=== PATIENT | male | born 1955 | race Caucasian/White ===

== ENCOUNTER → 2020-06-27 06:59 | Outpatient (CLI) | payer OTHER, SELFPAY ==
--- NOTE | 2020-06-27 07:23 | MRI_ITS ---
STUDY: MRI LEFT WRIST WITHOUT CONTRAST REASON FOR EXAM: Male, 64 years old. navicular fx left wrist, contusion, pain s/p fall 9 days ago TECHNIQUE: Standardized fat and water weighted pulse sequences were obtained in all 3 orthogonal planes. COMPARISON: None. FINDINGS: Normal visualized distal radius and ulna. There is a joint effusion of the distal radioulnar articulation with capsular distension. Normal triangular fibrocartilaginous complex (TFCC). Acute nondisplaced fracture through the waist of the scaphoid bone. Normal radiocarpal, intercarpal and midcarpal articulations. Normal pisotriquetral articulation. Normal visualized interosseous scapholunate ligament. Normal visualized dorsal (extrinsic) ligaments. Normal visualized volar (extrinsic) ligaments. Normal extensor tendons. Normal flexor tendons. Normal carpal tunnel with a normal median nerve. There is degenerative arthrosis of the carpometacarpal articulation of the thumb with mild radial subluxation of the first metacarpus. Normal second through fifth carpometacarpal articulations. Normal visualized metacarpal bones. There is no demonstrated soft tissue abnormality. MRI/Upper Ext Joint Only(Routine) IMPRESSION: 1. Acute nondisplaced fracture of the waist of the scaphoid bone. 2. Distal radial ulnar joint effusion but intact TFCC. 3. Moderate first carpometacarpal joint arthrosis. Electronically Signed: Gómez Valente MD at 9:18 EDT Tel , Service support ,
== END ==
PROVIDERS: PCP Family Medicine; Referring Provider Emergency Medicine; Visit Provider Emergency Medicine
DX: S62.022A Displaced fracture of middle third of navicular [scaphoid] bone of left wrist, initial encounter for closed fracture (principal); S62.021A Displaced fracture of middle third of navicular [scaphoid] bone of right wrist, initial encounter for closed fracture; X58.XXXA Exposure to other specified factors, initial encounter; Y93.9 Activity, unspecified; Y92.9 Unspecified place or not applicable; Y99.9 Unspecified external cause status
CPT/HCPCS: 73221

== ENCOUNTER → 2021-06-26 | Outpatient (CLI) | payer MEDICARE, SELFPAY ==
[2021-06-26 13:33] LABS: D-Dimer Quantitative (DVT/PE) 0.65 FEU/ug/m (0.27-0.49)
== END | disposition home or self-care (01) ==
PROVIDERS: PCP Family Medicine; Visit Provider Family Medicine
DX: R06.02 Shortness of breath (principal)
CPT/HCPCS: 85379

== ENCOUNTER 2021-06-27 16:25 | Emergency (ER) | payer MEDICARE, BC, SELFPAY ==
[2021-06-27 16:26] VITALS: BP 145/71; PULSE 48; RESP 18; TEMP 36.9; O2SAT 98; BMI 31.6
[2021-06-27 16:37] VITALS: O2SAT 98
--- NOTE | 2021-06-27 16:38 | EKG12_ITS ---
Test Reason : SOB Blood Pressure : / mmHG Vent. Rate : 087 BPM Atrial Rate : 087 BPM P-R Int : 148 ms QRS Dur : 098 ms QT Int : 430 ms P-R-T Axes : 058 -55 045 degrees QTc Int : 517 ms Sinus rhythm with frequent Premature ventricular complexes in a pattern of bigeminy Left axis deviation Inferior infarct , age undetermined Prolonged QT Abnormal ECG Confirmed by DEBO VARGAS, EBENEZER ([id number]), newspaper managing editor HOA MAN ([id number]) on 06/30/2021 1:37:51 PM Referred By: PL Confirmed By:KASIA EDMONDSON MD
[2021-06-27 17:26] VITALS: BP 122/61; PULSE 84; RESP 17; O2SAT 99
[2021-06-27] MEDS: Ipratropium/Albuterol Sulfate 3 ML AMPUL.NEB INHALATION (17:45)
[2021-06-27 17:46] VITALS: PULSE 88; RESP 17
--- NOTE | 2021-06-27 17:57 | ED.VIS.DYS ---
HPI History of Present Illness Chief Complaint: Shortness of Breath Informant: patient Narrative Narrative: Patient complains that when he falls asleep he instantly wakes up because he stops breathing. He has a sensation in his sternal notch that he is not able to describe. It is not pain or pressure. But it is a sensation is different than normal. He denies being short of breath or coughing when he is awake. He is afraid to go to sleep because he stops breathing. It sounds like he is going to be worked up for sleep apnea. He has seen his private physician over at [facility] locally for this. He states that he just had a CAT scan of his chest with contrast that showed no blood clot. However, there was suspicion of a pneumonia toward the left base. He also evidently had an echocardiogram that is reportedly normal. I am not able to access the results of these tests that were just done within the last 24 hours. He has follow-up with cardiology. He also has follow-up sleep studies. He did just start 2 medicines today. 1 is an antibiotic but he is not sure what the other one is. Going to sleep brings on his symptoms. Nothing specifically makes them go away other than staying awake. [facility] Medical History Diabetes Hypertension Home Medications Budesonide Nasal [Rhinocort Aqua] 2 spray NASAL DAILY #1 bottle 02/15/15 [Rx Last Taken Unknown] Levocetirizine Dihydrochloride [Xyzal] 5 mg PO QHS #20 tablet 02/15/15 [Rx Last Taken Unknown] Ranitidine [Zantac] 150 mg PO DAILY 02/15/15 [History Last Taken Unknown] allopurinol 300 mg PO BIDCM 02/15/15 [History Last Taken Unknown] colchicine 0.6 mg PO X1 02/15/15 [History Last Taken Unknown] indomethacin [Indocin] 02/15/15 [History Last Taken Unknown] meloxicam 15 mg PO DAILY 02/15/15 [History Last Taken Unknown] metformin 500 mg PO DAILY 02/15/15 [History Last Taken Unknown] methylprednisolone 4 mg PO UD #1 box 02/15/15 [Rx Last Taken Unknown] potassium chloride 10 meq PO DAILY 02/15/15 [History Last Taken Unknown] triamterene-hydrochlorothiazid 1 tab PO DAILY 02/15/15 [History Last Taken Unknown] amlodipine 06/27/21 [History Last Taken Unknown] aspirin 81 mg PO DAILY 06/27/21 [History Last Taken Unknown] Allergy/AdvReac Type Severity Reaction Status Date / Time No Known Allergies Allergy Verified 06/27/21 16:28 Social History Smoking Status: Former smoker ROS ROS ED Constitutional Constitutional ED: Denies chills or fever(s) Eyes Eyes: Denies change in vision ENT ENT ED: Reports other Details: Feeling in his sternal notch area that he is not able to define or describe. ; Denies rhinorrhea or sore throat Cardiovascular Cardiovascular: Reports other Details: Despite slightly irregular rhythm on the monitor, he has no palpitations. ; Denies chest pain, palpitations or racing heartbeat Respiratory/Chest Respiratory/Chest: Reports other Details: See HPI ; Denies cough, dyspnea or sputum Gastrointestinal Gastrointestinal: Denies abdominal pain, nausea or vomiting Genitourinary Genitourinary ED: Denies dysuria Musculoskeletal Musculoskeletal: Denies arthralgias, back pain or neck pain Integumentary Denies rash Neurologic Neurologic: Denies headache(s), paresthesias or weakness Psychiatric Psychiatric: Denies depression Hematologic/Lymphatic Hematologic/Lymphatic: Denies easy bleeding or easy bruising Allergic/Immunologic Allergic/Immunologic ED: Denies urticaria EXAM Physical Exam Const Vital Signs: 06/27/21 16:26 06/27/21 16:37 06/27/21 17:26 Temperature 98.4 F Temperature Source Temporal Pulse Rate 48 L 84 Respiratory Rate 18 17 Respiratory Effort Short of Breath Respiratory Pattern Blood Pressure 145/71 H 122/61 H Blood Pressure Mean 95 81 Pulse Ox 98 99 Oxygen Delivery Method Room Air Room Air Room Air 06/27/21 17:46 06/27/21 18:00 06/27/21 19:00 Temperature Temperature Source Pulse Rate 88 79 84 Respiratory Rate 17 15 15 Respiratory Effort Respiratory Pattern Normal Blood Pressure 115/67 131/71 H Blood Pressure Mean 83 91 Pulse Ox 97 97 Oxygen Delivery Method Room Air Room Air Positive well nourished and well developed General Appearance ED: well developed and NAD HEENT atraumatic; Negative for trauma Eyes Negative for EOMs intact bilaterally Neck No no lymphadenopathy and No no JVD Resp normal respiratory effort and clear to auscultation bilaterally Effort and Inspection: Negative for pain with movement Auscultation: Negative for rales, rhonchi, wheezes or diminished lung sounds Cardio regular rate; Negative for regular rhythm GI non-tender Palpation: soft Back/Spine no CVA tenderness and normal to inspection Extremity normal to inspection General Extremety ED: Negative for edema or tenderness General Extremity: Negative for edema Neuro oriented x3 Sensorium / Orientation: alert Psych mental status grossly normal Skin Lesions: no lesions Rashes: no rashes MDM MDM MDM Narrative Medical decision making narrative: Patient was given a DuoNeb. Viewed the chart that I had available. He did have an elevated D-dimer yesterday. I am not able to obtain his CT or cardiac echo. I have looked on our primary system and radiology system. We have made multiple calls to [facility] trying to obtain this information. Each time we call, we get placed into a loop and cannot get to a source that we can get this information. Patient left pending us obtaining this information or doing a repeat evaluation. EKG Initial EKG: Comments: EKG shows us bigeminy. Underlying sinus rhythm. Overall rate is 87. Nonspecific ST and T wave changes. DC interval, QRS duration normal. QTc does appear to be slightly long but this is somewhat altered by his rhythm. Discharge Plan Triage Chief Complaint: Shortness of Breath ED Provider: Mxa Capps Dx/Rx/DC Orders Clinical Impression: Sleep apnea, Dyspnea, Community acquired pneumonia Prescriptions: No Action triamterene-hydrochlorothiazid 1 EACH capsule 1 tab PO DAILY RF: 0 indomethacin [Indocin] 50 MG Supp.Rect RF: 0 meloxicam 15 MG tablet 15 mg PO DAILY RF: 0 allopurinol 300 MG tablet 300 mg PO BIDCM RF: 0 metformin 500 MG tablet 500 mg PO DAILY RF: 0 potassium chloride 10 MEQ tablet 10 meq PO DAILY RF: 0 colchicine 0.6 MG tablet 0.6 mg PO X1 RF: 0 Ranitidine [Zantac] 150 MG tablet 150 mg PO DAILY RF: 0 Levocetirizine Dihydrochloride [Xyzal] 5 MG tablet 5 mg PO QHS Qty: 20 RF: 0 Budesonide Nasal [Rhinocort Aqua] 8.6 GM bottle 2 spray NASAL DAILY Qty: 1 RF: 0 methylprednisolone 4 MG Box 4 mg PO UD Qty: 1 RF: 0 amlodipine 5 mg tablet RF: 0 aspirin 81 mg Capsule 81 mg PO DAILY RF: 0 Primary Care Provider: Oliver Malloy Referrals: Oliver Malloy MD [Primary Care Provider] - Disposition Disposition: Elopement Discharge Date/Time: 06/27/21 19:48
[2021-06-27 18:00] VITALS: BP 115/67; PULSE 79; RESP 15; O2SAT 97
[2021-06-27 19:00] VITALS: BP 131/71; PULSE 84; RESP 15; O2SAT 97
--- NOTE | 2021-06-27 19:46 | ED.RN ---
Pt stating he wanted to leave. MD notified. Pt left before MD went back to reevaluate.
== END 2021-06-27 19:48 | disposition left against medical advice (07) ==
LOC: ED 17:53
PROVIDERS: Emergency Provider Emergency Medicine; PCP Family Medicine
DX: J18.9 Pneumonia, unspecified organism (principal); G47.30 Sleep apnea, unspecified; I10 Essential (primary) hypertension; E11.9 Type 2 diabetes mellitus without complications; Z79.84 Long term (current) use of oral hypoglycemic drugs; Z79.82 Long term (current) use of aspirin; Z79.899 Other long term (current) drug therapy; Z87.891 Personal history of nicotine dependence
CPT/HCPCS: 93005; 94640; 99282

== ENCOUNTER → 2021-07-03 10:11 | Outpatient (CLI) | payer MEDICARE, BC, SELFPAY | PROVIDERS: PCP Family Medicine; Referring Provider Internal Medicine Cardiovascular Disease; Visit Provider Internal Medicine Cardiovascular Disease | DX: I49.49 Other premature depolarization (principal) | CPT/HCPCS: 87426; 93225; 93226; C9803 ==

== ENCOUNTER → 2021-07-08 06:44 | Day surgery (SDC) | payer MEDICARE, BC, SELFPAY ==
[2021-07-07 17:02] VITALS: BMI 30.9
--- NOTE | 2021-07-08 08:56 | CL.D_ITS ---
Patient Name: ROJELIO SURESH Study Date: 07/08/2021 Performing: Saul Bourgeois MD Ht: 70.86 inches 180 cm : 1955 Wt: 222.67 lbs 101 kg Age: 65 Gender: male BSA: 2.2 PROCEDURE(S) PERFORMED IN03-TCH/COR/LV CLINICAL PROFILE AND INDICATIONS Indications: Suspected CAD, Cardiomyopathy Heart Failure: NYHA Class: 2, Newly Diagnosed: Yes, Heart Failure Type: Systolic Stress/Imaging Stress/Image Study Performed: No CAD Presentations: Symptom unlikely to be ischemic. CONCLUSIONS Severe disease noted of the left anterior descending artery and high-grade stenosis noted of a calcif ied left circumflex artery with left ventricular systolic dysfunction. RECOMMENDATIONS Will recommend coronary bypass surgery or high risk PCI DESCRIPTION OF PROCEDURE The patient arrived to the procedure lab. The risks and benefits of the procedure as well as a full d escription of our services here and current unavailability of surgical backup were fully explained to the patient and/or their significant other prior to the catheterization. The Timeout was completed, verifying the correct patient and procedure. The patient's procedural site was prepped and draped in the usual fashion. Local anesthetic was given subcutaneously to right radial region with Lidocaine 2% . Using a modified Seldinger technique, arterial access was obtained via the right radial artery, a 6 Fr sheath was inserted. Left Coronary Artery selective angiography was performed in multiple views u sing a 5 Fr. 4.0 [place] catheter. Right Coronary Artery selective angiography was then performed in mu ltiple views using a 5 Fr. 4.0 [place] catheter. Left Ventriculography was performed in LOZANO projection using a 5 Fr. Pigtail catheter. LV to AO pullback pressures were then recorded.The arterial sheath was pulled and a TR Band was applied for hemostasis CORONARY ANGIOGRAPHY DOMINANCE: Left Dominant LEFT HEART ASSESSMENT Left Ventricular Ejection Fraction: by LV Gram 35 % Anterior Hypokinesis - Moderate Depressed Left Ventricular systolic function LEFT MAIN: Mild calcification, No significant disease noted LEFT ANTERIOR DESCENDING ARTERY: MID LAD: is occluded DISTAL LAD: Distal LAD fills via collaterals from the left circumflex distribution CIRCUMFLEX ARTERY: Large dominant calcifiedVessel with bifurcating 80% stenosis in the midsegment RIGHT CORONARY ARTERY: Mild luminal irregularities less than 30% COMPLICATIONS No Complications PROCEDURE MEDICATIONS Versed 1 mg IV Fentanyl 50 mcg IV Oxygen: 2 L/min via nasal cannula Heparin given IA 07/08/2021 08:07:33 SUMMARY OF HEMODYNAMIC DATA Time AIR REST ECG 07:04:12 AO 111/59 (85) SA 08:10:38 LV 116/9, 25 08:19:15 LV 120/10, 24 08:19:21 LV 114/12, 24 08:20:24 LVp 110/18, 28 08:20:35 AOp 123/68 (91) 08:20:40 RM AIR REST 08:44:25 Signed By Saul Bourgeois MD On 07/08/2021 8:57:15 AM Signed By Saul Bourgeois MD On 07/08/2021 8:55:40 AM Saul Bourgeois MD
== END ==
PROVIDERS: PCP Family Medicine; Referring Provider Internal Medicine Cardiovascular Disease; Visit Provider Internal Medicine Cardiovascular Disease
DX: I25.10 Atherosclerotic heart disease of native coronary artery without angina pectoris (principal); I42.9 Cardiomyopathy, unspecified; I11.0 Hypertensive heart disease with heart failure; I50.9 Heart failure, unspecified; I49.49 Other premature depolarization; M10.9 Gout, unspecified; E11.9 Type 2 diabetes mellitus without complications; M19.90 Unspecified osteoarthritis, unspecified site; Z87.01 Personal history of pneumonia (recurrent); Z79.84 Long term (current) use of oral hypoglycemic drugs; Z79.899 Other long term (current) drug therapy; Z87.891 Personal history of nicotine dependence
CPT/HCPCS: 93458; 99152; 99153; J7040; Q9967; C1769; C1894

== ENCOUNTER 2021-07-09 23:29 | Emergency (ER) | payer MEDICARE, BC, SELFPAY ==
[2021-07-09 23:30] VITALS: BP 112/61; PULSE 82; RESP 16; TEMP 36.6; O2SAT 93; BMI 31.4
--- NOTE | 2021-07-09 23:53 | EKG12_ITS ---
Test Reason : DYSRHYTHMIA Blood Pressure : / mmHG Vent. Rate : 078 BPM Atrial Rate : 078 BPM P-R Int : 166 ms QRS Dur : 104 ms QT Int : 406 ms P-R-T Axes : 043 -58 -06 degrees QTc Int : 462 ms Sinus rhythm with frequent Premature ventricular complexes Left axis deviation Inferior infarct , age undetermined Abnormal ECG Confirmed by DEBO VARGAS, EBENEZER ([id number]), metropolitan editor HOA MAN ([id number]) on 07/10/2021 1:01:54 PM Referred By: JOSAFAT Confirmed By:KASIA EDMONDSON MD
[2021-07-09 23:58] VITALS: O2SAT 98
[2021-07-10 00:01] VITALS: BP 126/61; PULSE 90; RESP 15; O2SAT 97
[2021-07-10 00:05] LABS: Absolute Lymphocyte Count 2.02 X10^3/uL (0.83-4.51); Absolute Neutrophil Count 2.3 X10^3/uL (2.0-7.7); Basophil# 0.04 X10^3/uL; Basophil% 0.8 % (0-1); Eosinophil# 0.17 X10^3/uL; Eosinophils% 3.3 % (0-5); Hematocrit 37.3 % (40-54); Hemoglobin 13.3 g/dL (13.0-16.5); Lymphocyte # 2.02 X10^3/ul (0.83-4.51); Lymphocyte % 39.3 % (19-41); Mean Corp Hgb Conc 35.7 g/dL (32-36); Mean Corpuscular Hgb 33.8 pg (27.0-32.0); Mean Corpuscular Volume 94.7 fL (80-94); Mean Platelet Vol. 10.6 fl (6.2-12.0); Monocyte# 0.59 X10^3/uL; Monocyte% 11.5 % (0-10); NRBC Flagged by Analyzer 0 % (0-5); Neutrophil % 44.7 % (47-70); Platelet Count 135 K/mm3 (150-450); RBC Distribution Width CV 13.2 % (11.6-14.6); RBC Distribution Width SD 46.1 fl (35.1-43.9); Red Blood Count 3.94 M/mm3 (4.6-6.2); White Blood Count 5.1 K/mm3 (4.4-11.0)
[2021-07-10 00:17] LABS: Anion Gap 9 (5-15); BUN 16 mg/dL (7-18); BUN/Creat Ratio 18.3 RATIO (10-20); Calcium,Total 8.6 mg/dL (8.5-10.1); Chloride 100 mmol/L (98-107); Creatinine, Serum 0.88 mg/dL (0.70-1.30); EST Glomerular Filtration Rate 93 mL/min (>60); Est Glom Filt Rate - Afr Amer 112 mL/min (>60); Estimated Creatinine Clearance 89.13 ml/min; Glucose 122 mg/dL (74-106); Potassium 3.3 mmol/L (3.5-5.1); Sodium Level 137 mmol/L (136-145); Troponin-I HS 17 pg/mL (3.0-78.0)
--- NOTE | 2021-07-10 01:24 | EX.ED.DYSGE1 ---
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 Tonight at home he started quivering all over he states. He is unsure if he felt palpitations during this, but states he did not feel lightheaded, near syncopal, or pass out. He has had no recent illness except for dyspnea especially when lying down and sometimes waking up in the middle of the night, which is what led to the heart cath. He had a heart monitor that showed ventricular tachycardia at 1 point, and as result of this and his coronary disease he was told that if he has any abnormal symptoms to go to the ER immediately. He states he is starting to feel little better now, his symptoms started about an hour or 2 prior to arrival. He did have the symptoms when EMS obtained an EKG which did not show V. tach. 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 Community acquired pneumonia (06/27/21) Esophagitis Essential hypertension Gout HFrEF (heart failure with reduced ejection fraction) Ischemic cardiomyopathy Multiple premature ventricular complexes Tobacco abuse Type 2 diabetes mellitus Home Medications allopurinol 300 mg PO BIDCM 02/15/15 [History Last Taken Unknown] meloxicam 15 mg PO DAILY 02/15/15 [History Last Taken Unknown] aspirin 81 mg PO DAILY 06/27/21 [History Last Taken 07/08/21] fluticasone propionate 50 mcg/actuation nasal spray,suspension 1 spray INTRANASAL DAILY g 07/02/21 [History Last Taken Unknown] omeprazole 40 mg capsule,delayed release 40 mg PO DAILY 07/02/21 [History Last Taken Unknown] probenecid 500 mg-colchicine 0.5 mg tablet 1 tab PO DAILY tab 07/02/21 [History Last Taken Unknown] doxycycline monohydrate 100 mg tablet 100 mg PO BID tab 07/03/21 [History Last Taken Unknown] furosemide 40 mg tablet 40 mg PO DAILY #60 tab 07/03/21 [Rx Last Taken Unknown] metformin 500 mg tablet,extended release 24 hr 500 mg PO BID tab 07/03/21 [History Last Taken Unknown] potassium chloride 20 mEq tablet,extended release(part/cryst) 20 meq PO DAILY #60 tab 07/03/21 [Rx Last Taken 07/08/21] amlodipine 5 mg tablet 5 mg PO DAILY tab 07/07/21 [History Last Taken 07/08/21] carvedilol 12.5 mg tablet 12.5 mg PO BID #60 tab 07/07/21 [Rx Last Taken 07/08/21] Allergy/AdvReac Type Severity Reaction Status Date / Time No Known Allergies Allergy Verified 07/09/21 23:35 Surgical History Abnormal findings on esophagogastroduodenoscopy (EGD) (04/2021) History of colonoscopy (04/2021) History of herniorrhaphy History of left heart catheterization (07/08/21) Social History Smoking Status: Former smoker alcohol intake: current Alcohol type: beer ROS ROS ED Constitutional Constitutional ED: Reports as per HPI and malaise; Denies chills or fever(s) Eyes Eyes: Denies change in vision or diplopia ENT ENT ED: Denies rhinorrhea or sore throat Cardiovascular Cardiovascular: Denies chest pain or palpitations Respiratory/Chest Respiratory/Chest: Denies cough or dyspnea Gastrointestinal Gastrointestinal: Denies abdominal pain, diarrhea, nausea or vomiting Genitourinary Genitourinary ED: Denies dysuria or hematuria Musculoskeletal Musculoskeletal: Denies back pain or neck pain Integumentary Denies abscess or rash Neurologic Neurologic: Denies headache(s), paresthesias or weakness Psychiatric Psychiatric: Reports anxiety; Denies suicidal thoughts EXAM Physical Exam Const Vital Signs: 07/09/21 23:30 07/09/21 23:57 07/09/21 23:58 Temperature 97.9 F Temperature Source Oral Pulse Rate 82 Respiratory Rate 16 Blood Pressure 112/61 Blood Pressure Mean 78 Pulse Ox 93 98 Oxygen Delivery Method Room Air Room Air Room Air 07/10/21 00:07/10/21 02:01 Temperature Temperature Source Pulse Rate 90 90 Respiratory Rate 15 15 Blood Pressure 126/61 H 140/65 H Blood Pressure Mean 82 90 Pulse Ox 97 97 Oxygen Delivery Method Room Air Room Air Positive well nourished and well developed General Appearance ED: well developed and NAD HEENT Reports moist mucous membranes normocephalic and atraumatic Eyes PERRL and EOMs intact bilaterally Neck full ROM and supple Resp normal respiratory effort and clear to auscultation bilaterally Cardio regular rate, regular rhythm and no murmurs Rate: Negative for tachycardic GI non-tender and non-distended Auscultation: normoactive bowel sounds Palpation: soft Back/Spine no CVA tenderness General Back: other FROM Extremity normal to inspection General Extremety ED: Negative for edema, pulses abnormal or tenderness General Extremity: Negative for edema or pulses abnormal Neuro oriented x3, CN's II-XII intact bilaterally and no sensory deficits noted Sensorium / Orientation: awake and alert Motor Exam: strength 5/5 throughout Psych thought process normal and cooperative Psych Narrative: Anxious Skin no rashes or lesions noted and no wounds MDM MDM MDM Narrative Medical decision making narrative: Patient was monitored, his symptoms slowly resolved without treatment. His initial troponin is negative at 17, he has frequent ectopy but no dysrhythmias or acute injury pattern or changes from his old EKG. Continue to observe him and did a 2-hour repeat troponin, it is also 17 for a delta of 0. Given this, and the fact that he had no lightheadedness or syncopal episodes at home, I feel more comfortable letting him go home which is what he prefers to do. Welcome to return for any recurrent symptoms. Lab Data Attestation: I reviewed the patient's lab results. Labs: Laboratory Results - last 24 hr 07/09/21 07/09/21 07/10/21 23:35 23:35 01:35 WBC 5.1 RBC 3.94 L Hgb 13.3 Hct 37.3 L MCV 94.7 H MCH 33.8 H MCHC 35.7 RDW Std Deviation 46.1 H RDW Coeff of Mirlande 13.2 Plt Count 135 L MPV 10.6 Immature Gran % (Auto) 0.400 Neut % (Auto) 44.7 L Lymph % (Auto) 39.3 [place] % (Auto) 11.5 H Eos % (Auto) 3.3 Baso % (Auto) 0.8 Absolute Neuts (auto) 2.3 Absolute Lymphs (auto) 2.02 Nucleated RBC % 0 Sodium 137 Potassium 3.3 L Chloride 100 Carbon Dioxide 28.0 Anion Gap 9 BUN 16 Creatinine 0.88 Estim Creat Clear Calc 89.13 Est GFR (MDRD) Af Amer 112 Est GFR (MDRD) Non-Af 93 BUN/Creatinine Ratio 18.3 Glucose 122 H Calcium 8.6 Troponin I High Sens 17 17 EKG Initial EKG: Attestation: I personally reviewed and interpreted this EKG as follows: Interpretation: Sinus Rhythm and No Acute Injury Pattern Comments: Frequent vent ectopy Prior EKG tracings: available for review Prior: Unchanged Discharge Plan Triage Chief Complaint: Anxiety ED Provider: Juanito Clemente Dx/Rx/DC Orders Clinical Impression: Anxiety attack, 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 Instructions: ED Anxiety Reaction Prescriptions: No Action omeprazole 40 mg capsule,delayed release(DR/EC) 40 mg PO DAILY RF: 0 probenecid-colchicine 500-0.5 mg tablet 1 tab PO DAILY RF: 0 fluticasone propionate 50 mcg/actuation spray,suspension 1 spray intranasal DAILY RF: 0 doxycycline monohydrate 100 mg tablet 100 mg PO BID RF: 0 potassium chloride 20 mEq tablet,ER particles/crystals 20 meq PO DAILY Qty: 60 RF: 3 furosemide 40 mg tablet 40 mg PO DAILY Qty: 60 RF: 3 meloxicam 15 MG tablet 15 mg PO DAILY RF: 0 allopurinol 300 MG tablet 300 mg PO BIDCM RF: 0 metformin 500 mg tablet extended release 24 hr 500 mg PO BID RF: 0 aspirin 81 mg Capsule 81 mg PO DAILY RF: 0 carvedilol [Coreg] 12.5 mg tablet 12.5 mg PO BID Qty: 60 RF: 11 amlodipine 5 mg tablet 5 mg PO DAILY RF: 0 Primary Care Provider: Oliver Malloy Referrals: Oliver Malloy MD [Primary Care Provider] - As Needed Disposition Disposition: Home, Self Care
[2021-07-10 02:01] VITALS: BP 140/65; PULSE 90; RESP 15; O2SAT 97
[2021-07-10 02:05] LABS: Troponin-I HS 17 pg/mL (3.0-78.0)
[2021-07-10 02:36] VITALS: BP 127/75; PULSE 90; RESP 15; O2SAT 99
== END 2021-07-10 02:37 | disposition home or self-care (01) ==
PROVIDERS: Emergency Provider Emergency Medicine; PCP Family Medicine
DX: F41.9 Anxiety disorder, unspecified (principal); I25.118 Atherosclerotic heart disease of native coronary artery with other forms of angina pectoris; I11.0 Hypertensive heart disease with heart failure; I50.9 Heart failure, unspecified; E11.9 Type 2 diabetes mellitus without complications; Z95.1 Presence of aortocoronary bypass graft; Z87.891 Personal history of nicotine dependence; Z79.84 Long term (current) use of oral hypoglycemic drugs; Z79.82 Long term (current) use of aspirin; Z79.899 Other long term (current) drug therapy
CPT/HCPCS: 36415; 80048; 84484; 85025; 93005; 99285; A4216

== ENCOUNTER 2021-08-21 20:52 | Emergency (ER) | payer MEDICARE, BC, SELFPAY ==
[2021-08-21 20:53] VITALS: BP 119/88; PULSE 123; RESP 36; TEMP 37.3; O2SAT 96; BMI 34.6
--- NOTE | 2021-08-21 21:17 | EKG12_ITS ---
Test Reason : CP Blood Pressure : / mmHG Vent. Rate : 130 BPM Atrial Rate : 133 BPM P-R Int : 000 ms QRS Dur : 096 ms QT Int : 328 ms P-R-T Axes : 000 -54 -10 degrees QTc Int : 482 ms Atrial fibrillation with premature ventricular or aberrantly conducted complexes Left axis deviation Septal infarct , age undetermined Abnormal ECG Confirmed by ZANE VARGAS, BHARTI ([id number]), social media editor HOA MAN ([id number]) on 08/26/2021 6:53:32 AM Referred By: JUDY Confirmed By:BHARTI DEGROOT MD
[2021-08-21 21:27] LABS: Absolute Lymphocyte Count 1.29 X10^3/uL (0.83-4.51); Absolute Neutrophil Count 5.1 X10^3/uL (2.0-7.7); Basophil# 0.03 X10^3/uL; Basophil% 0.4 % (0-1); Eosinophil# 0.18 X10^3/uL; Eosinophils% 2.5 % (0-5); Hematocrit 27.7 % (40-54); Hemoglobin 9.4 g/dL (13.0-16.5); Lymphocyte # 1.29 X10^3/ul (0.83-4.51); Lymphocyte % 17.8 % (19-41); Mean Corp Hgb Conc 33.9 g/dL (32-36); Mean Corpuscular Hgb 32.4 pg (27.0-32.0); Mean Corpuscular Volume 95.5 fL (80-94); Mean Platelet Vol. 10.4 fl (6.2-12.0); Monocyte# 0.62 X10^3/uL; Monocyte% 8.6 % (0-10); NRBC Flagged by Analyzer 0 % (0-5); Neutrophil # 5.08 X10^3/uL (2.7-7.7); Platelet Count 198 K/mm3 (150-450); RBC Distribution Width CV 14.1 % (11.6-14.6); White Blood Count 7.3 K/mm3 (4.4-11.0)
[2021-08-21 21:28] VITALS: O2SAT 94
--- NOTE | 2021-08-21 21:30 | RAD_ITS ---
STUDY: X-RAY CHEST REASON FOR EXAM: Male, 65 years old. Chest pain. Recent cardiac bypass surgery. Shortness of breath. Consent atrial fibrillation. TECHNIQUE: Single AP portable view of the chest. COMPARISON: None. FINDINGS: The lungs are well expanded. There is bandlike atelectasis in the right lung base small left pleural effusion. Sternal cerclage wires are present from a prior sternotomy. Heart is mildly enlarged. Normal mediastinum and radhika. Normal visualized pulmonary arteries. Normal visualized aortic arch and descending thoracic aorta. The thoracic spine is obscured by the mediastinum. Normal visualized ribs, clavicles, and shoulders. There is no demonstrated abnormality of the visualized soft tissue structures of the upper abdomen. RAD/Chest 1 View (Portable) IMPRESSION: 1. Mild cardiomegaly with evidence of median sternotomy. 2. Small left pleural effusion. 3. Bandlike atelectasis at the right lung base. Electronically Signed: Justin Corcoran DO at 22:17 EDT Tel [phone], Service support ,
[2021-08-21 21:42] LABS: D-Dimer Quantitative (DVT/PE) 2.43 FEU/ug/m (0.27-0.49)
[2021-08-21 21:43] LABS: Anion Gap 7 (5-15); BUN 18 mg/dL (7-18); BUN/Creat Ratio 20.5 RATIO (10-20); Calcium,Total 8.7 mg/dL (8.5-10.1); Chloride 103 mmol/L (98-107); Creatinine, Serum 0.88 mg/dL (0.70-1.30); EST Glomerular Filtration Rate 93 mL/min (>60); Est Glom Filt Rate - Afr Amer 112 mL/min (>60); Estimated Creatinine Clearance 89.13 ml/min; Glucose 148 mg/dL (74-106); Potassium 4.4 mmol/L (3.5-5.1); Sodium Level 135 mmol/L (136-145); Troponin-I HS 42 pg/mL (3.0-78.0)
--- NOTE | 2021-08-21 21:51 | CT_ITS ---
STUDY: CTA CHEST REASON FOR EXAM: Male, 65 years old. dyspnea RADIATION DOSAGE (If Supplied By Facility): CTDIvol = ( 18.58 ) mGy, DLP = ( 551.90 ) mGycm TECHNIQUE: The examination was performed with the intravenous administration of IV 100mL Isovue-370. Post-processing of the angiographic images was performed, with multiplanar reformation and 3D reconstruction. Individualized dose optimization techniques were used for this CT. COMPARISON: None. FINDINGS: Normal enhancement of the main pulmonary artery and right and left pulmonary arteries. Normal enhancement of the bilateral peripheral pulmonary arteries. There is no demonstrated pulmonary embolism. Normal thoracic aorta and visualized great vessels. There is no demonstrated aortic dissection. Moderate cardiomegaly. Mild pericardial effusion Normal mediastinum. Normal hilar regions. Normal visualized trachea and bronchi. The lungs are well expanded. Bibasilar airspace disease with small effusions. Linear atelectasis also noted in the lung bases. Normal pleura. Normal chest wall structures. Normal osseous structures. Normal visualized upper abdomen. CT/CTA Chest W/WO Contrast IMPRESSION: Normal CTA chest examination, without a demonstrated pulmonary embolism or arterial dissection. Moderate cardiomegaly with mild pericardial effusion. Bibasilar airspace disease with small effusions. Additional linear atelectasis in both lung bases. Electronically Signed: Henry Gallagher DO at 22:32 EDT Tel , Service support ,
--- NOTE | 2021-08-21 21:52 | ED.VIS.CHEST ---
HPI History of Present Illness Chief Complaint: Chest Pain Narrative Narrative: 65-year-old male presenting with chest pain and shortness of breath. Patient has a history of CAD, ischemic cardiomyopathy, CHF, hypertension, diabetes. Patient recently had three-vessel CABG 08-13-2021 at [facility]. Patient states that his shortness of breath and chest pain issue has been ongoing for a couple of months. The home health care nurse called them and stated that she had noted that he might be in atrial fibrillation which she has not had before. Apparently a prescription for metoprolol was called in and is taken 2 doses and his heart rate is still about 120. Patient states that he has not had a fever or cough that is new. He denies body aches or chills. He denies loss of taste or smell. He has not had any nausea or vomiting. He is making normal urine and stool. He denies black or bloody stools. [facility] Medical History Arthritis Atherosclerotic heart disease of [place] coronary artery with other forms of angina pectoris Community acquired pneumonia (06/27/21) Esophagitis Essential hypertension Gout HFrEF (heart failure with reduced ejection fraction) Ischemic cardiomyopathy Multiple premature ventricular complexes Thrombocytopenia Tobacco abuse Type 2 diabetes mellitus Home Medications allopurinol 300 mg PO BIDCM 02/15/15 [History Last Taken Unknown] meloxicam 15 mg PO DAILY 02/15/15 [History Last Taken Unknown] aspirin 81 mg PO DAILY 06/27/21 [History Last Taken 07/08/21] fluticasone propionate 50 mcg/actuation nasal spray,suspension 1 spray INTRANASAL DAILY g 07/02/21 [History Last Taken Unknown] omeprazole 40 mg capsule,delayed release 40 mg PO DAILY 07/02/21 [History Last Taken Unknown] probenecid 500 mg-colchicine 0.5 mg tablet 1 tab PO DAILY tab 07/02/21 [History Last Taken Unknown] doxycycline monohydrate 100 mg tablet 100 mg PO BID tab 07/03/21 [History Last Taken Unknown] furosemide 40 mg tablet 40 mg PO DAILY #60 tab 07/03/21 [Rx Last Taken Unknown] metformin 500 mg tablet,extended release 24 hr 500 mg PO BID tab 07/03/21 [History Last Taken Unknown] potassium chloride 20 mEq tablet,extended release(part/cryst) 20 meq PO DAILY #60 tab 07/03/21 [Rx Last Taken 07/08/21] amlodipine 5 mg tablet 5 mg PO DAILY tab 07/07/21 [History Last Taken 07/08/21] carvedilol 12.5 mg tablet 12.5 mg PO BID #60 tab 07/28/21 [Rx Last Taken Unknown] metoprolol tartrate 50 mg PO/SL BID 08/21/21 [History Last Taken Unknown] Allergy/AdvReac Type Severity Reaction Status Date / Time No Known Allergies Allergy Verified 08/21/21 21:05 Surgical History Abnormal findings on esophagogastroduodenoscopy (EGD) (04/2021) H/O coronary artery bypass surgery (08/13/21) History of colonoscopy (04/2021) History of herniorrhaphy History of left heart catheterization (07/08/21) Social History Smoking Status: Former smoker alcohol intake: current Alcohol type: beer ROS ROS ED Constitutional Constitutional ED: Denies chills or fever(s) Eyes Eyes: Denies blurry vision or change in vision ENT ENT ED: Denies rhinorrhea or sore throat Cardiovascular Cardiovascular: Reports chest pain and palpitations Respiratory/Chest Respiratory/Chest: Reports dyspnea Gastrointestinal Gastrointestinal: Denies abdominal pain, nausea or vomiting Genitourinary Genitourinary ED: Denies dysuria or hematuria Musculoskeletal Musculoskeletal: Denies arthralgias, myalgias or neck pain Integumentary Reports other Details: Surgical scars status post CABG ; Denies rash Neurologic Neurologic: Denies headache(s) or paresthesias EXAM Physical Exam Const Vital Signs: 08/21/21 20:53 08/21/21 21:06 08/21/21 21:28 Temperature 99.1 F Temperature Source Oral Pulse Rate 123 H Respiratory Rate 36 H Respiratory Effort Short of Breath Labored Blood Pressure 119/88 H Blood Pressure Mean 98 Pulse Ox 96 94 Oxygen Delivery Method Room Air Room Air 08/21/21 22:21 08/21/21 23:00 Temperature 99.1 F Temperature Source Axillary Pulse Rate 109 H 105 H Respiratory Rate 30 H 25 H Respiratory Effort Blood Pressure 119/86 H 122/76 H Blood Pressure Mean 97 91 Pulse Ox 93 93 Oxygen Delivery Method Room Air Room Air Positive well developed General Appearance ED: well developed and NAD HEENT Reports moist mucous membranes normocephalic and atraumatic Eyes PERRL and EOMs intact bilaterally Cardio Rate: tachycardic Rhythm: abnormal rhythm irregularly irregular Neuro oriented x3 and CN's II-XII intact bilaterally Sensorium / Orientation: awake and alert Psych mental status grossly normal Skin Skin Narrative: Surgical scar status post CABG on the chest appear to be well-healing. No induration or erythema.. No dehiscence. There is an abdominal surgical scar which is slightly dehisced without drainage, induration or erythema. Heart Score History: Slightly/Non-Suspicious ECG: Normal Age: >/= 65 years Risk Factors: >/= 3 Risk Factors or History of CAD Score: 4 MDM MDM MDM Narrative Medical decision making narrative: Patient presenting with chest pain and shortness of breath. He is found to be in atrial fibrillation at 130 bpm and reports this is new onset for him. Patient is not anticoagulated. Patient had a recent three-vessel bypass at [facility] on the sixth of this month. He states that he is near his baseline with shortness of breath and chest pain, but he expresses that he cannot take a deep breath as well as he could that he is not sure if this is because of the surgery order something new. It was reported to him that he was in A. fib at home by his health care nurse. Apparently he was called on metoprolol 50 mg p.o. twice daily. His reports that he had a event in the hospital but cannot describe what this is. She believes it is because of his rapid heart rate. He cannot recall the event. Patient's blood work shows that his white blood count is 7.3 and his hemoglobin is 9.4 which in our system appears to be low however when looking at [facility]'s most recent blood work prior to his discharge his hemoglobin is 8.6 at this is actually more elevated his renal function is normal. Troponin initially was 42 his second troponin is 40. Chest x-ray on my interpretation shows cardiomegaly with a small left pleural effusion and the radiologist agree. Due to patient's elevated D-dimer at 2.43 CTA was performed which shows small bilateral effusions and cardiomegaly with a small pericardial effusion however there is no dissection or PE that is noted. Patient is given carvedilol and his heart rate is down to 105. His respiratory rate has improved to 25. To the best of my ability this appears to be near his baseline. His oxygen is wavered to be 93 and 96% on room air. Given that he has new onset A. fib and new small pericardial effusion I did try to touch base with his change control specialist Dr. Wall to determine the best course of action for his care. All results were discussed with the patient. Discussed the case with Dr. Castle who is a cardiothoracic surgeon at [facility]. We discussed this at length. He felt the patient would best be served by keeping him on his beta-otilia and having him call the office in the morning. He felt he could get him into the office to determine whether he needs to be anticoagulated and get his heart rate under control. Patient is amenable to this plan. He is discharged in stable condition. He is given return precautions. Impression: 1. Bilateral pleural effusions 2. History of three-vessel CABG 3. Chest pain 5. New onset A. fib Lab Data Attestation: I reviewed the patient's lab results. Labs: Laboratory Results - last 24 hr 08/21/21 08/21/21 08/21/21 20:55 20:55 20:55 WBC 7.3 RBC 2.90 L Hgb 9.4 L Hct 27.7 L MCV 95.5 H MCH 32.4 H MCHC 33.9 RDW Std Deviation 49.0 H RDW Coeff of [place] 14.1 Plt Count 198 MPV 10.4 Immature Gran % (Auto) 0.700 Neut % (Auto) 70.0 Lymph % (Auto) 17.8 L [place] % (Auto) 8.6 Eos % (Auto) 2.5 Baso % (Auto) 0.4 Absolute Neuts (auto) 5.1 Absolute Lymphs (auto) 1.29 Nucleated RBC % 0 D-Dimer Quant (PE/DVT) 2.43 H* Sodium 135 L Potassium 4.4 Chloride 103 Carbon Dioxide 25.0 Anion Gap 7 BUN 18 Creatinine 0.88 Estim Creat Clear Calc 89.13 Est GFR (MDRD) Af Amer 112 Est GFR (MDRD) Non-Af 93 BUN/Creatinine Ratio 20.5 H Glucose 148 H Calcium 8.7 Troponin I High Sens 42 08/21/21 22:53 WBC RBC Hgb Hct MCV MCH MCHC RDW Std Deviation RDW Coeff of [place] Plt Count MPV Immature Gran % (Auto) Neut % (Auto) Lymph % (Auto) [place] % (Auto) Eos % (Auto) Baso % (Auto) Absolute Neuts (auto) Absolute Lymphs (auto) Nucleated RBC % D-Dimer Quant (PE/DVT) Sodium Potassium Chloride Carbon Dioxide Anion Gap BUN Creatinine Estim Creat Clear Calc Est GFR (MDRD) Af Amer Est GFR (MDRD) Non-Af BUN/Creatinine Ratio Glucose Calcium Troponin I High Sens 40 Radiography Diagnostic Testing: Clinical Impression(s) from Imaging Studies Chest X-Ray 08/21/21 21:30 IMPRESSION: 1. Mild cardiomegaly with evidence of median sternotomy. 2. Small left pleural effusion. 3. Bandlike atelectasis at the right lung base. Electronically Signed: Justin MainesburgDO at 22:17 EDT Tel [phone], Service support , Chest CTA 08/21/21 21:51 IMPRESSION: Normal CTA chest examination, without a demonstrated pulmonary embolism or arterial dissection. Moderate cardiomegaly with mild pericardial effusion. Bibasilar airspace disease with small effusions. Additional linear atelectasis in both lung bases. Electronically Signed: Henry Gallagher DO at 22:32 EDT Tel , Service support , Discharge Plan Triage Chief Complaint: Chest Pain ED Provider: Frederick Brown Dx/Rx/DC Orders Instructions: Understanding Pericardial Effusion, ED AFIB, ED Chest Pain, Uncertain Cause Prescriptions: No Action omeprazole 40 mg capsule,delayed release(DR/EC) 40 mg PO DAILY RF: 0 probenecid-colchicine 500-0.5 mg tablet 1 tab PO DAILY RF: 0 fluticasone propionate 50 mcg/actuation spray,suspension 1 spray intranasal DAILY RF: 0 doxycycline monohydrate 100 mg tablet 100 mg PO BID RF: 0 potassium chloride 20 mEq tablet,ER particles/crystals 20 meq PO DAILY Qty: 60 RF: 3 furosemide 40 mg tablet 40 mg PO DAILY Qty: 60 RF: 3 meloxicam 15 MG tablet 15 mg PO DAILY RF: 0 allopurinol 300 MG tablet 300 mg PO BIDCM RF: 0 metformin 500 mg tablet extended release 24 hr 500 mg PO BID RF: 0 aspirin 81 mg Capsule 81 mg PO DAILY RF: 0 metoprolol tartrate 50 mg PO/SL BID RF: 0 amlodipine 5 mg tablet 5 mg PO DAILY RF: 0 carvedilol [Coreg] 12.5 mg tablet 12.5 mg PO BID Qty: 60 RF: 11 Primary Care Provider: Oliver Malloy Referrals: Oliver Malloy MD [Primary Care Provider] - Disposition Disposition: Home, Self Care
[2021-08-21] MEDS: dilTIAZem 25 MG/5 ML Vial 10 MG IV BOLUS (22:14)
[2021-08-21 22:21] VITALS: BP 119/86; PULSE 109; PULSE 120; RESP 28; RESP 30; TEMP 37.3; O2SAT 92; O2SAT 93
[2021-08-21 23:00] VITALS: BP 122/76; PULSE 105; RESP 25; O2SAT 93
[2021-08-21 23:26] LABS: Troponin-I HS 40 pg/mL (3.0-78.0)
[2021-08-22] MEDS: dilTIAZem 25 MG/5 ML Vial 10 MG IV BOLUS (00:33)
[2021-08-22 00:35] VITALS: BP 125/93; PULSE 103; RESP 16; O2SAT 97
== END 2021-08-22 00:45 | disposition home or self-care (01) ==
PROVIDERS: Emergency Provider Student in an Organized Health Care Education/Training Program; PCP Family Medicine
DX: J90 Pleural effusion, not elsewhere classified (principal); I48.91 Unspecified atrial fibrillation; I25.5 Ischemic cardiomyopathy; I25.118 Atherosclerotic heart disease of native coronary artery with other forms of angina pectoris; I11.0 Hypertensive heart disease with heart failure; I50.20 Unspecified systolic (congestive) heart failure; E11.9 Type 2 diabetes mellitus without complications; M19.90 Unspecified osteoarthritis, unspecified site; M10.9 Gout, unspecified; Z95.1 Presence of aortocoronary bypass graft; Z79.84 Long term (current) use of oral hypoglycemic drugs; Z79.82 Long term (current) use of aspirin; Z79.02 Long term (current) use of antithrombotics/antiplatelets; Z79.899 Other long term (current) drug therapy; Z87.01 Personal history of pneumonia (recurrent); Z87.891 Personal history of nicotine dependence
CPT/HCPCS: 71045; 71275; 80048; 84484; 85025; 85379; 87426; 93005; 96374; 96376; 99284; Q9967; A4216

== ENCOUNTER 2021-08-23 09:23 | Emergency (ER) | payer MEDICARE, BC, SELFPAY ==
[2021-08-23 09:23] VITALS: BP 120/72; PULSE 103; RESP 18; TEMP 36.2; O2SAT 98; BMI 31.1
[2021-08-23 09:32] VITALS: BP 111/81; PULSE 119; RESP 20; O2SAT 98
--- NOTE | 2021-08-23 09:51 | RAD_ITS ---
STUDY: X-RAY CHEST REASON FOR EXAM: Male, 65 years old. Shortness of Breath -- shortness of breath TECHNIQUE: Single view of the chest was obtained COMPARISON: 08/21/2021. FINDINGS: Cardiac size appears enlarged. Small bilateral pleural effusions. Platelike atelectasis in the right midlung zone not seen. Subtle reticulonodular infiltrates and/or atelectasis in the left lower lobe retrocardiac region. Platelike atelectasis and/or scarring in the left upper lobe. IMPRESSION: No significant interval improvement in lung findings since previous exam. Electronically Signed: Blaze Hinson MD at 12:13 EDT Tel , Service support , RAD/Chest 1 View (Portable)
--- NOTE | 2021-08-23 09:51 | EKG12_ITS ---
Test Reason : PALPS Blood Pressure : / mmHG Vent. Rate : 100 BPM Atrial Rate : 110 BPM P-R Int : 000 ms QRS Dur : 098 ms QT Int : 316 ms P-R-T Axes : 000 -39 018 degrees QTc Int : 407 ms Atrial fibrillation with premature ventricular or aberrantly conducted complexes Left axis deviation Septal infarct , age undetermined Abnormal ECG Confirmed by ZANE VARGAS, BHARTI ([id number]), offline editor HOA MAN ([id number]) on 08/26/2021 8:51:04 AM Referred By: MARCK Confirmed By:BHARTI DEGOROT MD
--- NOTE | 2021-08-23 09:53 | EDS_ITS ---
HPI History of Present Illness Chief Complaint: Palpitations Narrative Narrative: Patient presents with his because of heart palpitations and problems with atrial fibrillation. He states that he had triple bypass surgery at [facility] [place] on August 13, approximately 10 days ago. He had postoperative atrial fibrillation. He has tried multiple medications. He states that he was here in the emergency department a few days ago and was given Cardizem which did not relieve his symptoms. He followed up with the nurse practitioner at [facility] [place] who upped his metoprolol dosing to 75 mg orally which she took this morning at 7 AM, and while he has been taking Plavix, they added Eliquis yesterday. He states that he feels heart palpitations, and mild shortness of breath but denies any chest pain. No nausea or vomiting. No diaphoresis. He has had chronic leg swelling and is wearing compression stockings. He presents because his home health care nurse came this morning and his heart rate was in the 120s. He and his state that they were told to come to the emergency department because of the high heart rate. [facility] Medical History Alcohol abuse Arthritis Atherosclerotic heart disease of [place] coronary artery with other forms of angina pectoris [place] esophagus Bilateral pleural effusion (08/21/21) Community acquired pneumonia (06/27/21) Esophagitis Essential hypertension Gout HFrEF (heart failure with reduced ejection fraction) Hypothyroidism Ischemic cardiomyopathy Multiple premature ventricular complexes Pericardial effusion (08/21/21) Postoperative atrial fibrillation (08/21/21) Thrombocytopenia Tobacco abuse Type 2 diabetes mellitus Home Medications allopurinol 300 mg PO BIDCM 02/15/15 [History Last Taken Unknown] meloxicam 15 mg PO DAILY 02/15/15 [History Last Taken Unknown] aspirin 81 mg PO DAILY 06/27/21 [History Last Taken 07/08/21] fluticasone propionate 50 mcg/actuation nasal spray,suspension 1 spray INTRANASAL DAILY g 07/02/21 [History Last Taken Unknown] omeprazole 40 mg capsule,delayed release 40 mg PO DAILY 07/02/21 [History Last Taken Unknown] metformin 500 mg tablet,extended release 24 hr 500 mg PO BID tab 07/03/21 [History Last Taken Unknown] potassium chloride 20 mEq tablet,extended release(part/cryst) 20 meq PO DAILY #60 tab 07/03/21 [Rx Last Taken 07/08/21] amlodipine 5 mg tablet 5 mg PO DAILY tab 07/07/21 [History Last Taken 07/08/21] atorvastatin 40 mg tablet 40 mg PO QHS 08/22/21 [History Last Taken Unknown] clopidogrel 75 mg tablet 75 mg PO DAILY 08/22/21 [History Last Taken Unknown] furosemide 40 mg tablet 40 mg PO DAILY 08/22/21 [History Last Taken Unknown] gabapentin 100 mg capsule 200 mg PO BID cap 08/22/21 [History Last Taken Unknown] levothyroxine 25 mcg capsule 25 mcg PO DAILY 08/22/21 [History Last Taken Unknown] magnesium oxide 400 mg PO DAILY 08/22/21 [History Last Taken Unknown] melatonin 3 mg capsule 3 mg PO HS PRN 08/22/21 [History Last Taken Unknown] metoprolol tartrate 50 mg tablet 75 mg PO TID 08/22/21 [History Last Taken Unknown] prenat.vits,shari,rlb-nlii-ntmag 1 tab PO DAILY 08/22/21 [History Last Taken Unknown] tamsulosin 0.4 mg capsule 0.4 mg PO QHS 08/22/21 [History Last Taken Unknown] thiamine HCl (vitamin B1) 100 mg tablet 100 mg PO DAILY 08/22/21 [History Last Taken Unknown] apixaban 5 mg PO/SL BID 08/23/21 [History Last Taken Unknown] Allergy/AdvReac Type Severity Reaction Status Date / Time No Known Allergies Allergy Verified 08/23/21 09:32 Surgical History Abnormal findings on esophagogastroduodenoscopy (EGD) (04/2021) H/O coronary artery bypass surgery (08/13/21) History of colonoscopy (04/2021) History of herniorrhaphy History of left heart catheterization (07/08/21) Social History (Updated 08/22/21 @ 07:33 by Urvashi Garsia) Smoking Status: Former smoker alcohol intake: current alcohol intake frequency: 3 or more drinks per day Alcohol type: beer ROS ROS ED ROS Narrative Constitutional: No fever, no chills. HEENT: No sore throat. No neck pain. No loss of vision. No rhinorrhea. Cardiovascular: No chest pain. Positive palpitations. No pedal edema. Respiratory: No cough, mild shortness of breath. Abdominal: No abdominal pain. No nausea. No vomiting. Genitourinary: No dysuria. No hematuria. Musculoskeletal: No myalgias. No arthralgias. Neurologic: No headaches. No dizziness. No lightheadedness. Skin: No rash. No change in color. Psychiatric: No depression. No anxiety. EXAM Physical Exam Narrative Exam Narrative: Afebrile. Vital signs noted. HEENT: Normocephalic. Atraumatic. PERRL, EOMI. Neck soft and supple. No point tenderness or step off. Cardiovascular: Irregularly irregular tachycardia ranging from 10 4-1 20, no murmurs, rubs, or gallops appreciated. Respiratory: No tachypnea. Bibasilar rales left greater than right. Gastrointestinal: Abdomen soft, nontender, with normoactive bowel sounds. No rebound or guarding. Neurological: Awake. Alert. Nonfocal, nonlateralizing. Skin: No rash. Normal color. No pallor. Musculoskeletal: Bilateral pedal edema, wearing compression stockings. Full range of motion extremities. Const Vital Signs: 08/23/21 09:23 08/23/21 09:32 08/23/21 11:32 Temperature 97.1 F L Temperature Source Temporal Pulse Rate 103 H 119 H 93 Respiratory Rate 18 20 H 18 Blood Pressure 120/72 111/81 H 107/73 Blood Pressure Mean 88 91 84 Pulse Ox 98 98 94 Oxygen Delivery Method Room Air Room Air Room Air 08/23/21 13:11 Temperature Temperature Source Pulse Rate 105 H Respiratory Rate 18 Blood Pressure 108/92 H Blood Pressure Mean 97 Pulse Ox 94 Oxygen Delivery Method Room Air MDM MDM MDM Narrative Medical decision making narrative: Comprehensive work-up was pursued. His EKG demonstrates atrial fibrillation at 100 bpm, but ranges as high as 120 on the monitor. I will obtain basic laboratory work and a chest x-ray. This will include BNP and 1 high-sensitivity troponin to begin with. He has a normal white count of 7.2, hemoglobin stable at 9.9. High-sensitivity troponin negative at 29. His BNP is elevated above the thousand. His chest x-ray shows no significant interval change from previous, and perhaps mild interstitial edema. I had ordered Lopressor 5 mg intravenously, but his blood pressure is tenuous. It dipped below 100 systolic in the high 90s. Additionally it was resting at 108. His atrial fibrillation is reading on the monitor at variable rates. It had been consistently 108 for a short time, but as it reads, appears more tachycardic briefly. I discussed patient with Dr. Hurley. As the patient's metoprolol has recently been increased to 75 mg 3 times a day, I do feel that it needs time for it to take effect. I feel he be discharged safely home with follow-up. Patient and his are agreeable to discharge. They will continue the recent medication changes and follow-up with her nurse practitioner on Wednesday, 2 days from now. Return instructions to the emergency department were reviewed. Disposition is discharged home in stable condition. Lab Data Attestation: I reviewed the patient's lab results. Labs: Laboratory Results - last 24 hr 08/23/21 08/23/21 08/23/21 09:35 09:35 09:35 WBC 7.2 RBC 3.08 L Hgb 9.9 L Hct 29.7 L MCV 96.4 H MCH 32.1 H MCHC 33.3 RDW Std Deviation 48.8 H RDW Coeff of [place] 14.0 Plt Count 258 MPV 10.1 Immature Gran % (Auto) 0.700 Neut % (Auto) 65.0 Lymph % (Auto) 20.6 [place] % (Auto) 9.5 Eos % (Auto) 3.8 Baso % (Auto) 0.4 Absolute Neuts (auto) 4.7 Absolute Lymphs (auto) 1.48 Nucleated RBC % 0 Sodium Potassium Chloride Carbon Dioxide Anion Gap BUN Creatinine Estim Creat Clear Calc Est GFR (MDRD) Af Amer Est GFR (MDRD) Non-Af BUN/Creatinine Ratio Glucose Calcium Total Bilirubin AST ALT Alkaline Phosphatase Troponin I High Sens 29 B-Natriuretic Peptide 1062.8 H Total Protein Albumin Globulin Albumin/Globulin Ratio 08/23/21 09:35 WBC RBC Hgb Hct MCV MCH MCHC RDW Std Deviation RDW Coeff of [place] Plt Count MPV Immature Gran % (Auto) Neut % (Auto) Lymph % (Auto) [place] % (Auto) Eos % (Auto) Baso % (Auto) Absolute Neuts (auto) Absolute Lymphs (auto) Nucleated RBC % Sodium 137 Potassium 4.1 Chloride 102 Carbon Dioxide 26.0 Anion Gap 9 BUN 16 Creatinine 0.88 Estim Creat Clear Calc 89.13 Est GFR (MDRD) Af Amer 111 Est GFR (MDRD) Non-Af 92 BUN/Creatinine Ratio 18.2 Glucose 150 H Calcium 8.5 Total Bilirubin 0.90 AST 37 ALT 42 Alkaline Phosphatase 76 Troponin I High Sens B-Natriuretic Peptide Total Protein 7.5 Albumin 3.1 L Globulin 4.4 H Albumin/Globulin Ratio 0.7 L Radiography Diagnostic Testing: Clinical Impression(s) from Imaging Studies Chest X-Ray 08/23/21 09:51 Discharge Plan Triage Chief Complaint: Palpitations ED Provider: Holger Wright Dx/Rx/DC Orders Prescriptions: No Action omeprazole 40 mg capsule,delayed release(DR/EC) 40 mg PO DAILY RF: 0 fluticasone propionate 50 mcg/actuation spray,suspension 1 spray intranasal DAILY RF: 0 potassium chloride 20 mEq tablet,ER particles/crystals 20 meq PO DAILY Qty: 60 RF: 3 meloxicam 15 MG tablet 15 mg PO DAILY RF: 0 allopurinol 300 MG tablet 300 mg PO BIDCM RF: 0 metformin 500 mg tablet extended release 24 hr 500 mg PO BID RF: 0 aspirin 81 mg Capsule 81 mg PO DAILY RF: 0 apixaban 5 mg PO/SL BID RF: 0 amlodipine 5 mg tablet 5 mg PO DAILY RF: 0 atorvastatin 40 mg tablet 40 mg PO QHS RF: 0 clopidogrel [Plavix] 75 mg tablet 75 mg PO DAILY RF: 0 metoprolol tartrate 50 mg tablet 75 mg PO TID RF: 0 tamsulosin 0.4 mg capsule 0.4 mg PO QHS RF: 0 thiamine HCl (vitamin B1) 100 mg tablet 100 mg PO DAILY RF: 0 magnesium oxide 400 mg magnesium tablet 400 mg PO DAILY RF: 0 melatonin 3 mg capsule 3 mg PO HS PRN (Reason: Sedation) RF: 0 prenat.vits,shari,quh-qcac-tnght Tablet 1 tab PO DAILY RF: 0 levothyroxine 25 mcg capsule 25 mcg PO DAILY RF: 0 gabapentin 100 mg capsule 200 mg PO BID RF: 0 furosemide 40 mg tablet 40 mg PO DAILY RF: 0 Primary Care Provider: Oliver Malloy
[2021-08-23 09:59] LABS: Absolute Lymphocyte Count 1.48 X10^3/uL (0.83-4.51); Absolute Neutrophil Count 4.7 X10^3/uL (2.0-7.7); Basophil# 0.03 X10^3/uL; Basophil% 0.4 % (0-1); Eosinophil# 0.27 X10^3/uL; Eosinophils% 3.8 % (0-5); Hematocrit 29.7 % (40-54); Hemoglobin 9.9 g/dL (13.0-16.5); Lymphocyte # 1.48 X10^3/ul (0.83-4.51); Lymphocyte % 20.6 % (19-41); Mean Corp Hgb Conc 33.3 g/dL (32-36); Mean Corpuscular Hgb 32.1 pg (27.0-32.0); Mean Corpuscular Volume 96.4 fL (80-94); Mean Platelet Vol. 10.1 fl (6.2-12.0); Monocyte# 0.68 X10^3/uL; Monocyte% 9.5 % (0-10); NRBC Flagged by Analyzer 0 % (0-5); Neutrophil # 4.66 X10^3/uL (2.7-7.7); Platelet Count 258 K/mm3 (150-450); RBC Distribution Width SD 48.8 fl (35.1-43.9); Red Blood Count 3.08 M/mm3 (4.6-6.2); White Blood Count 7.2 K/mm3 (4.4-11.0)
[2021-08-23 10:16] LABS: Troponin-I HS 29 pg/mL (3.0-78.0)
[2021-08-23 10:48] LABS: BNP,B-Type NATRIURETIC PEPTIDE 1062.8 pg/mL (0-100)
[2021-08-23 11:32] VITALS: BP 107/73; PULSE 93; RESP 18; O2SAT 94
--- NOTE | 2021-08-23 11:33 | ED.RN ---
made aware of pt. bp and heart rate. states to hold for now
[2021-08-23 12:19] LABS: ALB/GLOB Ratio 0.7 RATIO (0.9-2.4); AST(SGOT) 37 U/L (15-37); Alanine Aminotransfer ALT/SGPT 42 U/L (16-61); Albumin, Serum 3.1 g/dL (3.2-5.0); Alkaline Phosphatase 76 U/L (45-117); Anion Gap 9 (5-15); BUN 16 mg/dL (7-18); BUN/Creat Ratio 18.2 RATIO (10-20); Calcium,Total 8.5 mg/dL (8.5-10.1); Chloride 102 mmol/L (98-107); Creatinine, Serum 0.88 mg/dL (0.70-1.30); EST Glomerular Filtration Rate 92 mL/min (>60); Est Glom Filt Rate - Afr Amer 111 mL/min (>60); Estimated Creatinine Clearance 89.13 ml/min; Globulin 4.4 g/dL (2.2-4.2); Glucose 150 mg/dL (74-106); Potassium 4.1 mmol/L (3.5-5.1); Protein, Total 7.5 g/dL (6.4-8.2); Sodium Level 137 mmol/L (136-145)
[2021-08-23 13:11] VITALS: BP 108/92; PULSE 105; RESP 18; O2SAT 94
[2021-08-23 14:08] VITALS: BP 106/62; PULSE 100; RESP 16; O2SAT 98
== END 2021-08-23 14:09 | disposition home or self-care (01) ==
PROVIDERS: Emergency Provider Emergency Medicine; PCP Family Medicine
DX: R00.2 Palpitations (principal); I97.190 Other postprocedural cardiac functional disturbances following cardiac surgery; I48.91 Unspecified atrial fibrillation; I25.118 Atherosclerotic heart disease of native coronary artery with other forms of angina pectoris; I11.0 Hypertensive heart disease with heart failure; I50.20 Unspecified systolic (congestive) heart failure; I25.5 Ischemic cardiomyopathy; E03.9 Hypothyroidism, unspecified; E11.9 Type 2 diabetes mellitus without complications; M19.90 Unspecified osteoarthritis, unspecified site; Z95.1 Presence of aortocoronary bypass graft; Z79.02 Long term (current) use of antithrombotics/antiplatelets; Z79.01 Long term (current) use of anticoagulants; Z79.82 Long term (current) use of aspirin; Z79.84 Long term (current) use of oral hypoglycemic drugs; Z79.899 Other long term (current) drug therapy; Z87.01 Personal history of pneumonia (recurrent); Z87.891 Personal history of nicotine dependence
CPT/HCPCS: 71045; 80053; 83880; 84484; 85025; 93005; 99284; A4216

== ENCOUNTER 2021-09-18 07:34 | Outpatient (RCR) | payer MEDICARE, BC, SELFPAY ==
--- NOTE | 2021-09-18 07:42 | CR.ITP_ITS ---
Diagnosis - General Information Admitting Diagnosis: S/p CABG Secondary Diagnosis: DM Type II, HLD, HTN, Ischemic Cardiomyopathy, unspecified heart failure Personal Learning Style:: Audio/Visual, Written Barriers to Learning: Vision Impairment Stage of change r/t lifestyle modifications:: Action Gave educational material for:: Treating Heart Disease, Emotions & Heart Disease, Stress Management & Relaxation, Sleep Disorders & Heart Disease, How The Heart Works, What it means to have Heart Disease, How Coronary Artery Disease is Diagnosed, Heart Procedures, What Heart Medications Do, Risk Factors & Modifications, Living an Active Life, Nutrition - Education/Goals Individual Counseling: Initial Assessment: Nicotine/Smoking, Abnormal Cholesterol Levels, High Blood Pressure, Diabetes Cardiac Rehabilitation Goals: 1. Maintain the individual as the primary focus of care. 2. To improve the patient's quality of life. 3. Identification of cardiac risk factors and provide cardiac risk factor management. 4. Enhance the psychosocial status of the patient. 5. Reconditioning enough to allow the patient to resume customary activities. 6. Control symptoms of cardiac disease Personal Goals: Initial Assessment: Improve energy level, Improve muscle strength and endurance, Control risk factors (learn risk factor modification) Scale for measuring improvement of personal goals: Enter appropriate number in Comments. 2 = Unchanged. 3 = Slightly Better. 4 = Moderate Improvement. 5 = Met my Goal - Diagnosis & Disease Process Outcomes/Goals: Pt IDs own risk factors & lifestyle modifications by Session 10, Verbalizes symptoms of angina & response by session 3., Pt independently manages Plan/Interventions: Assist Pt to ID & engage in lifestyle modification to reduce CVD risk, Instruct on individual risk factors, Review symptoms of angina & emergency actions, Review secondary diagnosis & identify educational needs. - Safety Referral to Physical Therapy: No Referral to [facility] Case Management: No Fall Risk Assessed:: Yes Assistive Devices:: None Exercise - Initial Assessment - Visit Date of Eval: 09/18/21 Session #:: 0 - pre-cardiac rehab evaluation Mets: Pre-: >7 METS for 30 minutes by discharge - Physician Prescribed Exercise Modalities: Treadmill, Rower - 8-9 weeks post operative CABG, Airdyne, NuStep Frequency: 3x/week for 12 weeks [36 sessions] Intensity: 60-80% of age predicted maximum heart rate reserve - Outcomes & Goals Goals:: Verbalizes understanding of THR, RPE & goal METS by session 6, Documents in home exercise log/reports 30 min aerobic 5 day/wk by DC, Demonstrates accurate pulse taking by DC - Intervention & Plan Exercise Program Goals: Instruct on personal THR & RPE, Instruct on MET level & personal MET goal, Show patient to take own pulse /validate performance until accurate, Instruct on home exercise - Physical Activity Home Exercise Physical Activity - Home Exercise: Safe Exercise, Warm-up, Self-monitoring, Cool-Down, Home Exercise > 30 min Daily, Sitting Time <3 hours/daily - Outcomes & Goals Outcomes/Goals: Demonstrates correct Warm-up/exercise Cool-Down (S3) if = 2.5 METs, Verbalizes symptoms of exercise intolerance by Session 3 (S3), Demonstrate safe equipment use (S3) & follows exercise prescrition (6) - Intervention & Plan Plan/Intervention: Instruct warm-up & cool-down if exercising at > 2 METs, Instruct on symptoms of exercise intolerance & actions to take, Instruct & monitor on saf, Assess intial functional capacity & safety risk Nutrition - Initial Assessment - Program Goals Nutrition Program Goals: LDL <100 optimal. 100 - 129 Near optimal. 130 - 159 Borderline High. 160 - 189 High. Total Cholesterol <200 desirable. 200 - 239 Borderline High. >/= 240 High. HDL < 40 Low >/=60 High. Triglycerides <150 desirable. <199 optimal. VlDL 5 - 40. HgbA1C <7%. BMI <25 Patient has diagnosis of Hyperlipidemia (ICD E78)?: Yes - Visit Date of Assessment:: 09/18/21 Session #:: 0 - Pre-cardiac rehab evaluation - Cholesterol/Lipids Triglycerides (mg/dL): 0 - Labs not available Determine presence & major risk factors that modify LDL goal: Cigarette smoking, Hypertension or hypertensive medication, Age men > 45 years; women >/= 55 years Outcomes/Goals: Pt IDs own risk factors & lifestyle modifications by Session 10, Verbalizes symptoms of angina & response by session 3., Pt independently manages Intervention/Plan: Instruct on personal lipid levels & lipid goals/NCEP guidelines, Instruct on cholesterol Referral to dietitian:: Yes - Medical Nutrition Therapy - Diabetes (Other Core Measures) Diabetes Type: Diagnosis Type II ICD-10 E11 Fasting blood glucose:: 0 - lab not available Hgb A1C (4.2 - 6.3): 0 Insulin dependent injection/pump?: Yes Non-Insulin Dependent?: Yes Do you monitor your blood sugar at home?: Yes Outcomes/Goals:: Able to state symptoms of, Able to state, Able to state Intervention/Plan:: Instruct on, Refer to, Instruct on - Weight Mgt (Other Care) Not Applicable: Yes Height: 5 ft 11 in Weight:: 222 lb - overweight; w/Type II DM patient could benefit from strauctured weight loss program. BMI: 30.9 Diagnosis Overweight/Obesity BMI> 30% ICD-10 E66: Yes Diagnosis High BMI/Morbid Obesity BMI> 35% ICD-10 Z68: No Outcomes/Goals: Pt sets, maintains & shows weight loss goal & trend during rehab Intervention/Plan: Instruct on ideal BMI & set weight loss goal w/patient, Assist pt to ID & incorporate diet changes for weight loss by S9, Refer to Structured Weight Loss program as appropriate, Encourage goal of using 250- 300dcal per session for weight loss - Healthy Eating Habits Will attend diet classes:: Yes Outcomes/Goals:: Consume diet rich in vegs,fruits,whole grain/high fiber,fish,lean meat, Limit sat/trans fats,cholesterol & added salts & sugars Intervention/Plan:: Assess current eating habits - Education Gave educational materials for:: Signs & symptoms of hypoglycemia, Signs & symptoms of hyperglycemia, Relate diabetes to coronary artery disease, Healthy eating Nutrition - 30-Day Assessment Nutrition - 60-Day Assessment Nutrition - 90-Day Assessment Nutrition - Final Assessment Medical - Initial Assessment - Visit Date of Eval: 09/18/21 Session #:: 0 - pre-cardiac rehab evaluation - Medication Compliance Preventative Medication(s):: Aspirin, Statin/lipid, Beta otilia H/O mental health issues: depression, anxiety, or addiction?: No Doesn?t believe in the benefits of treatment?: No Believes medications are unnecessary or harmful?: No Has a concern about medication side effects?: No Expresses concern over the cost of medications?: No Outcomes/Goals: Verbalizes medications,desired effect & common side effects @ DC, Pt self-reports following medication regimen, Keeps card in wallet w/medications listed by DC Interventions/plans: Instruct on medication effects & side effects, Review medication list w/patient every two weeks, Instruct importance of taking meds as ordered & assist problem solving - Tobacco Use Tobacco Use: Non-smoker - previous/former smoker - Hypertension Resting Blood Pressure:: 152/77 [place] [employer] Hypertension Guidelines: [place] [employer] Hypertension Guidelines. Normal BP Less than 120/80. Elevated BP 120/80. Hypertension Stage 1: BP 130-139/80-89. Hypertesnion Stage 2: BP 140 or higher/90 or higher. Hypertension Crisis: BP higher than 180/120 Outcomes/Goals: Able to verbalize/achieve optimal blood pressure <130/80, Incorporates diet changes & exercise for blood pressure control by DC Interventions/plan: Instruct on optimal blood pressure, hypertension & medications, Instruct on effects of sodium, alcohol, stress, exercise &hypertension - Tobacco Cessation Referral Smoking Cessation Referral:: No Individual Education/Counseling:: No Education Schedule Given:: Yes - Online resources explained and printed Education book given to patient. Medical- 30-Day Assessment Medical- 60-Day Assessment Medical- 90-Day Assessment Medical - Final Assessment Psychosocial - Initial Assess - VIsit Date of Eval: 09/18/21 Session #:: 0 - pre-cardiac rehab evaluation Not Applicable: Yes History of previous Mental disease:: No History of Emotional Disorders: Depression Self-reported stressors: Recent Illness - Psychosocial Test Tool Used:: TVDeck QOL Cardiac, PHQ-9 Questionnaire phq-9 Severity: Severity. 1-4 Minimal Depression. 5-9 Mild Depression. 10-14 Moderate Depression. 15-19 Moderately Sever Depression. 20-27 Severe Depression. Rule: See PHQ-9 Score: 10 Total Score:: 10 - Referral to Behavioral Health PS - Interventions: Yes Attend Stress Management Classes, No Referral to Behavioral Health if PHQ-9 score >9:, No Referral to [facility], No Referral to Physician if PHQ-9 if score is 5-9: - Outcomes/Goals: See list Psychosocial Outcomes/Goals:: ID's personal stressors & 2 strategies to manage stress by discharge - Intervention/Plan: See List Interventions/Plan:: Assess stressors,coping strategies & signs of derpression on admission, Instruct/assist pt to develop coping & personal stress Mgt strategies, Instruct patient to recognize signs & symptoms of depression, Instruct patient to recog Psychosocial - 30-Day Assess Psychosocial - 60-Day Assess Psychosocial - 90-Day Assess Psychosocial - Final Assessmen Patient Health Questionnaire Initial Assessment 1. Little interest or pleasure in doing things: More than half the days 2. Feeling down, depressed, or hopeless: Several days 3. Trouble falling or staying asleep, or sleeping too much: More than half the days 4. Feeling tired or having little energy: More than half the days 5. Poor appetite or overeating: Several days 6. Feeling bad about yourself -- or that you are a failure or have let yourself or your family down: Not at all 7. Trouble concentrating on things, such as reading the newspaper or watching television: Several days 8. Moving or speaking so slowly that other people could have noticed. Or the opposite - being so fidgety or restless that you have been moving around a lot more than usual: Several days 9. Thoughts that you would be better off , or of hurting yourself in some way: Not at all How difficult have these problems made it for you to do your work, take care of things at home, or get along with other people?: Not difficult at all Total Score: 10 JANIS-Q SV Test - Statements CAD is a disease of the arteries in the heart: False Examples of risk factors for heart disease: True Angina is chest pain or discomfort: I Don't Know The benefits of resistance training include: True Eating more meat and dairy products: False Anti-platelet medications such as aspirin are important: I Don't Know The only effective way to manage stress: False An exercise warm-up slowly increases heart rate: I Don't Know Prepared, processed foods usually have high sodium: True Depression is common after a heart attack: True The statin medications lower cholesterol: True To control blood pressure, lower the amount of sodium: True If someone gets chest discomfort during walking: False Transfats are partially hydrogenated vegetable oils: True Sleep apnea that is not treated increases the risk: False To control cholesterol, one should become a vegetarian: False Someone knows if he/she is exercising at the right level: I Don't Know Diabetes cannot be prevented with exercise & health eating: False Stress is a large risk for heart attack: True A diet that can help lower blood pressure is rich in: True - Total Score Total Correct Responses: 16 Self-Efficacy Initial Assessment We would like to know how confident you are in doing certain activities. Please select your confidence level for:: Select your confidence level for the following using the scale 1-10 where 1 is not at all confident and 10 is totally confident. Your score is the average of all 6 responses. Fatigue: How confident are you that you can keep the fatigue caused by your disease from interfering with the things you want to do? Select Number: 5 Physical Discomfort or Pain: How confident are you that you can keep the physical discomfort or pain of your disease from interfering with the things you want to do? Select Number: 5 Emotional Distress: How confident are you that you can keep the emotional distress caused by your disease from interfering with the things you want to do? Select Number: 6 Other Symptoms or Health Problems: How confident are you that you can keep other symptoms or health problems from interfering with the things you want to do? Select Number: 5 Different Tasks and Activities: How confident are you that you can do the different tasks and activities needed to manage your health condition so as to reduce your need to see a doctor? Select Number: 6 Medication: How confident are you that you can do things other than just taking medication to reduce how much your illness affects your everyday life? Select Number: 6 Total Score:: 5 Nutrition Survey - Nutrition Survey Initial Have you lost >10 lbs over the past 2 months without trying?: No Are you following a special diet at home for diabetes, low fat, or low salt?: Yes Are you interested in meeting with a dietitian for help understanding your diet?: No Do you eat less than 3 meals a day?: No Do you eat fatty meats ([place], sausage, ribs, etc), fried foods, desserts, large amounts of salad dressings, margarine, butter, or cheese most days?: No Do you have food allergies? [Enter types in comment field]: No Do you eat in restaurants more than 3 times a week?: No Do you season food with salt, seasoning salt, or garlic salt?: Yes Do you used canned, boxed, frozen meals, or soups, seasoning packets?: Yes Total Score:: 3
--- NOTE | 2021-09-18 07:42 | CR.HP_ITS ---
CR - History & Physical - General Arrival date:: 09/18/21 Arrival time:: 07:43 Date of Referral:: 09/09/21 Date of CR Evaluation:: 09/18/21 Referring Physician: Dr. 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 Type of Symptoms:: No previous history of CAD began experienceing shortness of breath and noticed his heaert rate was irregluar. Interventions with present event:: Scheduled for echocardiogram as part of his work up and heart cath. Were there any complications?: Medications have been changed by surgeon. Seeing [facility] next week. - Sleep Disorder Evaluation Hx of Sleep Apnea: No Do you snore loudly (louder than talking or can be heard through closed doors)?: No Do you often feel tired/ fatigued/ sleepy during daytime?: Yes - before any of this came up frequently felt tiredness and fatigue Has anyone observed you stop breathing during sleep?: No History of Hypertension (for STOP score): Yes - Patient concerned he may have some type of sleep disorder. Has broughtit up to his PCP but he feels it has been brushed aside due to his age. He is not staisfied with this answer or reaction. STOP Results: Positive - Medications Home Medications: Ambulatory Orders Medication Instructions Recorded allopurinol 300 mg PO BIDCM 02/15/15 meloxicam 15 mg PO DAILY 02/15/15 aspirin 81 mg PO DAILY 06/27/21 fluticasone propionate 50 1 spray INTRANASAL DAILY g 07/02/21 mcg/actuation nasal spray,suspension omeprazole 40 mg capsule,delayed 40 mg PO DAILY 07/02/21 release metformin 500 mg tablet,extended 500 mg PO BID tab 07/03/21 release 24 hr atorvastatin 40 mg tablet 40 mg PO QHS 08/22/21 clopidogrel 75 mg tablet 75 mg PO DAILY 08/22/21 gabapentin 100 mg capsule 200 mg PO BID cap 08/22/21 levothyroxine 25 mcg capsule 25 mcg PO DAILY 08/22/21 magnesium oxide 400 mg PO DAILY 08/22/21 melatonin 3 mg capsule 3 mg PO HS PRN 08/22/21 prenat.vits,shari,iav-ygej-geito 1 tab PO DAILY 08/22/21 tamsulosin 0.4 mg capsule 0.4 mg PO QHS 08/22/21 thiamine HCl (vitamin B1) 100 mg 100 mg PO DAILY 08/22/21 tablet furosemide 40 mg tablet 40 mg PO DAILY #90 tab 08/25/21 potassium chloride 20 mEq 20 meq PO DAILY #90 tab 08/25/21 tablet,extended release(part/cryst) amiodarone 400 mg tablet 400 mg PO BID 08/27/21 apixaban 5 mg tablet 5 mg PO BID 08/27/21 losartan 25 mg tablet 25 mg PO DAILY 08/27/21 metoprolol tartrate 50 mg tablet 50 mg PO BID tab 08/27/21 - Allergies Allergies/Adverse Reactions: Allergies No Known Allergies Allergy (Verified 08/23/21 09:32) Advanced Directives - Advanced Directives Power of Hospital Security Officer: No Living Will: No Advance Directives Information Provided: Yes Advance Directives on File: No DNR Order?:: No - MOLST See MOLST form: No Past Medical History - Covid-19 Screening Fever: No Unexplained muscle aches: No Current respiratory symptoms: No Upper respiratory infections symptoms: No Gastro-intestinal symptoms: Yes - Esophagitis Has tested positive for COVID-19 in last 30 days: No Date of testin01/21/21 - Trying to get the Booster, Moderna vaccine in and is eligible for the booster. Had contact w/person w/symptoms or Covid-19 (+) last 14 days: No Has High Risk Exposures ID'd by Health dept/Inf Control team: No 65 years or older:: Yes Lives in Assisted Living facility:: No Has a chronic lung disease or moderate to severe asthma:: No Has a serious heart condition:: Yes Immunocompromised:: No Severely obese (Body Mass Index of 40 or higher):: No Diabetic:: Yes Has chronic kidney disease undergoing dialysis:: No Has liver disease:: No - Past Medical Illness Medical History: Past Medical History (Last Updated 08/27/21 @ 07:35 by Urvashi Garsia) Alcohol abuse F10.10 Arthritis M19.90 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 Atrial fibrillation with rapid ventricular response Onset Date: 08/26/21 I48.91 Worsening HFREF EF 25% per LEXI was 35 % intra-op, Patient was DCCV 08/26/21 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 Thrombocytopenia D69.6 Tobacco abuse Z72.0 Type 2 diabetes mellitus E11.9 - Past Surgical History Surgical History: Past Surgical History (Last Updated 08/27/21 @ 07:32 by Urvashi Garsia) Abnormal findings on esophagogastroduodenoscopy (EGD) Onset Date: 04/2021 R19.8 H/O coronary artery bypass surgery Onset Date: 08/13/21 Z95.1 CABG x 3: [facility], Sequential SVG-Om1 and OM2 08/13/21 History of cardioversion Onset Date: 08/26/21 Z98.890 History of colonoscopy Onset Date: 04/2021 Z98.890 History of herniorrhaphy Z98.890, Z87.19 History of left heart catheterization Onset Date: 07/08/21 Z98.890 Social History - Smoking History Smoking Status: Former smoker Years Smokin - off and on smoker. Would quit for a while and then restart. 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 Left click = Reports ([place]) Review of Present Symptoms: Reports: Wound Healing, Fatigue, Heart Arrhythmia/Irregularities - Atrial fibrillation with Rapid Ventricular Response with premature ventricular contractions, left axis deviation., Appetite - Normal - really loss appetite after surgery but has gotten better and eating better., Appetite - Special Diet, Sleep - Normal. Denies: Shortness of Breath at Rest, Shortness of Breath with Exertion, Angina - never has been an issue., Dizziness/Lightheadedness, Sexual Changes - Pain Is Patient Pain Free?: Yes Pain Location: none Pain Level: 0/10 Risk Factor Assessment - Chief Complaint Chief Complaint: Patient das a 65 yr old male patient of Chrisetlle Miller who presentst o cardiac rehab follwoing recent CABG at [facility]. - Vital Signs Temperature: 97.6 F Respiratory Rate: 16 Pulse Ox: 97 - Blood Pressure: 152/77 - Pulse Pulse Rate: 70 Pulse Rhythm: Regular - Hypertension How long have you been treated?: back to 1995 On medication(s)?: Yes Blood Pressure Sitting - Left Arm: 152/77 - Diabetes Diabetic History: Type II, Medication Dependent - Metformin - Obesity Height: 5 ft 11 in Weight:: 222 lb Weight in Pounds: 222.0 lbs Weight Source: Standing Scale Body Mass Index (BMI): 30.9 Nutritional Referral for Obesity: Yes - Refer to [facility] weight loss program. - Physical Inactivity Physical Inactivity: None - Risk Stratification Risk Guidelines: Lowest Risk: Risk Factor for Smoking, Risk Factor for Sedentary Lifestyle, Moderate Risk: Risk Factor for Dyslipidemia, Risk Factor for Diabetes, Risk Factor for Hypertension - 152/77, Risk Factor for Depression - 10 on the PHQ-9 survery, Highest Risk: Risk Factor for Obesity Motivation - Motivation to Participate On a scale of 1 to 10, how prepared are you to commit to attending program?: 8 What do you see as barriers to successfully being able to complete the program?: none What do you see as the benefits of succesfully completing the program? In other words, what do you hope to get out of participating in the program?: increase energy, increase strength Are there issues you are dealing with that will interfere with completing the program?: none Do you have a spouse or signficant other, family or friends who will help support you to complete the program?: yes
[2021-09-18 08:00] VITALS: BP 152/77; BMI 30.9
[2021-09-18 08:21] VITALS: BP 152/77; PULSE 70; RESP 16; TEMP 36.4; O2SAT 97; BMI 30.9
== END 2021-10-07 23:59 ==
LOC: CR 07:34
PROVIDERS: PCP Family Medicine; Referring Provider Internal Medicine Cardiovascular Disease; Visit Provider Internal Medicine Cardiovascular Disease
DX: I25.118 Atherosclerotic heart disease of native coronary artery with other forms of angina pectoris (principal); Z95.1 Presence of aortocoronary bypass graft; I25.5 Ischemic cardiomyopathy; I11.0 Hypertensive heart disease with heart failure; I50.20 Unspecified systolic (congestive) heart failure; I49.49 Other premature depolarization; E11.9 Type 2 diabetes mellitus without complications; I48.91 Unspecified atrial fibrillation; E03.9 Hypothyroidism, unspecified; M10.9 Gout, unspecified; M19.90 Unspecified osteoarthritis, unspecified site; Z86.2 Personal history of diseases of the blood and blood-forming organs and certain disorders involving the immune mechanism; Z87.01 Personal history of pneumonia (recurrent); Z87.19 Personal history of other diseases of the digestive system; Z79.84 Long term (current) use of oral hypoglycemic drugs; Z79.82 Long term (current) use of aspirin; Z79.01 Long term (current) use of anticoagulants; Z79.899 Other long term (current) drug therapy; Z87.891 Personal history of nicotine dependence
CPT/HCPCS: 93798

== ENCOUNTER 2021-10-06 10:30 | Outpatient (RCR) | payer MEDICARE, BC, SELFPAY | END 2021-10-07 23:59 | LOC: CR 10:30 | PROVIDERS: PCP Family Medicine; Referring Provider Internal Medicine Cardiovascular Disease; Visit Provider Internal Medicine Cardiovascular Disease | DX: I25.118 Atherosclerotic heart disease of native coronary artery with other forms of angina pectoris (principal); Z95.1 Presence of aortocoronary bypass graft; I25.5 Ischemic cardiomyopathy; I11.0 Hypertensive heart disease with heart failure; I50.20 Unspecified systolic (congestive) heart failure; I49.49 Other premature depolarization; E11.9 Type 2 diabetes mellitus without complications; I48.91 Unspecified atrial fibrillation | CPT/HCPCS: 93798 ==

== ENCOUNTER → 2021-10-09 09:22 | Outpatient (CLI) | payer MEDICARE, BC, SELFPAY ==
[2021-09-18 08:00] VITALS: BMI 30.9
[2021-10-09 11:03] LABS: Anion Gap 5 (5-15); BUN 12 mg/dL (7-18); BUN/Creat Ratio 14.8 RATIO (10-20); Calcium,Total 9.1 mg/dL (8.5-10.1); Chloride 99 mmol/L (98-107); Creatinine, Serum 0.81 mg/dL (0.70-1.30); EST Glomerular Filtration Rate 101 mL/min (>60); Est Glom Filt Rate - Afr Amer 122 mL/min (>60); Glucose 123 mg/dL (74-106); Potassium 3.8 mmol/L (3.5-5.1); Sodium Level 134 mmol/L (136-145)
== END ==
PROVIDERS: PCP Family Medicine; Referring Provider Internal Medicine Cardiovascular Disease; Visit Provider Internal Medicine Cardiovascular Disease
DX: I11.0 Hypertensive heart disease with heart failure (principal); I50.9 Heart failure, unspecified; E11.9 Type 2 diabetes mellitus without complications; I97.89 Other postprocedural complications and disorders of the circulatory system, not elsewhere classified; I48.91 Unspecified atrial fibrillation
CPT/HCPCS: 36415; 80048

== ENCOUNTER 2021-11-05 10:30 | Outpatient (RCR) | payer MEDICARE, BC, SELFPAY ==
--- NOTE | 2021-10-15 08:03 | PCM.CR.ITP ---
Diagnosis Exercise - 30-day Assessment - Visit Date of Eval: 10/15/21 Session #:: 9 - Physician Prescribed Exercise Modalities: Treadmill, Airdyne, NuStep Frequency: 3x/week for 12 weeks [36 sessions] Intensity: 60-80% of age predicted maximum heart rate reserve Current METSs:: 3.7 Target Heart Rate:: 117-131 Current RPE:: 12-13 Maximum Excercise HR:: 85 Resting Blood Pressure: 118/72 Maximum Exercise Blood Pressure: 136/72 EKG Type: SB to NSR w/frequent pac's, rare pvc. T wave inversion. - Outcomes & Goals Goals:: Verbalizes understanding of THR, RPE & goal METS by session 6, Documents in home exercise log/reports 30 min aerobic 5 day/wk by DC, Demonstrates accurate pulse taking by DC, Other additional outcome/goals: see below - Intervention & Plan Exercise Program Goals: Instruct on personal THR & RPE, Instruct on MET level & personal MET goal, Show patient to take own pulse /validate performance until accurate, Instruct on home exercise, Other additional plan/int - 30-day Reassessments 30 day Reassessments:: Progressing - Physical Activity Home Exercise Physical Activity - Home Exercise: Safe Exercise, Warm-up, Self-monitoring, Cool-Down, Home Exercise > 30 min Daily, Sitting Time <3 hours/daily - Outcomes & Goals Outcomes/Goals: Demonstrates correct Warm-up/exercise Cool-Down (S3) if = 2.5 METs, Verbalizes symptoms of exercise intolerance by Session 3 (S3), Demonstrate safe equipment use (S3) & follows exercise prescrition (6), Other: See below - Intervention & Plan Plan/Intervention: Instruct warm-up & cool-down if exercising at > 2 METs, Instruct on symptoms of exercise intolerance & actions to take, Instruct & monitor on saf, Assess intial functional capacity & safety risk, Other See below - 30-day Reassessments 30 day Reassessments:: Progressing Nutrition - Initial Assessment Nutrition - 30-Day Assessment - Program Goals Nutrition Program Goals: LDL <100 optimal. 100 - 129 Near optimal. 130 - 159 Borderline High. 160 - 189 High. Total Cholesterol <200 desirable. 200 - 239 Borderline High. >/= 240 High. HDL < 40 Low >/=60 High. Triglycerides <150 desirable. <199 optimal. VlDL 5 - 40. HgbA1C <7%. BMI <25 Patient has diagnosis of Hyperlipidemia (ICD E78)?: Yes - Visit Date of Assessment:: 10/15/21 Session #:: 9 - Cholesterol/Lipids Determine presence & major risk factors that modify LDL goal: Cigarette smoking, Hypertension or hypertensive medication, Low HDL cholesterol <40 mg/dL*, Family history of premature CHD in Male < 55 years: female <65 yearsFa, Age men > 45 years; women >/= 55 years Outcomes/Goals: Pt IDs own risk factors & lifestyle modifications by Session 10, Verbalizes symptoms of angina & response by session 3., Pt independently manages, Other Additional Outcomes/Goals: Intervention/Plan: Advocate for lipid panel cholesterol medication if applicable, Instruct on personal lipid levels & lipid goals/NCEP guidelines, Instruct on cholesterol, Other additional plan/int Referral to dietitian:: Yes - medical nutrition therapy 30-day Reassessments:: Progressing - Diabetes (Other Core Measures) Diabetes Type: Diagnosis Type II ICD-10 E11 Insulin dependent injection/pump?: Yes Non-Insulin Dependent?: Yes Do you monitor your blood sugar at home?: Yes Referral to Diabetic Clinic:: No Outcomes/Goals:: Able to state symptoms of, Able to state, Able to state, Other additional Intervention/Plan:: Instruct on, Refer to, Instruct on, Other 30-day Reassessments:: Progressing - Weight Mgt (Other Care) Height: 5 ft 11 in Weight:: 100.244 kg BMI: 30.8 Diagnosis Overweight/Obesity BMI> 30% ICD-10 E66: Yes Outcomes/Goals: Pt sets, maintains & shows weight loss goal & trend during rehab, Other additional outcomes/goals Intervention/Plan: Instruct on ideal BMI & set weight loss goal w/patient, Assist pt to ID & incorporate diet changes for weight loss by S9, Refer to Structured Weight Loss program as appropriate, Encourage goal of using 250-300dcal per session for weight loss, Other additional plan/interventions 30 day Reassessments:: Progressing - Healthy Eating Habits Will attend diet classes:: Yes Outcomes/Goals:: Consume diet rich in vegs,fruits,whole grain/high fiber,fish,lean meat, Limit sat/trans fats,cholesterol & added salts & sugars, Other additional outcome/goals: Intervention/Plan:: Assess current eating habits, Other Additional plan/interventions 30-day Reassessments:: Progressing - Education Gave educational materials for:: Signs & symptoms of hypoglycemia, Signs & symptoms of hyperglycemia, Relate diabetes to coronary artery disease, Healthy eating Nutrition - 60-Day Assessment Nutrition - 90-Day Assessment Nutrition - Final Assessment Medical - Initial Assessment Medical- 30-Day Assessment - Visit Date of Eval: 10/15/21 Session #:: 9 - Medication Compliance Preventative Medication(s):: Aspirin, Statin/lipid, Beta otilia H/O mental health issues: depression, anxiety, or addiction?: No Doesn?t believe in the benefits of treatment?: No Believes medications are unnecessary or harmful?: No Has a concern about medication side effects?: No Expresses concern over the cost of medications?: No Outcomes/Goals: Verbalizes medications,desired effect & common side effects @ DC, Pt self-reports following medication regimen, Keeps card in wallet w/medications listed by DC, Other additional outcome/goals: Interventions/plans: Instruct on medication effects & side effects, Review medication list w/patient every two weeks, Instruct importance of taking meds as ordered & assist problem solving, Other additional 30-day Reassessments:: Progressing - Tobacco Use Tobacco Use: Non-smoker 30-day Reassessments:: Progressing - Hypertension Resting Blood Pressure:: 118/72 [place] [employer] Hypertension Guidelines: [place] [employer] Hypertension Guidelines. Normal BP Less than 120/80. Elevated BP 120/80. Hypertension Stage 1: BP 130-139/80-89. Hypertesnion Stage 2: BP 140 or higher/90 or higher. Hypertension Crisis: BP higher than 180/120 Peak Exercise Blood Pressure:: 132/76 Outcomes/Goals: Able to verbalize/achieve optimal blood pressure <130/80, Incorporates diet changes & exercise for blood pressure control by DC, Other additional outcomes/goals Interventions/plan: Instruct on optimal blood pressure, hypertension & medications, Instruct on effects of sodium, alcohol, stress, exercise &hypertension, Other additional plan/interventions 30 day Reassessments:: Progressing - Tobacco Cessation Referral Smoking Cessation Referral:: No Individual Education/Counseling:: No Education Schedule Given:: Yes Medical- 60-Day Assessment Medical- 90-Day Assessment Medical - Final Assessment Psychosocial - Initial Assess Psychosocial - 30-Day Assess - VIsit Date of Eval: 10/15/21 Session #:: 9 History of previous Mental disease:: No - Outcomes/Goals: See list Psychosocial Outcomes/Goals:: ID's personal stressors & 2 strategies to manage stress by discharge, Other Additional outcome/goals: - Intervention/Plan: See List Interventions/Plan:: Assess stressors,coping strategies & signs of derpression on admission, Instruct/assist pt to develop coping & personal stress Mgt strategies, Refer to Behavioral Health if appropriate, Refer to Physician if appropriate, Instruct patient to recognize signs & symptoms of depression, Instruct patient to recog, Other additional plan/intervention - 30-day Reassessments: 30 day Reassessments:: Progressing Psychosocial - 60-Day Assess Psychosocial - 90-Day Assess Psychosocial - Final Assessmen Patient Health Questionnaire 30-Day Re-eval Assessment 1. Little interest or pleasure in doing things: More than half the days 2. Feeling down, depressed, or hopeless: Several days 3. Trouble falling or staying asleep, or sleeping too much: More than half the days 4. Feeling tired or having little energy: More than half the days 5. Poor appetite or overeating: Several days 6. Feeling bad about yourself -- or that you are a failure or have let yourself or your family down: Not at all 7. Trouble concentrating on things, such as reading the newspaper or watching television: Several days 8. Moving or speaking so slowly that other people could have noticed. Or the opposite - being so fidgety or restless that you have been moving around a lot more than usual: Several days 9. Thoughts that you would be better off , or of hurting yourself in some way: Not at all How difficult have these problems made it for you to do your work, take care of things at home, or get along with other people?: Not difficult at all Total Score: 10 Self-Efficacy 30-Day Re-eval Assessment We would like to know how confident you are in doing certain activities. Please select your confidence level for:: Select your confidence level for the following using the scale 1-10 where 1 is not at all confident and 10 is totally confident. Your score is the average of all 6 responses. Fatigue: How confident are you that you can keep the fatigue caused by your disease from interfering with the things you want to do? Select Number: 5 Physical Discomfort or Pain: How confident are you that you can keep the physical discomfort or pain of your disease from interfering with the things you want to do? Select Number: 5 Emotional Distress: How confident are you that you can keep the emotional distress caused by your disease from interfering with the things you want to do? Select Number: 6 Other Symptoms or Health Problems: How confident are you that you can keep other symptoms or health problems from interfering with the things you want to do? Select Number: 5 Different Tasks and Activities: How confident are you that you can do the different tasks and activities needed to manage your health condition so as to reduce your need to see a doctor? Select Number: 6 Medication: How confident are you that you can do things other than just taking medication to reduce how much your illness affects your everyday life? Select Number: 6 Total Score:: 5 Nutrition Survey
[2021-10-15 08:15] VITALS: BP 118/72; BP 132/76; BMI 30.8
== END 2021-11-07 23:59 ==
LOC: CR 10:30
PROVIDERS: PCP Family Medicine; Referring Provider Internal Medicine Cardiovascular Disease; Visit Provider Internal Medicine Cardiovascular Disease
DX: I25.118 Atherosclerotic heart disease of native coronary artery with other forms of angina pectoris (principal); I25.5 Ischemic cardiomyopathy; I50.20 Unspecified systolic (congestive) heart failure; I50.9 Heart failure, unspecified; I49.49 Other premature depolarization; I10 Essential (primary) hypertension; E11.9 Type 2 diabetes mellitus without complications; I48.91 Unspecified atrial fibrillation; Z95.1 Presence of aortocoronary bypass graft
CPT/HCPCS: 93798

== ENCOUNTER 2021-12-08 10:30 | Outpatient (RCR) | payer MEDICARE, BC, SELFPAY ==
[2021-10-15 08:15] VITALS: BMI 30.8
[2021-11-08 00:35] VITALS: BP 118/72; BP 132/76
--- NOTE | 2021-11-14 07:28 | CR.ITP_ITS ---
Diagnosis Exercise - 60-day Assessment - Visit Date of Eval: 11/14/21 Session #:: 19 Comments:: Sabrina has only missed one scheduled session due to an appointment conflict. - Physician Prescribed Exercise Modalities: Treadmill, Airdyne, NuStep Frequency: 3x/week for 12 weeks [36 sessions] Intensity: 60-80% of age predicted maximum heart rate reserve Target Heart Rate:: 17-131 Current RPE:: 13-14 Maximum Exercise Blood Pressure: 122/70 EKG Type: NSR to sinus tach with rare PACs Current Physical Activity or Exercising minutes: 40:36 - Outcomes & Goals Goals:: Verbalizes understanding of THR, RPE & goal METS by session 6, Documents in home exercise log/reports 30 min aerobic 5 day/wk by DC, Demonstrates accurate pulse taking by DC - Intervention & Plan Exercise Program Goals: Instruct on personal THR & RPE, Instruct on MET level & personal MET goal, Show patient to take own pulse /validate performance until accurate, Instruct on home exercise - 30-day Reassessments 30 day Reassessments:: Met - Physical Activity Home Exercise Physical Activity - Home Exercise: Safe Exercise, Warm-up, Self-monitoring, Cool-Down, Home Exercise > 30 min Daily, Sitting Time <3 hours/daily - Outcomes & Goals Outcomes/Goals: Demonstrates correct Warm-up/exercise Cool-Down (S3) if = 2.5 METs, Verbalizes symptoms of exercise intolerance by Session 3 (S3), Demonstrate safe equipment use (S3) & follows exercise prescrition (6) - Intervention & Plan Plan/Intervention: Instruct warm-up & cool-down if exercising at > 2 METs, Instruct on symptoms of exercise intolerance & actions to take, Instruct & mo nitor on saf, Assess intial functional capacity & safety risk - 30-day Reassessments 30 day Reassessments:: Met Nutrition - Initial Assessment Nutrition - 30-Day Assessment Nutrition - 60-Day Assessment - Program Goals Nutrition Program Goals: LDL <100 optimal. 100 - 129 Near optimal. 130 - 159 Borderline High. 160 - 189 High. Total Cholesterol <200 desirable. 200 - 239 Borderline High. >/= 240 High. HDL < 40 Low >/=60 High. Triglycerides <150 desirable. <199 optimal. VlDL 5 - 40. HgbA1C <7%. BMI <25 Patient has diagnosis of Hyperlipidemia (ICD E78)?: Yes - Visit Date of Assessment:: 11/14/21 Session #:: 19 - Cholesterol/Lipids Determine presence & major risk factors that modify LDL goal: Hypertension or hypertensive medication, Family history of premature CHD in Male < 55 years: female <65 yearsFa, Age men > 45 years; women >/= 55 years Outcomes/Goals: Pt IDs own risk factors & lifestyle modifications by Session 10, Verbalizes symptoms of angina & response by session 3., Pt independently manages Intervention/Plan: Instruct on personal lipid levels & lipid goals/NCEP guidelines, Instruct on cholesterol Referral to dietitian:: Yes 30-day Reassessments:: Met - Diabetes (Other Core Measures) Diabetes Type: Diagnosis Type II ICD-10 E11 Insulin dependent injection/pump?: Yes Non-Insulin Dependent?: Yes Do you monitor your blood sugar at home?: Yes Referral to Diabetic Clinic:: Yes Outcomes/Goals:: Able to state symptoms of, Able to state, Able to state Intervention/Plan:: Instruct on, Refer to, Instruct on 30-day Reassessments:: Progressing - Weight Mgt (Other Care) Not Applicable: Yes Height: 5 ft 11 in Weight:: 219 lb BMI: 30.5 Diagnosis Overweight/Obesity BMI> 30% ICD-10 E66: Yes Diagnosis High BMI/Morbid Obesity BMI> 35% ICD-10 Z68: No Outcomes/Goals: Pt sets, maintains & shows weight loss goal & trend during rehab Intervention/Plan: Instruct on ideal BMI & set weight loss goal w/patient, Assist pt to ID & incorporate diet changes for weight loss by S9, Refer to Structured Weight Loss program as appropriate, Encourage goal of using 250- 300dcal per session for weight loss 30 day Reassessments:: Progressing - Healthy Eating Habits Will attend diet classes:: Yes Outcomes/Goals:: Consume diet rich in vegs,fruits,whole grain/high fiber,fish,lean meat, Limit sat/trans fats,cholesterol & added salts & sugars Intervention/Plan:: Assess current eating habits 30-day Reassessments:: Met - Education Gave educational materials for:: Signs & symptoms of hypoglycemia, Signs & symptoms of hyperglycemia, Relate diabetes to coronary artery disease, Healthy eating Nutrition - 90-Day Assessment Nutrition - Final Assessment Medical - Initial Assessment Medical- 30-Day Assessment Medical- 60-Day Assessment - Visit Date of Eval: 11/14/21 Session #:: 19 - Medication Compliance Preventative Medication(s):: Aspirin, Statin/lipid, Beta otilia H/O mental health issues: depression, anxiety, or addiction?: No Doesn?t believe in the benefits of treatment?: No Believes medications are unnecessary or harmful?: No Has a concern about medication side effects?: No Expresses concern over the cost of medications?: No Outcomes/Goals: Verbalizes medications,desired effect & common side effects @ DC, Pt self-reports following medication regimen, Keeps card in wallet w/medications listed by DC Interventions/plans: Instruct on medication effects & side effects, Review medication list w/patient every two weeks, Instruct importance of taking meds as ordered & assist problem solving - Tobacco Use Tobacco Use: Non-smoker Do you use smokeless tobacco?: No - Hypertension Resting Blood Pressure:: 122/70 [place] [employer] Hypertension Guidelines: [place] [employer] Hypertension Guidelines. Normal BP Less than 120/80. Elevated BP 120/80. Hypertension Stage 1: BP 130-139/80-89. Hypertesnion Stage 2: BP 140 or hig her/90 or higher. Hypertension Crisis: BP higher than 180/120 Peak Exercise Blood Pressure:: 132/74 Outcomes/Goals: Able to verbalize/achieve optimal blood pressure <130/80, Incorporates diet changes & exercise for blood pressure control by DC Interventions/plan: Instruct on optimal blood pressure, hypertension & medicatio ns, Instruct on effects of sodium, alcohol, stress, exercise &hypertension 30 day Reassessments:: Progressing - Tobacco Cessation Referral Smoking Cessation Referral:: No Individual Education/Counseling:: No Education Schedule Given:: No Medical- 90-Day Assessment Medical - Final Assessment Psychosocial - Initial Assess Psychosocial - 30-Day Assess Psychosocial - 60-Day Assess - VIsit Date of Eval: 11/14/21 Session #:: 19 Not Applicable: Yes History of previous Mental disease:: No - Psychosocial Test Tool Used:: PHQ-9 Questionnaire phq-9 Severity: Severity. 1-4 Minimal Depression. 5-9 Mild Depression. 10-14 Moderate Depression. 15-19 Moderately Sever Depression. 20-27 Severe Depression. Rule: - Referral to Behavioral Health PS - Interventions: No Referral to Behavioral Health if PHQ-9 score >9:, No Referral to [facility], No Referral to Physician if PHQ-9 if score is 5-9: - Outcomes/Goals: See list Psychosocial Outcomes/Goals:: ID's personal stressors & 2 strategies to manage stress by discharge - Intervention/Plan: See List Interventions/Plan:: Assess stressors,coping strategies & signs of derpression on admission, Instruct/assist pt to develop coping & personal stress Mgt strategies, Instruct patient to recognize signs & symptoms of depression, Instruct patient to recog - 30-day Reassessments: 30 day Reassessments:: Progressing Psychosocial - 90-Day Assess Psychosocial - Final Assessmen Patient Health Questionnaire 60-Day Re-eval Assessment 1. Little interest or pleasure in doing things: More than half the days 2. Feeling down, depressed, or hopeless: Several days 3. Trouble falling or staying asleep, or sleeping too much: More than half the days 4. Feeling tired or having little energy: More than half the days 5. Poor appetite or overeating: Several days 6. Feeling bad about yourself -- or that you are a failure or have let yourself or your family down: Not at all 7. Trouble concentrating on things, such as reading the newspaper or watching television: Several days 8. Moving or speaking so slowly that other people could have noticed. Or the opposite - being so fidgety or restless that you have been moving around a lot more than usual: Not at all Total Score: 9 Self-Efficacy 60-Day Re-eval Assessment We would like to know how confident you are in doing certain activities. Please select your confidence level for:: Select your confidence level for the following using the scale 1-10 where 1 is not at all confident and 10 is totally confident. Your score is the average of all 6 responses. Fatigue: How confident are you that you can keep the fatigue caused by your disease from interfering with the things you want to do? Select Number: 6 Physical Discomfort or Pain: How confident are you that you can keep the physical discomfort or pain of your disease from interfering with the things you want to do? Select Number: 6 Emotional Distress: How confident are you that you can keep the emotional distress caused by your disease from interfering with the things you want to do? Select Number: 7 Other Symptoms or Health Problems: How confident are you that you can keep other symptoms or health problems from interfering with the things you want to do? Select Number: 8 Different Tasks and Activities: How confident are you that you can do the different tasks and activities needed to manage your health condition so as to reduce your need to see a doctor? Select Number: 7 Medication: How confident are you that you can do things other than just taking medication to reduce how much your illness affects your everyday life? Select Number: 8 Total Score:: 7 Nutrition Survey
[2021-11-14 09:08] VITALS: BP 122/70; BP 132/74; BMI 30.5
== END 2021-12-08 23:59 ==
LOC: CR 10:30
PROVIDERS: PCP Family Medicine; Referring Provider Internal Medicine Cardiovascular Disease; Visit Provider Internal Medicine Cardiovascular Disease
DX: I25.118 Atherosclerotic heart disease of native coronary artery with other forms of angina pectoris (principal); I50.20 Unspecified systolic (congestive) heart failure; I11.0 Hypertensive heart disease with heart failure; I48.91 Unspecified atrial fibrillation; E11.9 Type 2 diabetes mellitus without complications; I25.5 Ischemic cardiomyopathy; I49.49 Other premature depolarization; Z95.1 Presence of aortocoronary bypass graft
CPT/HCPCS: 93798

== ENCOUNTER 2021-12-26 10:30 | Outpatient (RCR) | payer MEDICARE, BC, SELFPAY ==
[2021-11-14 09:08] VITALS: BMI 30.5
[2021-12-09 00:41] VITALS: BP 118/72; BP 122/70; BP 132/74
--- NOTE | 2021-12-15 07:20 | PCM.CR.ITP ---
Diagnosis Exercise - 90-day Assessment - Visit Date of Eval: 12/15/21 Session #:: 30 Comments:: Patient has only missed two scheduled sessions - Physician Prescribed Exercise Modalities: Treadmill, Airdyne, NuStep Frequency: 3x/week for 12 weeks [36 sessions] Intensity: 60-80% of age predicted maximum heart rate reserve Current METSs:: 6.0 increase from 5.0 Target Heart Rate:: 117-131 Current RPE:: 13 Maximum Excercise HR:: 88 (beta-otilia) Resting Blood Pressure: 110/70 Maximum Exercise Blood Pressure: 132/70 EKG Type: NSR to sinus tach, rare PVCs PACs quad-geminy T wave inversion Current Physical Activity or Exercising minutes: 44:12 - Outcomes & Goals Goals:: Verbalizes understanding of THR, RPE & goal METS by session 6, Documents in home exercise log/reports 30 min aerobic 5 day/wk by DC, Demonstrates accurate pulse taking by DC - Intervention & Plan Exercise Program Goals: Instruct on personal THR & RPE, Instruct on MET level & personal MET goal, Show patient to take own pulse /validate performance until accurate, Instruct on home exercise - 30-day Reassessments 30 day Reassessments:: Met - Physical Activity Home Exercise Physical Activity - Home Exercise: Safe Exercise, Warm-up, Self-monitoring, Cool-Down, Home Exercise > 30 min Daily, Sitting Time <3 hours/daily - Outcomes & Goals Outcomes/Goals: Demonstrates correct Warm-up/exercise Cool-Down (S3) if = 2.5 METs, Verbalizes symptoms of exercise intolerance by Session 3 (S3), Demonstrate safe equipment use (S3) & follows exercise prescrition (6) - Intervention & Plan Plan/Intervention: Instruct warm-up & cool-down if exercising at > 2 METs, Instruct on symptoms of exercise intolerance & actions to take, Instruct & monitor on saf, Assess intial functional capacity & safety risk - 30-day Reassessments 30 day Reassessments:: Met Nutrition - Initial Assessment Nutrition - 30-Day Assessment Nutrition - 60-Day Assessment Nutrition - 90-Day Assessment - Program Goals Nutrition Program Goals: LDL <100 optimal. 100 - 129 Near optimal. 130 - 159 Borderline High. 160 - 189 High. Total Cholesterol <200 desirable. 200 - 239 Borderline High. >/= 240 High. HDL < 40 Low >/=60 High. Triglycerides <150 desirable. <199 optimal. VlDL 5 - 40. HgbA1C <7%. BMI <25 Patient has diagnosis of Hyperlipidemia (ICD E78)?: Yes - Visit Date of Assessment:: 12/15/21 Session #:: 30 - Cholesterol/Lipids Determine presence & major risk factors that modify LDL goal: Hypertension or hypertensive medication, Family history of premature CHD in Male < 55 years: female <65 yearsFa, Age men > 45 years; women >/= 55 years Outcomes/Goals: Pt IDs own risk factors & lifestyle modifications by Session 10, Verbalizes symptoms of angina & response by session 3., Pt independently manages Intervention/Plan: Instruct on personal lipid levels & lipid goals/NCEP guidelines, Instruct on cholesterol Referral to dietitian:: No - Patient had declined participation in Nutritional Services 30-day Reassessments:: Progressing - Diabetes (Other Core Measures) Diabetes Type: Diagnosis Type II ICD-10 E11 Insulin dependent injection/pump?: No Non-Insulin Dependent?: Yes - Glucaphage 500mg BID - Weight Mgt (Other Care) Not Applicable: No Height: 5 ft 11 in Weight:: 216 lb 8 oz - Patient has lost 3 pounds this 30-days BMI: 30.2 Diagnosis Overweight/Obesity BMI> 30% ICD-10 E66: Yes Diagnosis High BMI/Morbid Obesity BMI> 35% ICD-10 Z68: No Outcomes/Goals: Pt sets, maintains & shows weight loss goal & trend during rehab Intervention/Plan: Instruct on ideal BMI & set weight loss goal w/patient, Assist pt to ID & incorporate diet changes for weight loss by S9, Encourage goal of using 250-300dcal per session for weight loss 30 day Reassessments:: Progressing - Healthy Eating Habits Will attend diet classes:: Yes Outcomes/Goals:: Consume diet rich in vegs,fruits,whole grain/high fiber,fish,lean meat, Limit sat/trans fats,cholesterol & added salts & sugars Intervention/Plan:: Assess current eating habits 30-day Reassessments:: Progressing - Education Gave educational materials for:: Healthy eating Nutrition - Final Assessment Medical - Initial Assessment Medical- 30-Day Assessment Medical- 60-Day Assessment Medical- 90-Day Assessment - Visit Date of Eval: 12/15/21 Session #:: 30 - Medication Compliance Preventative Medication(s):: Aspirin, Statin/lipid, Beta otilia H/O mental health issues: depression, anxiety, or addiction?: No Doesn?t believe in the benefits of treatment?: No Believes medications are unnecessary or harmful?: No Has a concern about medication side effects?: No Expresses concern over the cost of medications?: No Outcomes/Goals: Verbalizes medications,desired effect & common side effects @ DC, Pt self-reports following medication regimen, Keeps card in wallet w/medications listed by DC Interventions/plans: Instruct on medication effects & side effects, Review medication list w/patient every two weeks, Instruct importance of taking meds as ordered & assist problem solving 30-day Reassessments:: Met - Tobacco Use Tobacco Use: Non-smoker - Hypertension Hypertension Diagnosis:: Hypertension ICD-10 I10 Resting Blood Pressure:: 110/70 [employer] Hypertension Guidelines: [employer] Hypertension Guidelines. Normal BP Less than 120/80. Elevated BP 120/80. Hypertension Stage 1: BP 130-139/80-89. Hypertesnion Stage 2: BP 140 or higher/90 or higher. Hypertension Crisis: BP higher than 180/120 Peak Exercise Blood Pressure:: 132/70 - BP well controlled Outcomes/Goals: Able to verbalize/achieve optimal blood pressure <130/80, Incorporates diet changes & exercise for blood pressure control by DC Interventions/plan: Instruct on optimal blood pressure, hypertension & medications, Instruct on effects of sodium, alcohol, stress, exercise &hypertension 30 day Reassessments:: Met - Tobacco Cessation Referral Smoking Cessation Referral:: No Individual Education/Counseling:: No Education Schedule Given:: Yes - Use of Online education Medical - Final Assessment Psychosocial - Initial Assess Psychosocial - 30-Day Assess Psychosocial - 60-Day Assess Psychosocial - 90-Day Assess - VIsit Date of Eval: 12/15/21 Session #:: 30 Not Applicable: Yes History of previous Mental disease:: No - Psychosocial Test Tool Used:: PHQ-9 Questionnaire phq-9 Severity: Severity. 1-4 Minimal Depression. 5-9 Mild Depression. 10-14 Moderate Depression. 15-19 Moderately Sever Depression. 20-27 Severe Depression. Rule: - Referral to Behavioral Health PS - Interventions: Yes Attend Stress Management Classes, No Referral to Behavioral Health if PHQ-9 score >9:, No Referral to [facility], No Referral to Physician if PHQ-9 if score is 5-9: - Outcomes/Goals: See list Psychosocial Outcomes/Goals:: ID's personal stressors & 2 strategies to manage stress by discharge - Intervention/Plan: See List Interventions/Plan:: Assess stressors,coping strategies & signs of derpression on admission, Instruct/assist pt to develop coping & personal stress Mgt strategies, Instruct patient to recognize signs & symptoms of depression, Instruct patient to recog - 30-day Reassessments: 30 day Reassessments:: Met Psychosocial - Final Assessmen Patient Health Questionnaire 90-Day Re-eval Assessment 1. Little interest or pleasure in doing things: Not at all 2. Feeling down, depressed, or hopeless: Not at all 3. Trouble falling or staying asleep, or sleeping too much: Several days 4. Feeling tired or having little energy: Not at all 5. Poor appetite or overeating: Not at all 6. Feeling bad about yourself -- or that you are a failure or have let yourself or your family down: Not at all 7. Trouble concentrating on things, such as reading the newspaper or watching television: Not at all 8. Moving or speaking so slowly that other people could have noticed. Or the opposite - being so fidgety or restless that you have been moving around a lot more than usual: Not at all 9. Thoughts that you would be better off , or of hurting yourself in some way: Not at all How difficult have these problems made it for you to do your work, take care of things at home, or get along with other people?: Not difficult at all Total Score: 1 Self-Efficacy 90-Day Re-eval Assessment We would like to know how confident you are in doing certain activities. Please select your confidence level for:: Select your confidence level for the following using the scale 1-10 where 1 is not at all confident and 10 is totally confident. Your score is the average of all 6 responses. Fatigue: How confident are you that you can keep the fatigue caused by your disease from interfering with the things you want to do? Select Number: 9 Physical Discomfort or Pain: How confident are you that you can keep the physical discomfort or pain of your disease from interfering with the things you want to do? Select Number: 9 Emotional Distress: How confident are you that you can keep the emotional distress caused by your disease from interfering with the things you want to do? Select Number: 10 Other Symptoms or Health Problems: How confident are you that you can keep other symptoms or health problems from interfering with the things you want to do? Select Number: 10 Different Tasks and Activities: How confident are you that you can do the different tasks and activities needed to manage your health condition so as to reduce your need to see a doctor? Select Number: 10 Medication: How confident are you that you can do things other than just taking medication to reduce how much your illness affects your everyday life? Select Number: 10 Total Score:: 9 Nutrition Survey
[2021-12-15 07:30] VITALS: BP 110/70; BP 132/70; BMI 30.2
== END 2022-01-05 23:59 ==
LOC: CR 10:30
PROVIDERS: PCP Family Medicine; Referring Provider Internal Medicine Cardiovascular Disease; Visit Provider Internal Medicine Cardiovascular Disease
DX: I25.118 Atherosclerotic heart disease of native coronary artery with other forms of angina pectoris (principal); I50.20 Unspecified systolic (congestive) heart failure; I11.0 Hypertensive heart disease with heart failure; I48.91 Unspecified atrial fibrillation; E11.9 Type 2 diabetes mellitus without complications; Z95.1 Presence of aortocoronary bypass graft; I25.5 Ischemic cardiomyopathy; I49.49 Other premature depolarization
CPT/HCPCS: 93798

== ENCOUNTER 2022-04-27 08:28 | Emergency (ER) | payer MEDICARE, BC, SELFPAY ==
[2021-12-15 07:30] VITALS: BMI 30.2
[2022-04-27 08:29] VITALS: BP 145/66; PULSE 56; RESP 14; TEMP 36.8; O2SAT 96; BMI 32.3
--- NOTE | 2022-04-27 09:15 | EDS_ITS ---
HPI History of Present Illness Chief Complaint: Head Injury Informant: patient and spouse/S.O. Narrative Narrative: 66-year-old male on Eliquis and Plavix states that yesterday he fell in the garage striking his head on the garage door. No loss of consciousness. He states that yesterday he felt very off balance. He states he kept running into things and was not sure why. That is better today but still present. He states that since 4 weeks he has been having discomfort in his thighs and his hamstrings. His daughter wonders if it could be his statin. He has plans to speak to PCP soon. [facility] Medical History Acute blood loss anemia Alcohol abuse Arthritis Atherosclerotic heart disease of [place] coronary artery with other forms of angina pectoris Atrial fibrillation with rapid ventricular response (08/26/21) [place] esophagus Bilateral pleural effusion (08/21/21) Community acquired pneumonia (06/27/21) Esophagitis Essential hypertension Gout HFrEF (heart failure with reduced ejection fraction) Hypothyroidism Ischemic cardiomyopathy Multiple premature ventricular complexes Pericardial effusion (08/21/21) Postoperative atrial fibrillation (08/21/21) Thrombocytopenia Tobacco abuse Type 2 diabetes mellitus Home Medications allopurinol 300 mg tablet 300 mg PO BIDCM 02/15/15 [History Last Taken Unknown] fluticasone propionate 50 mcg/actuation nasal spray,suspension 1 spray intranasal DAILY 07/02/21 [History Last Taken Unknown] omeprazole 40 mg capsule,delayed release 40 mg PO DAILY 07/02/21 [History Last Taken Unknown] atorvastatin 40 mg tablet 40 mg PO QHS 08/22/21 [History Last Taken Unknown] clopidogrel 75 mg tablet (Plavix) 75 mg PO DAILY 08/22/21 [History Last Taken Unknown] levothyroxine 25 mcg capsule 25 mcg PO DAILY 08/22/21 [History Last Taken Unknown] prenat.vits,shari,dak-aktx-zgkzt 1 tab PO DAILY 08/22/21 [History Last Taken Unknown] tamsulosin 0.4 mg capsule 0.4 mg PO QHS 08/22/21 [History Last Taken Unknown] thiamine HCl (vitamin B1) 100 mg tablet 100 mg PO DAILY 08/22/21 [History Last Taken Unknown] apixaban 5 mg tablet (Eliquis) 5 mg PO BID 08/27/21 [History Last Taken Unknown] metoprolol tartrate 50 mg tablet 50 mg PO BID 08/27/21 [History Last Taken Unknown] furosemide 20 mg tablet 20 mg PO DAILY 09/18/21 [History Last Taken Unknown] sertraline 50 mg tablet 50 mg PO DAILY 09/26/21 [History Last Taken Unknown] amiodarone 200 mg tablet 100 mg PO DAILY Reduced by Dr. Schwab, [facility] EP doctor 10/01/21 [History Last Taken Unknown] lisinopril 10 mg tablet 10 mg PO DAILY #30 tabs 01/23/22 [Rx Last Taken Unknown] Allergy/AdvReac Type Severity Reaction Status Date / Time No Known Allergies Allergy Verified 04/27/22 08:29 Surgical History Abnormal findings on esophagogastroduodenoscopy (EGD) (04/2021) H/O coronary artery bypass surgery (08/13/21) History of cardioversion (08/26/21) History of colonoscopy (04/2021) History of herniorrhaphy History of left heart catheterization (07/08/21) Social History Smoking Status: Former smoker alcohol intake: current alcohol intake frequency: 3 or more drinks per day Alcohol type: beer substance use type: does not use caffeine: Yes Type: coffee ROS ROS ED Constitutional Constitutional ED: Denies chills or weight loss Eyes Eyes: Denies change in vision or diplopia ENT ENT ED: Denies ear pain, rhinorrhea or sore throat Cardiovascular Cardiovascular: Denies chest pain, orthopnea, palpitations or racing heartbeat Respiratory/Chest Respiratory/Chest: Denies cough, dyspnea or orthopnea Gastrointestinal Gastrointestinal: Denies abdominal pain, diarrhea, nausea or vomiting Genitourinary Genitourinary ED: Denies dysuria, hematuria or urinary frequency Musculoskeletal Musculoskeletal: Reports other Details: Bilateral thigh and hamstring discomfort ; Denies arthralgias or myalgias Integumentary Denies abscess or rash Neurologic Neurologic: Reports other Details: Off balance ; Denies headache(s) or weakness Psychiatric Psychiatric: Denies anxiety, depression, suicidal ideation or suicidal thoughts Endocrine Endocrinology: Denies polydipsia, polyphagia or polyuria Allergic/Immunologic Allergic/Immunologic ED: Denies mouth swelling, tongue swelling or urticaria EXAM Physical Exam Const Vital Signs: 04/27/22 08:29 04/27/22 09:31 04/27/22 09:35 Temperature 98.2 F Temperature Source Temporal Pulse Rate 56 L 46 L Respiratory Rate 14 15 Respiratory Effort Normal Non-Labored Respiratory Pattern Normal Blood Pressure 145/66 H 143/83 H Blood Pressure Mean 92 103 Pulse Ox 96 95 Oxygen Delivery Method Room Air Room Air Positive well nourished and well developed General Appearance ED: well developed HEENT Reports normocephalic, head/scalp atraumatic and moist mucous membranes Eyes PERRL and EOMs intact bilaterally Neck no lymphadenopathy, supple and no JVD Resp normal respiratory effort and clear to auscultation bilaterally Cardio regular rate, regular rhythm and no murmurs GI normal to inspection, nondistended, normoactive bowel sounds and non-tender Palpation: soft Back/Spine no CVA tenderness and normal ROM Extremity normal to inspection General Extremety ED: Negative for edema General Extremity: Negative for edema Neuro oriented x3 and CN's II-XII intact bilaterally Sensorium / Orientation: alert Motor Exam: strength 5/5 throughout Psych mental status grossly normal Mood & Affect: Negative for depressed or tearful Skin no rashes or lesions noted and no wounds MDM MDM MDM Narrative Medical decision making narrative: Basic blood work showed a hemoglobin 12.7. CMP showed bilirubin 1.3. Glucose 126. Total CK is 60. CT of the brain is negative. At this point patient be discharged home. Instructions to follow-up with his doctor. He plans on having discussion with his PCP about his statin therapy and his continued thigh pain. Lab Data Attestation: I reviewed the patient's lab results. Labs: Laboratory Results - last 24 hr 04/27/22 04/27/22 09:35 09:35 WBC 4.5 RBC 3.99 L Hgb 12.7 L Hct 36.8 L MCV 92.2 MCH 31.8 MCHC 34.5 RDW Std Deviation 46.5 H RDW Coeff of Mirlande 13.7 Plt Count 106 L MPV 10.3 Immature Gran % (Auto) 0.400 Neut % (Auto) 69.1 Lymph % (Auto) 15.6 L Meigs % (Auto) 11.2 H Eos % (Auto) 3.3 Baso % (Auto) 0.4 Absolute Neuts (auto) 3.1 Absolute Lymphs (auto) 0.71 L Nucleated RBC % 0 Sodium 137 Potassium 3.9 Chloride 104 Carbon Dioxide 28.0 Anion Gap 5 BUN 8 Creatinine 0.81 Estim Creat Clear Calc 95.55 Est GFR (MDRD) Af Amer 122 Est GFR (MDRD) Non-Af 101 BUN/Creatinine Ratio 9.9 L Glucose 126 H Calcium 8.7 Total Bilirubin 1.30 H AST 24 ALT 35 Alkaline Phosphatase 85 Total Creatine Kinase 60 Total Protein 7.2 Albumin 3.6 Globulin 3.6 Albumin/Globulin Ratio 1.0 Radiography Diagnostic Testing: Clinical Impression(s) from Imaging Studies Brain CT 04/27/22 09:47 IMPRESSION: 1. No acute intracranial abnormality. 2. Chronic microvascular changes. Electronically Signed: Guy Moore MD at 10:17 EDT Reading Location ID and State: [facility] [place] / [place] Tel , Service support , Discharge Plan Triage Chief Complaint: Head Injury ED Provider: Edgar Ferreira Dx/Rx/DC Orders Clinical Impression: Head injury, Chronic anticoagulation, Myalgia Instructions: ED Head Injury (Adult) Prescriptions: No Action omeprazole 40 mg capsule,delayed release(DR/EC) 40 mg PO DAILY fluticasone propionate 50 mcg/actuation spray,suspension 1 spray intranasal DAILY furosemide 20 mg tablet 20 mg PO DAILY sertraline 50 mg tablet 50 mg PO DAILY lisinopril 10 mg tablet 10 mg PO DAILY Qty: 30 11RF allopurinol 300 MG tablet 300 mg PO BIDCM atorvastatin 40 mg tablet 40 mg PO QHS clopidogrel [Plavix] 75 mg tablet 75 mg PO DAILY tamsulosin 0.4 mg capsule 0.4 mg PO QHS thiamine HCl (vitamin B1) 100 mg tablet 100 mg PO DAILY prenat.vits,shari,lil-jmys-dmaoc Tablet 1 tab PO DAILY levothyroxine 25 mcg capsule 25 mcg PO DAILY metoprolol tartrate 50 mg tablet 50 mg PO BID Eliquis 5 mg tablet 5 mg PO BID amiodarone 200 mg tablet 100 mg PO DAILY Primary Care Provider: Oliver Malloy Referrals: Oliver Malloy MD [Primary Care Provider] - As soon as possible Disposition Disposition: Home, Self Care
[2022-04-27 09:35] VITALS: BP 143/83; PULSE 46; RESP 15; O2SAT 95
[2022-04-27 09:46] LABS: Absolute Lymphocyte Count 0.71 X10^3/uL (0.83-4.51); Absolute Neutrophil Count 3.1 X10^3/uL (2.0-7.7); Basophil# 0.02 X10^3/uL; Basophil% 0.4 % (0-1); Eosinophil# 0.15 X10^3/uL; Eosinophils% 3.3 % (0-5); Hematocrit 36.8 % (40-54); Hemoglobin 12.7 g/dL (13.0-16.5); Lymphocyte # 0.71 X10^3/ul (0.83-4.51); Lymphocyte % 15.6 % (19-41); Mean Corp Hgb Conc 34.5 g/dL (32-36); Mean Corpuscular Hgb 31.8 pg (27.0-32.0); Mean Corpuscular Volume 92.2 fL (80-94); Mean Platelet Vol. 10.3 fl (6.2-12.0); Monocyte# 0.51 X10^3/uL; Monocyte% 11.2 % (0-10); NRBC Flagged by Analyzer 0 % (0-5); Neutrophil # 3.13 X10^3/uL (2.7-7.7); Neutrophil % 69.1 % (47-70); Platelet Count 106 K/mm3 (150-450); RBC Distribution Width CV 13.7 % (11.6-14.6); RBC Distribution Width SD 46.5 fl (35.1-43.9); Red Blood Count 3.99 M/mm3 (4.6-6.2); White Blood Count 4.5 K/mm3 (4.4-11.0)
--- NOTE | 2022-04-27 09:47 | CT_ITS ---
EXAM: CT HEAD WITHOUT INTRAVENOUS CONTRAST CLINICAL INDICATION: injury TECHNIQUE: Multiple axial images were obtained of the head without intravenous contrast. This CT exam was performed using one or more of the following dose reduction techniques: automated exposure control, adjustment of the mA and/or kV according to patient size, and/or use of iterative reconstruction technique. This report was created using [employer] report generation technology. COMPARISON: None. FINDINGS: BRAIN AND EXTRA-AXIAL SPACES: Small old lacunar infarct within the right basal ganglion. Areas of diminished white matter density noted within both cerebral hemispheres suggestive of chronic microvascular change. No intra- or extra-axial hemorrhage. No intracranial mass or mass effect. Posterior fossa structures are unremarkable. Ventricles are appropriate for age. No hydrocephalus. Basal cisterns are patent. BONES/JOINTS: Unremarkable. No discrete lytic or blastic abnormalities. SINUSES: Unremarkable as visualized. Clear. MASTOID AIR CELLS: Unremarkable. Clear. ORBITS: Visualized globes, extraocular muscles, optic nerves and retrobulbar fat appear unremarkable. CT/Brain/Head without Contrast IMPRESSION: 1. No acute intracranial abnormality. 2. Chronic microvascular changes. Electronically Signed: Guy Moore MD at 10:17 EDT ,
[2022-04-27 10:04] LABS: AST(SGOT) 24 U/L (15-37); Alanine Aminotransfer ALT/SGPT 35 U/L (16-61); Albumin, Serum 3.6 g/dL (3.2-5.0); Alkaline Phosphatase 85 U/L (45-117); Anion Gap 5 (5-15); BUN 8 mg/dL (7-18); BUN/Creat Ratio 9.9 RATIO (10-20); CPK Total, Creatine Kinase 60 U/L (39-308); Calcium,Total 8.7 mg/dL (8.5-10.1); Chloride 104 mmol/L (98-107); Creatinine, Serum 0.81 mg/dL (0.70-1.30); EST Glomerular Filtration Rate 101 mL/min (>60); Est Glom Filt Rate - Afr Amer 122 mL/min (>60); Estimated Creatinine Clearance 95.55 ml/min; Globulin 3.6 g/dL (2.2-4.2); Glucose 126 mg/dL (74-106); Potassium 3.9 mmol/L (3.5-5.1); Protein, Total 7.2 g/dL (6.4-8.2); Sodium Level 137 mmol/L (136-145)
[2022-04-27 10:35] VITALS: BP 127/72; PULSE 57; RESP 16; O2SAT 98
== END 2022-04-27 10:39 | disposition home or self-care (01) ==
PROVIDERS: Emergency Provider Emergency Medicine; PCP Family Medicine; Visit Provider Emergency Medicine
DX: S09.90XA Unspecified injury of head, initial encounter (principal); I11.0 Hypertensive heart disease with heart failure; I50.22 Chronic systolic (congestive) heart failure; I48.91 Unspecified atrial fibrillation; E11.9 Type 2 diabetes mellitus without complications; W19.XXXA Unspecified fall, initial encounter; Y92.59 Other trade areas as the place of occurrence of the external cause; M79.10 Myalgia, unspecified site; I25.10 Atherosclerotic heart disease of native coronary artery without angina pectoris; I25.5 Ischemic cardiomyopathy; E03.9 Hypothyroidism, unspecified; M19.90 Unspecified osteoarthritis, unspecified site; Z95.1 Presence of aortocoronary bypass graft; Z79.01 Long term (current) use of anticoagulants; Z79.02 Long term (current) use of antithrombotics/antiplatelets; Z79.899 Other long term (current) drug therapy; Z87.891 Personal history of nicotine dependence
CPT/HCPCS: 70450; 80053; 82550; 85025; 99282; A4216

== ENCOUNTER → 2022-06-03 | Outpatient (CLI) | payer MEDICARE, BC, SELFPAY ==
[2021-12-15 07:30] VITALS: BMI 30.2
--- NOTE | 2022-06-03 07:49 | ECHOCS_ITS ---
Reason For Study: CMP Procedure This was a 2D Doppler, Color Flow transthoracic echocardiogram. The study was technically difficult. Contrast injection was performed. Exam performed in department. Left Ventricle Normal LV size. Moderate concentric left ventricular hypertrophy. Left ventricular systolic function is lower limits of normal. The estimated ejection fraction is 50 %. Stage 1 diastolic dysfunction. No regional wall motion abnormalities noted. Right Ventricle Normal RV size. Normal systolic function. Atria The left atrium is mildly enlarged. The right atrium is moderately enlarged. Tricuspid Valve Normal tricuspid valve. Mild tricuspid valve insufficiency. Great Vessels Normal aortic root. The pulmonary artery is normal size. Normal inferior vena cava. Pericardium/Pleural No pericardial effusion. Medication 22 gauge I.V. with prn adaptor inserted into right arm. Diluted definity 4ml given slow IV push to enhance endocardial definition. MMode/2D Measurements & Calculations LVIDd: 5.8 cm IVSd: 1.4 cm Ao root diam: 4.1 cm LVIDs: 4.3 cm LVPWd: 1.5 cm RVDd: 3.5 cm FS: 25.4 % LAV(MOD-bp): 84.9 ml SV(MOD-sp4): 67.5 ml LVAd ap4: 42.4 cm2 LAV(MOD-bp) Indexed: 37.9 ml/m2 LVLd ap4: 8.6 cm LAV(MOD-sp2): 99.8 ml EDV(MOD-sp4): 172.3 ml LAV(MOD-sp4): 75.8 ml EDV(sp4-el): 176.6 ml LVAs ap4: 31.4 cm2 LVLs ap4: 7.6 cm ESV(MOD-sp4): 104.7 ml ESV(sp4-el): 110.6 ml EF(MOD-sp4): 39.2 % EF(sp4-el): 37.3 % SV(sp4-el): 65.9 ml LA dimension(2D): 4.8 cm LA A4 area: 24.3 cm2 RA A4 area: 28.1 cm2 Time Measurements MV dec time: 0.36 sec Doppler Measurements & Calculations MV E max malvin: 46.7 cm/sec Lat Peak E' Malvin: 7.0 cm/sec Med Peak E' Malvin: 6.7 cm/sec MV A max malvin: 60.4 cm/sec E/E' lat: 6.7 E/E' med: 7.0 MV E/A: 0.77 Ao V2 max: 146.6 cm/sec LV V1 max: 77.4 cm/sec MV dec slope: 130.1 cm/sec2 Ao max P.6 mmHg LV V1 max P.4 mmHg Ao V2 mean: 98.8 cm/sec LV V1 mean P.2 mmHg Ao mean P.5 mmHg LV V1 mean: 50.6 cm/sec Ao V2 VTI: 39.3 cm LV V1 VTI: 19.4 cm PA V2 max: 82.1 cm/sec TR max malvin: 214.6 cm/sec PA V2 mean: 56.9 cm/sec TR max P.4 mmHg ECHO/Echo Complete W/ Contrast Interpretation Summary Normal LV size. Left ventricular systolic function is lower limits of normal. The estimated ejection fraction is 50 %. Moderate concentric left ventricular hypertrophy. The right atrium is moderately enlarged. Stage 1 diastolic dysfunction. Contrast injection was performed. Ordering Physician: Saul Bourgeois Referring Physician: Saul Bourgeois Performed By: Korin Carbajal RCS
== END | disposition home or self-care (01) ==
LOC: CVS 07:48
PROVIDERS: PCP Family Medicine; Referring Provider Internal Medicine Cardiovascular Disease; Visit Provider Internal Medicine Cardiovascular Disease
DX: I25.118 Atherosclerotic heart disease of native coronary artery with other forms of angina pectoris (principal); I42.9 Cardiomyopathy, unspecified
CPT/HCPCS: 93306; Q9957; A4216; C8929

== ENCOUNTER → 2022-08-05 | Outpatient (CLI) | payer MEDICARE, BC, SELFPAY ==
[2021-12-15 07:30] VITALS: BMI 30.2
--- NOTE | 2022-08-05 10:00 | RAD_ITS ---
STUDY: X-RAY CHEST REASON FOR EXAM: Male, 66 years old. Amiodarone TECHNIQUE: XR Chest 2 Views COMPARISON: 08.23.21 FINDINGS: There is atherosclerotic calcification of the aortic arch with tortuosity. There are diffuse degenerative changes of the visualized thoracic spine. There is degenerative osteoarthritis of the bilateral shoulders. There are multiple median sternotomy wires. Normal size heart. Normal mediastinum and radhika. Normal visualized pulmonary arteries. There is no demonstrated abnormality of the visualized soft tissue structures of the upper abdomen. RAD/Chest PA and Lateral IMPRESSION: There are no acute findings. Electronically Signed: Deep Kemp MD at 16:54 EDT ,
[2022-08-05 10:20] LABS: Absolute Lymphocyte Count 1.08 X10^3/uL (0.83-4.51); Absolute Neutrophil Count 3.4 X10^3/uL (2.0-7.7); Basophil# 0.04 X10^3/uL; Basophil% 0.8 % (0-1); Eosinophil# 0.12 X10^3/uL; Eosinophils% 2.3 % (0-5); Hemoglobin 13.5 g/dL (13.0-16.5); Lymphocyte # 1.08 X10^3/ul (0.83-4.51); Lymphocyte % 20.8 % (19-41); Mean Corp Hgb Conc 35.5 g/dL (32-36); Mean Corpuscular Hgb 32.8 pg (27.0-32.0); Mean Corpuscular Volume 92.2 fL (80-94); Mean Platelet Vol. 10.1 fl (6.2-12.0); Monocyte# 0.52 X10^3/uL; NRBC Flagged by Analyzer 0 % (0-5); Neutrophil # 3.38 X10^3/uL (2.7-7.7); Neutrophil % 65.3 % (47-70); Platelet Count 133 K/mm3 (150-450); RBC Distribution Width CV 13.7 % (11.6-14.6); Red Blood Count 4.12 M/mm3 (4.6-6.2); White Blood Count 5.2 K/mm3 (4.4-11.0)
[2022-08-05 11:01] LABS: AST(SGOT) 18 U/L (15-37); Alanine Aminotransfer ALT/SGPT 27 U/L (16-61); Albumin, Serum 3.8 g/dL (3.2-5.0); Alkaline Phosphatase 75 U/L (45-117); Anion Gap 6 (5-15); BUN 12 mg/dL (7-18); BUN/Creat Ratio 12.4 RATIO (10-20); Chloride 101 mmol/L (98-107); Creatinine, Serum 0.97 mg/dL (0.70-1.30); EST Glomerular Filtration Rate 82 mL/min (>60); Est Glom Filt Rate - Afr Amer 99 mL/min (>60); Globulin 3.9 g/dL (2.2-4.2); Glucose 127 mg/dL (74-106); Potassium 4.1 mmol/L (3.5-5.1); Protein, Total 7.7 g/dL (6.4-8.2); Sodium Level 138 mmol/L (136-145); Thyroid Stim Hormone (TSH) 2.25 uIU/mL (0.358-3.74)
== END | disposition home or self-care (01) ==
LOC: RAD 09:55
PROVIDERS: PCP Family Medicine; Referring Provider Nurse Practitioner Gerontology; Visit Provider Nurse Practitioner Gerontology
DX: I70.0 Atherosclerosis of aorta (principal); I48.91 Unspecified atrial fibrillation; M51.34 Other intervertebral disc degeneration, thoracic region; M19.011 Primary osteoarthritis, right shoulder; M19.012 Primary osteoarthritis, left shoulder; R53.83 Other fatigue
CPT/HCPCS: 36415; 71046; 80053; 84443; 85025

== ENCOUNTER → 2023-03-01 | Outpatient (CLI) | payer MEDICARE, BC, SELFPAY ==
[2021-12-15 07:30] VITALS: BMI 30.2
[2023-03-01 11:39] LABS: BNP,B-Type NATRIURETIC PEPTIDE 169.9 pg/mL (0-100)
[2023-03-01 11:42] LABS: Anion Gap 6 (5-15); BUN 7 mg/dL (7-18); BUN/Creat Ratio 8.2 RATIO (10-20); Chloride 102 mmol/L (98-107); Creatinine, Serum 0.86 mg/dL (0.70-1.30); EST Glomerular Filtration Rate 95 mL/min (>60); Est Glom Filt Rate - Afr Amer 114 mL/min (>60); Glucose 155 mg/dL (74-106); Potassium 3.8 mmol/L (3.5-5.1); Sodium Level 134 mmol/L (136-145)
== END | disposition home or self-care (01) ==
LOC: LAB 10:32
PROVIDERS: PCP Family Medicine; Referring Provider Nurse Practitioner Family; Visit Provider Nurse Practitioner Family
DX: I50.9 Heart failure, unspecified (principal); I25.5 Ischemic cardiomyopathy; R06.00 Dyspnea, unspecified
CPT/HCPCS: 36415; 80048; 83880

== ENCOUNTER → 2023-03-08 | Outpatient (CLI) | payer MEDICARE, BC, SELFPAY ==
[2021-12-15 07:30] VITALS: BMI 30.2
--- NOTE | 2023-03-08 08:28 | CT_ITS ---
PROCEDURE: CT RIGHT KNEE WITHOUT CONTRAST REASON FOR EXAM: Male, 67 years old. Preoperative planning for the [employer] knee surgery. Knee pain. TECHNIQUE: Transaxial CT of the hip, knee and ankle were obtained. Coronal and sagittal reconstruction images of the knee were provided. Individualized dose optimization techniques were used for this CT. COMPARISON: None. FINDINGS: Standard protocol for the preoperative planning for the [employer] robotic knee surgery was performed. Osteopenia. Mild arthrosis of the right hip. Moderate tricompartmental arthrosis of the knee. Mild arthrosis of the tibiotalar and subtalar joints. CT/Extremity Lower without Contra IMPRESSION: Preoperative [employer] knee surgical CT evaluation with findings as described above. Electronically Signed: Yunior Noonan, at 9:46 EDT ,
== END | disposition home or self-care (01) ==
LOC: CT 08:13
PROVIDERS: PCP Family Medicine; Visit Provider Student in an Organized Health Care Education/Training Program
DX: M17.11 Unilateral primary osteoarthritis, right knee (principal); M25.561 Pain in right knee
CPT/HCPCS: 73700

== ENCOUNTER 2023-03-25 14:08 | Observation (INO) | payer MEDICARE, BC, SELFPAY ==
[2021-12-15 07:30] VITALS: BMI 30.2
[2023-03-16 10:31] LABS: Absolute Lymphocyte Count 1.02 X10^3/uL (0.83-4.51); Absolute Neutrophil Count 2.9 X10^3/uL (2.0-7.7); Basophil# 0.03 X10^3/uL; Basophil% 0.7 % (0-1); Eosinophil# 0.13 X10^3/uL; Eosinophils% 2.9 % (0-5); Hematocrit 37.4 % (40-54); Hemoglobin 13.6 g/dL (13.0-16.5); Lymphocyte # 1.02 X10^3/ul (0.83-4.51); Lymphocyte % 22.5 % (19-41); Mean Corp Hgb Conc 36.4 g/dL (32-36); Mean Corpuscular Volume 90.8 fL (80-94); Mean Platelet Vol. 10.4 fl (6.2-12.0); Monocyte# 0.44 X10^3/uL; Monocyte% 9.7 % (0-10); NRBC Flagged by Analyzer 0 % (0-5); Neutrophil % 63.8 % (47-70); Platelet Count 137 K/mm3 (150-450); RBC Distribution Width CV 13.5 % (11.6-14.6); RBC Distribution Width SD 44.9 fl (35.1-43.9); Red Blood Count 4.12 M/mm3 (4.6-6.2); White Blood Count 4.5 K/mm3 (4.4-11.0)
[2023-03-16 10:47] LABS: Hemoglobin A1c 5.8 % (3.8-5.6)
[2023-03-16 11:02] LABS: Magnesium 1.7 mg/dL (1.6-2.6); Thyroid Stim Hormone (TSH) 3.82 uIU/mL (0.358-3.74)
[2023-03-25] VITALS (13 sets, daily range): BP systolic 121–153; BP diastolic 59–88; PULSE 55–69; RESP 16–18; TEMP 36.2–37.2; O2SAT 95–99; BMI 34.2
--- NOTE | 2023-03-25 | KNEE_PTH ---
PATIENT: ROJELIO SURESH LOC: 3 U#:[id number] AGE/SX: 67/M ROOM: [facility] [place] RE03/25/[address]: Dr. Henry Hopper DO : 1955 BED: 1 DIS: 03/26/2023 SPEC #: [id number] RECD: 03/25/23 13:48 STATUS: KAYLA KANG #: [id number] LILY: 03/25/23 00:[address]: Henry Hopper DEPT: SURGICAL PATHOLOGY RECD BY: Derrick Hernandes ENTERED: 03/25/23 13:48 SP TYPE: TOTAL KNEE OTHR DR: Dr. Oliver Malloy MD Tissues: Knee, NOS Procedures: Decalcification bone/plaque Surgery Specimen Level IV HEADER OPERATION: ERAS, total knee replacement robotic arm assist PRE-OP DIAGNOSIS: Grade IV osteoarthritis of right knee, gout, right knee pain TISSUE SUBMITTED: Right knee bone and tissue MICROSCOPIC DIAGNOSIS Bone and tissue, right knee, total knee replacement/resection: Pieces of bone with degenerative osteoarthritic changes. Fibroadipose tissue, fibroconnective tissue and reactive synovial tissue. HUBER:brooke 03/29/2023 MICROSCOPIC DESCRIPTION Slides are reviewed. GROSS DESCRIPTION Received is one container designated bone and soft tissue right knee. The specimen consists of multiple fragments of ndiaye-yellow bone measuring in aggregate 9.0 x 9.0 x 3.0 cm. Also in the specimen container are two pieces of indurated tissue measuring in aggregate 6.0 x 2.5 x 1.0 cm. A number of bony fragments contain articular surfaces consistent with tibial plateau and femoral condyle and displaying prominent osteophyte formation, eburnation and bone erosion. Heavy Coil Winder sections are submitted in two cassettes as follows: 1 - soft tissue, 2 - bone after decalcification. / HUBER:brooke 03/25/2023 TC:5 CPT: 05325, 61947
[2023-03-25] MEDS: Gabapentin 600 MG Tablet PO (08:22)
[2023-03-25] MEDS: Celecoxib 200 MG Capsule 400 MG PO (08:22)
[2023-03-25] MEDS: Acetaminophen 500 MG Tablet 1000 MG PO ×3 (08:22→22:38)
[2023-03-25] MEDS: Lactated Ringers 1,000 ML 999 ML IV ×2 (08:23→13:20)
[2023-03-25] MEDS: Magnesium 2 GM for ERAS IV (08:23)
[2023-03-25 08:51] LABS: Bedside Glucose 216 mg/dL (74-106)
[2023-03-25] MEDS: Cefazolin 2 GM in 0.9% Normal Saline 100 ML IV (10:59)
[2023-03-25] MEDS: dexAMETHasone 10 MG/ML Vial IV (11:10)
[2023-03-25] MEDS: TXA 1000mg in NS100 100ml (IVPB at Incision) 660 MG IV (11:10)
[2023-03-25] MEDS: JPS (Morphine 10mg/ml) OPERA.SITE (12:21)
[2023-03-25] MEDS: TXA 1000mg in NS100 100ml (IVPB at Closure) 660 MG IV (12:37)
[2023-03-25] MEDS: Lactated Ringers 1,000 ML 125 ML IV (14:01)
--- NOTE | 2023-03-25 14:45 | PCM.OPRPT ---
Report of Operation Date of Procedure: 03/25/23 Description of Surgical Findings:: Preoperative diagnosis: Right knee primary osteoarthritis Postoperative diagnosis: Right knee primary osteoarthritis Procedure: Cemented right total knee arthroplasty Surgeon: Henry Hopper DO Builder'S Labourer: Neeta Weiss PA-C Anesthesia: Spinal with sedation, adductor canal block Anesthesiologist: Dr. Norris Complications: None apparent Drains: None Estimated blood loss: 50 cc Urinary output: None recorded IV fluids: 600 cc crystalloid Specimens: Total knee resections Surgical implants: Jesenia triathlon X3 asymmetric patella size a35 10 mm thickness, triathlon cruciate retaining femoral #5, primary tibial baseplate #6, triathlon X3 tibial bearing insert CS 9 mm Indications: This is a 67-year-old male seen in the outpatient setting diagnosed with right knee osteoarthritis with significant varus deformity.? He failed nonoperative management with intra-articular corticosteroid injections, activity modification, bracing, [id number] analgesics.? X-rays revealed grade 4 medial compartment changes.? He also had significant patellofemoral arthritis.? I recommended a right total knee arthroplasty.? The risk, benefits, alternatives to procedure reviewed with patient at length and she agreed to proceed.? Risks included but were not limited to bleeding, infection, loss of life or limb, need for additional surgery, persistent pain, intraoperative or postoperative fracture, instability, loosening of components, wound complications, stiffness, neurovascular injury, DVT or PE.? Patient expressed understanding these risks and wished to proceed with surgery.? Informed consent was obtained in the outpatient setting. Description of procedure: Patient was identified in the preoperative holding area by name, medical record number, and date of .? Informed consent was confirmed with the patient.? The operative knee was marked with a surgical marker.? At time of his procedure, patient brought to the operative suite and positioned supine a standard operating table.? Anesthesia then administered a spinal anesthetic.? He was then repositioned in the supine position with all bony prominences well-padded.? We then placed a well-padded pneumatic tourniquet on the right upper thigh.? The right upper extremity was brought across patient's chest throughout the procedure.? We then prepped and draped the right lower extremity in a normal, sterile orthopedic fashion.? We performed a timeout with all parties in attendance in agreement with the side, site, operation be performed.? No concerns were voiced and would like to proceed with surgery.? 2 g Ancef was administered prior to the incision by anesthesia staff as well as 1 g IV TXA. First I exsanguinated the right lower extremity with a Esmarch bandage.? Tourniquet was inflated to 280 mmHg remained up for approximately 70 minutes.? Esmarch was removed.? I planned a standard midline approach to the right knee approximately 15 cm in length.? Skin was sharply incised with a 10 blade scalpel developing full-thickness layers down to the retinaculum.? Layers were developed identifying the VMO.? I then planned a standard medial parapatellar arthrotomy performed in flexion.? The anterior horn of the medial meniscus was released.? Hoffa's fat pad was then released.? I then everted the patella in extension and brought the knee into 90 degrees of flexion.? The anterior horn of the lateral meniscus was then released.? The ACL was split in its mid substance with a 10 blade.? We then brought the knee back into extension.? I measured the outer diameter of the patella to be approximately 46 mm, a patellar reamer was then selected.? I measured the thickness of the patella to be 26 mm.? I then reamed the patella to a depth of approximately 16 mm.? A protective baseplate was then placed on the patella. I then placed pins in the metaphyseal distal femur medial to lateral for the Chandra arrays.? In similar fashion, I made a 2 cm incision approximately a handsbreadth distal to the tibial tubercle along the medial aspect of the tibia, drilling 2 bicortical pins for the tibial array.? The knee was brought into flexion.? The patella was subluxed laterally but not everted.? Medial lateral retractors were placed.? We then utilized the [email or web address] software to confirm our planned surgical procedure and oriented with the patient's osseous anatomy.? All checks with the [email or web address] system were confirmed. Patient had a significant fixed varus deformity after performing stress examination utilizing the [email or web address] software.? We elected to place the tibial baseplate in approximately 3 degrees of varus to allow for appropriate balancing.? Sawblade was then brought in.? I first started with the tibial cut, ensuring protection of the MCL and patellar tendon.? A tibial wafer was then excised.? I then proceeded to make the posterior femoral, anterior, anterior chamfer cuts with the same blade.? Ligaments were protected with Intermedics retractors.? Sawblade was then exchanged to perform the distal femoral and posterior chamfer cuts.? The robot was then removed from the surgical field.? Remaining loose bone and meniscus was excised carefully.? Posterior osteophytes were removed from the distal femur with a curved osteotome and rongeur. Trial components were then placed.? Balance was excellent in both extension and 90 degrees flexion.? No mid flexion instability was apparent.? I then drilled for a size 35 patella.? Patella was trialed.? Tracking was excellent. We then marked for tibial baseplate.? Distal femoral pegs were drilled.? Tibial keel was punched.? Trials were removed.? Periarticular block was administered.? The wound was copiously irrigated with normal saline solution.? Simplex cement was then mixed on the back table.? Components were then cemented in place with excess cement being removed.? Cement was allowed to cure with the components in full extension utilizing a 9 mm trial polyethylene component.? While the cement was curing, Betadine solution was irrigated into the wound and the wound edges.? After cement had cured fully, trial polyethylene was removed.? Tourniquet was deflated.? Hemostasis was excellent.? An additional 1 g TXA was administered IV.? I selected a size 9 mm polyethylene which was placed and impacted per wire spinner recommendations.? Final components appeared very well balanced with excellent range of motion.? There is no significant remaining flexion contracture. The wound was copiously irrigated with normal saline solution.? Capsule was closed watertight with #1 strata fix barbed suture.? Deeper bursal layer was reapproximated with 0 Vicryl suture.? Dermis was reapproximated buried interrupted 2-0 Vicryl suture.? Skin was finally reapproximated elva. Patient tolerated the procedure well without apparent complication.? She was safely awakened in the operative suite, transferred to his hospital bed and subsequently to PACU in stable condition. Need for skilled assistant community manager: Neeta Weiss PA-C was critical to the outcome of the case.? During the course of the procedure the physician assistant community manager played a vital role.? Her intimate knowledge of my steps in the procedure aided in safe and expedient completion of the procedure.? The LISANDRO played a vital role in positioning particularly in obtaining the appropriate positioning. The PA was also vital in the retraction of soft tissues during the exposure and projecting vital structures.? The PA was also vital and protecting soft tissues during times of bony cuts.? She also played a vital role in closure with my direct supervision.? The PA was also important during reduction and dislocation of the joint and trials intraoperatively. Post Operative Plan: Patient be placed in observation overnight for medical monitoring and early convalescence. Plan to restart home Eliquis and Plavix postoperative day #1. Antibiotics: Ancef 2 g g at time of incision, 1 g Ancef every 8 x24 hours DVT Prophylaxis: Eliquis, Plavix, SCDs, MARKY hose, early mobilization Verde: None Dressing: Maintain silver dressing x5 days X-Rays:? 2-week x-rays in the office. Follow-up: 2 weeks in my office for staple removal
[2023-03-25] MEDS: Allopurinol 300 MG Tablet PO (16:54)
[2023-03-25] MEDS: Sertraline 50 MG Tablet PO (16:54)
[2023-03-25] MEDS: Cefazolin 1 GM/50 ML BAG IV (18:24)
[2023-03-25] MEDS: Tamsulosin HCl 0.4 MG Capsule PO (22:38)
[2023-03-25] MEDS: Atorvastatin Calcium 40 MG Tablet PO (22:38)
[2023-03-25] MEDS: Metoprolol Tartrate 50 MG Tablet PO (22:38)
[2023-03-26 02:30] VITALS: BP 127/69; PULSE 65; RESP 16; TEMP 36.4; O2SAT 96
[2023-03-26] MEDS: Cefazolin 1 GM/50 ML BAG IV (02:31)
[2023-03-26] MEDS: Acetaminophen 500 MG Tablet 1000 MG PO (05:36)
[2023-03-26 05:38] VITALS: BP 133/77; PULSE 61; RESP 16; TEMP 37.1; O2SAT 97
--- NOTE | 2023-03-26 05:57 | NURSING ---
MELODY Wrap removed from left knee per order
[2023-03-26 06:19] LABS: Hematocrit 31.6 % (40-54); Hemoglobin 11.1 g/dL (13.0-16.5); Mean Corp Hgb Conc 35.1 g/dL (32-36); Mean Corpuscular Hgb 32.5 pg (27.0-32.0); Mean Corpuscular Volume 92.4 fL (80-94); Mean Platelet Vol. 10.5 fl (6.2-12.0); Platelet Count 119 K/mm3 (150-450); RBC Distribution Width CV 13.3 % (11.6-14.6); RBC Distribution Width SD 44.1 fl (35.1-43.9); Red Blood Count 3.42 M/mm3 (4.6-6.2); White Blood Count 9.3 K/mm3 (4.4-11.0)
[2023-03-26 06:42] LABS: Anion Gap 7 (5-15); BUN 16 mg/dL (7-18); BUN/Creat Ratio 16.3 RATIO (10-20); Calcium,Total 8.5 mg/dL (8.5-10.1); Chloride 102 mmol/L (98-107); Creatinine, Serum 0.98 mg/dL (0.70-1.30); EST Glomerular Filtration Rate 81 mL/min (>60); Est Glom Filt Rate - Afr Amer 98 mL/min (>60); Glucose 210 mg/dL (74-106); Potassium 3.5 mmol/L (3.5-5.1); Sodium Level 137 mmol/L (136-145)
--- NOTE | 2023-03-26 07:19 | DCINST_ITS ---
Discharge Instructions Follow Up Care Test Results: Test results from this visit will be discussed in further detail at your follow- up appointment, if applicable. Discharge Plan Admission Admit Date/Time: 03/25/23 14:08 Primary Reason for Your Visit: Right total knee replacement Attending Provider: Henry Hopper Primary Care Provider: Oliver Malloy Consulting Providers: Henry Fung Instructions Additional Instructions / Restrictions: Follow preprinted instructions from your surgeons office Discharge Orders/Prescriptions Prescriptions: New sennosides-docusate sodium [Stool Softener-Stimulant Laxat] 8.6-50 mg Tablet 2 tab PO BID 7 Days Qty: 28 0RF acetaminophen 500 mg Tablet 1,000 mg PO Q8 7 Days Qty: 42 0RF oxycodone 5 mg Tablet 5 - 10 mg PO Q4H PRN PRN (Reason: Pain Score 4-10) 7 Days Qty: 56 0RF Continued omeprazole 40 mg capsule,delayed release(DR/EC) 40 mg PO DAILY sertraline 50 mg tablet 50 mg PO DAILY levothyroxine 50 mcg tablet 50 mcg PO DAILY Label Comments: take 1 tablet by mouth once daily ON AN EMPTY STOMACH FOR THYROID Vitamin Plus Low Iron 27 mg iron- 1 mg tablet 1 tab PO DAILY Label Comments: take 1 tablet by mouth once daily alfuzosin 10 mg tablet extended release 24 hr 10 mg PO QHS Label Comments: take 1 tablet by mouth at bedtime sildenafil 100 mg tablet 100 mg PO DAILY PRN (Reason: Pain) Label Comments: take 1 tablet by mouth 30 MINUTES prior to intercourse take TAKE ... (REFER TO PRESCRIPTION NOTES). Rx Instructions: DO NOT TAKE 48 HRS BEFORE SURGERY losartan 25 mg tablet 25 mg PO DAILY allopurinol 300 MG tablet 300 mg PO BIDCM diphenhydramine HCl [Benadryl Allergy] 25 mg Tablet 25 mg PO QHS atorvastatin 40 mg tablet 40 mg PO QHS clopidogrel [Plavix] 75 mg tablet 75 mg PO DAILY tamsulosin 0.4 mg capsule 0.4 mg PO QHS thiamine HCl (vitamin B1) 100 mg tablet 100 mg PO DAILY metoprolol tartrate 50 mg tablet 50 mg PO BID Eliquis 5 mg tablet 5 mg PO BID Rx Instructions: WHILE STOP BEFORE SURGERY furosemide 40 mg tablet 40 mg PO DAILY Qty: 90 3RF Held tramadol 50 mg tablet 50 mg PO Q6H PRN (Reason: pain) Hold Instructions: Resume on 04/02/23. Ok to use in place of oxycodone if oxycodone is too strong Label Comments: take 1 tablet by mouth every 6 hours if needed for pain Referrals / Follow Up: Henry Hopper DO [Med Staff - Active Staff] - Within 2 Weeks Oliver Malloy MD [Primary Care Provider] - Disposition Disposition (needs filled in before D/C Order can be placed): Home, Self Care
--- NOTE | 2023-03-26 07:19 | PCM.PN.ORT ---
Subjective Subjective Patient seen and examined. He denies significant pain. Denies fevers, chills, nausea vomiting, chest pain or shortness of breath. Patient has been up at bedside with nursing staff. Objective Data Objective Data Vital Signs: Vital Signs Temp Pulse Resp BP Pulse Ox O2 Del Method O2 Flow Rate 98.7 F 61 16 133/77 H 97 Room Air 4 03/26/23 05:38 03/26/23 05:38 03/26/23 05:38 03/26/23 05:38 03/26/23 05:38 03/26/23 05:38 03/25/23 15:07 Oxygen Flow Rate (L/min) 4 Oxygen Delivery Method Room Air Weight: 244 lb 15.995 oz Body Mass Index (BMI) 34.2 Intake & Output: Intake and Output for Last 24 Hours 03/24/23 03/25/23 03/26/23 23:59 23:59 23:59 Intake Total 4154.92 / 4154.92 319.25 / 319.25 Output Total 1025 / 1025 200 / 200 Balance 3129.92 / 3129.92 119.25 / 119.25 Lab / Micro Data Result Diagrams: 03/26/23 05:15 03/26/23 05:15 Labs: Laboratory Results - last 24 hr 03/25/23 08:26: POC Glucose 216 H 03/26/23 05:15: WBC 9.3, RBC 3.42 L, Hgb 11.1 L, Hct 31.6 L, MCV 92.4, MCH 32.5 H, MCHC 35.1, RDW Std Deviation 44.1 H, RDW Coeff of Mirlande 13.3, Plt Count 119 L, MPV 10.5 03/26/23 05:15: Sodium 137, Potassium 3.5, Chloride 102, Carbon Dioxide 28.0, Anion Gap 7, BUN 16, Creatinine 0.98, Estim Creat Clear Calc 77.90, Est GFR (MDRD) Af Amer 98, Est GFR (MDRD) Non-Af 81, BUN/Creatinine Ratio 16.3, Glucose 210 H, Calcium 8.5 Micro: Microbiology 03/16/23 09:38 Nasal Secretion Nasal Screen MRSA/MSSA - Final Physical Exam Narrative General - A&Ox3, NAD. VSS/AF Right lower extremity -incisional dressing shows scant sanguinous spotting otherwise C/D/I. SILT Sural, Saphenous, SPN, DPN, Tibial N. distributions. DP, PT 2+. BCR. DF, PF, EHL 03/12. No calf TTP. Assessment & Plan Assessment/Plan (1) Post-op pain: PLAN: POD#1 s/p right robotic assisted total knee arthroplasty - Pain control - Medicine following for medical management - PT/OT -weightbearing as tolerated, range of motion as tolerated - DVT PPX -Eliquis, Plavix, SCDs, MARKY hose, early mobilization - Case management - D/C planning Anticipate discharge home today if okay with medicine and physical therapy. Patient has outpatient physical therapy scheduled on Wednesday. Patient states his son who is a GUEST RELATIONS REPRESENTATIVE will be staying with him over the weekend and he feels safe to go home.
--- NOTE | 2023-03-26 07:22 | DS.PCM_ITS ---
Providers Date of Admission: 03/25/23 Primary Care Physician: Dr. Oliver Malloy MD Consultations 03/25/23 13:06 Consult: Hospitalist Routine Consulting Provider: Peewee Anthony Reason for Consult: Post op total knee medical management EMERGENT Consult: No MD Notified: Yes Date Notified: 03/25/23 Time Notified: 13:06 Method of Notification: Text Reason For Visit: RT TOTAL KNEE W INDU Diagnosis Discharge Diagnosis (1) Post-op pain: Status: Acute Code(s): G89.18 - Other acute postprocedural pain Plan: POD#1 s/p right robotic assisted total knee arthroplasty - Pain control - Medicine following for medical management - PT/OT -weightbearing as tolerated, range of motion as tolerated - DVT PPX -Eliquis, Plavix, SCDs, MARKY hose, early mobilization - Case management - D/C planning Anticipate discharge home today if okay with medicine and physical therapy. Makayla conn has outpatient physical therapy scheduled on Wednesday. Patient states his son who is a FINANCIAL SERVICES TECHNICIAN will be staying with him over the weekend and he feels safe to go home. Medications at Discharge Home Medications allopurinol 300 mg tablet 300 mg PO BIDCM 02/15/15 omeprazole 40 mg capsule,delayed release 40 mg PO DAILY 07/02/21 atorvastatin 40 mg tablet 40 mg PO QHS 08/22/21 clopidogrel 75 mg tablet (Plavix) 75 mg PO DAILY 08/22/21 tamsulosin 0.4 mg capsule 0.4 mg PO QHS 08/22/21 thiamine HCl (vitamin B1) 100 mg tablet 100 mg PO DAILY 08/22/21 apixaban 5 mg tablet (Eliquis) 5 mg PO BID 08/27/21 metoprolol tartrate 50 mg tablet 50 mg PO BID 08/27/21 sertraline 50 mg tablet 50 mg PO DAILY 09/26/21 alfuzosin 10 mg tablet,extended release 24 hr 10 mg PO QHS 08/05/22 levothyroxine 50 mcg tablet 50 mcg PO DAILY 08/05/22 vitamin with calcium no.72-iron 27 mg-folic acid 1 mg tablet ( Vitamins Plus Low Iron) 1 tab PO DAILY 08/05/22 sildenafil 100 mg tablet 100 mg PO DAILY PRN Pain 08/05/22 losartan 25 mg tablet 25 mg PO DAILY 04/24/23 tramadol 50 mg tablet 50 mg PO Q6H PRN pain 03/01/23 furosemide 40 mg tablet 40 mg PO DAILY #90 tabs 03/02/23 diphenhydramine HCl 25 mg tablet (Benadryl Allergy) 25 mg PO QHS 03/11/23 acetaminophen 500 mg tablet 1,000 mg PO Q8 7 days #42 tabs 03/26/23 oxycodone 5 mg tablet 5 - 10 mg PO Q4H PRN PRN Pain Score 4-10 7 days #56 tabs 03/26/23 sennosides 8.6 mg-docusate sodium 50 mg tablet (Stool Softener-Stimulant Laxative) 2 tab PO BID 7 days #28 tabs 03/26/23 Hospital Course Summary of Care Provided Minutes Spent on Discharge: 15 Hospital Course: Patient underwent uncomplicated right total knee arthroplasty with robotic assistance on 03/25/2023. He was placed in observation overnight for medical monitoring and early convalescence. An internal medicine consult was placed for management of his multiple comorbidities. Patient worked well with physical and occupational therapies. He was able to be safely discharged to home on postoperative day #1. No medical or surgical complications were encountered throughout his stay. Physical Exam Narrative General - A&Ox3, NAD. VSS/AF Right lower extremity -incisional dressing shows scant sanguinous spotting otherwise C/D/I. SILT Sural, Saphenous, SPN, DPN, Tibial N. distributions. DP, PT 2+. BCR. DF, PF, EHL 5/5. No calf TTP. Weight / BMI Weight Weight: 244 lb 15.995 oz Body Mass Index (BMI) 34.2 ABG / Lab / Microbiology Data Result Diagrams: 03/26/23 05:15 03/26/23 05:15 Laboratory: Laboratory Results - last 24 hr 03/25/23 08:26: POC Glucose 216 H 03/26/23 05:15: WBC 9.3, RBC 3.42 L, Hgb 11.1 L, Hct 31.6 L, MCV 92.4, MCH 32.5 H, MCHC 35.1, RDW Std Deviation 44.1 H, RDW Coeff of Mirlande 13.3, Plt Count 119 L, MPV 10.5 03/26/23 05:15: Sodium 137, Potassium 3.5, Chloride 102, Carbon Dioxide 28.0, Anion Gap 7, BUN 16, Creatinine 0.98, Estim Creat Clear Calc 77.90, Est GFR (MDRD) Af Amer 98, Est GFR (MDRD) Non-Af 81, BUN/Creatinine Ratio 16.3, Glucose 210 H, Calcium 8.5 Microbiology: Microbiology 03/16/23 09:38 Nasal Secretion Nasal Screen MRSA/MSSA - Final Meaningful Use Info Meaningful Use Diagnoses (Choose all that apply): None applicable Discharge Plan Admission Admit Date/Time: 03/25/23 14:08 Primary Reason for Your Visit: Right total knee replacement Attending Provider: Henry Hopper Primary Care Provider: Oliver Malloy Consulting Providers: Henry Fung Instructions Additional Instructions / Restrictions: Follow preprinted instructions from your surgeons office Discharge Orders/Prescriptions Prescriptions: New sennosides-docusate sodium [Stool Softener-Stimulant Laxat] 8.6-50 mg Tablet 2 tab PO BID 7 Days Qty: 28 0RF acetaminophen 500 mg Tablet 1,000 mg PO Q8 7 Days Qty: 42 0RF oxycodone 5 mg Tablet 5 - 10 mg PO Q4H PRN PRN (Reason: Pain Score 4-10) 7 Days Qty: 56 0RF Continued omeprazole 40 mg capsule,delayed release(DR/EC) 40 mg PO DAILY sertraline 50 mg tablet 50 mg PO DAILY levothyroxine 50 mcg tablet 50 mcg PO DAILY Label Comments: take 1 tablet by mouth once daily ON AN EMPTY STOMACH FOR THYROID Vitamin Plus Low Iron 27 mg iron- 1 mg tablet 1 tab PO DAILY Label Comments: take 1 tablet by mouth once daily alfuzosin 10 mg tablet extended release 24 hr 10 mg PO QHS Label Comments: take 1 tablet by mouth at bedtime sildenafil 100 mg tablet 100 mg PO DAILY PRN (Reason: Pain) Label Comments: take 1 tablet by mouth 30 MINUTES prior to intercourse take TAKE ... (REFER TO PRESCRIPTION NOTES). Rx Instructions: DO NOT TAKE 48 HRS BEFORE SURGERY losartan 25 mg tablet 25 mg PO DAILY allopurinol 300 MG tablet 300 mg PO BIDCM diphenhydramine HCl [Benadryl Allergy] 25 mg Tablet 25 mg PO QHS atorvastatin 40 mg tablet 40 mg PO QHS clopidogrel [Plavix] 75 mg tablet 75 mg PO DAILY tamsulosin 0.4 mg capsule 0.4 mg PO QHS thiamine HCl (vitamin B1) 100 mg tablet 100 mg PO DAILY metoprolol tartrate 50 mg tablet 50 mg PO BID Eliquis 5 mg tablet 5 mg PO BID Rx Instructions: WHILE STOP BEFORE SURGERY furosemide 40 mg tablet 40 mg PO DAILY Qty: 90 3RF Held tramadol 50 mg tablet 50 mg PO Q6H PRN (Reason: pain) Hold Instructions: Resume on 04/02/23. Ok to use in place of oxycodone if oxycodone is too strong Label Comments: take 1 tablet by mouth every 6 hours if needed for pain Referrals / Follow Up: Henry Hopper DO [Med Staff - Active Staff] - Within 2 Weeks Oliver Malloy MD [Primary Care Provider] - Disposition Disposition (needs filled in before D/C Order can be placed): Home, Self Care
[2023-03-26 08:02] VITALS: BP 136/71; PULSE 56; RESP 18; TEMP 36.4; O2SAT 98
[2023-03-26 08:05] VITALS: PULSE 56
[2023-03-26] MEDS: Losartan Potassium 25 MG Tablet PO (08:06)
[2023-03-26] MEDS: Allopurinol 300 MG Tablet PO (08:06)
[2023-03-26] MEDS: Senna/Docusate Sodium 1 Tablet 2 TABLET PO (08:06)
[2023-03-26] MEDS: Furosemide 40 MG Tablet PO (08:06)
[2023-03-26] MEDS: APIXABAN 5 MG TABLET PO (08:06)
[2023-03-26] MEDS: Thiamine Hydrochloride 100 MG Tablet PO (08:06)
[2023-03-26] MEDS: Pantoprazole Sodium 40 MG Tablet PO (08:07)
[2023-03-26] MEDS: Clopidogrel Bisulfate 75 MG Tablet PO (08:07)
--- NOTE | 2023-03-26 08:22 | PCM.PN.HOSP ---
Subjective Subjective Doing well, no issues overnight. Pain is controlled Objective Data Objective Data Vital Signs: Vital Signs Temp Pulse Resp BP Pulse Ox O2 Del Method O2 Flow Rate 97.5 F L 56 L 18 136/71 H 98 Room Air 4 03/26/23 08:02 03/26/23 08:05 03/26/23 08:02 03/26/23 08:02 03/26/23 08:02 03/26/23 08:02 03/25/23 15:07 Oxygen Flow Rate (L/min) 4 Oxygen Delivery Method Room Air Weight: 244 lb 15.995 oz Body Mass Index (BMI) 34.2 Intake & Output: Intake and Output for Last 24 Hours 03/25/23 03/26/23 03/27/23 03:59 03:59 03:59 Intake Total 4204.92 / 4204.92 269.25 / 269.25 Output Total 1025 / 1025 200 / 200 Balance 3179.92 / 3179.92 69.25 / 69.25 Lab / Micro Data Result Diagrams: 03/26/23 05:15 03/26/23 05:15 Labs: Laboratory Results - last 24 hr 03/25/23 08:26: POC Glucose 216 H 03/26/23 05:15: WBC 9.3, RBC 3.42 L, Hgb 11.1 L, Hct 31.6 L, MCV 92.4, MCH 32.5 H, MCHC 35.1, RDW Std Deviation 44.1 H, RDW Coeff of Mirlande 13.3, Plt Count 119 L, MPV 10.5 03/26/23 05:15: Sodium 137, Potassium 3.5, Chloride 102, Carbon Dioxide 28.0, Anion Gap 7, BUN 16, Creatinine 0.98, Estim Creat Clear Calc 77.90, Est GFR (MDRD) Af Amer 98, Est GFR (MDRD) Non-Af 81, BUN/Creatinine Ratio 16.3, Glucose 210 H, Calcium 8.5 Micro: Microbiology 03/16/23 09:38 Nasal Secretion Nasal Screen MRSA/MSSA - Final Physical Exam Narrative General: Alert, Oriented x3, Cooperative, No apparent distress HEENT: Atraumatic, PERRLA, EOMI, Normocephalic Oral: Moist Mucosa Neck: Supple, No JVD Lungs: Diminished, Normal air movement, No rhonchi, No wheeze, No rales Cardiovascular: Regular rate, Regular Rhythm, Normal S1, Normal S2, No murmurs Abdomen: Soft, Non Tender, Non-Distended, No Hepato-splenomegaly Extremities: No edema, Capillary Refill Less than 3 Seconds Skin: Surgical dressing intact Musculoskeletal: No Tenderness to Palpation of Joints or Extremities Neurological: Motor Exam 5/5 strength throughout, Sensory exam intact to light touch and pain Psych/Mental Status: Normal Affect, Appropriate Assessment & Plan Assessment/Plan (1) Status post total right knee replacement: PLAN: Plan 1. Status post right total knee arthroplasty for osteoarthritis on 03/25/2023 ? Doing well, pain management per primary ? PT/OT ? Medically cleared for discharge ? DVT prophylaxis per primary 2. Diastolic CHF, CAD status post CABG, hypertension, hyperlipidemia, A-fib, hypothyroidism, GERD, anxiety, depression are all chronic medical conditions these were evaluated and his medications were continued where appropriate. He can resume all of his home medications on discharge DVT: Eliquis Charges/Coding Visit Charges Office Visits / Consults: [id number] OV L3 New
[2023-03-26] MEDS: Levothyroxine 50 MCG Tablet PO (09:10)
[2023-03-26] MEDS: oxyCODONE 5 MG Tablet PO ×2 (09:10→11:43)
--- NOTE | 2023-03-26 09:38 | CASEMGMT ---
MAX ROTHMAN Assessment: Face to Face with pt for initial transition planning/care coordination assessment. MAX ROTHMAN introduced self and role at [facility], pt voices understanding and consents to assessment. Pt is A/O x4 and answers all questions appropriately at this time. Pt sitting up in chair in no distress with at bedside. Care providers, pharmacy, and demographics verified/updated. Admitting Dx: R total knee with brigido PCP:[facility] Specialists:dakotah Hopper; Danilo, derm; Christelle cardio Preferred Pharmacy: [facility] [place] Insurance: [employer] Prescription Benefit: yes LNOK: Nora Alcazar, ; Greta Marta, dtr Living Arrangements: Pt lives with in a single story home with 3 steps to enter with a grab bar. Pt reports he was I in ADL's prior to surgery. pt son is staying with him for a few days, he is a [employer]. Pt denies concerns at home. Transportation: Pt drives self and denies concerns with transportation. Pt will transport pt post surgery until he is medically cleared to drive again. DME/HHC/SNF: Pt has grab bars in the bathroom, shower chair, FWW and standard walker. Pt has had HHC from [facility] in the past and denies SNF stays. Pt states no concerns with going home at time of dc. Pt is on eliquis at home normally. Pt has outpt therapy set up for Wednesday at [facility]. Pt states no further concerns/needs. CM to follow. Advised pt to ask CM if any further question/concerns/needs arise, voices understanding. Pt Goal: Home with outpt therapy set up and son/ assistance Plan: Home with outpt therapy set up and son/ assistance
--- NOTE | 2023-03-26 11:05 | PHA.DC.MC ---
Pharmacy Service has performed discharge medication reconciliation and counseling for this patient. 1. ACETAMINOPHEN 1000MG PO TID X 7 DAYS 2. OXYCODONE 5-10MG PO Q4H PRN PAIN 3. SENNA/DOCUSATE 2T PO BID X 7 DAYS The patient's discharge medication list was reviewed for discrepancies and discrepancies were resolved. Home Medications allopurinol 300 mg tablet 300 mg PO BIDCM 02/15/15 omeprazole 40 mg capsule,delayed release 40 mg PO DAILY 07/02/21 atorvastatin 40 mg tablet 40 mg PO QHS 08/22/21 clopidogrel 75 mg tablet (Plavix) 75 mg PO DAILY 08/22/21 tamsulosin 0.4 mg capsule 0.4 mg PO QHS 08/22/21 thiamine HCl (vitamin B1) 100 mg tablet 100 mg PO DAILY 08/22/21 apixaban 5 mg tablet (Eliquis) 5 mg PO BID 08/27/21 metoprolol tartrate 50 mg tablet 50 mg PO BID 08/27/21 sertraline 50 mg tablet 50 mg PO DAILY 09/26/21 alfuzosin 10 mg tablet,extended release 24 hr 10 mg PO QHS 08/05/22 levothyroxine 50 mcg tablet 50 mcg PO DAILY 08/05/22 vitamin with calcium no.72-iron 27 mg-folic acid 1 mg tablet ( Vitamins Plus Low Iron) 1 tab PO DAILY 08/05/22 sildenafil 100 mg tablet 100 mg PO DAILY PRN Pain 08/05/22 losartan 25 mg tablet 25 mg PO DAILY 03/01/23 tramadol 50 mg tablet 50 mg PO Q6H PRN pain 03/01/23 furosemide 40 mg tablet 40 mg PO DAILY #90 tabs 03/02/23 diphenhydramine HCl 25 mg tablet (Benadryl Allergy) 25 mg PO QHS 03/11/23 acetaminophen 500 mg tablet 1,000 mg PO Q8 7 days #42 tabs 03/26/23 oxycodone 5 mg tablet 5 - 10 mg PO Q4H PRN PRN Pain Score 4-10 7 days #56 tabs 03/26/23 sennosides 8.6 mg-docusate sodium 50 mg tablet (Stool Softener-Stimulant Laxative) 2 tab PO BID 7 days #28 tabs 03/26/23 The patient was counseled on the following discharge medications and changes in medications for homegoing were reviewed. The Reason for Use, instructions for use, and potential side effects were reviewed for all new medications. The patient's questions regarding all of their medications were answered. The patient was able to verbally demonstrate an understanding of their discharge medications.
[2023-03-26 11:44] VITALS: BP 130/78; PULSE 71; RESP 18; TEMP 36.5; O2SAT 98
[2023-03-26 11:45] VITALS: PULSE 71
[2023-03-26] MEDS: Metoprolol Tartrate 50 MG Tablet PO (11:45)
== END 2023-03-26 12:23 | disposition home or self-care (01) ==
LOC: SDC 14:14 → MS3 14:14
PROVIDERS: Anesthesiology; Admitting Provider Student in an Organized Health Care Education/Training Program; PCP Family Medicine; Referring Provider Student in an Organized Health Care Education/Training Program; Visit Provider Student in an Organized Health Care Education/Training Program
PROC: 0SRC0JZ Replacement of Right Knee Joint with Synthetic Substitute, Open Approach (ICD-10-PCS; CPT 27447; principal; 2023-03-25 10:00)
DX: M17.11 Unilateral primary osteoarthritis, right knee (principal); I11.0 Hypertensive heart disease with heart failure; I50.22 Chronic systolic (congestive) heart failure; R73.03 Prediabetes; M21.161 Varus deformity, not elsewhere classified, right knee; E78.00 Pure hypercholesterolemia, unspecified; Z87.891 Personal history of nicotine dependence; M10.9 Gout, unspecified; Z79.899 Other long term (current) drug therapy; Z79.02 Long term (current) use of antithrombotics/antiplatelets; Z79.01 Long term (current) use of anticoagulants; E03.9 Hypothyroidism, unspecified; Z79.890 Hormone replacement therapy; I25.10 Atherosclerotic heart disease of native coronary artery without angina pectoris; Z95.1 Presence of aortocoronary bypass graft; F32.A Depression, unspecified; F41.9 Anxiety disorder, unspecified
CPT/HCPCS: 27447; 01402; S2900; 64447; 36415; 80048; 82962; 83036; 83735; 84443; 85025; 85027; 87077; 87081; 88305; 88311; 94668; 96365; 96366; 97162; 97166; 99221; 99252; C1713; C1776; J7120; G0378; G0463; J2405

== ENCOUNTER → 2023-12-03 | Outpatient (CLI) | payer MEDICARE, BC, SELFPAY ==
[2021-12-15 07:30] VITALS: BMI 30.2
--- NOTE | 2023-12-03 09:44 | ART_ITS ---
Reason For Study: PVD Procedure A bilateral lower extremity continuous wave Doppler with analog waveform analysis,segmental pressures,and ankle brachial indexes with exercise. Left Segmental Pressures Left brachial= 142mmHg. Left posterior tibial artery = 229mmHg. Left dorsalis pedis artery = 156mmHg. Left digit = 142 mmHg. The left dorsalis pedis waveforms are triphasic. The left posterior tibial artery waveforms are triphasic. Right Segmental Pressures Right brachial= 140mmHg. Right posterior tibial artery = 183mmHg. Right dorsalis pedis artery = 178mmHg. Right digit = 149 mmHg. The right dorsalis pedis waveforms are triphasic. The right posterior tibial artery waveforms are triphasic. Indices The right ankle brachial index by the dorsalis pedis is 1.25. The right ankle brachial index by the posterior tibial artery is 1.29. The right digital-brachial index is 1.05. The right post exercise ankle brachial index is 1.49. The left ankle brachial index by the dorsalis pedis is 1.10. The left ankle brachial index by the posterior tibial artery is 1.61. The left digital-brachial index is 1.00. The left post exercise ankle brachial index is NC. VL/Lower Ext Art Exam w/ Exercise Interpretation Summary Triphasic Doppler waveforms are noted at ankle level bilaterally. Pulse-volume recordings appear satisfactory at all levels bilaterally. The resting right ankle-brachial index is normal. The resting left ankle-brachial index is supra-normal. Digital-brachial indices are normal bilaterally. The patient was ambulated on a treadmill for 5 minutes at 1.8 MPH and a 5% grad e, following which ankle pressures augmented bilaterally, a normal physiological response. There is no evidence of significant arterial occlusive disease in the lower ext remities bilaterally. Ordering Physician: Edgar Espinoza Referring Physician: Oliver Malloy Performed By: FAYE GROSSMAN RVT
--- OUTSIDE RECORDS SUMMARY | 2023-12-03 10:14 | XMS RPT_ITS | CCD ---
Author Name Unknown Address [id number] [place] [address] Organization [facility] Care Team Providers Care Store Standards Associate Name Role Phone Oliver Regalado MD Primary Care Provider Christelle, Saul S Unavailable Fredy Wall MD Unavailable Sujata SUPERINTENDENT MARINE.FOLLOW UP SPECIALISTChrissya Unavailable Hung SANTANA, Murray Unavailable Oliver Regalado MD Primary Care Provider Christelle, [place] S Unavailable Fredy Wall MD Unavailable Sujata SUPERINTENDENT MARINE.FOLLOW UP SPECIALIST, Weina Unavailable Oliver Regalado MD Primary Care Provider Christelle, Saul S Unavailable Fredy Wall MD Unavailable Oliver Regalado MD Primary Care Provider Christelle, [place] S Unavailable Fredy Wall MD Unavailable Sujata SUPERINTENDENT MARINE.DIANNE Weina Unavailable Christelle, Saul S Unavailable Shelia Orr PA-C Primary Care Provider Christelle VARGAS [place] S Unavailable Shelai ORR Referring Unavailable Shelia ORR Primary Care Unavailable LIONEL BURGOS Attending Unavailable Shelia ORR Referring Unavailable OLIVER REGALADO Primary Care Unavailable Shelia ORR Attending Unavailable Shelia ORR Primary Care Unavailable Shelia ORR Referring Unavailable Shelia ORR Primary Care Unavailable Shelia ORR Referring Unavailable FABRICIOOLIVER Primary Care Unavailable Shelia ORR Referring Unavailable FABRICIOOLIVER Primary Care Unavailable Shelia ORR Attending Unavailable FABRICIOOLIVER Primary Care Unavailable Shelia ORR Referring Unavailable FABRICIO, OLIVER Marin Primary Care Unavailable Shelia ORR Referring Unavailable FABRICIOOLIVER Tania Primary Care Unavailable Shelia ORR Referring Unavailable FABRICIO, OLIVER Marin Primary Care Unavailable Shelia ORR Attending Unavailable FABRICIOOLIVER Primary Care Unavailable Shelia ORR Referring Unavailable FABRICIO, OLIVER Marin Primary Care Unavailable Shelia ORR Attending Unavailable Shelia ORR Primary Care Unavailable Allergies Allergy Classification Reported Allergen(s) Allergy Type Date of Onset Reaction(s) Facility (20 sources) Seasonal allergy; Translations: [SEASONAL ALLERGIES] Propensity to adverse reactions 6 Other: See Comments [facility] (16 sources) Lisinopril; Translations: [LISINOPRIL] Drug Allergy 3 Cough [facility] Work Phone: Medications Current Medications Medication Drug Class(es) Dates Sig (Normalized) Sig (Original) furosemide 20 mg oral tablet (20 sources) Loop Diuretic Start: 07-26-2023 End: 09-06-2024 take 1 tablet by mouth once daily furosemide (LASIX) 20 mg tablet Take 1 tablet by mouth once daily. 90 tablet 3 09/07/2023 09/06/2024 Active Completed/Discontinued Medications Medication Drug Class(es) Dates Sig (Normalized) Sig (Original) acetaminophen 500 mg oral tablet (1 source) Start: 08-19-2021 End: 09-16-2021 acetaminophen (TYLENOL) 500 mg tablet [The details of the medication are not available because there are pending changes by a home health clinician.] 0 08/19/2021 09/16/2021 Discontinued (Course of therapy completed) Problems Active Problems Problem Classification Problem Date Documented Da te Episodic/Chronic Adjustment disorders (6 sources) Brief depressive adjustment reaction; Translations: [Adjustment disorder with depressed mood] Onset: 3 Chronic Anxiety disorders (3 sources) Anxiety; Translations: [Anxiety disorder, unspecified] Onset: 3 Chronic Cardiac dysrhythmias (20 sources) Atrial fibrillation; Translations: [Unspecified atrial fibrillation] Onset: 1 08-27-2021 Chronic Coagulation and hemorrhagic disorders (20 sources) Platelet count below reference range; Translations: [Thrombocytopenia, unspecified] Onset: 2 Chronic Congestive heart failure; nonhypertensive (11 sources) 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; Translations: [Unspecified systolic (congestive) heart failure] Onset: 3 05-27-2023 Chronic Coronary atherosclerosis and other heart disease (20 sources) Coronary arteriosclerosis; Translations: [Atherosclerotic heart disease of [place] coronary artery with unspecified angina pectoris] Onset: 1 09-26-2021 Chronic Deficiency and other anemia (1 source) Macrocytic anemia; Translations: [Nutritional anemia, unspecified] 05-20-2023 Episodic Diabetes mellitus without complication (20 sources) Type 2 diabetes mellitus without complication; Translations: [Type 2 diabetes mellitus without complications] Onset: 5 01-31-2019 Chronic Diabetes mellitus without complication (20 sources) Hyperglycemia; Translations: [Hyperglycemia, unspecified] Onset: 2 04-02-2022 Episodic Disorders of lipid metabolism (2 sources) Mixed hyperlipidemia; Translations: [Mixed hyperlipidemia] Onset: 4 05-27-2023 Chronic Esophageal disorders (20 sources) Gastroesophageal reflux disease; Translations: [Gastro-esophageal reflux disease without esophagitis] Onset: 6 03-10-2016 Chronic Essential hypertension (20 sources) Essential hypertension; Translations: [Essential (primary) hypertension] Onset: 6 10-14-2015 Chronic Gout and other crystal arthropathies (20 sources) Gout; Translations: [Gout, unspecified] Onset: 0 04-18-2010 Chronic Headache; including migraine (20 sources) Migraine; Translations: [Other forms of migraine] 04-18-2010 Chronic Hyperplasia of prostate (20 sources) Benign prostatic hypertrophy with outflow obstruction; Translations: [Benign prostatic hyperplasia with lower urinary tract symptoms] Onset: 2 Chronic Hypertension with complications and secondary hypertension (20 sources) Hypertensive heart disease; Translations: [Hypertensive heart disease without heart failure] Onset: 6 03-11-2017 Chronic Osteoarthritis (20 sources) Arthritis of knee; Translations: [Unilateral primary osteoarthritis, unspecified knee] 11-03-2021 Chronic Other aftercare (1 source) Long-term current use of drug therapy; Translations: [Other supervisor intermediates (current) drug therapy] Episodic Other aftercare (1 source) Long-term current use of anticoagulant; Translations: [long-term (current) use of anticoagulants] Episodic Other and ill-defined heart disease (20 sources) Left ventricular systolic dysfunction; Translations: [Heart disease, unspecified] Onset: 2 Chronic Other and ill-defined heart disease (1 source) Heart disease, unspecified; Translations: [Systolic dysfunction, left ventricle] Onset: 2 Chronic Other connective tissue disease (1 source) Pain in bilateral legs; Translations: [Pain in right leg] Episodic Other gastrointestinal disorders (4 sources) Diarrhea; Translations: [Diarrhea, unspecified] Episodic Other inflammatory condition of skin (20 sources) Rosacea; Translations: [Rosacea, unspecified] Onset: 2 01-06-2012 Chronic Other liver diseases (1 source) Elevated liver enzymes level; Translations: [Abnormal levels of other serum enzymes] Episodic Other lower respiratory disease (3 sources) Chronic cough; Translations: [Chronic cough] Episodic Other male genital disorders (2 sources) Secondary erectile dysfunction; Translations: [Male erectile dysfunction, unspecified] Chronic Other male genital disorders (1 source) Male erectile dysfunction, unspecified; Translations: [ED (erectile dysfunction) of organic origin] Onset: 4 Chronic Other male genital disorders (2 sources) Retrograde ejaculation; Translations: [Retrograde ejaculation] Episodic Other non-traumatic joint disorders (1 source) Pain in right knee; Translations: [Pain in joint, lower leg] Episodic Other non-traumatic joint disorders (1 source) Effusion of right knee joint; Translations: [Effusion, right knee] Episodic Other non-traumatic joint disorders (4 sources) Shoulder pain; Translations: [Pain in right shoulder] Onset: 3 Episodic Other nutritional; endocrine; and metabolic disorders (20 sources) Obese class I; Translations: [Obesity, unspecified] Onset: 1 08-19-2021 Chronic Other nutritional; endocrine; and metabolic disorders (1 source) Body mass index 30+ - obesity; Translations: [Body mass index (BMI) 32.0-32.9, adult] Chronic Other nutritional; endocrine; and metabolic disorders (1 source) Obesity, unspecified; Translations: [Obesity, Class I, BMI 30-34.9] Onset: 1 Chronic Other nutritional; endocrine; and metabolic disorders (1 source) Food and drink intake - finding; Translations: [Other symptoms and signs concerning food and fluid intake] Episodic Other upper respiratory disease (1 source) Seasonal allergic rhinitis; Translations: [Other seasonal allergic rhinitis] Chronic Residual codes; unclassified (2 sources) Obstructive sleep apnea syndrome; Translations: [Obstructive sleep apnea (adult) (pediatric)] Chronic Residual codes; unclassified (1 source) Other specified personal risk factors, not elsewhere classified; Translations: [Other specified personal history presenting hazards to health] Episodic Residual codes; unclassified (2 sources) Tobacco use and exposure - finding; Translations: [Tobacco use] Episodic Thyroid disorders (20 sources) Acquired hypothyroidism; Translations: [Hypothyroidism, unspecified] Onset: 1 Chronic Past or Other Problems Problem Classification Problem Date Documented Da te Episodic/Chronic Coronary atherosclerosis and other heart disease (1 source) Presence of aortocoronary bypass graft; Translations: [S/P CABG x 3] Onset: 08-19-2021 Episodic Deficiency and other anemia (1 source) Nutritional anemia, unspecified; Translations: [Macrocytic anemia] Onset: 05-21-2023 Episodic Other diseases of kidney and ureters (1 source) Other obstructive and reflux uropathy; Translations: [BPH with obstruction/lower urinary tract symptoms] Onset: 07-14-2022 Episodic Other non-epithelial cancer of skin (20 sources) Squamous cell carcinoma in situ of skin; Translations: [Carcinoma in situ of skin, unspecified] Onset: 08-26-2017 12-23-2017 Episodic Other non-traumatic joint disorders (12 sources) Pain in right shoulder; Translations: [Pain in joint, shoulder region] Onset: 03-09-2023 03-09-2023 Episodic Other non-traumatic joint disorders (1 source) Pain in left shoulder; Translations: [Bilateral shoulder pain, unspecified chronicity] Onset: 03-09-2023 Episodic Other screening for suspected conditions (not mental disorders or infectious disease) (2 sources) Raised TSH level; Translations: [Other specified abnormal findings of blood chemistry] Onset: 05-21-2023 05-20-2023 Episodic Other skin disorders (20 sources) Dry skin dermatitis; Translations: [Xerosis cutis] Onset: 09-25-2021 09-25-2021 Episodic Results Test Name Value Interpretation Reference Range Facil ity Vital Signs Date Time Vital Sign Value Performing Clinician Nikki lity 05-27-2023 09:01-0400 Body weight 111.13 kg NA Orr PA-C Work Phone: [facility] 05-27-2023 09:01-0400 Diastolic blood pressure 68 mm[Hg] NA Orr PA-C Work Phone: [facility] 05-27-2023 09:01-0400 Heart rate 67 /min NA Orr PA-C Work Phone: [facility] 05-27-2023 09:01-0400 Respiratory rate 16 /min NA Orr PA-C Work Phone: [facility] 05-27-2023 09:01-0400 SaO2% (BldA) [Mass fraction] 97 % NA Orr PA-C Work Phone: [facility] 05-27-2023 09:01-0400 Systolic blood pressure 126 mm[Hg] NA Orr PA-C Work Phone: [facility] 02-25-2023 08:04-0400 Body weight 110.22 kg NA Orr PA-C Work Phone: [facility] 02-25-2023 08:04-0400 Diastolic blood pressure 62 mm[Hg] NA Orr PA-C Work Phone: [facility] 02-25-2023 08:04-0400 Heart rate 67 /min NA Orr PA-C Work Phone: [facility] 02-25-2023 08:04-0400 Respiratory rate 16 /min NA Orr PA-C Work Phone: [facility] 02-25-2023 08:04-0400 SaO2% (BldA) [Mass fraction] 97 % NA Orr PA-C Work Phone: [facility] 02-25-2023 08:04-0400 Systolic blood pressure 128 mm[Hg] NA Orr PA-C Work Phone: [facility] 01-22-2023 08:10-0400 Body weight 111.58 kg NA Orr PA-C Work Phone: [facility] 01-22-2023 08:10-0400 Diastolic blood pressure 68 mm[Hg] NA Orr PA-C Work Phone: [facility] 01-22-2023 08:10-0400 Heart rate 64 /min NA Orr PA-C Work Phone: [facility] 01-22-2023 08:10-0400 Respiratory rate 14 /min NA Orr PA-C Work Phone: [facility] 01-22-2023 08:10-0400 SaO2% (BldA) [Mass fraction] 95 % NA Orr PA-C Work Phone: [facility] 01-22-2023 08:10-0400 Systolic blood pressure 116 mm[Hg] NA Orr PA-C Work Phone: [facility] 08-27-2022 08:06-0400 Body weight 108.86 kg NA Orr PA-C Work Phone: [facility] 08-27-2022 08:06-0400 Diastolic blood pressure 66 mm[Hg] NA Orr PA-C Work Phone: [facility] 08-27-2022 08:06-0400 Heart rate 64 /min NA Orr PA-C Work Phone: [facility] 08-27-2022 08:06-0400 Respiratory rate 16 /min NA Orr PA-C Work Phone: [facility] 08-27-2022 08:06-0400 SaO2% (BldA) [Mass fraction] 97 % NA Orr PA-C Work Phone: [facility] 08-27-2022 08:06-0400 Systolic blood pressure 118 mm[Hg] NA Orr PA-C Work Phone: [facility] 07-14-2022 08:24-0400 Body height 182.9 cm Sanjiv Morgan PA-C Work Phone: [facility] 07-14-2022 08:24-0400 Body temperature 97.81 [degF] Sanjiv Morgan PA-C Work Phone: [facility] 07-14-2022 08:24-0400 Body weight 107.05 kg Sanjiv Morgan PA-C Work Phone: [facility] 07-14-2022 08:24-0400 Diastolic blood pressure 60 mm[Hg] Sanjiv Morgan PA-C Work Phone: [facility] 07-14-2022 08:24-0400 Heart rate 74 /min Sanjiv Morgan PA-C Work Phone: [facility] 07-14-2022 08:24-0400 Respiratory rate 14 /min Sanjiv Morgan PA-C Work Phone: [facility] 07-14-2022 08:24-0400 SaO2% (BldA) [Mass fraction] 98 % Sanjiv Morgan PA-C Work Phone: [facility] 07-14-2022 08:24-0400 Systolic blood pressure 104 mm[Hg] Sanjiv Morgan PA-C Work Phone: [facility] 05-14-2022 08:04-0400 Body weight 104.33 kg NA Orr PA-C Work Phone: [facility] 05-14-2022 08:04-0400 Diastolic blood pressure 72 mm[Hg] NA Orr PA-C Work Phone: [facility] 05-14-2022 08:04-0400 Heart rate 61 /min NA Orr PA-C Work Phone: [facility] 05-14-2022 08:04-0400 Respiratory rate 16 /min NA Orr PA-C Work Phone: [facility] 05-14-2022 08:04-0400 SaO2% (BldA) [Mass fraction] 97 % NA Orr PA-C Work Phone: [facility] 05-14-2022 08:04-0400 Systolic blood pressure 114 mm[Hg] NA Orr PA-C Work Phone: [facility] 05-12-2022 09:33-0400 Body height 180.3 cm Anastasiya Schwab MD Work Phone: [facility] 05-12-2022 09:33-0400 Body weight 103.42 kg Anastasiya Schwab MD Work Phone: [facility] 05-12-2022 09:33-0400 Diastolic blood pressure 81 mm[Hg] Anastasiya Schwab MD Work Phone: [facility] 05-12-2022 09:33-0400 Heart rate 57 /min Anastasiya Schwab MD Work Phone: [facility] 05-12-2022 09:33-0400 Respiratory rate 18 /min Anastasiya Schwab MD Work Phone: [facility] 05-12-2022 09:33-0400 SaO2% (BldA) [Mass fraction] 96 % Anastasiya Schwab MD Work Phone: [facility] 05-12-2022 09:33-0400 Systolic blood pressure 125 mm[Hg] Anastasiya Schwab MD Work Phone: [facility] 04-28-2022 08:30-0400 Body weight 104.24 kg Candie Hwang SUPERINTENDENT MARINE.FOLLOW UP SPECIALIST Work Phone: [facility] 04-28-2022 08:30-0400 Diastolic blood pressure 76 mm[Hg] Candie Hwang SUPERINTENDENT MARINE.FOLLOW UP SPECIALIST Work Phone: [facility] 04-28-2022 08:30-0400 Heart rate 64 /min Candie Hwang SUPERINTENDENT MARINE.FOLLOW UP SPECIALIST Work Phone: [facility] 04-28-2022 08:30-0400 Respiratory rate 18 /min Candie Hajocelyn SUPERINTENDENT MARINE.FOLLOW UP SPECIALIST Work Phone: [facility] 04-28-2022 08:30-0400 SaO2% (BldA) [Mass fraction] 96 % Candie Hajocelyn SUPERINTENDENT MARINE.FOLLOW UP SPECIALIST Work Phone: [facility] 04-28-2022 08:30-0400 Systolic blood pressure 122 mm[Hg] Candie Jaiden SUPERINTENDENT MARINE.FOLLOW UP SPECIALIST Work Phone: [facility] 04-10-2022 09:17-0400 Body height 180.3 cm Sanjiv Morgan PA-C Work Phone: [facility] 04-10-2022 09:17-0400 Body temperature 97 [degF] Sanjiv Morgan PA-C Work Phone: [facility] 04-10-2022 09:17-0400 Body weight 103.42 kg Sanjiv Morgan PA-C Work Phone: [facility] 04-10-2022 09:17-0400 Diastolic blood pressure 70 mm[Hg] Sanjiv Morgan PA-C Work Phone: [facility] 04-10-2022 09:17-0400 Heart rate 68 /min Sanjiv Morgan PA-C Work Phone: [facility] 04-10-2022 09:17-0400 Respiratory rate 14 /min Sanjiv Morgan PA-C Work Phone: [facility] 04-10-2022 09:17-0400 SaO2% (BldA) [Mass fraction] 97 % Sanjiv Morgan PA-C Work Phone: [facility] 04-10-2022 09:17-0400 Systolic blood pressure 132 mm[Hg] Sanjiv Morgan PA-C Work Phone: [facility] 03-26-2022 09:08-0400 Body weight 103.42 kg NA Orr PA-C Work Phone: [facility] 03-26-2022 09:08-0400 Diastolic blood pressure 66 mm[Hg] NA Orr PA-C Work Phone: [facility] 03-26-2022 09:08-0400 Heart rate 52 /min NA Orr PA-C Work Phone: [facility] 03-26-2022 09:08-0400 Respiratory rate 18 /min NA Orr PA-C Work Phone: [facility] 03-26-2022 09:08-0400 SaO2% (BldA) [Mass fraction] 97 % NA Orr PA-C Work Phone: [facility] 03-26-2022 09:08-0400 Systolic blood pressure 142 mm[Hg] NA Orr PA-C Work Phone: [facility] 02-02-2022 07:50-0400 Body height 180.3 cm Kaylan Leigh SUPERINTENDENT MARINE.FOLLOW UP SPECIALIST Work Phone: [facility] 02-02-2022 07:50-0400 Body weight 100.25 kg Kaylan Leigh SUPERINTENDENT MARINE.FOLLOW UP SPECIALIST Work Phone: [facility] 02-02-2022 07:50-0400 Diastolic blood pressure 82 mm[Hg] Kaylan Leigh SUPERINTENDENT MARINE.FOLLOW UP SPECIALIST Work Phone: [facility] 02-02-2022 07:50-0400 Heart rate 57 /min Kaylan Leigh SUPERINTENDENT MARINE.FOLLOW UP SPECIALIST Work Phone: [facility] 02-02-2022 07:50-0400 Respiratory rate 18 /min Kaylan Leigh SUPERINTENDENT MARINE.FOLLOW UP SPECIALIST Work Phone: [facility] 02-02-2022 07:50-0400 SaO2% (BldA) [Mass fraction] 95 % Kaylan Leigh SUPERINTENDENT MARINE.FOLLOW UP SPECIALIST Work Phone: [facility] 02-02-2022 07:50-0400 Systolic blood pressure 124 mm[Hg] Kaylan Leigh SUPERINTENDENT MARINE.FOLLOW UP SPECIALIST Work Phone: [facility] Encounters Encounter Date Encounter Type Care Provider Facility Start: 11-26-2023 End: 11-26-2023 ambulatory Shelia ORR Facility:[facility] Start: 11-23-2023 End: 11-24-2023 ambulatory Shelia ORR Facility:[facility] Start: 09-07-2023 Refill Shelia Carter marva PA-C Work Phone: [facility] Procedures Date Procedure Procedure Detail Performing Clinician Start: 07-14-2022 Urnls dip stick/tabl et rgnt auto w/o microscopy Sanjiv Morgan PA-C Work Phone: Start: 05-12-2022 Ecg routine ecg w/le ast 12 lds w/i&r Anastasiya Schwab MD Work Phone: Start: 04-28-2022 Urnls dip stick/tabl et rgnt auto w/o microscopy Candie Hwang SUPERINTENDENT MARINE.FOLLOW UP SPECIALIST Work Phone: Start: 04-10-2022 Urnls dip stick/tabl et rgnt auto w/o microscopy Sanjiv Morgan PA-C Work Phone: Start: 02-02-2022 Ecg routine ecg w/le ast 12 lds w/i&r Kaylan Leigh SUPERINTENDENT MARINE.FOLLOW UP SPECIALIST Work Phone: Start: 09-19-2021 Adult depression screening assessment Oliver Regalado MD Work Phone: Start: 08-17-2021 History of coronary artery bypass grafting S/P CABG x 3 Oliver Regalado MD Work Phone: Start: 07-29-2021 Antibody screen Plan of Treatment Date Care Activity Detail Author Start: 09-07-2032 Urine microalbumin profile [facility] Start: 04-09-2031 Colonoscopy COLONOSCOPY [facility] Start: 04-09-2031 COLORECTAL CANCER SCREENING COLORECTAL CANCER SCREENING [facility] Start: 03-30-2027 PROSTATE CANCER SCRE ENING DISCUSSION PROSTATE CANCER SCREENING DISCUSSION [facility] Start: 07-25-2024 PROSTATE CANCER SCRE ENING DISCUSSION PROSTATE CANCER SCREENING DISCUSSION [facility] Start: 05-27-2024 ANNUAL PCP TEAM EFFICIENCY EXPERT JAMIE DISEASE VISIT ANNUAL PCP TEAM CHRONIC DISEASE VISIT [facility] Start: 05-27-2024 BP CONTROLLED (<130/80) BP CONTROLLE D (<130/80) [facility] Start: 05-27-2024 COVID-19 VACCINE (5 - Moderna series) COVID-19 VACCINE (5 - Moderna series) [facility] Immunizations Immunization Date Immunization Notes Care Provider Evaristo layne 07-19-2023 influenza, injectabl e, quadrivalent, contains preservative NA Orr PA-C Work Phone: [facility] 12-29-2022 zoster vaccine recombinant NA Orr PA-C Work Phone: [facility] 09-07-2022 tetanus toxoid, redu deisy diphtheria toxoid, and acellular pertussis vaccine, adsorbed Oliver Regalado MD Work Phone: [facility] 09-07-2022 zoster vaccine recombinant Oliver Regalado MD Work Phone: [facility] 07-09-2022 influenza (aIIV4) vaccine, age 65+ yr, quadrivalent, PF (FLUAD QUADRIVALENT) Oliver Regalado MD Work Phone: [facility] 07-09-2022 influenza, high dose seasonal, preservative-free Sanjiv Morgan PA-C Work Phone: [facility] 02-24-2022 pneumococcal (PCV20) vaccine, 20 valent (PREVNAR 20) NA Orr PA-C Work Phone: [facility] 09-18-2021 COVID-19 vaccine, fu ll dose (MODERNA) Oliver Regalado MD Work Phone: [facility] 07-28-2021 influenza, high dose seasonal, preservative-free Oliver Regalado MD Work Phone: [facility] 02-26-2021 pneumococcal conjuga te vaccine, 13 valent Oliver Regalado MD Work Phone: [facility] 01-27-2021 COVID-19 vaccine, fu ll dose (MODERNA) Oliver Regalado MD Work Phone: [facility] 12-30-2020 COVID-19 vaccine, fu ll dose (MODERNA) Oliver Regalado MD Work Phone: [facility] 07-26-2020 influenza, injectabl e, quadrivalent, preservative free Oliver Regalado MD Work Phone: [facility] Work Phone: 07-03-2019 influenza, injectabl e, quadrivalent, preservative free Oliver Regalado MD Work Phone: [facility] Work Phone: 07-19-2018 influenza, injectabl e, quadrivalent, preservative free Oliver Regalado MD Work Phone: [facility] Work Phone: 07-19-2018 influenza, seasonal, injectable, preservative free Oliver Regalado MD Work Phone: [facility] 07-08-2017 influenza, seasonal, injectable Oliver Regalado MD Work Phone: [facility] Work Phone: 07-07-2017 influenza, injectabl e, quadrivalent, preservative free Oliver Regalado MD Work Phone: [facility] Work Phone: 09-06-2016 influenza, injectabl e, quadrivalent, preservative free Oliver Regalado MD Work Phone: [facility] Work Phone: 07-22-2015 influenza, injectabl e, quadrivalent, preservative free Oliver Regalado MD Work Phone: [facility] Work Phone: 08-19-2014 influenza, seasonal, injectable, preservative free Oliver Regalado MD Work Phone: [facility] Work Phone: 10-12-2013 influenza virus vacc ine, unspecified formulation Oliver Regalado MD Work Phone: [facility] Work Phone: 09-01-2011 influenza virus vacc ine, unspecified formulation Oliver Regalado MD Work Phone: [facility] Work Phone: 04-18-2010 pneumococcal polysaccharide vaccine, 23 valent Oliver Regalado MD Work Phone: [facility] Work Phone: 04-18-2010 tetanus toxoid, redu deisy diphtheria toxoid, and acellular pertussis vaccine, adsorbed Oliver Regalado MD Work Phone: [facility] Work Phone: 09-01-2006 influenza virus vacc ine, unspecified formulation Oliver Regalado MD Work Phone: [facility] Work Phone: Payers Date Payer Category Payer Medicare MEDICARE MEDICAR E A AND B [id number] 2020-Present [phone] [address] [place] [id number] Medicare [id number] 2020 Medicare MEDICARE MEDICAR E A AND B [id number] 2020-Present [phone] [place] [address] Medicare [id number] 2020 Medicare [id number] 2020 Medicare [id number] 2020 Unknown JOHN LOPEZ ME DICARE SUPPLEMENT [id number] 2020-Present [phone] [id number] Indemnity [id number] 2020 Unknown JOHN LOPEZ ME DICARE SUPPLEMENT [id number] 2020-Present [phone] [id number] [place] [address] Indemnity [id number] Social History Date Type Detail Facility Start: 10-07-2011 End: 07-14-2022 Tobacco smoking status NHIS Ex-smoker [facility] Work Phone: End: 05-08-2011 History of tobacco use Current smoker [facility] Work Phone: End: 05-08-2011 History of tobacco use Cigarette Smoker [facility] Work Phone: Start: 10-07-2011 End: 05-27-2023 Cigarettes smoked current (pack per day) - Reported 0.5 [facility] Start: 10-07-2011 End: 07-14-2022 Tobacco use and exposure Smokeless tobacco non-user [facility] Work Phone: Start: 10-01-2021 End: 05-27-2023 Alcohol intake Current drinker of alcohol (finding) [facility] Start: 04-09-2021 History SDOH Alcohol Comment daily [facility] Start: 08-12-2021 End: 07-14-2022 Tobacco Comment had quit in 2010- relapsed and now quit again [facility] Start: 1955 Sex Assigned At Not on file C [facility] Start: 01-23-2022 End: 08-27-2022 Exposure to SARS-CoV-2 (event) Not sure [facility] Start: 04-28-2022 History SDOH Alcohol Frequency 98 [facility] Start: 04-28-2022 End: 02-22-2023 History SDOH Social Connections Phone 5 [facility] Start: 04-28-2022 End: 02-22-2023 History SDOH Social Connections Get Together 3 [facility] Start: 04-28-2022 End: 02-22-2023 History SDOH Social Connections Membership 2 [facility] Start: 04-28-2022 End: 02-22-2023 History SDOH Social Connections Meetings 1 [facility] Start: 04-19-2022 End: 04-29-2022 Exposure to SARS-CoV-2 (event) Unable to assess [facility] Work Phone: Start: 02-22-2023 History SDOH Social Connections Phone 4 [facility] Start: 02-22-2023 History SDOH Physica l Activity DPW 0 [facility] Start: 02-22-2023 End: 05-27-2023 Social connection and isolation panel [facility] Do you belong to any clubs or organizations such as mosque groups, unions, fraternal or athletic groups, or school groups? No [facility] Are you now , , , , never or living with a partner? [facility] How often to you hav e a drink containing alcohol? Patient refused [facility] Do you feel stress - tense, restless, nervous, or anxious, or unable to sleep at night because your mind is troubled all the time - these days [OSQ] Not at all [facility] (I/We) worried wheth er (my/our) food would run out before (I/we) got money to buy more. Never true [facility] Medical Equipment Procedure Code Equipment Code Equipment Origin al Text Equipment Identifier Dates Sensor Cdi Hepar in Shunt 1.2ml System 500 Sterile Disposable - [id number] Start: 08-13-2021 Start: 01-07-2015 End: 09-07-2023 Clinical Notes 09-01-2011 to 11-26-2023 Telephone Encounter - Sheila Campo - 09/07/2023 10:21 AM EDTTelephone Encounter - Vicenta Sommers LPN - 08/30/2023 12:50 PM EDTTelephone Encounter - Umair Le LPN - 07/26/2023 7:09 PM EDT Note Date & Type Note Facility 11-26-2023 Note HNO ID: [id number] Author: Shelia ORR PA-C Service: ? Author Type: Physician Contact Center Agent Type: Progress Notes Filed: 11/26/2023 11:08 Note Text: 67 year old male with c/o here for follow up Current concerns: Weight issues: insurance wouldn't cover ozempic. Very disappointment. Asking if there is another way to get covered Right knee is doing okay now, did have pain for almost a year. No longer doing gym. Notes left ankle hurts since knee surgery. Coronary artery disease involving [place] heart with angina pectoris, unspecified vessel or lesion type (hcc) (primary encounter diagnosis) S/p cabg x 3 Atrial fibrillation status post cardioversion ([facility]) Systolic dysfunction, left ventricle Essential hypertension Hypertensive heart disease without heart failure Cardiovascular interval hx: Supervisor Slitting And Shipping: Dr. Olivarez [place] Cardiology Dr. Gabriel Schwab [facility] Cardiovascular interval hx: Cardiology last visit 11/03/2023 Attila Dempsey OPTOMETRIC TECHNOLOGIST-C: Identifies stable from cardiac standpoint, encouraging LDL goal of 70. Identified leg pain which was referred here. 03/01/2023 05/12/2022 Dr. Schwab recommended f/u with cardiology 01/23/2022 last cardiology visit Attila Collazo, FOLLOW UP SPECIALIST: conditions stable, consider ICD due to low EF 06/03/2022 echo [facility]: LV size and LV SF WNL, EF 50%, moderate concentric LVH. RA moderately enlarged. Stage I diastolic dysfunction. No valvular heart disease. Normal great vessels. 10/01/2021 Cardiac rehab, tolerated 40 minutes rehab, amiodorone reduced to 200mg 08/26/[address] Helms cardioversion 200 J synchronized biphasic external shock with conversion. 08/26/2021 transesophageal echo: LV mildly dilated, LV SF severely decreased, EF 25%. RV mildly dilated, RV SF moderately decreased. LA moderately dilated, left atrial appendage is not multilobed, no left atrial appendage thrombus. Aorta size WNL 3.7 cm ascending Pulmonary veins size WNL, blunted systolic flow. RA: Moderately severely dilated. Superior vena cava WNL. Small pericardial effusion. Main pulmonary artery mildly dilated. 08/25/2021 post-op day 8 developed asymptomatic AFib RVR 120-140s 08/18/2021 [facility] admit: CABG: BEAVERS to LAD, SVG to obtuse marginal branch 1 and 2 07/08/2021 heart cath, Dr. Bourgeois: Severe disease noted LAD with high-grade stenosis of the calcified left circumflex with left ventricular systolic dysfunction. LVEF 35% Anterior hypokinesis moderate LM: Mild calcification no disease. LAD mid occluded, distal LAD collateral circulation, L CX large dominant vessel, bifurcating with 80% stenosis mid segment, RCA mild luminal irregularities less than 30% 05/2021 [facility] admit NSTEMI 01/30/17 echocardiogram [facility]: EF 55% mildly abnormal LV relaxation, mild dilatation RV, left and right atria. Otherwise WNL. Current meds: Metoprolol tartrate 50 mg every 12 hours Furosemide 20 mg daily Apixaban 5 mg twice daily Clopidogrel 75 mg daily Pravastatin 10 mg daily Losartan 25mg daily Use of NTG: No Chest pain, arm, jaw pain, neck, or upper back pain suggestive of angina: denies, no longer having sharp pain in left upper chest. Reaffirms if reaches down to tie shoes or clip toenails feels SOB and rapid heart for a few minutes or less. Shoulders hurts from arthritis. SOB: No Dyspnea with exertion: No orthopnea: No Cough: none racing or irregular heartbeats: No palpitations: No syncopal sx: No, except as above with nail clipping Headache: No Unexplainable fatigue No Leg swelling: No Nausea: No diaphoresis: No Heartburn: No Claudication: not really active, pain in anterior and posterior thighs, with standing persistent. With walking gets sciatica in posterior right leg from buttock. Occurs very often. Smoking: No Following Low cholesterol, high fiber diet? Room for improvement If on statin: muscle aches? Thighs ache with activity If on statin: GI sx or diarrhea? From last time: A little intermittent diarrhea- states has gotten better. Additional history none. Lab review: Component Latest Ref Rng AND Units 01/22/2023 02/22/2023 05/21/2023 11/23/2023 WBC 3.70 - 11.00 k/uL 4.59 4.70 RBC 4.20 - 6.00 m/uL 4.29 4.21 Hemoglobin 13.0 - 17.0 g/dL 13.8 13.5 Hematocrit 39.0 - 51.0 % 39.0 38.2 (L) MCV 80.0 - 100.0 fL 90.9 90.7 MCH 26.0 - 34.0 pg 32.2 32.1 MCHC 30.5 - 36.0 g/dL 35.4 35.3 RDW-CV 11.5 - 15.0 % 13.3 13.2 Platelet Count 150 - 400 k/uL 133 (L) 134 (L) MPV 9.0 - 12.7 fL 10.3 10.7 Neut% % 62.0 57.1 Abs Neut (ANC) 1.45 - 7.50 k/uL 2.85 2.68 Lymph% % 23.1 29.1 Abs Lymph 1.00 - 4.00 k/uL 1.06 1.37 Prentiss% % 9.8 9.1 Abs Prentiss <0.87 k/uL 0.45 0.43 Eosin% % 3.1 3.2 Abs Eosin <0.46 k/uL 0.14 0.15 Baso% % 1.1 0.9 Abs Baso <0.11 k/uL 0.05 0.04 Immature Gran % % 0.9 0.6 IMMATURE GRANS (ABS) <0.10 k/uL 0.04 0.03 NRBC /100 WBC 0.0 0.0 Absolute nRBC <0.01 k/uL <0.01 <0.01 DTYPE Auto Auto Protein, Total 6.3 - 8.0 g/dL (more content not included)... [facility] 09-07-2023 Miscellaneous Notes Patient is transferring all his medications to [facility] he tried to get [facility] to do the transfer but they refused. Patient has been identified by name and date of : Yes Requested Prescriptions Pending Prescriptions Disp Refills alfuzosin SR (UROXATRAL) 10 mg 24 hr tablet 90 tablet 3 Sig: Take 1 tablet by mouth daily at bedtime. allopurinol (ZYLOPRIM) 300 mg tablet 180 tablet 3 Sig: TAKE 1 TABLET BY MOUTH TWICE DAILY. FOR GOUT. apixaban (ELIQUIS) 5 mg tab(s) 180 tablet 3 Sig: Take 1 tablet by mouth two times a day. blood sugar diagnostic (FREESTYLE LITE STRIPS) test strip 50 Strip 6 Sig: Test blood sugar(s) once times daily. Dx: 250.00. Insulin: No clopidogrel (PLAVIX) 75 mg tablet 90 tablet 3 Sig: Take 1 tablet by mouth once daily. furosemide (LASIX) 20 mg tablet 90 tablet 3 Sig: Take 1 tablet by mouth once daily. Lancets lancets 1 Each 11 Sig: Test blood sugar(s) one times daily. Dx: 250.00. Insulin: No Uses as needed levothyroxine (SYNTHROID) 50 mcg tablet 90 tablet 3 Sig: Take 1 tablet by mouth once daily. Take on empty stomach. For thyroid. losartan (COZAAR) 25 mg tablet 30 tablet 5 Sig: Take 1 tablet by mouth once daily. metoprolol tartrate, short acting, (LOPRESSOR) 50 mg tablet 180 tablet 1 Sig: Take 1 tablet by mouth every 12 hours. omeprazole (PRILOSEC) 40 mg capsule 90 capsule 3 Sig: Take 1 capsule by mouth once daily. pravastatin (PRAVACHOL) 10 mg tablet 90 tablet 3 Sig: Take 1 tablet by mouth once daily. vitamin with folic acid 1 mg 60 mg iron-1 mg tab 90 tablet 3 Sig: Take 1 tablet by mouth once daily. semaglutide (OZEMPIC) 0.25 mg or 0.5 mg (2 mg/3 mL) pen 4 Each 2 Sig: Inject 0.25 mg subcutaneously one time a week. sertraline (ZOLOFT) 50 mg tablet 90 tablet 1 Sig: Take 1 tablet by mouth once daily. sildenafil (VIAGRA) 100 mg tablet 30 tablet 3 Si tablet 30 min prior to intercourse, on empty stomach and with sexual stimulation immediately following. thiamine (VITAMIN B1) 100 mg tablet 90 tablet 3 Sig: Take 1 tablet by mouth once daily. RX INSTRUCTIONS: Patient aware RX will be sent to pharmacy. No need to notify patient. Sheila Puga documented in this encounter [facility] 08-30-2023 Miscellaneous Notes Patient has been identified by name and date of : Yes Requested Prescriptions Pending Prescriptions Disp Refills levothyroxine (SYNTHROID) 50 mcg tablet 90 tablet 3 Sig: Take 1 tablet by mouth once daily. Take on empty stomach. For thyroid. RX INSTRUCTIONS: Patient aware RX will be sent to pharmacy. No need to notify patient. TSH 3.580 05/21/23 MARC 05/27/23 Vicenta Sommers LPN documented in this encounter [facility] 08-17-2023 Note HNO ID: [id number] Author: Lionel Burgos PT Service: ? Author Type: Physical Therapist Type: Progress Notes Filed: 08/17/2023 11:00 AM Note Text: 08/17/[address] [facility] PHYSICAL THERAPY DISCONTINUANCE OF CARE Plan of Care Period: Start of Care Date: 03/09/23 Last Visit Date: 03/09/2023 Therapy Program: Patient did not return for follow up care as planned. Please refer to last visit note for interventions provided for this episode of care. Assessment: Unable to formally assess goal achievement. Reason for Discontinuation of Care: Patient has not returned to therapy or scheduled additional follow-up appointments. Lionel Burgos PT [facility] 07-26-2023 Miscellaneous Notes Patient phones requesting refills as follows: Requested Prescriptions Pending Prescriptions Disp Refills clopidogrel (PLAVIX) 75 mg tablet 90 tablet 3 Sig: Take 1 tablet by mouth once daily. MARC 05/27/23 NOV 11/26/23 Please review and advise. Umair Le LPN documented in this encounter [facility] 07-26-2023 Miscellaneous Notes He was switched from atorvastatin 40mg r/t side effects 05/17/2022 to pravastatin 10mg daily. Thanks, Rudy Orr PA-C documented in this encounter [facility] 07-26-2023 Miscellaneous Notes Patient has been identified by name and date of : Yes Requested Prescriptions Pending Prescriptions Disp Refills sertraline (ZOLOFT) 50 mg tablet 90 tablet 1 Sig: Take 1 tablet by mouth once daily. MARC: 05/27/23 NOV: 11/26/23 RX INSTRUCTIONS: Patient aware RX will be sent to pharmacy. No need to notify patient. Svetlana Villavicencio Ma documented in this encounter [facility] 06-19-2023 Miscellaneous Notes Last Office Visit: 05/27/2023 Future Office Visit: 11/26/2023 Requested Prescriptions Pending Prescriptions Disp Refills alfuzosin SR (UROXATRAL) 10 mg 24 hr tablet 90 tablet 3 Sig: Take 1 tablet by mouth daily at bedtime. Date of Last Labs: 05/21/2023 documented in this encounter [facility] 06-17-2023 Miscellaneous Notes Patient has been identified by name and date of : Yes Patient phones for refill(s): Requested Prescriptions Pending Prescriptions Disp Refills losartan (COZAAR) 25 mg tablet 30 tablet 5 Sig: Take 1 tablet by mouth once daily. Date of last office visit in primary care: 05/27/2023 Next appointment scheduled 11/26/2023 Please advise. Thank you. Katerina Jenkins LPN documented in this encounter [facility] 06-11-2023 Miscellaneous Notes Patient has been identified by name and date of : Yes Requested Prescriptions Pending Prescriptions Disp Refills omeprazole (PRILOSEC) 40 mg capsule 90 capsule 3 Sig: Take 1 capsule by mouth once daily. MARC:05-27-23 NOV:11-26-23 RX INSTRUCTIONS: Patient aware RX will be sent to pharmacy. No need to notify patient. Abi Serna documented in this encounter [facility] 05-27-2023 Note HNO ID: [id number] Author: Shelia Orr PA-C Service: ? Author Type: Physician Contact Center Agent Type: Progress Notes Filed: 05/27/2023 10:07 AM Note Text: 67 year old male with c/o Current concerns: Weight issues Week 9 from knee surgery, Dr. Hopper In PT, compliant Has been xrayed twice and told it looks okay Started at gym [facility] Notes left ankle hurts since knee surgery. Coronary artery disease involving [place] heart with angina pectoris, unspecified vessel or lesion type (hcc) (primary encounter diagnosis) S/p cabg x 3 Atrial fibrillation status post cardioversion ([facility]) Systolic dysfunction, left ventricle Essential hypertension Hypertensive heart disease without heart failure Cardiovascular interval hx: Supervisor Slitting And Shipping: Dr. Olivarez [place] Cardiology Dr. Gabriel Schwab [facility] Cardiovascular interval hx: 03/01/2023 05/12/2022 Dr. Schwab recommended f/u with cardiology 01/23/2022 last cardiology visit Attila Collazo CNP: conditions stable, consider ICD due to low EF 06/03/2022 echo [facility]: LV size and LV SF WNL, EF 50%, moderate concentric LVH. RA moderately enlarged. Stage I diastolic dysfunction. No valvular heart disease. Normal great vessels. 10/01/2021 Cardiac rehab, tolerated 40 minutes rehab, amiodorone reduced to 200mg 08/26/[address] Helms cardioversion 200 J synchronized biphasic external shock with conversion. 08/26/2021 transesophageal echo: LV mildly dilated, LV SF severely decreased, EF 25%. RV mildly dilated, RV SF moderately decreased. LA moderately dilated, left atrial appendage is not multilobed, no left atrial appendage thrombus. Aorta size WNL 3.7 cm ascending Pulmonary veins size WNL, blunted systolic flow. RA: Moderately severely dilated. Superior vena cava WNL. Small pericardial effusion. Main pulmonary artery mildly dilated. 08/25/2021 post-op day 8 developed asymptomatic AFib RVR 120-140s 08/18/2021 [facility] admit: CABG: BEAVERS to LAD, SVG to obtuse marginal branch 1 and 2 07/08/2021 heart cath, Dr. Bourgeois: Severe disease noted LAD with high-grade stenosis of the calcified left circumflex with left ventricular systolic dysfunction. LVEF 35% Anterior hypokinesis moderate LM: Mild calcification no disease. LAD mid occluded, distal LAD collateral circulation, L CX large dominant vessel, bifurcating with 80% stenosis mid segment, RCA mild luminal irregularities less than 30% 05/2021 [facility] admit NSTEMI 01/30/17 echocardiogram [facility]: EF 55% mildly abnormal LV relaxation, mild dilatation RV, left and right atria. Otherwise WNL. Current meds: Metoprolol tartrate 50 mg every 12 hours Furosemide 20 mg daily Apixaban 5 mg twice daily Clopidogrel 75 mg daily Pravastatin 10 mg daily Losartan 25mg daily Use of NTG: No Chest pain, arm, jaw pain, neck, or upper back pain suggestive of angina: notes every once in awhile has sharp pain in left upper chest for a couple seconds and gone. Reaffirms if reaches down to tie shoes or clip toenails feels SOB and rapid heart for a few minutes or less. Shoulders hurts from arthritis. SOB: No Dyspnea with exertion: No orthopnea: No Cough: resolved with change form lisinopril racing or irregular heartbeats: No palpitations: No syncopal sx: No, except as above with nail clipping Headache: No Unexplainable fatigue No Leg swelling: No Nausea: No diaphoresis: No Heartburn: No Claudication: not really active, pain in anterior and posterior thighs, with standing persistent. Smoking: No Following Low cholesterol, high fiber diet? Room for improvement If on statin: muscle aches? Thighs ache with activity If on statin: GI sx or diarrhea? From last time: A little intermittent diarrhea- states has gotten better Additional history none. Lab review: Component Latest Ref Rng AND Units 01/20/2023 01/22/2023 02/22/2023 05/21/2023 WBC 3.70 - 11.00 k/uL 4.95 4.59 4.98 RBC 4.20 - 6.00 m/uL 4.16 (L) 4.29 4.04 (L) Hemoglobin 13.0 - 17.0 g/dL 13.4 13.8 12.7 (L) Hematocrit 39.0 - 51.0 % 37.9 (L) 39.0 36.7 (L) MCV 80.0 - 100.0 fL 91.1 90.9 90.8 MCH 26.0 - 34.0 pg 32.2 32.2 31.4 MCHC 30.5 - 36.0 g/dL 35.4 35.4 34.6 RDW-CV 11.5 - 15.0 % 13.4 13.3 13.8 Platelet Count 150 - 400 k/uL 139 (L) 133 (L) 149 (L) MPV 9.0 - 12.7 fL 10.6 10.3 10.5 Neut% % 60.7 62.0 Abs Neut (ANC) 1.45 - 7.50 k/uL 3.00 2.85 Lymph% % 23.2 23.1 Abs Lymph 1.00 - 4.00 k/uL 1.15 1.06 Prentiss% % 10.9 9.8 Abs Prentiss <0.87 k/uL 0.54 0.45 Eosin% % 3.6 3.1 Abs Eosin <0.46 k/uL 0.18 0.14 Baso% % 1.0 1.1 Abs Baso <0.11 k/uL 0.05 0.05 Immature Gran % % 0.6 0.9 IMMATURE GRANS (ABS) <0.10 k/uL 0.03 0.04 NRBC /100 WBC 0.0 0.0 Absolute nRBC <0.01 k/uL <0.01 <0.01 <0.01 DTYPE Auto Auto Protein, Total 6.3 - 8.0 g/dL 7.5 7.6 7.2 Albumin 3.9 - 4.9 g/dL 4.6 4.6 4.4 Calcium 8.5 - 10.2 mg/dL 9.6 9.5 9.3 Bilirubin, Total 0.2 - 1.3 mg/dL 0.9 1.1 0.8 Alkaline Phosphatase 38 - 113 U/ (more content not included)... [facility] 05-27-2023 History of Present illness Narrative 67 year old male with c/o Current concerns: Weight issues Week 9 from knee surgery, Dr. Hopper In PT, compliant Has been xrayed twice and told it looks okay Started at gym [employer] Notes left ankle hurts since knee surgery. Coronary artery disease involving [place] heart with angina pectoris, unspecified vessel or lesion type (hcc) (primary encounter diagnosis) S/p cabg x 3 Atrial fibrillation status post cardioversion ([facility]) Systolic dysfunction, left ventricle Essential hypertension Hypertensive heart disease without heart failure Cardiovascular interval hx: Supervisor Slitting And Shipping: Dr. Olivarez [place] Cardiology Dr. Gabriel Schwab [facility] Cardiovascular interval hx: 03/01/2023 05/12/2022 Dr. Schwab recommended f/u with cardiology 01/23/2022 last cardiology visit Attila Collazo CNP: conditions stable, consider ICD due to low EF 06/03/2022 echo [facility]: LV size and LV SF WNL, EF 50%, moderate concentric LVH. RA moderately enlarged. Stage I diastolic dysfunction. No valvular heart disease. Normal great vessels. 10/01/2021 Cardiac rehab, tolerated 40 minutes rehab, amiodorone reduced to 200mg 08/26/[address] Helms cardioversion 200 J synchronized biphasic external shock with conversion. 08/26/2021 transesophageal echo: LV mildly dilated, LV SF severely decreased, EF 25%. RV mildly dilated, RV SF moderately decreased. LA moderately dilated, left atrial appendage is not multilobed, no left atrial appendage thrombus. Aorta size WNL 3.7 cm ascending Pulmonary veins size WNL, blunted systolic flow. RA: Moderately severely dilated. Superior vena cava WNL. Small pericardial effusion. Main pulmonary artery mildly dilated. 08/25/2021 post-op day 8 developed asymptomatic AFib RVR 120-140s 08/18/2021 [facility] admit: CABG: BEAVERS to LAD, SVG to obtuse marginal branch 1 and 2 07/08/2021 heart cath, Dr. Bourgeois: Severe disease noted LAD with high-grade stenosis of the calcified left circumflex with left ventricular systolic dysfunction. LVEF 35% Anterior hypokinesis moderate LM: Mild calcification no disease. LAD mid occluded, distal LAD collateral circulation, L CX large dominant vessel, bifurcating with 80% stenosis mid segment, RCA mild luminal irregularities less than 30% 05/2021 [facility] admit NSTEMI 01/30/17 echocardiogram [facility]: EF 55% mildly abnormal LV relaxation, mild dilatation RV, left and right atria. Otherwise WNL. Current meds: Metoprolol tartrate 50 mg every 12 hours Furosemide 20 mg daily Apixaban 5 mg twice daily Clopidogrel 75 mg daily Pravastatin 10 mg daily Losartan 25mg daily Use of NTG: No Chest pain, arm, jaw pain, neck, or upper back pain suggestive of angina: notes every once in awhile has sharp pain in left upper chest for a couple seconds and gone. Reaffirms if reaches down to tie shoes or clip toenails feels SOB and rapid heart for a few minutes or less. Shoulders hurts from arthritis. SOB: No Dyspnea with exertion: No orthopnea: No Cough: resolved with change form lisinopril racing or irregular heartbeats: No palpitations: No syncopal sx: No, except as above with nail clipping Headache: No Unexplainable fatigue No Leg swelling: No Nausea: No diaphoresis: No Heartburn: No Claudication: not really active, pain in anterior and posterior thighs, with standing persistent. Smoking: No Following Low cholesterol, high fiber diet? Room for improvement If on statin: muscle aches? Thighs ache with activity If on statin: GI sx or diarrhea? From last time: A little intermittent diarrhea- states has gotten better Additional history none. Lab review: Component Latest Ref Rng & Units 01/20/2023 01/22/2023 02/22/2023 05/21/2023 WBC 3.70 - 11.00 k/uL 4.95 4.59 4.98 RBC 4.20 - 6.00 m/uL 4.16 (L) 4.29 4.04 (L) Hemoglobin 13.0 - 17.0 g/dL 13.4 13.8 12.7 (L) Hematocrit 39.0 - 51.0 % 37.9 (L) 39.0 36.7 (L) MCV 80.0 - 100.0 fL 91.1 90.9 90.8 MCH 26.0 - 34.0 pg 32.2 32.2 31.4 MCHC 30.5 - 36.0 g/dL 35.4 35.4 34.6 RDW-CV 11.5 - 15.0 % 13.4 13.3 13.8 Platelet Count 150 - 400 k/uL 139 (L) 133 (L) 149 (L) MPV 9.0 - 12.7 fL 10.6 10.3 10.5 Neut% % 60.7 62.0 Abs Neut (ANC) 1.45 - 7.50 k/uL 3.00 2.85 Lymph% % 23.2 23.1 Abs Lymph 1.00 - 4.00 k/uL 1.15 1.06 Prentiss% % 10.9 9.8 Abs Prentiss <0.87 k/uL 0.54 0.45 Eosin% % 3.6 3.1 Abs Eosin <0.46 k/uL 0.18 0.14 Baso% % 1.0 1.1 Abs Baso <0.11 k/uL 0.05 0.05 Immature Gran % % 0.6 0.9 IMMATURE GRANS (ABS) <0.10 k/uL 0.03 0.04 NRBC /100 WBC 0.0 0.0 Absolute nRBC <0.01 k/uL <0.01 <0.01 <0.01 DTYPE Auto Auto Protein, Total 6.3 - 8.0 g/dL 7.5 7.6 7.2 Albumin 3.9 - 4.9 g/dL 4.6 4.6 4.4 Calcium 8.5 - 10.2 mg/dL 9.6 9.5 9.3 Bilirubin, Total 0.2 - 1.3 mg/dL 0.9 1.1 0.8 Alkaline Phosphatase 38 - 113 U/L 64 69 78 AST 14 - 40 U/L 26 30 34 29 ALT 10 - 54 U/L 30 30 22 Glucose 74 - 99 mg/dL 146 (H) 172 (H) 163 (H) BUN 9 - 24 mg/dL 8 (L) 10 10 Creatinine 0.73 - 1.22 mg/dL 0.84 0.82 0.74 Sodium 136 - 144 mmol/L 135 (L) 135 (L) 135 (L) Potassium 3.7 - 5.1 mmol/L 4.3 3.9 3.9 Chloride 97 - 105 mmol/L 97 98 97 CO2 22 - 30 mmol/L 25 24 27 Anion Gap 9 - 18 mmol/L 13 13 11 eGFR >=60 mL/min/1.73m 96 96 99 Cholesterol, Total <200 mg/dL 143 135 Triglyceride <150 mg/dL 86 65 HDL Cholesterol >39 mg/dL 56 61 Non HDL Cholesterol <130 mg/dL 87 74 Fasting Time hrs 13 12 VLDL Cholesterol <30 mg/dL 17 13 TC:HDL Ratio <5.10 2.55 2.21 LDL Cholesterol <100 mg/dL 70 61 LDL:HDL Ratio <2.54 1.25 1.00 CK 51 - 298 U/L 52 Type 2 diabetes mellitus without complication, without long-term current use of insulin (hcc) Current medications: none Taking medication as directed consistently? N/A Medication side effects: Medical Issues / Complications: hypertension, hyperlipidemia, and cardiovascular disease Checking blood sugars at home? No. Watching diet? No Physical Activity: Sedentary Hypoglycemic spells? No Any visual disturbance? No Chest pain? No New numbness, tingling or loss of sensation? No Any recent foot problems, sores or rashes? No Any recent or sudden weight loss? No Change in urination? No. If yes: Any recent illness? No Last eye exam: cataracts removed, [facility] in last 6 months. Last foot exam: due: 05/17/2023 HBA1C: Hemoglobin A1C (%) Date Value 02/25/2023 5.7 08/25/2022 5.5 07/04/2021 5.3 02/21/2021 5.2 ) CMP: Glucose 163 05/21/2023 BUN 10 05/21/2023 Creatinine 0.74 05/21/2023 Sodium 135 05/21/2023 Potassium 3.9 05/21/2023 Chloride 97 05/21/2023 CO2 27 05/21/2023 Protein, Total 7.2 05/21/2023 Albumin 4.4 05/21/2023 Calcium 9.3 05/21/2023 Alkaline Phosphatase 78 05/21/2023 Bilirubin, Total 0.8 05/21/2023 AST 29 05/21/2023 ALT 22 05/21/2023 Component Latest Ref Rng & Units 07/04/2021 01/22/2023 Creatinine, Ur Random (UCRR) 20.0 - 300.0 mg/dL 69.4 21.6 Albumin, Urine Random mg/L <12.0 <12.0 Albumin/Creat Ratio Not calculated Hypothyroidism, acquired Current medication: Levothyroxine 50 mcg daily AC 1 hour Taking as directed on an empty stomach? Yes. Thyroid pain: No. Mass effect: No. Change in energy level/ fatigue? No. Sleep disturbance ? takes benadryl. Temperature Intolerance: cold No, hot No. Change in bowel habits? No. If yes: Weight changes?Yes. gaining Memory issues: No. Diaphoresis: No. Numbness, tingling none Radiological imaging with contrast dyes within the last 3 months? No. History of radiation exposure to head or neck area? No. Change in hair or skin? No. If yes: Other symptoms: Last 2 Encounter Wt Readings: Date: Wt: 05/27/2023 111.1 kg (245 lb) 02/25/2023 110.2 kg (243 lb) TSH Date Value 05/21/2023 3.580 mIU/L 04/28/2022 2.590 mIU/L 08/07/2021 5.270 uU/mL 06/26/2021 4.080 uU/mL ) Thrombocytopenia (hcc) Started Allopurinol 01/06/2013 which is possible cause as platelets have persisted with downward trend since Hasn't had gout episode since staring medication, always has been in left ankle Chronic GERD Current medication: Omeprazole 40mg daily AC. Current symptoms: none. Last Mg level if on PPI chronically: none recent 12/31/2021 1.8 . Heartburn is controlled: Yes. Dysphagia: No. Bloody or black stools: No. Bowel changes: No. Last EGD and/or colonoscopy: 04/09/2021 EGD duodenum WNL, antrum erythematous mucosa, LA Grade A reflux Bph with obstruction/lower urinary tract symptoms Alfuzosin SR 10mg daily Force of Stream: mild reduction- unchanged Hesitancy: Rare Intermittency: No Dribbling: No Daytime Frequency: three hours Night time frequency: 1-2 times per night Urgency: Mild Incontinence: None Erectile dysfunction Current medications: Sildenafil 100 mg 1 tablet 30 minutes prior to intercourse Does well with medication though no opportunity, kind of non-existent Idiopathic gout, unspecified chronicity, unspecified site Current medications: Zyloprim 300 mg twice a day Obesity, class i, bmi 30-34.9 Can't exercise much r/t hip Tries to limit diet. Asking for help. HISTORIES FAMILY HISTORY Problem Relation Age of Onset Cancer Mother neck Alcohol/Drug Mother Cancer Father 47yo PAST MEDICAL HISTORY Diagnosis Date Arthritis Arthritis of knee bilateral CAD (coronary artery disease) Diabetes mellitus, type 2 (HCC) 2014 Diverticulosis of colon (without mention of hemorrhage) Gout, unspecified History of basal cell cancer ORTIZ, Dr. Rushing History of tobacco use HYPERTENSION NOS Mitral valve prolapse Other forms of migraine Rosacea PAST SURGICAL HISTORY Procedure Laterality Date ANESTH OPEN/SURG ARTHRS TOTAL KNEE ARTHROPLASTY Right 03/25/2023 Dr. Henry Hopper; [facility] CABG (3) VEIN GRAFTS & ARTERIAL GRAFT(S) 08/13/2021 (BEAVERS to LAD, SVG sequential to OM1 & OM2) COLONOSCOPY FLX DX W/COLLJ SPEC WHEN PFRMD 06/18/2010 repeat due 2020 HERNIA REPAIR HX RPR 1ST INGUN HRNA AGE 5 YRS/> REDUCIBLE 1984, 1955 left and right SKIN BIOPSY HX Social History Tobacco Use Smoking status: Former Packs/day: 0.50 Years: 37.00 Total pack years: 18.50 Types: Cigarettes Quit date: 05/08/2011 Years since quittin.0 Smokeless tobacco: Never Tobacco comments: had quit in 2011- relapsed and now quit again Vaping Use Vaping Use: Never used Substance Use Topics Alcohol use: Yes Alcohol/week: 2.0 - 3.0 standard drinks of alcohol Types: 2 - 3 Cans of Beer (12oz) per week Comment: daily Drug use: No ACTIVE PROBLEM LIST Other Forms of Migraine Gout, Unspecified Essential Hypertension Rosacea Arthritis of Knee Type 2 Diabetes Mellitus Without Complication, Without Long-Term Current Use of Insulin (Formerly [facility]) Hypertensive Heart Disease Without Heart Failure Chronic Gerd Squamous Cell Carcinoma in Situ of Skin Obesity, Class I, Bmi 30-34.9 Coronary Artery Disease Involving [place] [facility] With Angina Pectoris (Formerly [facility]) S/P Cabg X 3 Atrial Fibrillation Status Post Cardioversion (Formerly [facility]) Dry Skin Dermatitis Hypothyroidism, Acquired Hyperglycemia Systolic Dysfunction, 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 180 tablet 1 apixaban (ELIQUIS) 5 mg tab(s) Take 1 tablet by mouth twice daily. 180 tablet 3 traMADol (ULTRAM) 50 mg tablet Take 1 tablet by mouth every 6 hours as needed for pain. 28 tablet 0 losartan (COZAAR) 25 mg tablet Take 1 tablet by mouth once daily. 30 tablet 5 sertraline (ZOLOFT) 50 mg tablet Take 1 tablet by mouth once daily. 90 tablet 1 vitamin with folic acid 1 mg 60 mg iron-1 mg tab Take 1 tablet by mouth once daily. 90 tablet 1 furosemide (LASIX) 20 mg tablet Take 1 tablet by mouth once daily. 90 tablet 3 thiamine (VITAMIN B1) 100 mg tablet Take 1 tablet by mouth once daily. 90 tablet 3 pravastatin (PRAVACHOL) 10 mg tablet Take 1 tablet by mouth once daily. 90 tablet 3 alfuzosin SR (UROXATRAL) 10 mg 24 hr tablet Take 1 tablet by mouth daily at bedtime. 90 tablet 3 clopidogrel (PLAVIX) 75 mg tablet Take 1 tablet by mouth once daily. 90 tablet 3 omeprazole (PRILOSEC) 40 mg capsule Take 1 capsule by mouth once daily. 90 capsule 3 levothyroxine (SYNTHROID) 50 mcg tablet Take 1 tablet by mouth once daily. Take on empty stomach. For thyroid. 90 tablet 3 allopurinol (ZYLOPRIM) 300 mg tablet TAKE 1 TABLET BY MOUTH TWICE DAILY. FOR GOUT. 180 tablet 3 sildenafil (VIAGRA) 100 mg tablet 1 tablet 30 min prior to intercourse, on empty stomach and with sexual stimulation immediately following. 30 tablet 3 blood sugar diagnostic (FREESTYLE LITE STRIPS) test strip Test blood sugar(s) once times daily. Dx: 250.00. Insulin: No 50 Strip 6 Lancets (FREESTYLE LANCETS) lancets Test blood sugar(s) one times daily. Dx: 250.00. Insulin: No (Patient taking differently: Test blood sugar(s) one times daily. Dx: 250.00. Insulin: No Uses as needed) 1 Each 11 Current Facility-Administered Medications Medication Dose Route Frequency Provider Last Rate Last Admin perflutren lipid microspheres 1.3 mL in NaCl (PF) 0.9% 10 mL injection (DEFINITY) INTRAVENOUS DIRECTED PRN Anastasiya Schwab MD sodium chloride 0.9 % (flush) 10 mL (BD POSIFLUSH) 10 mL INTRAVENOUS DIRECTED PRN Anastasiya Schwab MD COVID-19 VACCINE(5 - Moderna series) due on 02/25/2023 EXAM: BP 126/68 Pulse 67 Resp 16 Wt 111.1 kg (245 lb) SpO2 97% BMI 33.23 kg/m Pleasant obese adult man in no acute distress. Alert and oriented all spheres. Normal affect and cognition. Speech normal. No deficits to learning or comprehension. Skin warm, dry, pink to lips and nailbeds. Normal turgor. Actinic damage, SKs on face, alexis , forearms. Respirations regular and unlabored. HEENT: NCAT. No scleral icterus or conjunctival injection. TM's clear. Nose and oropharynx free from injection or lesion. Oral membranes moist and pink. No cervical lymph nodes. Thyroid non-tender, no masses, or enlargement. Carotids pulses 2+/4+ without bruits. No JVD with HOB at 30 degrees. Chest is normal shape. Lungs are clear to all sorto with good air exchange through out. HRRR without murmur or gallop. No lifts, heaves, or rubs. Extrem: no clubbing or cyanosis. Edema: right knee moderate swelling without drift. Flexion to 85-990 with pain. . Extremities are warm and pink with prompt capillary refill. ASSESSMENT/PLAN: 1. Coronary artery disease involving [place] heart with angina pectoris, unspecified vessel or lesion type (HCC) - ICD9: 414.01, 413.9, ICD10: I25.119 (primary diagnosis) 2. S/P CABG x 3 - ICD9: V45.81, ICD10: Z95.1 3. Hypertensive heart disease without heart failure - ICD9: 402.90, ICD10: I11.9 - Controlled - Recommend home blood pressure monitoring, to bring results to next visit - Encouraged sodium restriction, DASH or Mediterranean diet - Recommend regular aerobic exercise - follows with cardiology 4. Atrial fibrillation status post cardioversion (HCC) - ICD9: 427.31, ICD10: I48.91 Stable rhythm, asymptomatic 5. Systolic dysfunction, left ventricle - ICD9: 429.9, ICD10: I51.9 Follows with cardiology 6. Essential hypertension - ICD9: 401.9, ICD10: I10 - Controlled - Continue current medications - Recommend home blood pressure monitoring, to bring results to next visit - Encouraged sodium restriction, DASH or Mediterranean diet - Recommend regular aerobic exercise - Discussed need for and benefit of weight loss. BMI 33.23 kg/(m^2) 7. Hyperglycemia - ICD9: 790.29, ICD10: R73.9 8. Prediabetes - ICD9: 790.29, ICD10: R73.03 Discussed diet modification Trial semaglutide for blood sugar, cardiovascular risk reduction, and weight - SEMAGLUTIDE 0.25 MG OR 0.5 MG (2 MG/3 ML) SUBCUTANEOUS PEN INJECTOR 9. Obesity, Class I, BMI 30-34.9 - ICD9: 278.00, ICD10: E66.9 Weight decreasing - Behavioral intervention and - Pharmacological intervention Shelia Orr PA-C Some of this note may have been copied and pasted for the purpose of history context and comparison. documented in this encounter [facility] 05-24-2023 Miscellaneous Notes Patient has been identified by name and date of : Yes Requested Prescriptions Pending Prescriptions Disp Refills metoprolol tartrate, short acting, (LOPRESSOR) 50 mg tablet 180 tablet 1 Sig: Take 1 tablet by mouth every 12 hours. RX INSTRUCTIONS: Patient aware RX will be sent to pharmacy. No need to notify patient. Patient last office visit: 02/25/23 Patient next office visit: 05/27/23 Sheila Dodd MA documented in this encounter [facility] 05-20-2023 Miscellaneous Notes Get Medical Advice on 05/20/23 CBC COMP METABOLIC PANEL TSH BLD I am rechecking abnormal labs from 03/30 done at hospital. Rudy Pisano PA-C Please review pt's recent labs and advise if needing repeat labs. Angie Slaughter Ma documented in this encounter [facility] 03-16-2023 Miscellaneous Notes The following approved medication requests have been transmitted electronically. Requested Prescriptions Signed Prescriptions Disp Refills apixaban (ELIQUIS) 5 mg tab(s) 180 tablet 3 Sig: Take 1 tablet by mouth twice daily. Authorizing Provider: Shelia ORR PA-C Patient requesting a call when medication sent to pharmacy. He will need this by tomorrow. Please advise. Patient has been identified by name and date of : Yes Requested Prescriptions Pending Prescriptions Disp Refills apixaban (ELIQUIS) 5 mg tab(s) 180 tablet 1 Sig: Take 1 tablet by mouth twice daily. RX INSTRUCTIONS: Patient aware RX will be sent to pharmacy. No need to notify patient. Patient last office visit: 02/25/23 Patient next office visit: 05/27/23 Sheila Dodd MA documented in this encounter [facility] 03-09-2023 Note HNO ID: [id number] Author: Lionel Burgos PT Service: ? Author Type: Physical Therapist Type: Progress Notes Filed: 03/09/2023 11:15 AM Note Text: Episode Visit Count: Visit count could not be calculated. Make sure you are using a visit which is associated with an episode. Therapist That Will Accept/Oversee The Plan Of Care: Lionel Burgos Start of Care Date: 03/09/23 Onset Date: 03/09/21 Plan of Care Certification Date: 03/09/23 Next Certification Due Date: 05/04/23 Patient Identified by Name and Date of : Yes REHABILITATION AND SPORTS THERAPY PHYSICAL THERAPY EVALUATION PLAN OF CARE: Assessment: Devin Suresh presents with chief complaint of R and L shoulder pain that interferes with driving . He presents with impairments in ADL's, independence in exercise, range of motion, strength, and tissue tenderness. PROMIS? (Patient-Reported Outcomes Measurement Information System) scores were reviewed and all domains identified as a rehabilitation concern. Prognosis for therapy is Good due to: current objective clinical presentation, good overall health status . Pt demonstrates negative drop arm test bilat. Positive empty can test RUE and pain with MMT of supraspinatus bilat. He will benefit from skilled therapy services to meet the goals established for this plan of care as noted below. Goals for Episode of Care: created on 03/09/23 through 08/09/23 Pt will demo RTC strength of 5/5 without pain in 5 months of less for bilat shoulders [place] in home exercise program. Perform taking off a jacket/shirt without pain. Increase ROM of Bilat shoulders to 160 degrees or greater for eash of reaching overhead into cabinets in 5 months or less Patient Goals: Decrease pain in the shoulders Planned Interventions, Frequency, and Duration: Current Frequency: 1x/week Duration: 4 weeks Total Number of Visits Planned: 4 Planned Treatment Interventions: Therapeutic exercise (53558), Neuromuscular re-education (02443), Manual therapy (06609), Therapeutic activities (39518), Gait Training (46104), Patient/Family/Caregiver Education PLAN FOR NEXT VISIT: Assess loading program progression Patient demonstrates good understanding of plan of care and treatment. The above goals and plan of care were discussed and agreed upon by patient/family. SUBJECTIVE: Devin Suresh is a 67 year old male seen today for The shoulder on both sides hurt. The pain has become enough of a problem to seek help. Had X-rays and shows calcium deposits. Had a triple bipass recently and had calcium depositis blocking arteries around the heart. Taking off a jacket is painful. Having a TKR soon and will not be able to return to this PT for 2 months. Patient Goals: Decrease pain in the shoulders Functional Limitations: driving Prior Level of Function: Independent without limitations Intake Information: Prescription present Previous Treatment: None Pain: Pain Pain Level: 6 Pain Location: Shoulder - Left Description: Sharp Frequency: Continuous Additional Pain Information : Location 2 Pain Level 2: 6 Pain Location 2: Shoulder - Right Description 2: Sharp Frequency 2: Continuous PROMIS Scales Higher is Better 03/08/2023 Phys Func - Score 33 (moderate dysfunction) Phys Func - Percentile 4 % Self-Eff Symptom - Score 38 (Low) Self-Eff Symptom - Percentile 12 % T-scores: mean of general population = 50. 5 points is clinically meaningfully difference Percentiles provide an indication of how the patient's score ranks in relation to the general population. Higher percentile rankings indicate better function/quality of life. 50th percentile is the average of the general population and indicates half of respondents had a worse score. OBJECTIVE MEASURES WITH LEVEL OF FUNCTION: UE AROM R Shoulder Flex: 140 Degrees R Shoulder ABduction: 140 Degrees L Shoulder Flex: 133 Degrees L Shoulder ABduction: 145 Degrees UE PROM R Shoulder Flex: 170 Degrees (No pain or grinding) R Shoulder Internal Rotation: 80 Degrees R Shoulder External Rotation: 90 Degrees L Shoulder Flex: 170 Degrees (No pain or grinding) L Shoulder Internal Rotation: 90 Degrees L Shoulder External Rotation: 90 Degrees UE and Cervical Strength Strength Tested: Shoulder All R Shoulder Flexion: 3+/5 R Shoulder Internal Rotation: 5/5 R Shoulder External Rotation: 5/5 L Shoulder Flexion: 4/5 L Shoulder Internal Rotation: 5/5 L Shoulder External Rotation: 5/5 Education: Education Learning Preferences: Demonstration, Explanation, Performance, Printed Materials Barriers: None Learning/educational needs: Home exercise program, Plan of Care Education Provided: Yes, see treatment interventions for education provided Education Provided To: Patient Education Mode/Type: Demonstration, Explanation/Discussion, Literature/Printed Materials, Performance Response to Education/Teach Back: States/Identifies (more content not included)... [facility] 03-09-2023 History of Present illness Narrative Episode Visit Count: Visit count could not be calculated. Make sure you are using a visit which is associated with an episode. Therapist That Will Accept/Oversee The Plan Of Care: Lionel Burgos Start of Care Date: 03/09/23 Onset Date: 03/09/21 Plan of Care Certification Date: 03/09/23 Next Certification Due Date: 05/04/23 Patient Identified by Name and Date of : Yes REHABILITATION AND SPORTS THERAPY PHYSICAL THERAPY EVALUATION PLAN OF CARE: Assessment: Devin Suresh presents with chief complaint of R and L shoulder pain that interferes with driving . He presents with impairments in ADL's, independence in exercise, range of motion, strength, and tissue tenderness. PROMIS (Patient-Reported Outcomes Measurement Information System) scores were reviewed and all domains identified as a rehabilitation concern. Prognosis for therapy is Good due to: current objective clinical presentation, good overall health status . Pt demonstrates negative drop arm test bilat. Positive empty can test RUE and pain with MMT of supraspinatus bilat. He will benefit from skilled therapy services to meet the goals established for this plan of care as noted below. Goals for Episode of Care: created on 03/09/23 through 08/09/23 Pt will demo RTC strength of 5/5 without pain in 5 months of less for bilat shoulders [place] in home exercise program. Perform taking off a jacket/shirt without pain. Increase ROM of Bilat shoulders to 160 degrees or greater for eash of reaching overhead into cabinets in 5 months or less Patient Goals: Decrease pain in the shoulders Planned Interventions, Frequency, and Duration: Current Frequency: 1x/week Duration: 4 weeks Total Number of Visits Planned: 4 Planned Treatment Interventions: Therapeutic exercise (50252), Neuromuscular re-education (42950), Manual therapy (17302), Therapeutic activities (56291), Gait Training (96118), Patient/Family/Caregiver Education PLAN FOR NEXT VISIT: Assess loading program progression Patient demonstrates good understanding of plan of care and treatment. The above goals and plan of care were discussed and agreed upon by patient/family. SUBJECTIVE: Devin Suresh is a 67 year old male seen today for The shoulder on both sides hurt. The pain has become enough of a problem to seek help. Had X-rays and shows calcium deposits. Had a triple bipass recently and had calcium depositis blocking arteries around the heart. Taking off a jacket is painful. Having a TKR soon and will not be able to return to this PT for 2 months. Patient Goals: Decrease pain in the shoulders Functional Limitations: driving Prior Level of Function: Independent without limitations Intake Information: Prescription present Previous Treatment: None Pain: Pain Pain Level: 6 Pain Location: Shoulder - Left Description: Sharp Frequency: Continuous Additional Pain Information : Location 2 Pain Level 2: 6 Pain Location 2: Shoulder - Right Description 2: Sharp Frequency 2: Continuous PROMIS Scales Higher is Better 03/08/2023 Phys Func - Score 33 (moderate dysfunction) Phys Func - Percentile 4 % Self-Eff Symptom - Score 38 (Low) Self-Eff Symptom - Percentile 12 % T-scores: mean of general population = 50. 5 points is clinically meaningfully difference Percentiles provide an indication of how the patient's score ranks in relation to the general population. Higher percentile rankings indicate better function/quality of life. 50th percentile is the average of the general population and indicates half of respondents had a worse score. OBJECTIVE MEASURES WITH LEVEL OF FUNCTION: UE AROM R Shoulder Flex: 140 Degrees R Shoulder ABduction: 140 Degrees L Shoulder Flex: 133 Degrees L Shoulder ABduction: 145 Degrees UE PROM R Shoulder Flex: 170 Degrees (No pain or grinding) R Shoulder Internal Rotation: 80 Degrees R Shoulder External Rotation: 90 Degrees L Shoulder Flex: 170 Degrees (No pain or grinding) L Shoulder Internal Rotation: 90 Degrees L Shoulder External Rotation: 90 Degrees UE and Cervical Strength Strength Tested: Shoulder All R Shoulder Flexion: 3+/5 R Shoulder Internal Rotation: 5/5 R Shoulder External Rotation: 5/5 L Shoulder Flexion: 4/5 L Shoulder Internal Rotation: 5/5 L Shoulder External Rotation: 5/5 Education: Education Learning Preferences: Demonstration, Explanation, Performance, Printed Materials Barriers: None Learning/educational needs: Home exercise program, Plan of Care Education Provided: Yes, see treatment interventions for education provided Education Provided To: Patient Education Mode/Type: Demonstration, Explanation/Discussion, Literature/Printed Materials, Performance Response to Education/Teach Back: States/Identifies, Return Demonstration TREATMENT: PT Treatment Interventions: Therapeutic Exercise Evaluation Therapeutic Exercise: 1: Discussed therapy goals, exam findings, purpose of the HEP and handout was provided. Discussed anatomy of the shoulder and the RTC's as they pertain to the HEP. Discussed loading progression of the RTC's. 2: Standing scaption 1# 2 x 10 RUE 3: Standing scaption 2# x 10 reps LUE Skilled Intervention: Patient was educated in proper exercise technique and purpose for exercises. Skilled judgment was provided in selection of appropriate interventions. Provided written instruction for home exercise program to facilitate proper performance and compliance. Correct performance of therapeutic exercises was facilitated with verbal and visual cuing. Billing * Evaluation Low Complexity: 1 Unit Therapeutic Exercise Treatment Minutes: 24 Total Treatment Time Minutes (timed/untimed): 46 Lionel Burgos PT documented in this encounter [facility] 02-25-2023 Note HNO ID: [id number] Author: RT Regina(R) Service: Nuclear Medicine Author Type: Technologist Type: Progress Notes Filed: 02/25/2023 8:50 AM Note Text: Radiology Service Progress Note PATIENT NAME: Devin Suresh DATE OF SERVICE: February 25, 2023 TIME: 8:35 AM PATIENT IDENTITY VERIFICATION COMPLETED USING TWO (2) IDENTIFIERS: Name and Date of confirmed by patient verbally. FALL SCREENING: Has the patient had 2 falls in the last year or 1 fall with injury or currently using an Ambulatory Assistive Device (Walker, Cane, Wheelchair, Crutches, etc.)? No PATIENT GENDER DATA: Male PATIENT RELEVANT IMPLANT DATA REVIEWED: Not Applicable RADIOLOGY DEPARTMENT: General X-ray: Exam(s) Completed: Upper Extremity X-Ray(s): Shoulder, AP / TRUE AP / AXILLARY bilateral PERIPHERAL IV DATA: Not applicable SIGNED BY: RT Regina(R) February 25, 2023 8:35 AM [facility] 02-25-2023 Note HNO ID: [id number] Author: Shelia Orr PA-C Service: ? Author Type: Physician Contact Center Agent Type: Progress Notes Filed: 02/25/2023 9:31 AM Note Text: 67 year old male with c/o was seen less than a month ago for surgical clearance, here for previously scheduled 6 month followup- called in to check and was told by nurse to come in. Bp at home has been elevated: 131/71- 160/79 No chest pain, SOB, dyspnea, orthopnea, racing or irregular heartbeats, palpitations, syncopal sx, leg swelling, nausea, diaphoresis or heartburn. Only thing on his mind is shoulder pain. States pain is all day every day. Can't take NSAIDS. Hasn't used Tylenol. Has used topicals with little relief. HISTORIES FAMILY HISTORY Problem Relation Age of Onset Cancer Mother neck Alcohol/Drug Mother Cancer Father 47yo PAST MEDICAL HISTORY Diagnosis Date Arthritis Arthritis of knee bilateral CAD (coronary artery disease) Diabetes mellitus, type 2 (HCC) 2014 Diverticulosis of colon (without mention of hemorrhage) Gout, unspecified History of basal cell cancer Dr. Сергей ALCANTAR History of tobacco use HYPERTENSION NOS Mitral valve prolapse Other forms of migraine Rosacea PAST SURGICAL HISTORY Procedure Laterality Date CABG (3) VEIN GRAFTS AND ARTERIAL GRAFT(S) 08/13/2021 (BEAVERS to LAD, SVG sequential to OM1 AND OM2) COLONOSCOPY FLX DX W/COLLJ SPEC WHEN PFRMD 06/18/2010 repeat due 2020 HERNIA REPAIR HX RPR 1ST INGUN HRNA AGE 5 YRS/> REDUCIBLE 1955 left and right SKIN BIOPSY HX Social History Tobacco Use Smoking status: Former Packs/day: 0.50 Years: 37.00 Pack years: 18.50 Types: Cigarettes Quit date: 05/08/2011 Years since quittin.8 Smokeless tobacco: Never Tobacco comments: had quit in 2010- relapsed and now quit again Vaping Use Vaping Use: Never used Substance Use Topics Alcohol use: Yes Alcohol/week: 2.0 - 3.0 standard drinks Types: 2 - 3 Cans of Beer (12oz) per week Comment: daily Drug use: No ACTIVE PROBLEM LIST Other Forms of Migraine Gout, Unspecified Essential Hypertension Rosacea Arthritis of Knee Type 2 Diabetes Mellitus Without Complication, Without Long-Term Current Use of Insulin (Hcc) Hypertensive Heart Disease Without Heart Failure Chronic Gerd Squamous Cell Carcinoma in Situ of Skin Obesity, Class I, Bmi 30-34.9 Coronary Artery Disease Involving [place] Heart With Angina Pectoris (Hcc) S/P Cabg X 3 Atrial Fibrillation Status Post Cardioversion ([facility]) Dry Skin Dermatitis Hypothyroidism, Acquired Hyperglycemia Systolic Dysfunction, 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 30 tablet 5 sertraline (ZOLOFT) 50 mg tablet Take 1 tablet by mouth once daily. 90 tablet 1 vitamin with folic acid 1 mg 60 mg iron-1 mg tab Take 1 tablet by mouth once daily. 90 tablet 1 metoprolol tartrate, short acting, (LOPRESSOR) 50 mg tablet Take 1 tablet by mouth every 12 hours. 180 tablet 1 furosemide (LASIX) 20 mg tablet Take 1 tablet by mouth once daily. 90 tablet 3 thiamine (VITAMIN B1) 100 mg tablet Take 1 tablet by mouth once daily. 90 tablet 3 apixaban (ELIQUIS) 5 mg tab(s) Take 1 tablet by mouth twice daily. 180 tablet 1 pravastatin (PRAVACHOL) 10 mg tablet Take 1 tablet by mouth once daily. 90 tablet 3 alfuzosin SR (UROXATRAL) 10 mg 24 hr tablet Take 1 tablet by mouth daily at bedtime. 90 tablet 3 clopidogrel (PLAVIX) 75 mg tablet Take 1 tablet by mouth once daily. 90 tablet 3 omeprazole (PRILOSEC) 40 mg capsule Take 1 capsule by mouth once daily. 90 capsule 3 levothyroxine (SYNTHROID) 50 mcg tablet Take 1 tablet by mouth once daily. Take on empty stomach. For thyroid. 90 tablet 3 allopurinol (ZYLOPRIM) 300 mg tablet TAKE 1 TABLET BY MOUTH TWICE DAILY. FOR GOUT. 180 tablet 3 sildenafil (VIAGRA) 100 mg tablet 1 tablet 30 min prior to intercourse, on empty stomach and with sexual stimulation immediately following. 30 tablet 3 blood sugar diagnostic (FREESTYLE LITE STRIPS) test strip Test blood sugar(s) once times daily. Dx: 250.00. Insulin: No 50 Strip 6 Lancets (FREESTYLE LANCETS) lancets Test blood sugar(s) one times daily. Dx: 250.00. Insulin: No (Patient taking differently: Test blood sugar(s) one times daily. Dx: 250.00. Insulin: No Uses as needed) 1 Each 11 Current Facility-Administered Medications Medication Dose Route Frequency Provider Last Rate Last Admin perflutren lipid microspheres 1.3 mL in NaCl (PF) 0.9% 10 mL injection (DEFINITY) INTRAVENOUS DIRECTED PRN Anastasiya Schwab MD sodium chloride 0.9 % (flush) 10 mL (BD POSIFLUSH) 10 mL INTRAVENOUS DIRECTED PRN Anastasiya Schwab MD SHINGRIX VACCINE(2 of 2) due on 11/02/2022 HBA1C due on 02/23/2023 EXAM: BP 128/62 Pulse 67 (more content not included)... [facility] 02-25-2023 Instructions M Misha Orr PA-C - 02/25/2023 8:24 AM EDT Start with Tylenol Arthritis 2 tabs every 8h. If this is not effective use tramadol sparingly. Tramadol is an opiate. Please take as directed per prescription for pain being careful to limit use to only as needed for more severe pain. Do not drive or operate dangerous machinery while on this medication. It may cause drowsiness or impair judgment and cause increased risk for falls. This medication may be habit forming if used regularly, and may cause drowsiness, so use caution. This medication may cause constipation so increase fiber and exercise if possible. Stimulant laxatives such as pericolace or Sennekot OTC may help if needed but should not be used over long periods. Bring your home cuff next time you come in to verify accuracy with BP check. THE DASH DIFFERENCE High blood pressure affects 50 million Americans and is one of the leading causes or heart diseased and stroke. The eating plan shown below, from the Dietary Approaches to Stop Hypertension (DASH) study, is good news for those affected by or at risk for high blood pressure. As reported in the [place] Journal of Medicine, the DASH diet, which is low in fat and rich in low-fat milk, cheese and yogurt, fruits and vegetables, lowered blood pressure in individuals with both normal and elevated blood pressure. The use of foods lower in sodium made a slight improvement in blood pressure beyond what occurred with the low-fat dairy products, fruits and vegetables. The study was based on a 2000 calorie diet and contained the number of servings from each of the food groups shown in the chart below. For many people following the DASH eating plan can be an important and easy step in preventing or managing high blood pressure. The DASH Eating Style FOOD GROUP DAILY SERVINGS 1 SERVING EQUALS Milk and Dairy 2-3 8 oz low-fat milk 1 cup low-fat 1 oz low-fat cheese Fruits 4-5 1 medium fruit cup dried fruit cup frozen or canned fruit 6 oz fruit juice Vegetables 4-5 1 cup raw leafy vegetables cup cooked vegetables 6 oz vegetable juice Grain 7-8 1 slice bread cup dry or hot cereal cup cooked rice or pasta Meat, fish, Poultry 2 or less 3 oz cooked meat, poultry, or fish Nuts, Seeds, Dried Beans 4-5 per week 1/3 cup nuts 2 tbsp seeds cup cooked dried beans Sample DASH Menu Breakfast 1 cup corn flakes (with 1 tsp sugar) 8 oz low-fat milk 1 banana 1 slice whole wheat toast 1 tbsp jelly grapefruit Lunch 2 oz sliced turkey 1 kevyn bread 1 tbsp low-fat mayonnaise cup fruit cocktail in light syrup Raw vegetable medley with: 3-4 sticks of each carrot and celery 2 radishes 2 loose leaf lettuce leaves Snack cup dried apricots cup mini pretzels 1/3 cup mixed nuts 1 cup flavored low-fat yogurt Dinner 3 oz grilled lean beef 1 cup scallion rice 1 cup steamed broccoli 8 oz low-fat chocolate milk Spinach salad with cup raw spinach 2 pruitt tomatoes 2 cucumber slices 10 Ways to DASH Up Your Dining 1.) Re-think your drink! Make low-fat milk your beverage of choice: order it when dining out. 2.) Pizza, Pizza, Pizza! Combine a pre-made pizza crust with pizza sauce, shredded low-fat mozzarella and lots of vegetable toppings - fresh tomatoes, zucchini, spinach, carrot curls, cauliflower, broccoli and artichoke hearts - for a totally awesome creation. 3.) Start Your Day with whole grain cereal and low-fat milk. 4.) Make it with Milk! Use low-fat milk in place of water when cooking, especially with oatmeal, boxed rice and pasta dishes 5.) For That Snack Attack: Serve cereal with low-fat milk and fresh fruit. For a tangy twist, layer flavored low-fat yogurt with cereal to create yogurt sundaes. 6.) Make Super Soup! Prepare soup with low-fat milk instead of water. Add fresh, canned or frozen vegetables to prepared soups. 7.) Shake em Up! Create labor expediter drinks. Start with a cup of low-fat milk, add frozen fruit chunks and flavoring to make your own smoothie drink. 8.) Creat a Baked Potato Bar! Serve baked potatoes with a variety of toppings like low-fat cheese, chili, refried beans, salsa or broccoli. Add them up - one meal could contain three or four vegetable servings! 9.) Encourage Big Dippers! Make a fruit dip by sprinkling cinnamon into vanilla low-fat yogurt. For a quick vegetable dip, add ranch seasoning or chopped chives to plain low-fat yogurt. 10.) Say Cheese! Top Steamed vegetables with shredded low-fat cheese. documented in this encounter [facility] 02-25-2023 History of Present illness Narrative 67 year old male with c/o was seen less than a month ago for surgical clearance, here for previously scheduled 6 month followup- called in to check and was told by nurse to come in. Bp at home has been elevated: 131/71- 160/79 No chest pain, SOB, dyspnea, orthopnea, racing or irregular heartbeats, palpitations, syncopal sx, leg swelling, nausea, diaphoresis or heartburn. Only thing on his mind is shoulder pain. States pain is all day every day. Can't take NSAIDS. Hasn't used Tylenol. Has used topicals with little relief. HISTORIES FAMILY HISTORY Problem Relation Age of Onset Cancer Mother neck Alcohol/Drug Mother Cancer Father 47yo PAST MEDICAL HISTORY Diagnosis Date Arthritis Arthritis of knee bilateral CAD (coronary artery disease) Diabetes mellitus, type 2 (HCC) 2014 Diverticulosis of colon (without mention of hemorrhage) Gout, unspecified History of basal cell cancer [facility]AD[facility]. Rushing History of tobacco use HYPERTENSION NOS Mitral valve prolapse Other forms of migraine Rosacea PAST SURGICAL HISTORY Procedure Laterality Date CABG (3) VEIN GRAFTS & ARTERIAL GRAFT(S) 08/13/2021 (BEAVERS to LAD, SVG sequential to OM1 & OM2) COLONOSCOPY FLX DX W/COLLJ SPEC WHEN PFRMD 06/18/2010 repeat due 2020 HERNIA REPAIR HX RPR 1ST INGUN HRNA AGE 5 YRS/> REDUCIBLE 1984, 195 left and right SKIN BIOPSY HX Social History Tobacco Use Smoking status: Former Packs/day: 0.50 Years: 37.00 Pack years: 18.50 Types: Cigarettes Quit date: 05/08/2011 Years since quittin.8 Smokeless tobacco: Never Tobacco comments: had quit in 2011- relapsed and now quit again Vaping Use Vaping Use: Never used Substance Use Topics Alcohol use: Yes Alcohol/week: 2.0 - 3.0 standard drinks Types: 2 - 3 Cans of Beer (12oz) per week Comment: daily Drug use: No ACTIVE PROBLEM LIST Other Forms of Migraine Gout, Unspecified Essential Hypertension Rosacea Arthritis of Knee Type 2 Diabetes Mellitus Without Complication, Without Long-Term Current Use of Insulin (Hcc) Hypertensive Heart Disease Without Heart Failure Chronic Gerd Squamous Cell Carcinoma in Situ of Skin Obesity, Class I, Bmi 30-34.9 Coronary Artery Disease Involving [place] Heart With Angina Pectoris (Hcc) S/P Cabg X 3 Atrial Fibrillation Status Post Cardioversion ([facility]) Dry Skin Dermatitis Hypothyroidism, Acquired Hyperglycemia Systolic Dysfunction, 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 30 tablet 5 sertraline (ZOLOFT) 50 mg tablet Take 1 tablet by mouth once daily. 90 tablet 1 vitamin with folic acid 1 mg 60 mg iron-1 mg tab Take 1 tablet by mouth once daily. 90 tablet 1 metoprolol tartrate, short acting, (LOPRESSOR) 50 mg tablet Take 1 tablet by mouth every 12 hours. 180 tablet 1 furosemide (LASIX) 20 mg tablet Take 1 tablet by mouth once daily. 90 tablet 3 thiamine (VITAMIN B1) 100 mg tablet Take 1 tablet by mouth once daily. 90 tablet 3 apixaban (ELIQUIS) 5 mg tab(s) Take 1 tablet by mouth twice daily. 180 tablet 1 pravastatin (PRAVACHOL) 10 mg tablet Take 1 tablet by mouth once daily. 90 tablet 3 alfuzosin SR (UROXATRAL) 10 mg 24 hr tablet Take 1 tablet by mouth daily at bedtime. 90 tablet 3 clopidogrel (PLAVIX) 75 mg tablet Take 1 tablet by mouth once daily. 90 tablet 3 omeprazole (PRILOSEC) 40 mg capsule Take 1 capsule by mouth once daily. 90 capsule 3 levothyroxine (SYNTHROID) 50 mcg tablet Take 1 tablet by mouth once daily. Take on empty stomach. For thyroid. 90 tablet 3 allopurinol (ZYLOPRIM) 300 mg tablet TAKE 1 TABLET BY MOUTH TWICE DAILY. FOR GOUT. 180 tablet 3 sildenafil (VIAGRA) 100 mg tablet 1 tablet 30 min prior to intercourse, on empty stomach and with sexual stimulation immediately following. 30 tablet 3 blood sugar diagnostic (FREESTYLE LITE STRIPS) test strip Test blood sugar(s) once times daily. Dx: 250.00. Insulin: No 50 Strip 6 Lancets (FREESTYLE LANCETS) lancets Test blood sugar(s) one times daily. Dx: 250.00. Insulin: No (Patient taking differently: Test blood sugar(s) one times daily. Dx: 250.00. Insulin: No Uses as needed) 1 Each 11 Current Facility-Administered Medications Medication Dose Route Frequency Provider Last Rate Last Admin perflutren lipid microspheres 1.3 mL in NaCl (PF) 0.9% 10 mL injection (DEFINITY) INTRAVENOUS DIRECTED PRN Anastasiya Schwab MD sodium chloride 0.9 % (flush) 10 mL (BD POSIFLUSH) 10 mL INTRAVENOUS DIRECTED PRN Anastasiya Schwab MD SHINGRIX VACCINE(2 of 2) due on 11/02/2022 HBA1C due on 02/23/2023 EXAM: BP 128/62 Pulse 67 Resp 16 Wt 110.2 kg (243 lb) SpO2 97% BMI 32.96 kg/m Pleasant man in no acute distress. Alert and oriented all spheres. Normal affect and cognition. Speech normal. No deficits to learning or comprehension. Skin warm, dry, pink to lips and nailbeds. Normal turgor. Respirations regular and unlabored. Chest is normal shape. Lungs are clear to all sorto with good air exchange through out. HRRR without murmur or gallop. No lifts, heaves, or rubs. Extrem: no clubbing or cyanosis. Edema: none. Extremities are warm and pink with prompt capillary refill. Bilateral shoulder pain above 80-90 degrees flexion/ abduction. O'Briens negative, lift off painful but has strength, belly press negative. Can obtain FROM but painful primarily in ACJ and bilateral shoulder but much worse in right. XR: right shoulder moderate to severe severe degenerative changes, bone on bone appearance, large spurring ACJ and medial humeral Left Shoulder mild degenerative change, spurring ACJ ASSESSMENT/PLAN: 1. Bilateral shoulder pain, unspecified chronicity - ICD9: 719.41, ICD10: M25.511, M25.512 (primary diagnosis) Recommend PT for shoulder stability exercises and training, modalities. Recommend review right shoulder with ortho Trial tylenol arthritis max dosing per bottle. If not effective, limited use tramadol use to severe pain only. - XR SHOULDER GENERAL 3V OR MORE AP/TRUE AP/OTHER LEFT - XR SHOULDER GENERAL 3V OR MORE AP/TRUE AP/OTHER RIGHT - TRAMADOL 50 MG TABLET - CONSULT TO PHYSICAL THERAPY 2. Hyperglycemia - ICD9: 790.29, ICD10: R73.9 Need to recheck- had glass of mild prior to lab draw. - HGB A1C Shelia Orr PA-C Some of this note may have been copied and pasted for the purpose of history context and comparison. documented in this encounter [facility] 01-22-2023 Note HNO ID: [id number] Author: Annika Pollack RT(R) Service: Radiology Author Type: Technologist Type: Progress Notes Filed: 01/22/2023 9:50 AM Note Text: Radiology Service Progress Note PATIENT NAME: Devin Suresh DATE OF SERVICE: January 22, 2023 TIME: 9:42 AM PATIENT IDENTITY VERIFICATION COMPLETED USING TWO (2) IDENTIFIERS: Name and Date of confirmed by patient verbally. FALL SCREENING: Has the patient had 2 falls in the last year or 1 fall with injury or currently using an Ambulatory Assistive Device (Walker, Cane, Wheelchair, Crutches, etc.)? No PATIENT GENDER DATA: Male PATIENT RELEVANT IMPLANT DATA REVIEWED: Yes RADIOLOGY DEPARTMENT: General X-ray: Exam(s) Completed: Chest X-Ray PERIPHERAL IV DATA: Not applicable SIGNED BY: Annika Pollack, RT(R) January 22, 2023 9:42 AM [facility] 01-22-2023 Note HNO ID: [id number] Author: Shelia Orr PA-C Service: ? Author Type: Physician Contact Center Agent Type: Progress Notes Filed: 01/22/2023 12:53 PM Note Text: HISTORY AND PHYSICAL EXAMINATION SERVICE DATE: 01/22/2023 SERVICE TIME: 2:12 AM PRIMARY CARE PHYSICIAN: Oliver Regalado MD Patient presents for consultation from Dr. Hopper for medical preop clearance. My findings and recommendations will be communicated through this medical record. Upcoming surgery for: left TKR . HPI: Current concerns: weight gain, can't exercise due to knee pain. Pertinent history and review: Current signs of infection: No. Chest pain: No. Cardiac history or testing: Yes Shortness of breath: Y. Pulmonary testing to date: none Known sleep apnea: No. Hx of clotting issues: on anticoagulants. Current bleeding or bruising: No. Additional history of potential concern: see below. 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 Olivarez [place] [facility] Dr. Gabriel Schwab [facility] Cardiovascular interval hx: 06/08/2022 Dr. Schwab recommended f/u with cardiology 01/23/2022 last cardiology visit Attila Collazo CNP: conditions stable, consider ICD due to low EF 06/03/2022 echo [facility]: LV size and LV SF WNL, EF 50%, moderate concentric LVH. RA moderately enlarged. Stage I diastolic dysfunction. No valvular heart disease. Normal great vessels. 08/26/[address] Helms cardioversion 200 J synchronized biphasic external shock with conversion. 08/26/2021 transesophageal echo: LV mildly dilated, LV SF severely decreased, EF 25%. RV mildly dilated, RV SF moderately decreased. LA moderately dilated, left atrial appendage is not multilobed, no left atrial appendage thrombus. Aorta size WNL 3.7 cm ascending Pulmonary veins size WNL, blunted systolic flow. RA: Moderately severely dilated. Superior vena cava WNL. Small pericardial effusion. Main pulmonary artery mildly dilated. 07/08/2021 heart cath, Dr. Bourgeois: Severe disease noted LAD with high-grade stenosis of the calcified left circumflex with left ventricular systolic dysfunction. LVEF 35% Anterior hypokinesis moderate LM: Mild calcification no disease. LAD mid occluded, distal LAD collateral circulation, L CX large dominant vessel, bifurcating with 80% stenosis mid segment, RCA mild luminal irregularities less than 30% 01/30/17 echocardiogram [facility]: EF 55% mildly abnormal LV relaxation, mild dilatation RV, left and right atria. Otherwise WNL. Current meds: Metoprolol tartrate 50 mg every 12 hours Furosemide 20 mg daily Apixaban 5 mg twice daily Clopidogrel 75 mg daily Pravastatin 10 mg daily Lisinopril 10 mg daily Use of NTG: No Chest pain, arm, jaw pain, neck, or upper back pain suggestive of angina: notes if reaches down to tie shoes or clip toenails feels SOB and rapid heart for a few minutes or less. Shoulders hurts from arthritis. SOB: No Dyspnea with exertion: No orthopnea: No Cough: every now and then like three times a day with a dry itchy cough. racing or irregular heartbeats: No palpitations: No syncopal sx: No, except as above with nail clipping Headache: No Unexplainable fatigue No Leg swelling: No Nausea: No diaphoresis: No Heartburn: No Claudication: not really active, pain in anterior and posterior thighs, with standing. Smoking: No Following Low cholesterol, high fiber diet? Room for improvement If on statin: muscle aches? Thighs ache with activity If on statin: GI sx or diarrhea? A little intermittent diarrhea. Additional history none. Lab review: Component Latest Ref Rng AND Units 01/26/2022 03/30/2022 04/28/2022 01/20/2023 WBC 3.70 - 11.00 k/uL 4.84 RBC 4.20 - 6.00 m/uL 4.26 Hemoglobin 13.0 - 17.0 g/dL 13.4 Hematocrit 39.0 - 51.0 % 40.2 MCV 80.0 - 100.0 fL 94.4 MCH 26.0 - 34.0 pg 31.5 MCHC 30.5 - 36.0 g/dL 33.3 RDW-CV 11.5 - 15.0 % 14.0 Platelet Count 150 - 400 k/uL 124 (L) MPV 9.0 - 12.7 fL 11.0 Neut% % 67.4 Abs Neut (ANC) 1.45 - 7.50 k/uL 3.26 Lymph% % 17.6 Abs Lymph 1.00 - 4.00 k/uL 0.85 (L) Prentiss% % 10.5 Abs Prentiss <0.87 k/uL 0.51 Eosin% % 3.3 Abs Eosin <0.46 k/uL 0.16 Baso% % 0.8 Abs Baso <0.11 k/uL 0.04 Immature Gran % % 0.4 IMMATURE GRANS (ABS) <0.10 k/uL <0.03 NRBC /100 WBC 0.0 Absolute nRBC <0.01 k/uL <0.01 DTYPE Auto Protein, Total 6.3 - 8.0 g/dL 7.3 6.9 7.1 Albumin 3.9 - 4.9 g/dL 4.5 4.2 4.5 Calcium 8.5 - 10.2 mg/dL 9.3 9.0 9.0 Bilirubin, Total 0.2 - 1.3 mg/dL 1.0 0.9 1.1 Alkaline Phosphatase 38 - 113 U/L 79 72 93 AST 14 - 40 U/L 41 (H) 39 32 26 ALT 10 - 54 U/L 42 39 28 Glucose 74 - 99 mg/dL 112 (H) (more content not included)... [facility] 01-22-2023 Instructions Shelia Orr PA-C - 01/22/2023 9:01 AM EDT Follow cardiology recommendations for apixaban and clopidogrel. Other medication may be taken with a sip of water. Please hold any OTC medications or supplements for 1 week prior. If you need something for pain, you may use Tylenol as directed sparingly. documented in this encounter [facility] 01-22-2023 History of Present illness Narrative HISTORY AND PHYSICAL EXAMINATION SERVICE DATE: 01/22/2023 SERVICE TIME: 2:12 AM PRIMARY CARE PHYSICIAN: Oliver Regalado MD Patient presents for consultation from Dr. Hopper for medical preop clearance. My findings and recommendations will be communicated through this medical record. Upcoming surgery for: left TKR . HPI: Current concerns: weight gain, can't exercise due to knee pain. Pertinent history and review: Current signs of infection: No. Chest pain: No. Cardiac history or testing: Yes Shortness of breath: Y. Pulmonary testing to date: none Known sleep apnea: No. Hx of clotting issues: on anticoagulants. Current bleeding or bruising: No. Additional history of potential concern: see below. 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 Olivarez [place] [facility] Dr. Gabriel Schwab [facility] Cardiovascular interval hx: 06/08/2022 Dr. Schwab recommended f/u with cardiology 01/23/2022 last cardiology visit Attila Collazo CNP: conditions stable, consider ICD due to low EF 06/03/2022 echo [facility]: LV size and LV SF WNL, EF 50%, moderate concentric LVH. RA moderately enlarged. Stage I diastolic dysfunction. No valvular heart disease. Normal great vessels. 08/26/[address] Helms cardioversion 200 J synchronized biphasic external shock with conversion. 08/26/2021 transesophageal echo: LV mildly dilated, LV SF severely decreased, EF 25%. RV mildly dilated, RV SF moderately decreased. LA moderately dilated, left atrial appendage is not multilobed, no left atrial appendage thrombus. Aorta size WNL 3.7 cm ascending Pulmonary veins size WNL, blunted systolic flow. RA: Moderately severely dilated. Superior vena cava WNL. Small pericardial effusion. Main pulmonary artery mildly dilated. 07/08/2021 heart cath, Dr. Bourgeois: Severe disease noted LAD with high-grade stenosis of the calcified left circumflex with left ventricular systolic dysfunction. LVEF 35% Anterior hypokinesis moderate LM: Mild calcification no disease. LAD mid occluded, distal LAD collateral circulation, L CX large dominant vessel, bifurcating with 80% stenosis mid segment, RCA mild luminal irregularities less than 30% 01/30/17 echocardiogram [facility]: EF 55% mildly abnormal LV relaxation, mild dilatation RV, left and right atria. Otherwise WNL. Current meds: Metoprolol tartrate 50 mg every 12 hours Furosemide 20 mg daily Apixaban 5 mg twice daily Clopidogrel 75 mg daily Pravastatin 10 mg daily Lisinopril 10 mg daily Use of NTG: No Chest pain, arm, jaw pain, neck, or upper back pain suggestive of angina: notes if reaches down to tie shoes or clip toenails feels SOB and rapid heart for a few minutes or less. Shoulders hurts from arthritis. SOB: No Dyspnea with exertion: No orthopnea: No Cough: every now and then like three times a day with a dry itchy cough. racing or irregular heartbeats: No palpitations: No syncopal sx: No, except as above with nail clipping Headache: No Unexplainable fatigue No Leg swelling: No Nausea: No diaphoresis: No Heartburn: No Claudication: not really active, pain in anterior and posterior thighs, with standing. Smoking: No Following Low cholesterol, high fiber diet? Room for improvement If on statin: muscle aches? Thighs ache with activity If on statin: GI sx or diarrhea? A little intermittent diarrhea. Additional history none. Lab review: Component Latest Ref Rng & Units 01/26/2022 03/30/2022 04/28/2022 01/20/2023 WBC 3.70 - 11.00 k/uL 4.84 RBC 4.20 - 6.00 m/uL 4.26 Hemoglobin 13.0 - 17.0 g/dL 13.4 Hematocrit 39.0 - 51.0 % 40.2 MCV 80.0 - 100.0 fL 94.4 MCH 26.0 - 34.0 pg 31.5 MCHC 30.5 - 36.0 g/dL 33.3 RDW-CV 11.5 - 15.0 % 14.0 Platelet Count 150 - 400 k/uL 124 (L) MPV 9.0 - 12.7 fL 11.0 Neut% % 67.4 Abs Neut (ANC) 1.45 - 7.50 k/uL 3.26 Lymph% % 17.6 Abs Lymph 1.00 - 4.00 k/uL 0.85 (L) Prentiss% % 10.5 Abs Prentiss <0.87 k/uL 0.51 Eosin% % 3.3 Abs Eosin <0.46 k/uL 0.16 Baso% % 0.8 Abs Baso <0.11 k/uL 0.04 Immature Gran % % 0.4 IMMATURE GRANS (ABS) <0.10 k/uL <0.03 NRBC /100 WBC 0.0 Absolute nRBC <0.01 k/uL <0.01 DTYPE Auto Protein, Total 6.3 - 8.0 g/dL 7.3 6.9 7.1 Albumin 3.9 - 4.9 g/dL 4.5 4.2 4.5 Calcium 8.5 - 10.2 mg/dL 9.3 9.0 9.0 Bilirubin, Total 0.2 - 1.3 mg/dL 1.0 0.9 1.1 Alkaline Phosphatase 38 - 113 U/L 79 72 93 AST 14 - 40 U/L 41 (H) 39 32 26 ALT 10 - 54 U/L 42 39 28 Glucose 74 - 99 mg/dL 112 (H) 141 (H) 125 (H) BUN 9 - 24 mg/dL 13 10 10 Creatinine 0.73 - 1.22 mg/dL 0.89 0.80 0.80 Sodium 136 - 144 mmol/L 140 137 140 Potassium 3.7 - 5.1 mmol/L 3.9 4.0 3.9 Chloride 97 - 105 mmol/L 102 102 101 CO2 22 - 30 mmol/L 26 25 22 Anion Gap 9 - 18 mmol/L 12 10 17 eGFR >=60 mL/min/1.73m 95 98 98 Cholesterol, Total <200 mg/dL 107 143 Triglyceride <150 mg/dL 64 86 HDL Cholesterol >39 mg/dL 63 56 Non HDL Cholesterol <130 mg/dL 44 87 Fasting Time hrs 12 13 VLDL Cholesterol <30 mg/dL 13 17 TC:HDL Ratio <5.10 1.70 2.55 LDL Cholesterol <100 mg/dL 31 70 LDL:HDL Ratio <2.54 0.49 1.25 CK 51 - 298 U/L 59 52 Type 2 diabetes mellitus without complication, without long-term current use of insulin (hcc) Current medications: none Taking medication as directed consistently? N/A Medication side effects: Medical Issues / Complications: hypertension, hyperlipidemia, and cardiovascular disease Checking blood sugars at home? No. Watching diet? No Physical Activity: Sedentary Hypoglycemic spells? No Any visual disturbance? No Chest pain? No New numbness, tingling or loss of sensation? No Any recent foot problems, sores or rashes? No Any recent or sudden weight loss? No Change in urination? No. If yes: Any recent illness? No Last eye exam: cataracts removed, [facility] in last 6 months. Last foot exam: due. HBA1C: Hemoglobin A1C (%) Date Value 08/25/2022 5.5 03/30/2022 5.7 07/04/2021 5.3 02/21/2021 5.2 ) CMP: Glucose 125 04/28/2022 BUN 10 04/28/2022 Creatinine 0.80 04/28/2022 Sodium 140 04/28/2022 Potassium 3.9 04/28/2022 Chloride 101 04/28/2022 CO2 22 04/28/2022 Protein, Total 7.1 04/28/2022 Albumin 4.5 04/28/2022 Calcium 9.0 04/28/2022 Alkaline Phosphatase 93 04/28/2022 Bilirubin, Total 1.1 04/28/2022 AST 26 01/20/2023 ALT 28 04/28/2022 Last 2 Encounter Wt Readings: Date: Wt: 08/27/2022 108.9 kg (240 lb) 07/14/2022 107 kg (236 lb) Hypothyroidism, acquired Hypothyroidism Current medication: Levothyroxine 50 mcg daily AC 1 hour Taking as directed on an empty stomach? Yes. Thyroid pain: No. Mass effect: No. Change in energy level/ fatigue? No. Sleep disturbance ? takes benadryl. Temperature Intolerance: cold No, hot No. Change in bowel habits? No. If yes: Weight changes?Yes. gaining Memory issues: No. Diaphoresis: No. Numbness, tingling none Radiological imaging with contrast dyes within the last 3 months? No. History of radiation exposure to head or neck area? No. Change in hair or skin? No. If yes: Other symptoms: Last 2 Encounter Wt Readings: Date: Wt: 08/27/2022 108.9 kg (240 lb) 07/14/2022 107 kg (236 lb) Last thyroid labs: TSH Date Value 04/28/2022 2.590 mIU/L 03/30/2022 2.740 mIU/L 08/07/2021 5.270 uU/mL 06/26/2021 4.080 uU/mL ) Thrombocytopenia (hcc) Started Allopurinol 01/06/2013 which is likely cause Component Latest Ref Rng & Units 08/31/2012 01/07/2013 07/08/2013 04/12/2014 06/14/2014 03/18/2015 05/08/2017 12/14/2017 07/25/2019 02/21/2021 06/26/2021 07/29/2021 08/13/2021 08/14/2021 08/15/2021 08/16/2021 08/17/2021 08/19/2021 08/23/2021 08/26/2021 01/26/2022 04/28/2022 Platelet Count 150 - 400 k/uL 164 164 142 (L) 143 (L) 138 (L) 134 (L) 140 (L) 153 145 (L) 143 (L) 141 (L) 145 (L) 112 (L) 110 (L) 91 (L) 91 (L) 106 (L) 130 (L) 231 279 120 (L) 124 (L) Chronic GERD Current medication: Omeprazole 40mg daily AC. Current symptoms: none. Last Mg level if on PPI chronically: none recent 12/31/2021 1.8 . Heartburn is controlled: Yes. Dysphagia: No. Bloody or black stools: No. Bowel changes: No. Last EGD and/or colonoscopy: 04/09/2021 EGD duodenum WNL, antrum erythematous mucosa, LA Grade A reflux Bph with obstruction/lower urinary tract symptoms Alfuzosin SR 10mg daily Force of Stream: mild reduction . Hesitancy: Rare Intermittency: No Dribbling: No Daytime Frequency: three hours Night time frequency: 1-2 times per night Urgency: Mild Incontinence: None Erectile dysfunction Current medications: Sildenafil 100 mg 1 tablet 30 minutes prior to intercourse Does well with medication though not active of late Idiopathic gout, unspecified chronicity, unspecified site Current medications: Zyloprim 300 mg twice a day Obesity, class i, bmi 30-34.9 Vitals 05/12/2022 05/12/2022 05/14/2022 07/14/2022 07/14/2022 08/27/2022 01/22/2023 WEIGHT in POUNDS 228 lb 230 lb 236 lb 240 lb 246 lb WEIGHT in KILOGRAMS 103.42 kg 104.327 kg 107.049 kg 108.863 kg 111.585 kg . REVIEW OF SYSTEMS: PAIN ASSESSMENT: Is the patient having any pain? Right knee 5/10 at rest, 7-8/10 with walking General: Weight gain slowly Neuro: No Hx of stroke or seizures Respiratory: recurrent dry cough, likely r/t lisinopril Cardiovascular: Positive for: see hpi GI: + GERD controlled on prilosec. No other issues., : No history of UTI in past 6 weeks. No history of renal failure. Not currently on or requiring dialysis. No history of symptoms or problems. Endocrine: Diabetes Mellitus with diet control, Hypothyroidism Hematology: Chronic anti-coagulation / platelet meds (Plavix, apixaban) Oncology: No history of CA metastasis, chemo within 30 days, or radiotherapy within 90 days. Has not lost 10% of body wt in 6 months. No history of oncological symptoms or problems. Psych: No history of psychiatric symptoms or problems., lately feeling down r/t to activity restrictions, weight gain, pain Musculoskeletal: other than right knee, bilatral shoulder stiffness and pain Skin: + skin cancer BCC. Rosecea under control with treatment. HISTORIES FAMILY HISTORY Problem Relation Age of Onset Cancer Mother neck Alcohol/Drug Mother Cancer Father 47yo PAST MEDICAL HISTORY Diagnosis Date Arthritis Arthritis of knee bilateral CAD (coronary artery disease) Diabetes mellitus, type 2 (HCC) 2014 Diverticulosis of colon (without mention of hemorrhage) Gout, unspecified History of basal cell cancer Dr. Сергей ALCANTAR History of tobacco use HYPERTENSION NOS Mitral valve prolapse Other forms of migraine Rosacea PAST SURGICAL HISTORY Procedure Laterality Date CABG (3) VEIN GRAFTS & ARTERIAL GRAFT(S) 08/13/2021 (BEAVERS to LAD, SVG sequential to OM1 & OM2) COLONOSCOPY FLX DX W/COLLJ SPEC WHEN PFRMD 06/18/2010 repeat due 2020 HERNIA REPAIR HX RPR 1ST INGUN HRNA AGE 5 YRS/> REDUCIBLE 1984, 1955 left and right SKIN BIOPSY HX Social History Tobacco Use Smoking status: Former Packs/day: 0.50 Years: 37.00 Pack years: 18.50 Types: Cigarettes Quit date: 05/08/2011 Years since quittin.7 Smokeless tobacco: Never Tobacco comments: had quit in 2011- relapsed and now quit again Vaping Use Vaping Use: Never used Substance Use Topics Alcohol use: Yes Alcohol/week: 2.0 - 3.0 standard drinks Types: 2 - 3 Cans of Beer (12oz) per week Comment: daily Drug use: No PHYSICAL EXAM: VITALS: BP 110/62 Pulse 103 Wt 195 lb (88.5kg) SpO2 95% LMP 04/08/2010 General: Alert and oriented Skin: Normal color, no rash, no lesions., multiple areas of actinic damage HEENT: EOM, pupils equal, round and reactive. Cardiovascular: Normal S1 & S2, no rubs, murmurs or gallops. No JVD. Pulse regular. Lungs: Normal breath sounds, no wheezes or crackles. Abdomen: Soft, non-tender, no rigidity. Extremities: No deformity, no edema or tenderness, no joint swelling or clubbing. Neurological: Normal cognition and motor skills. Pulses: Carotid and radial pulses normal +2. DP pulses 2/4+. Smooth nails, normal hair distribution on extremities. Feet:Shoes and socks removed, Are you having foot pain no, No deformities, ulcers, calluses, normal distal pulses, and sensitive to 10 gm monofilament Diagnostic tests reviewed for today's visit: Most recent labs Most recent imaging Most recent EKG: sinus bradycardia at 58 beats per minute, normal axis, left axis deviation, normal intervals, age indeterminate inferior infarct (known), reviewed by myself. No significant change from 05/12/2022 pending physician practice market manager formal read. Most recent Echo Most recent stress test ASSESSMENT Thank you Dr. Hopper for you kind consult for surgical clearance on this very pleasant gentleman Mr. Devin Suresh. Given his 2 year history of cardiovascular interventions, atrial fibrillation risk, and anticoagulation status, I have placed consult for cardiac clearance with [facility]. Otherwise, I feel he is optimized for surgery. EKG, CXR, lab reports will follow. Best regards, Shelia Orr PA-C Patient has the following medical conditions, see below. ASSESSMENT/PLAN: 1. Coronary artery disease involving [place] heart with angina pectoris, unspecified vessel or lesion type (HCC) - ICD9: 414.01, 413.9, ICD10: I25.119 (primary diagnosis) Marked improvement in EF to 50% - COMP METABOLIC PANEL - CONSULT TO CARDIOLOGY 2. S/P CABG x 3 - ICD9: V45.81, ICD10: Z95.1 No ischemic equivalents. - CONSULT TO CARDIOLOGY 3. Atrial fibrillation status post cardioversion (HCC) - ICD9: 427.31, ICD10: I48.91 Recommend cardiology clearance due to history and CHADS2-VASc score 4 Lisinopril stopped due to dry cough persistent Start losartan, f/u 4 weeks for BP recheck - LOSARTAN 25 MG TABLET - COMP METABOLIC PANEL - CONSULT TO CARDIOLOGY 4. Systolic dysfunction, left ventricle - ICD9: 429.9, ICD10: I51.9 As above - CONSULT TO CARDIOLOGY 5. Essential hypertension - ICD9: 401.9, ICD10: I10 - good control - Continue current medication(s) - Recommended regular aerobic exercise. - Recommend home blood pressure monitoring, to bring results in on next visit - Goal of BP <130/80 - COMP METABOLIC PANEL - CONSULT TO CARDIOLOGY 6. Hypertensive heart disease without heart failure - ICD9: 402.90, ICD10: I11.9 - good control - Continue current medication(s) - Recommended regular aerobic exercise. - Recommend home blood pressure monitoring, to bring results in on next visit - Goal of BP <130/80 - LOSARTAN 25 MG TABLET - CONSULT TO CARDIOLOGY 7. Type 2 diabetes mellitus without complication, without long-term current use of insulin (HCC) - ICD9: 250.00, ICD10: E11.9 - Controlled - monitor hga1c [id number] - ALBUMIN/CREAT RATIO RND UR - COMP METABOLIC PANEL 8. Hypothyroidism, acquired - ICD9: 244.9, ICD10: E03.9 controlled Continue current dosing abd follow lab annually - COMP METABOLIC PANEL 9. Thrombocytopenia (HCC) - ICD9: 287.5, ICD10: D69.6 Suspect r/t allopurinol effect, mild and not concerning - COMP METABOLIC PANEL 10. Chronic GERD - ICD9: 530.81, ICD10: K21.9 - Discussed lifestyle modifications including losing weight, limiting caffeine, no meals three hours before sleep, and head of bed elevation - controlled on current dose with omeprazole 40mg daily: continue 11. BPH with obstruction/lower urinary tract symptoms - ICD9: 600.01, 599.69, ICD10: N40.1, N13.8 Stable, not bothersome on current medication, continue 12. Obesity, Class I, BMI 30-34.9 - ICD9: 278.00, ICD10: E66.9 Weight increasing Discussed options with GLP1, SGLT2 products. Will review after surgery. May ot cover as is not on medicaiton and in non-diabetic range with hgab1c 13. Idiopathic gout, unspecified chronicity, unspecified site - ICD9: 274.9, ICD10: M10.00 No recurrences in last few years - COMP METABOLIC PANEL 14. Adjustment reaction with brief depressive reaction - ICD9: 309.0, ICD10: F43.21 Fighting wth depression and low mood reactive to physical impairment - SERTRALINE 50 MG TABLET 15. Preoperative clearance - ICD9: V72.84, ICD10: Z01.818 Recommend cardiac clearance and management anticoagulation as above - CBC + DIFF - ECG COMPLETE - XR CHEST 2V FRONTAL/LAT - COMP METABOLIC PANEL - CONSULT TO CARDIOLOGY Shelia Orr PA-C Clinical Risk Factors for Possible Cardiac Complications: History of ischemic heart disease Patient is scheduled for a intermediate-risk procedure. FUNCTIONAL STATUS: Do yardwork, such as raking leaves, weeding,or pushing a power mower (4.50 METs) Functional Class (NYHA): III ANESTHESIA FINDINGS: Intubation History: No history of difficult intubation Significant Anesthesia Considerations: None Airway Exam: General: Normal appearance Mallampati Score is CLASS II ULBT: Class I - Lower incisors can bite the upper lip above the sandie line Neck: Normal appearance and function, Distance from hyoid to mentum during neck extension is at least 3 finger breaths Mouth: Normal tongue size Dentition: Caps/crowns Airway History: No abnormal airway history [employer]: Not obtained PLAN CONSULTS: Cardiology Consult for cardiac clearance for afib, s/p CABG. The Following Tests/Procedures Have Been Initiated: EKG, Chest X-Ray, CBC, CMP, HGBA1c Instructions Given to Patient: Patient given verbal and written preop instructions and voices comprehension and compliance. SIGNATURE: Shelia Orr PA-C PATIENT NAME: Devin Suresh DATE: 01/22/2023 TIME: 2:12 AM PAGER/CONTACT #: [phone] documented in this encounter [facility] 01-19-2023 Miscellaneous Notes Type of form: Request for Surgery Clearance Form received via fax from [employer] When form is completed, Fax form to [employer] Form has been forwarded to Appointment File Folder(upcoming appt 01/22/23) Svetlana Villavicencio Ma documented in this encounter [facility] 12-28-2022 Miscellaneous Notes Patient phones requesting refills as follows: Requested Prescriptions Pending Prescriptions Disp Refills vitamin with folic acid 1 mg 60 mg iron-1 mg tab 90 tablet 1 Sig: Take 1 tablet by mouth once daily. MARC 08/27/22 NOV 02/25/23 Please review and advise. Umair Le LPN documented in this encounter [facility] 12-24-2022 Miscellaneous Notes Telephone on 05/14/22 LIPID PANEL BASIC AST/SGOT BLD CK CREATINE KINASE Rudy Pisano PA-C Patient notified and verbalized understanding Orders are still pending please sign Diandra Cheek Cma Start pravastatin 10mg daily. Recheck lab in 2-3 months. If complications with pain: notify. No orders found for this visit on 05/14/22. The following approved medication requests have been transmitted electronically. Signed Prescriptions Disp Refills pravastatin (PRAVACHOL) 10 mg tablet 90 tablet 1 Sig: Take 1 tablet by mouth once daily. Authorizing Provider: Shelia ORR PA-C Patient calls to report that at appointment today he forgot to ask about medication for cholesterol. Patient asking if he should try something else since he isn't taking the Lipitor d/t thigh pain. Patient has been off of medication for 2 weeks and reports pain is greatly improved. Patient asking if prescription is ordered to please send to [facility]. Ro Castaneda RN documented in this encounter [facility] 12-08-2022 Miscellaneous Notes Pt called and is notified of providers message. Pt voices understanding. Maryann Dent RN Looks like it was taken off his chart when he saw a different provider. I cannot see any reason for that. If he is still taking it and cardiology has not stopped it either, continue it. Rx sent in. Patient reports [facility]irt Ayala tells him to call pcp about his refills on metoprolol 50 mg every 12 hours. Appears on chart it was discontinued on 08-27-22. Patient does not recall anyone telling him to stop taking it, and has been taking it. Has a couple pills left. Please advise patient, and if you want him to keep taking it, will need new Rx sent to [facility]. Please let patient know. documented in this encounter [facility] 08-27-2022 History of Present illness Narrative 66 year old male with c/o 3 month follow up In the interim has had bilateral cataract extractions with lens implants Saw Dr. Danilo WILDER on right hand; scheduled for Moh's. Coronary artery disease involving [place] heart with angina pectoris, unspecified vessel or lesion type ([facility]) (primary encounter diagnosis) S/p cabg x 3 Essential hypertension Supervisor Slitting And Shipping: Dr. Gabriel Schwab Atrial fibrillation status post cardioversion ([facility]) Hypertensive heart disease without heart failure Cardiovascular interval hx: 06/03/2022 echo [facility]: LV size and LV SF WNL, EF 50%, moderate concentric LVH. RA moderately enlarged. Stage I diastolic dysfunction. No valvular heart disease. Normal great vessels. 08/26/[address] Helms cardioversion 200 J synchronized biphasic external shock with conversion. 08/26/2021 transesophageal echo: LV mildly dilated, LV SF severely decreased, EF 25%. RV mildly dilated, RV SF moderately decreased. LA moderately dilated, left atrial appendage is not multilobed, no left atrial appendage thrombus. Aorta size WNL 3.7 cm ascending Pulmonary veins size WNL, blunted systolic flow. RA: Moderately severely dilated. Superior vena cava WNL. Small pericardial effusion. Main pulmonary artery mildly dilated. 07/08/2021 heart cath, Dr. Bourgeois: Severe disease noted LAD with high-grade stenosis of the calcified left circumflex with left ventricular systolic dysfunction. LVEF 35% Anterior hypokinesis moderate LM: Mild calcification no disease. LAD mid occluded, distal LAD collateral circulation, L CX large dominant vessel, bifurcating with 80% stenosis mid segment, RCA mild luminal irregularities less than 30% 01/30/17 echocardiogram [facility]: EF 55% mildly abnormal LV relaxation, mild dilatation RV, left and right atria. Otherwise WNL. Current meds: Lisinopril 10 mg daily Eliquis 5 mg twice a day Pravachol 10 mg daily HF Use of NTG: no rx Chest pain, arm, jaw pain, neck, or upper back pain suggestive of angina: No. SOB: No Dyspnea with exertion: No, doesn't really exert due to bone on bone arthritis in right knee. orthopnea: No Cough : No racing or irregular heartbeats: No palpitations: No syncopal sx: No Headache: No Unexplainable fatigue No Leg swelling: No, a little swelling left ankle post vein harvest Nausea: No diaphoresis: No Heartburn: No Claudication: No Smoking: No Following Low cholesterol, high fiber diet? Could be better . Not a lot of red meat. If on statin: muscle aches? No If on statin: GI sx or diarrhea? No Additional history none. Lab review: Component Latest Ref Rng & Units 01/26/2022 03/30/2022 04/28/2022 WBC 3.70 - 11.00 k/uL 5.22 4.84 RBC 4.20 - 6.00 m/uL 4.35 4.26 Hemoglobin 13.0 - 17.0 g/dL 13.1 13.4 Hematocrit 39.0 - 51.0 % 39.7 40.2 MCV 80.0 - 100.0 fL 91.3 94.4 MCH 26.0 - 34.0 pg 30.1 31.5 MCHC 30.5 - 36.0 g/dL 33.0 33.3 RDW-CV 11.5 - 15.0 % 15.6 (H) 14.0 Platelet Count 150 - 400 k/uL 120 (L) 124 (L) MPV 9.0 - 12.7 fL 10.8 11.0 Neut% % 67.4 Abs Neut (ANC) 1.45 - 7.50 k/uL 3.26 Lymph% % 17.6 Abs Lymph 1.00 - 4.00 k/uL 0.85 (L) Prentiss% % 10.5 Abs Prentiss <0.87 k/uL 0.51 Eosin% % 3.3 Abs Eosin <0.46 k/uL 0.16 Baso% % 0.8 Abs Baso <0.11 k/uL 0.04 Immature Gran % % 0.4 IMMATURE GRANS (ABS) <0.10 k/uL <0.03 NRBC /100 WBC 0.0 Absolute nRBC <0.01 k/uL <0.01 <0.01 DTYPE Auto Protein, Total 6.3 - 8.0 g/dL 7.3 6.9 7.1 Albumin 3.9 - 4.9 g/dL 4.5 4.2 4.5 Calcium 8.5 - 10.2 mg/dL 9.3 9.0 9.0 Bilirubin, Total 0.2 - 1.3 mg/dL 1.0 0.9 1.1 Alkaline Phosphatase 38 - 113 U/L 79 72 93 AST 14 - 40 U/L 41 (H) 39 32 ALT 10 - 54 U/L 42 39 28 Glucose 74 - 99 mg/dL 112 (H) 141 (H) 125 (H) BUN 9 - 24 mg/dL 13 10 10 Creatinine 0.73 - 1.22 mg/dL 0.89 0.80 0.80 Sodium 136 - 144 mmol/L 140 137 140 Potassium 3.7 - 5.1 mmol/L 3.9 4.0 3.9 Chloride 97 - 105 mmol/L 102 102 101 CO2 22 - 30 mmol/L 26 25 22 Anion Gap 9 - 18 mmol/L 12 10 17 eGFR >=60 mL/min/1.73m 95 98 98 Cholesterol, Total <200 mg/dL 107 Triglyceride <150 mg/dL 64 HDL Cholesterol >39 mg/dL 63 Non HDL Cholesterol <130 mg/dL 44 Fasting Time hrs 12 VLDL Cholesterol <30 mg/dL 13 TC:HDL Ratio <5.10 1.70 LDL Cholesterol <100 mg/dL 31 LDL:HDL Ratio <2.54 0.49 Bilirubin, Conjug <0.2 mg/dL 0.3 (H) 0.3 (H) CK 51 - 298 U/L 59 [place] (obstructive sleep apnea) Not on any treatment Tobacco use Former Type 2 diabetes mellitus without complication, without long-term current use of insulin (hcc) Current medications: none Taking medication as directed consistently? N/a Medical Issues / Complications: hypertension and hyperlipidemia Checking blood sugars at home? No. Watching diet? Yes Physical Activity: Regular Hypoglycemic spells? No Any visual disturbance? No Chest pain? No New numbness, tingling or loss of sensation? No Any recent foot problems, sores or rashes? No Any recent or sudden weight loss? No Change in urination? No. If yes: Any recent illness? No HBA1C: Hemoglobin A1C (%) Date Value 08/25/2022 5.5 03/30/2022 5.7 07/04/2021 5.3 02/21/2021 5.2 ) CMP: Glucose 125 04/28/2022 BUN 10 04/28/2022 Creatinine 0.80 04/28/2022 Sodium 140 04/28/2022 Potassium 3.9 04/28/2022 Chloride 101 04/28/2022 CO2 22 04/28/2022 Protein, Total 7.1 04/28/2022 Albumin 4.5 04/28/2022 Calcium 9.0 04/28/2022 Alkaline Phosphatase 93 04/28/2022 Bilirubin, Total 1.1 04/28/2022 AST 32 04/28/2022 ALT 28 04/28/2022 Last 2 Encounter Wt Readings: Date: Wt: 07/14/2022 107 kg (236 lb) 05/14/2022 104.3 kg (230 lb) Hypothyroidism, acquired Current medications: Levothyroxine 50mcg daily ac Denies change in hair or skin, heat or cold intolerance, depression/ moodiness, change in bowel habits, unusal thirst, or significant weight changes. TSH Date Value 04/28/2022 2.590 mIU/L 03/30/2022 2.740 mIU/L 08/07/2021 5.270 uU/mL 06/26/2021 4.080 uU/mL Chronic GERD Urrutia's esophagus without dysplasia Current medication: omeprazole 40mg daily AC. Current symptoms: none. Last Mg level if on PPI chronically: none recent. Heartburn is controlled: Yes. Dysphagia: No. Bloody or black stools: No. Bowel changes: No. Last EGD 04/09/2021 - Normal first portion of the duodenum and second portion of the duodenum. - Erythematous mucosa in the antrum. Biopsied. - LA Grade A reflux esophagitis. Rule out Urrutia's esophagus. Biopsied. - Small hiatal hernia. FINAL DIAGNOSIS 1. Gastric antrum, biopsy (A) - Chronic inactive gastritis, see comment. 2. Esophagogastric junction, biopsy (B) - Intestinal metaplasia, negative for dysplasia. - Reactive squamous epithelium: negative for Helicobacter Last Colonoscopy 04/09/2021 A few small-mouthed diverticula were found in the sigmoid colon. - No specimens collected. Anxiety Adjustment reaction with brief depressive reaction Current medications: Sertraline 50 mg 1/2 tablet daily Feels he is doing well. Sometimes gets caught up in thoughts about mortality. Bph with obstruction/lower urinary tract symptoms Nocturia once , maybe twice Thrombocytopenia (hcc) Component Latest Ref Rng & Units 08/23/2021 08/26/2021 01/26/2022 04/28/2022 Platelet Count 150 - 400 k/uL 231 279 120 (L) 124 (L) Gout: Current medications: Alfuzosin SR 10 mg daily at bedtime none Erectile dysfunction: Current medications: Sildenafil 100 mg daily as needed Seems to help Not often. Current medications: Thiamine 100 mg daily HISTORIES FAMILY HISTORY Problem Relation Age of Onset Cancer Mother neck Alcohol/Drug Mother Cancer Father 47yo PAST MEDICAL HISTORY Diagnosis Date Arthritis Arthritis of knee bilateral CAD (coronary artery disease) Diabetes mellitus, type 2 (HCC) 2014 Diverticulosis of colon (without mention of hemorrhage) Gout, unspecified History of basal cell cancer Dr. Сергей ALCANTAR History of tobacco use HYPERTENSION NOS Mitral valve prolapse Other forms of migraine Rosacea PAST SURGICAL HISTORY Procedure Laterality Date CABG (3) VEIN GRAFTS & ARTERIAL GRAFT(S) 08/13/2021 (BEAVERS to LAD, SVG sequential to OM1 & OM2) COLONOSCOPY FLX DX W/COLLJ SPEC WHEN PFRMD 06/18/2010 repeat due 2020 HERNIA REPAIR HX RPR 1ST INGUN HRNA AGE 5 YRS/> REDUCIBLE 1984, 1955 left and right SKIN BIOPSY HX Social History Tobacco Use Smoking status: Former Packs/day: 0.50 Years: 37.00 Pack years: 18.50 Types: Cigarettes Quit date: 05/08/2011 Years since quittin.3 Smokeless tobacco: Never Tobacco comments: had quit in 2010- relapsed and now quit again Vaping Use Vaping Use: Never used Substance Use Topics Alcohol use: Yes Alcohol/week: 2.0 - 3.0 standard drinks Types: 2 - 3 Cans of Beer (12oz) per week Comment: daily Drug use: No ACTIVE PROBLEM LIST Other Forms of Migraine Gout, Unspecified Essential Hypertension Rosacea Arthritis of Knee Type 2 Diabetes Mellitus Without Complication, Without Long-Term Current Use of Insulin (Hcc) Hypertensive Heart Disease Without Heart Failure Chronic Gerd Squamous Cell Carcinoma in Situ of Skin Obesity, Class I, Bmi 30-34.9 Coronary Artery Disease Involving [place] [facility] With Angina Pectoris (Hcc) S/P Cabg X 3 Atrial Fibrillation Status Post Cardioversion ([facility]) Dry Skin Dermatitis Hypothyroidism, Acquired Hyperglycemia Systolic Dysfunction, Left Ventricle Bph With Obstruction/Lower Urinary Tract Symptoms Current Outpatient Medications Medication Sig Dispense Refill vitamin with folic acid 1 mg 60 mg iron-1 mg tab Take 1 tablet by mouth once daily. 90 tablet 1 omeprazole (PRILOSEC) 40 mg capsule Take 1 capsule by mouth once daily. 90 capsule 3 levothyroxine (SYNTHROID) 50 mcg tablet Take 1 tablet by mouth once daily. Take on empty stomach. For thyroid. 90 tablet 3 lisinopril (ZESTRIL, PRINIVIL) 10 mg tablet Take 1 tablet by mouth once daily. 90 tablet 3 allopurinol (ZYLOPRIM) 300 mg tablet TAKE 1 TABLET BY MOUTH TWICE DAILY. FOR GOUT. 180 tablet 3 thiamine (VITAMIN B1) 100 mg tablet Take 1 tablet by mouth once daily. 30 tablet 11 apixaban (ELIQUIS) 5 mg tab(s) Take 1 tablet by mouth twice daily. 180 tablet 1 pravastatin (PRAVACHOL) 10 mg tablet Take 1 tablet by mouth once daily. 90 tablet 1 alfuzosin SR (UROXATRAL) 10 mg 24 hr tablet Take 1 tablet by mouth daily at bedtime. 90 tablet 3 sildenafil (VIAGRA) 100 mg tablet 1 tablet 30 min prior to intercourse, on empty stomach and with sexual stimulation immediately following. 30 tablet 3 sertraline (ZOLOFT) 50 mg tablet Take 0.5 tablets by mouth once daily. 45 tablet 1 metoprolol tartrate, short acting, (LOPRESSOR) 50 mg tablet Take 1 tablet by mouth every 12 hours. 180 tablet 1 furosemide (LASIX) 20 mg tablet Take 1 tablet by mouth once daily. 90 tablet 1 clopidogrel (PLAVIX) 75 mg tablet Take 1 tablet by mouth once daily. 90 tablet 3 fluticasone (FLONASE) 50 mcg/actuation nasal spray Use 2 Sprays in each nostril once daily. 3 Each 3 ammonium lactate (LAC-HYDRIN) 12 % lotion Apply to affected area as needed for Dry Skin (a0pply liberally as need). (Patient not taking: Reported on 07/14/2022) 60 g 11 blood sugar diagnostic (FREESTYLE LITE STRIPS) test strip Test blood sugar(s) once times daily. Dx: 250.00. Insulin: No 50 Strip 6 Lancets (FREESTYLE LANCETS) lancets Test blood sugar(s) one times daily. Dx: 250.00. Insulin: No (Patient taking differently: Test blood sugar(s) one times daily. Dx: 250.00. Insulin: No Uses as needed) 1 Each 11 Current Facility-Administered Medications Medication Dose Route Frequency Provider Last Rate Last Admin perflutren lipid microspheres 1.3 mL in NaCl (PF) 0.9% 10 mL injection (DEFINITY) INTRAVENOUS DIRECTED PRN Anastasiya Schwab MD sodium chloride 0.9 % (flush) 10 mL (BD POSIFLUSH) 10 mL INTRAVENOUS DIRECTED PRN Anastasiya Schwab MD perflutren lipid microspheres 1.3 mL in NaCl (PF) 0.9% 10 mL injection (DEFINITY) INTRAVENOUS DIRECTED PRN Anastasiya Schwab MD sodium chloride 0.9 % (flush) 10 mL (BD POSIFLUSH) 10 mL INTRAVENOUS DIRECTED PRN Anastasiya Schwab MD sodium chloride 0.9 % (flush) 10 mL (BD POSIFLUSH) 10 mL INTRAVENOUS DIRECTED PRN Oliver Regalado MD DEPRESSION ASSESSMENT Never done COVID-19 VACCINE(4 - Booster for Moderna series) due on 11/13/2021 URINE ALBUMIN:CREATININE RATIO due on 07/04/2022 DIABETIC FOOT EXAM due on 09/25/2022 EXAM: BP 118/66 Pulse 64 Resp 16 Wt 108.9 kg (240 lb) SpO2 97% BMI 32.55 kg/m Pleasant adult obese man in no acute distress. Alert and oriented all spheres. Normal affect and cognition. Speech normal. No deficits to learning or comprehension. Skin warm, dry, pink to lips and nailbeds. Normal turgor. Respirations regular and unlabored. HEENT: NCAT. No scleral icterus or conjunctival injection. TM's clear. Nose and oropharynx free from injection or lesion. Oral membranes moist and pink. No cervical lymph nodes. Thyroid non-tender, no masses, or enlargement. Carotids pulses 2+/4+ without bruits. No JVD with HOB at 30 degrees. Chest is normal shape. Lungs are clear to all sorto with good air exchange through out. HRRR with intermittent irregularity without murmur or gallop. No lifts, heaves, or rubs. Extrem: no clubbing, cyanosis, edema. Distal pulses 2+/4, prompt capillary refill. Extrem: no clubbing or cyanosis. Edema: none. Extremities are warm and pink with prompt capillary refill. ASSESSMENT/PLAN: 1. Coronary artery disease involving [place] heart with angina pectoris, unspecified vessel or lesion type (HCC) - ICD9: 414.01, 413.9, ICD10: I25.119 (primary diagnosis) Stable, follows with cardiology - CBC + DIFF - COMP METABOLIC PANEL - LIPID PANEL BASIC 2. S/P CABG x 3 - ICD9: V45.81, ICD10: Z95.1 3. Essential hypertension - ICD9: 401.9, ICD10: I10 - good control - Continue current medication(s) - Recommended regular aerobic exercise. - Recommend home blood pressure monitoring, to bring results in on next visit - Goal of BP <130/80 - CBC + DIFF - COMP METABOLIC PANEL 4. Atrial fibrillation status post cardioversion (HCC) - ICD9: 427.31, ICD10: I48.91 Contorlled rate, asymptomatic 5. Hypertensive heart disease without heart failure - ICD9: 402.90, ICD10: I11.9 - good control - Continue current medication(s) - Recommended regular aerobic exercise. - Recommend home blood pressure monitoring, to bring results in on next visit - Goal of BP <130/80 - CBC + DIFF - COMP METABOLIC PANEL - LIPID PANEL BASIC 6. CHELSEA (obstructive sleep apnea) - ICD9: 327.23, ICD10: G47.33 No treatment 7. Tobacco use - ICD9: 305.1, ICD10: Z72.0 - Cessation encouraged. - Physiologic and physical aspects of tobacco addiction as well as strategies for quitting were discussed. - Counseling was given focusing on the harmful effects of this addiction especially given the patient's medical condition(s) which will be worsened because of the chemicals in tobacco. 8. Type 2 diabetes mellitus without complication, without long-term current use of insulin ([facility]) - ICD9: 250.00, ICD10: E11.9 Controlled. - Continue current medications - ALBUMIN/CREAT RATIO RND UR - COMP METABOLIC PANEL 9. Chronic GERD - ICD9: 530.81, ICD10: K21.9 - Discussed lifestyle modifications including limiting caffeine, no meals three hours before sleep, and head of bed elevation 10. 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 Anxiety - ICD9: 300.00, ICD10: F41.9 Stable on medication: not interested in changes - CBC + DIFF - COMP METABOLIC PANEL 12. Adjustment reaction with brief depressive reaction - ICD9: 309.0, ICD10: F43.21 As above - CBC + DIFF - COMP METABOLIC PANEL - SERTRALINE 50 MG TABLET 13. BPH with obstruction/lower urinary tract symptoms - ICD9: 600.01, 599.69, ICD10: N40.1, N13.8 stable 14. Hypothyroidism, acquired - ICD9: 244.9, ICD10: E03.9 - Instructed patient on importance of taking on an empty stomach either first thing in the morning or at bedtime. - continue current dose of Synthroid 15. Thrombocytopenia (HCC) - ICD9: 287.5, ICD10: D69.6 Stable, mild 16. Seasonal allergic rhinitis, unspecified trigger - ICD9: 477.9, ICD10: J30.2 - FLUTICASONE PROPIONATE 50 MCG/ACTUATION NASAL SPRAY,SUSPENSION F/u 6 months. Some of this note may have been copied and pasted for the purpose of history context and comparison. Shelia Orr PA-C documented in this encounter [facility] 07-15-2022 Miscellaneous Notes Patient returned call and apologizes for the confusion. Pt states he ran out of this supplement and has not been taking it for some time. He would like it reordered. Thank you. TC to pt, left message to return call to office. Umair Le LPN It looks like when he was in the office in April he had told them he was not taking it. Has he still been taking it? Devin Suresh is calling Oliver Regalado MD today to find out if he should be taking the following medication: vitamin with folic acid 1 mg 60 mg iron-1 mg tab (Discontinued) 90 tablet 1 03/26/2022 04/28/2022 Sig: Take 1 tablet by mouth once daily. Sent to pharmacy as: vitamin with folic acid 1 mg 60 mg iron-1 mg tab Class: Normal Route: ORAL Reason for Discontinue: Other Order: [id number] E-Prescribing Status: Receipt confirmed by pharmacy (03/26/2022 10:03 AM EDT) E-Cancel Status: Request approved by pharmacy (04/28/2022 9:09 AM EDT) E-Cancel Status Note: Written Qty:90.0,Owed Qty:180.0 Please advise and notify the patient. If he is supposed to be taking this medication - please send to [facility] [place]. Patient has been identified by name and birthdate. Duration of symptoms: N/A Person calling: self Call patient at: on cell [phone] (home) [phone] (cell) Was an appointment scheduled: No Closing statement: Results or non-symptom based questions: Thank you for calling [facility], your call will be returned within the next business day. Erin Alba Pss documented in this encounter [facility] 07-14-2022 History of Present illness Narrative CC Post Void Residual HPI: Devin Suresh is a 66 year old male. The patient is here now for an appointment with RUBEN Parra, [place], PA-COV. Procedure: Explained procedure to patient and verbalizes understanding. Performed a PVR. Patient urinated and instructed to empty bladder as much as possible just prior to having PVR done using bladder ultrasound scanner. Results of scan: 0 mL The patient tolerated the procedure well. Plan: Appointment with Sanjiv. Images from the original note were not included. PATIENT INFO: Devin Suresh 66 year old ( ) REFERRING PROVIDER: Shelia Orr PCP: Oliver Regalado MD HPI: Devin Suresh 66 year old male is here today for follow up after he stopped flomax and started Uroxatral due to RE, since his changed no further symptoms He also tried Viagra 100 mg, which he says works but seems disappointed states its OK , but doesn't elaborate LUTS: none Other symptoms: LABS: No results found for: TESTOST No results found for: TESTFREE PSA (ng/mL) Date Value 03/30/2022 0.22 04/30/2009 0.44 07/19/2006 0.39 Hematocrit (%) Date Value 04/28/2022 40.2 01/26/2022 39.7 08/26/2021 28.8 06/26/2021 36.4 02/21/2021 39.2 07/25/2019 41.7 MEDICATIONS: thiamine (VITAMIN B1) 100 mg tablet^Take 1 tablet by mouth once daily.^Disp: 30 tablet^Rfl: 11 apixaban (ELIQUIS) 5 mg tab(s)^Take 1 tablet by mouth twice daily.^Disp: 180 tablet^Rfl: 1 pravastatin (PRAVACHOL) 10 mg tablet^Take 1 tablet by mouth once daily.^Disp: 90 tablet^Rfl: 1 alfuzosin SR (UROXATRAL) 10 mg 24 hr tablet^Take 1 tablet by mouth daily at bedtime.^Disp: 90 tablet^Rfl: 3 sildenafil (VIAGRA) 100 mg tablet^1 tablet 30 min prior to intercourse, on empty stomach and with sexual stimulation immediately following.^Disp: 30 tablet^Rfl: 3 sertraline (ZOLOFT) 50 mg tablet^Take 0.5 tablets by mouth once daily.^Disp: 45 tablet^Rfl: 1 metoprolol tartrate, short acting, (LOPRESSOR) 50 mg tablet^Take 1 tablet by mouth every 12 hours.^Disp: 180 tablet^Rfl: 1 furosemide (LASIX) 20 mg tablet^Take 1 tablet by mouth once daily.^Disp: 90 tablet^Rfl: 1 lisinopril (ZESTRIL, PRINIVIL) 10 mg tablet^Take 10 mg by mouth once daily.^Disp: ^Rfl: levothyroxine (SYNTHROID) 50 mcg tablet^Take 1 tablet by mouth once daily. Take on empty stomach. For thyroid.^Disp: 30 tablet^Rfl: 5 allopurinol (ZYLOPRIM) 300 mg tablet^TAKE 1 TABLET BY MOUTH TWICE DAILY. FOR GOUT.^Disp: 180 tablet^Rfl: 1 clopidogrel (PLAVIX) 75 mg tablet^Take 1 tablet by mouth once daily.^Disp: 90 tablet^Rfl: 3 fluticasone (FLONASE) 50 mcg/actuation nasal spray^Use 2 Sprays in each nostril once daily.^Disp: 3 Each^Rfl: 3 omeprazole (PRILOSEC) 40 mg capsule^Take 1 capsule by mouth once daily.^Disp: 90 capsule^Rfl: 1 ammonium lactate (LAC-HYDRIN) 12 % lotion^Apply to affected area as needed for Dry Skin (a0pply liberally as need).^Disp: 60 g^Rfl: 11 (Patient taking differently: Apply to affected area as needed for Dry Skin (a0pply liberally as need). ) blood sugar diagnostic (FREESTYLE LITE STRIPS) test strip^Test blood sugar(s) once times daily. Dx: 250.00. Insulin: No^Disp: 50 Strip^Rfl: 6 Lancets (FREESTYLE LANCETS) lancets^Test blood sugar(s) one times daily. Dx: 250.00. Insulin: No^Disp: 1 Each^Rfl: 11 PAST MEDICAL HISTORY: PAST MEDICAL HISTORY Diagnosis Date Arthritis Arthritis of knee bilateral CAD (coronary artery disease) Diabetes mellitus, type 2 (HCC) 2014 Diverticulosis of colon (without mention of hemorrhage) Gout, unspecified History of basal cell cancer [facility], Dr. Rushing History of tobacco use HYPERTENSION NOS Mitral valve prolapse Other forms of migraine Rosacea REVIEW OF SYSTEMS: GENERAL: No fever, chills, weight loss, or fatigue. PHYSICAL EXAMINATION: There were no vitals taken for this visit. GENERAL: WNL nutrition, no deformities, healthy appearing PROBLEM LIST REVIEW: Yes LABS: Results for orders placed or performed in visit on 04/30/22 CALPROTECTIN,FECAL Result Value Ref Range Calprotectin, Fecal 71.3 (A) 0 - 50 mg/kg FOLATE SERUM Result Value Ref Range Folate 19.5 >4.7 ng/mL VITAMIN B12 BLOOD Result Value Ref Range Vitamin B12 459 232-1,245 pg/mL PROCEDURES: PVR: 0 ml IMAGING: IMPRESSION/PLAN: 1. BPH > Uroxatral due to retrograde ejaculation - rx sent > PVR - 0 ml 2. Impotence > Viagra 100 mg > 1 year Appt w/ B. RUBEN Morgan MT, PA-C with PSA prior RUBEN Parra MT, PA-C documented in this encounter [facility] 06-29-2022 Miscellaneous Notes MARC 05/14/22 NOV 08/27/22 Patient has been identified by name and date of : Yes Requested Prescriptions Pending Prescriptions Disp Refills thiamine (VITAMIN B1) 100 mg tablet Sig: Take 1 tablet by mouth once daily. RX INSTRUCTIONS: Patient aware RX will be sent to pharmacy. No need to notify patient. Christa Cruz Pss documented in this encounter [facility] 06-15-2022 Miscellaneous Notes The following approved medication requests have been transmitted electronically. Signed Prescriptions Disp Refills apixaban (ELIQUIS) 5 mg tab(s) 180 tablet 1 Sig: Take 1 tablet by mouth twice daily. REBEKAH: No Authorizing Provider: Shelia ORR PA-C Patient last visit 05/14/2022 Follow up appointment scheduled 08/27/22 Jing Angel Ma Patient called to refill apixaban (ELIQUIS) 5 mg tab(s); not on current med list. He would also like clinical staff to review if he needs any other refills. He could not tell me what other meds he is actively taking. Uses [facility] in [place]. documented in this encounter [facility] 05-18-2022 Miscellaneous Notes CD READY FOR WIRE SPINNER AT [facility] Pt is aware Patient request a disc of Xray from 05/14 of Knee. Patient would like to peanut picker today, and would like a call when finished. Please call patient at mobile number when completed. Thank you. documented in this encounter [facility] 05-14-2022 Instructions Shelia Orr PA-C - 05/14/2022 8:32 AM EDT Try Tylenol Arthritis Formula: take full dose: 2 tabs every 8h If no improvement in 5-7 days, let me. Trial tumeric 500mg caps twice a day: ask pharmacist for specific recommend for arthritis. May also try any of these OTC: Blue Emu, Aspercream with Lidocaine, Greek Dream, Biofreeze topicals documented in this encounter [facility] 05-14-2022 History of Present illness Narrative 66 year old male with c/o here for follow up from last visit Candie Minor CNP 04/28/2022: Feels last few weeks things are getting better. 2 days out last 2 weeks bowels have been normal . Other days bowels are loose as in mushy to watery. No FH for bowel cancer or IBD but doesn't know family well. States head has been better. Only time notices now if bends over and back up with just a momentary dizziness. No change in diarrhea with stopping metformin or losartan. Lisinopril does cause an occasional dry tickly cough but mild and doesn't feel it's bothersome. Diarrhea/ loose stools first noted in chart 03/20/2021 gastro consult Radha Villatoro, again 02/02/2022 by cardiology Pt presents today for ED follow-up. Refers on Wednesday, he felt funny all day. Judgment felt off. Refers that he even had to think it out to walk. He would hit shoulder or elbow on door jams. He reports that he was bent over in the garage refrigerator and when he stood up, he ended up falling backwards and hitting head on garage door. He had no LOC. Did have lab work in the emergency room. His hemoglobin was 12.7. His CMP showed a bilirubin of 1.3. His glucose was 126. His total CK was 60. CT of his brain was negative for acute changes. It did show chronic microvascular changes. Still feels like it is taking too much thought to do things. Feels like the muscles in the upper leg/thighs are painful. Refers the discomfort from the legs is affecting his balance. Concerned about the statin. Also concerned about the inner ear. Had a triple bypass in August. Then had a fib. Cardioverted. That is when he was started on the statin. He also was diagnosed with hypothyroidism at that time, as well. He reports that he has also been having some chronic diarrhea for some time. Watery. 1-6 stools daily. Refers that it was previously thought to be related to his metformin, so this was stopped. Continues with the symptoms. No hematochezia/melena. Did have normal colonoscopy last year. Appetite has been good. No weight loss. In the interim NANCY Hwang also placed consult for GI Dr. Friend [facility]. 04/09/2021 EGD, Colonoscopy: - Normal first portion of the duodenum and second portion of the duodenum. - Erythematous mucosa in the antrum. Biopsied. - LA Grade A reflux esophagitis. Rule out Urrutia's esophagus. Biopsied. - Small hiatal hernia. - small mouthed diverticula in sigmoid colon: no specimens collected Path report: 1. Gastric antrum, biopsy (A) - Chronic inactive gastritis, see comment. 2. Esophagogastric junction, biopsy (B) - Intestinal metaplasia, negative for dysplasia. - Reactive squamous epithelium. - See comment. IG/dbb 04/10/2021 Lab results: Component Latest Ref Rng & Units 08/16/2021 04/28/2022 04/30/2022 WBC 3.70 - 11.00 k/uL 5.65 4.84 RBC 4.20 - 6.00 m/uL 2.60 (L) 4.26 Hemoglobin 13.0 - 17.0 g/dL 8.7 (L) 13.4 Hematocrit 39.0 - 51.0 % 25.4 (L) 40.2 MCV 80.0 - 100.0 fL 97.7 94.4 MCH 26.0 - 34.0 pg 33.5 31.5 MCHC 30.5 - 36.0 g/dL 34.3 33.3 RDW-CV 11.5 - 15.0 % 13.6 14.0 Platelet Count 150 - 400 k/uL 91 (L) 124 (L) MPV 9.0 - 12.7 fL 10.5 11.0 Neut% % 70.4 67.4 Abs Neut (ANC) 1.45 - 7.50 k/uL 3.98 3.26 Lymph% % 18.1 17.6 Abs Lymph 1.00 - 4.00 k/uL 1.02 0.85 (L) Prentiss% % 9.9 10.5 Abs Prentiss <0.87 k/uL 0.56 0.51 Eosin% % 0.7 3.3 Abs Eosin <0.46 k/uL 0.04 0.16 Baso% % 0.4 0.8 Abs Baso <0.11 k/uL <0.03 0.04 Immature Gran % % 0.5 0.4 IMMATURE GRANS (ABS) <0.10 k/uL 0.03 <0.03 NRBC /100 WBC 0.0 0.0 Absolute nRBC <0.01 k/uL <0.01 <0.01 DTYPE Auto Auto Iron 41 - 186 ug/dL 97 TIBC 232 - 386 ug/dL 360 Transferrin Saturation 15.0 - 57.0 % 26.9 Ferritin 30.3 - 565.7 ng/mL 99.1 Folate >4.7 ng/mL 19.5 Vitamin B12 232-1,245 pg/mL 459 Component Latest Ref Rng & Units 04/28/2022 04/30/2022 Shigella spp./Enteroinvasive E.coli DNA Not Detected Not detected Campylobacter jejuni/coli DNA Not Detected Not detected Shiga toxin-producing gene(s) Not Detected Not detected Salmonella spp. DNA Not Detected Not detected C. difficile PCR Negative for C. difficile toxin by PCR Negative for C. difficile toxin by PCR Calprotectin, Fecal 0 - 50 mg/kg 71.3 (A) Component Latest Ref Rng & Units 04/28/2022 CK 51 - 298 U/L 59 WSR 0 - 15 mm/hr 9 CRP <0.9 mg/dL 1.1 (H) Vitamin D 25 Hydroxy 31.0 - 80.0 ng/mL 44.2 Component Latest Ref Rng & Units 03/30/2022 04/28/2022 Protein, Total 6.3 - 8.0 g/dL 6.9 7.1 Albumin 3.9 - 4.9 g/dL 4.2 4.5 Calcium 8.5 - 10.2 mg/dL 9.0 9.0 Bilirubin, Total 0.2 - 1.3 mg/dL 0.9 1.1 Alkaline Phosphatase 38 - 113 U/L 72 93 AST 14 - 40 U/L 39 32 ALT 10 - 54 U/L 39 28 Glucose 74 - 99 mg/dL 141 (H) 125 (H) BUN 9 - 24 mg/dL 10 10 Creatinine 0.73 - 1.22 mg/dL 0.80 0.80 Sodium 136 - 144 mmol/L 137 140 Potassium 3.7 - 5.1 mmol/L 4.0 3.9 Chloride 97 - 105 mmol/L 102 101 CO2 22 - 30 mmol/L 25 22 Anion Gap 9 - 18 mmol/L 10 17 eGFR >=60 mL/min/1.73m 98 98 Magnesium 1.7 - 2.3 mg/dL 1.8 Component Latest Ref Rng & Units 01/26/2022 03/30/2022 Bilirubin, Conjug <0.2 mg/dL 0.3 (H) 0.3 (H) Component Latest Ref Rng & Units 03/30/2022 HCV RNA by PCR HCV RNA not detected by PCR. HCV RNA not detected by PCR. Hep B Surface Ag Negative Negative Hep A Ab, IgM Negative Negative Hep B Core Ab, IgM Negative Negative Component Latest Ref Rng & Units 04/30/2009 03/30/2022 PSA <2.60 ng/mL 0.44 0.22 Component Latest Ref Rng & Units 02/21/2021 07/29/2021 03/30/2022 Hemoglobin A1C 4.3 - 5.6 % 5.2 5.3 5.7 (H) Estimated Average Glucose mg/dL 103 105 117 Notes thighs and behind thighs connors. Candie stopped lipitor to see if it was related: feels better off lipitor. Now feeling pain more in knees: affecting day to day life. Has had problems with knees in past. Was on Mobic prior to heart issues- on clopidogrel. 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 Prior to CABG was taking meloxicam which helped Wearing knee brace. Took ibuprofen 200mg 2 tabs this morning which helped. Feels pain in legs was partly responsible for fall above. Saw Sanjiv Morgan: stopped Flomax, started alfuzosin SR 10mg Urine flow is doing well Also prescribed generic sildenafil 100mg with one success, otherwise didn't help. Doesn't feel its a big priority. Has f/u scheduled. HISTORIES FAMILY HISTORY Problem Relation Age of Onset Cancer Mother neck Alcohol/Drug Mother Cancer Father 47yo PAST MEDICAL HISTORY Diagnosis Date Arthritis Arthritis of knee bilateral CAD (coronary artery disease) Diabetes mellitus, type 2 (HCC) 2014 Diverticulosis of colon (without mention of hemorrhage) Gout, unspecified History of basal cell cancer ORTIZ, Dr. Rushing History of tobacco use HYPERTENSION NOS Mitral valve prolapse Other forms of migraine Rosacea PAST SURGICAL HISTORY Procedure Laterality Date CABG (3) VEIN GRAFTS & ARTERIAL GRAFT(S) 08/13/2021 (BEAVERS to LAD, SVG sequential to OM1 & OM2) COLONOSCOPY FLX DX W/COLLJ SPEC WHEN PFRMD 06/18/2010 repeat due 2020 HERNIA REPAIR HX RPR 1ST INGUN HRNA AGE 5 YRS/> REDUCIBLE 1984, 1955 left and right SKIN BIOPSY HX Social History Tobacco Use Smoking status: Former Smoker Packs/day: 0.50 Years: 37.00 Pack years: 18.50 Types: Cigarettes Quit date: 05/08/2011 Years since quittin.0 Smokeless tobacco: Never Used Tobacco comment: had quit in 2010- relapsed and now quit again Vaping Use Vaping Use: Never used Substance Use Topics Alcohol use: Yes Alcohol/week: 2.0 - 3.0 standard drinks Types: 2 - 3 Cans of Beer (12oz) per week Comment: daily Drug use: No ACTIVE PROBLEM LIST Other Forms of Migraine Gout, Unspecified Essential Hypertension Rosacea Arthritis of Knee Type 2 Diabetes Mellitus Without Complication, Without Long-Term Current Use of Insulin (Hcc) Hypertensive Heart Disease Without Heart Failure Chronic Gerd Squamous Cell Carcinoma in Situ of Skin Obesity, Class I, Bmi 30-34.9 Coronary Artery Disease Involving [facility] With Angina Pectoris (Hcc) S/P Cabg X 3 Atrial Fibrillation Status Post Cardioversion ([facility]) Dry Skin Dermatitis Hypothyroidism, Acquired Hyperglycemia Systolic Dysfunction, Left Ventricle Current Outpatient Medications Medication Sig Dispense Refill alfuzosin SR (UROXATRAL) 10 mg 24 hr tablet Take 1 tablet by mouth daily at bedtime. 90 tablet 3 sildenafil (VIAGRA) 100 mg tablet 1 tablet 30 min prior to intercourse, on empty stomach and with sexual stimulation immediately following. (Patient not taking: Reported on 04/28/2022 ) 30 tablet 3 sertraline (ZOLOFT) 50 mg tablet Take 0.5 tablets by mouth once daily. 45 tablet 1 metoprolol tartrate, short acting, (LOPRESSOR) 50 mg tablet Take 1 tablet by mouth every 12 hours. 180 tablet 1 furosemide (LASIX) 20 mg tablet Take 1 tablet by mouth once daily. 90 tablet 1 thiamine (VITAMIN B1) 100 mg tablet Take 1 tablet by mouth once daily. lisinopril (ZESTRIL, PRINIVIL) 10 mg tablet Take 10 mg by mouth once daily. levothyroxine (SYNTHROID) 50 mcg tablet Take 1 tablet by mouth once daily. Take on empty stomach. For thyroid. 30 tablet 5 allopurinol (ZYLOPRIM) 300 mg tablet TAKE 1 TABLET BY MOUTH TWICE DAILY. FOR GOUT. 180 tablet 1 atorvastatin (LIPITOR) 40 mg tablet TAKE 1 TABLET BY MOUTH EVERYDAY AT BEDTIME 90 tablet 3 clopidogrel (PLAVIX) 75 mg tablet Take 1 tablet by mouth once daily. 90 tablet 3 fluticasone (FLONASE) 50 mcg/actuation nasal spray Use 2 Sprays in each nostril once daily. 3 Each 3 omeprazole (PRILOSEC) 40 mg capsule Take 1 capsule by mouth once daily. 90 capsule 1 ammonium lactate (LAC-HYDRIN) 12 % lotion Apply to affected area as needed for Dry Skin (a0pply liberally as need). (Patient taking differently: Apply to affected area as needed for Dry Skin (a0pply liberally as need). ) 60 g 11 blood sugar diagnostic (FREESTYLE LITE STRIPS) test strip Test blood sugar(s) once times daily. Dx: 250.00. Insulin: No 50 Strip 6 Lancets (FREESTYLE LANCETS) lancets Test blood sugar(s) one times daily. Dx: 250.00. Insulin: No 1 Each 11 Current Facility-Administered Medications Medication Dose Route Frequency Provider Last Rate Last Admin perflutren lipid microspheres 1.3 mL in NaCl (PF) 0.9% 10 mL injection (DEFINITY) INTRAVENOUS DIRECTED PRN Anastasiya Schwab MD sodium chloride 0.9 % (flush) 10 mL (BD POSIFLUSH) 10 mL INTRAVENOUS DIRECTED PRN Anastasiya Schwab MD perflutren lipid microspheres 1.3 mL in NaCl (PF) 0.9% 10 mL injection (DEFINITY) INTRAVENOUS DIRECTED PRN Anastasiya Schwab MD sodium chloride 0.9 % (flush) 10 mL (BD POSIFLUSH) 10 mL INTRAVENOUS DIRECTED PRN Anastasiya Schwab MD sodium chloride 0.9 % (flush) 10 mL (BD POSIFLUSH) 10 mL INTRAVENOUS DIRECTED PRN Oliver Regalado MD BP CONTROLLED (<130/80) Never done DILATED RETINAL EXAM due on 01/02/2022 COVID-19 VACCINE(4 - Booster for Moderna series) due on 01/16/2022 EXAM: BP 114/72 Pulse 61 Resp 16 Wt 104.3 kg (230 lb) SpO2 97% BMI 32.08 kg/m Pleasant older man in no acute distress. Alert and oriented all spheres. Normal affect and cognition. Speech normal. No deficits to learning or comprehension. Skin warm, dry, pink to lips and nailbeds. Normal turgor. Respirations regular and unlabored. HEENT: NCAT. No scleral icterus or conjunctival injection. TM's clear. Nose and oropharynx free from injection or lesion. Oral membranes moist and pink. No cervical lymph nodes. Thyroid non-tender, no masses, or enlargement. Carotids pulses 2+/4+ without bruits. No JVD with HOB at 30 degrees. Chest is normal shape. Lungs are clear to all sorto with good air exchange through out. HRRR without murmur or gallop. No lifts, heaves, or rubs. Abdomen: active bowel sounds throughout, soft, nontender, no masses or organomegaly. No CVAT. Extrem: no clubbing or cyanosis. Edema: none. Extremities are warm and pink with prompt capillary refill. Right knee has mild effusion infrapatellar, also increased popliteal swelling compared to the left knee. Patient has mildly restricted flexion to 110 degrees, negative bounce test, no laxity on varus or valgus stress, anterior drawer, Stefanie. Both knees have mild arthritic changes. No swelling is noted in the left knee however there is popliteal swelling. Range of motion is similar. Also has some discomfort on internal and external rotation of hips on both sides. ASSESSMENT/PLAN: 1. Chronic pain of both knees - ICD9: 719.46, 338.29, ICD10: M25.561, M25.562, G89.29 (primary diagnosis) - XR KNEE GENERAL 4V AP BOTH/PA BOTH/LAT/MERC BILATERAL 2. Effusion of right knee - ICD9: 719.06, ICD10: M25.461 - XR KNEE GENERAL 4V AP BOTH/PA BOTH/LAT/MERC BILATERAL 3. Prediabetes - ICD9: 790.29, ICD10: R73.03 - HGB A1C Has been controlled, will recheck labs. Has follow-up scheduled 4. Diarrhea, unspecified type - ICD9: 787.91, ICD10: R19.7 Does not appear to be infectious. Has had some mild improvement since visit with Candie. Calprotectin mildly elevated but lactoferrin negative and low CRP suggest this is not likely to be inflammatory. 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 Omeprazole was started in 02/08/20 to replace Zantac- could be a possible factor. Follow-up if any worsening symptoms. Some of this note may have been copied and pasted for the purpose of history context and comparison. I spent a total of 40 minutes on the date of the service which included preparing to see the patient, [id number] patient care, completing clinical documentation, obtaining and/or reviewing separately obtained history, performing a medically appropriate examination, counseling and educating the patient/family/caregiver, ordering medications, tests, or procedures, independently interpreting results (not separately reported) and communicating results to the patient/family/caregiver. Rudy Orr PA-C documented in this encounter [facility] 05-12-2022 Note [facility] 05-12-2022 Instructions Anastasiya Schwab MD - 05/12/2022 10:11 AM EDT Your heart ejection fraction had decreased to 25% when in A. fib after your surgery. You have not had a repeat assessment of LV function which is done with an ECHOcardiogram. We discussed about the need to reevaluate and confirm that the heart function has improved or not. We discussed that if the LV function was still reduced we would need to consider the risk of sudden and whether defibrillator was appropriate or not. Clinically you are doing much more physical activity than before without symptoms and have not had any heart failure hospitalizations and so anticipate that his ejection fraction is improved compared to the 25%. If the ejection fraction is greater than 40 to 45% then follow-up in the EP clinic as needed and follow-up regularly with his doctors in [place]. If you experience any episodes of palpitations seek immediate medical attention at that needs further evaluation. Atrial Fibrillation What is atrial fibrillation? Atrial fibrillation (also called A-fib) is a fast or irregular heartbeat that starts in the upper chambers of the heart. The abnormal heartbeat affects the ability of the heart to pump blood to the rest of the body. What is the cause? An electrical signal in your heart starts each heartbeat, causing the heart muscle to squeeze (contract). Normally, this signal starts in the upper right chamber of the heart (the right atrium) at a place called the sinus node. The signal then follows normal pathways to the upper left atrium and to the lower chambers of the heart (the ventricles). When you have atrial fibrillation, electrical signals don t start in the normal place in the right atrium and don t travel normally. This can cause the upper chambers of the heart (atria) to beat very fast and not in a normal pattern. Common causes of heart rhythm problems are conditions that damage the heart, like coronary artery disease, heart attack, or heart failure. Problems with the heart valves are another common cause. The heart has 4 valves that open and close with each heartbeat to help blood flow in the right direction through the heart. Other causes of atrial fibrillation include: Health problems, such as a stroke, lung disease, diabetes, overactive thyroid gland, or high blood pressure Abuse of alcohol or drugs, such as cocaine Sometimes no cause can be found. What are the symptoms? Some people don t have any symptoms. When atrial fibrillation does cause symptoms, the most common ones are: Feeling like your heart is beating too fast or too hard or skipping beats or fluttering Feeling tired or weak all the time Symptoms that are more serious include: Chest pain Trouble breathing Lightheadedness or dizziness Confusion How is it diagnosed? Your healthcare provider will ask about your symptoms and medical history and examine you. Tests may include: An ECG (also called an EKG), which measures and records your heartbeat. You may have an ECG while you are resting or while you exercise on a treadmill. You may also be asked to wear a small portable ECG monitor for a few days or sometimes a couple weeks. Blood tests An echocardiogram, which uses sound waves (ultrasound) to show the structures of the heart, like the valves How is it treated? The goal of treatment is to help the heart keep a normal rhythm. Your treatment depends on the cause of the atrial fibrillation, how often you have symptoms, and the severity of your symptoms. If you have no symptoms, or your symptoms are fairly mild, you may not need treatment. For some people atrial fibrillation lasts just a short time and the heart goes back to a normal rhythm on its own. If you keep having spells of atrial fibrillation, treatment may help keep you from having so many spells. If a health problem like a leaky heart valve is causing the atrial fibrillation, treating the health problem may also treat the fast or irregular heartbeat. Other possible treatments are: Medicine: Your provider may prescribe medicine to slow or restore a normal heart rate and rhythm. You may also need medicine to prevent blood clots because when the heart beats irregularly, some of the blood can stay in the upper chambers too long. This makes it easier for blood clots to form, increasing your risk of having a stroke or heart attack. Electrical cardioversion: First, you will be given medicine called anesthesia to keep you from feeling pain during the procedure. Then your chest will be given an electrical shock. The electrical shock should make your heart start beating normally again. You may need medicine to keep your heart rhythm normal after this procedure. Ablation: Ablation is a procedure that uses a small tube called a catheter to deliver energy to the inside of the heart. The energy (usually radio waves) scars small areas of heart tissue. The scars block abnormal electrical pathways and help you have a normal heart rhythm. With some types of ablation treatment, you will also need a pacemaker. A pacemaker is an electronic device put under the skin of your chest to help control the heartbeat. How can I take care of myself? Take your medicines as prescribed. Keep your appointments for follow-up blood tests. Make sure your healthcare provider knows about changes in your diet or medical condition. Your provider also needs to know about all prescription and nonprescription medicines, herbs, or supplements that you are taking. Some medicines may interact with your heart medicine or increase your risk for atrial fibrillation. If you want to drink alcohol, ask your provider how much is safe for you to drink. Follow your healthcare provider's instructions. Ask your provider: ?How and when you will hear your test results ?How long it will take to recover ?What activities you should avoid and when you can return to your normal activities ?How to take care of yourself at home ?What symptoms or problems you should watch for and what to do if you have them Make sure you know when you should come back for a checkup. How can I help prevent atrial fibrillation? The best prevention is to have a heart-healthy lifestyle. Keep a healthy weight. Eat a healthy diet that is low in sodium and saturated and trans fat. Stay fit with the right kind of exercise for you. Decrease stress. Don t smoke. Limit your use of alcohol. If you have heart disease or high blood pressure, follow your healthcare provider's instructions for treatment. Developed by [employer]. Published by [employer]. Copyright 2014 [employer] and/or one of its subsidiaries. All rights reserved. Heart Failure What is heart failure? Heart failure (HF) means the heart is not pumping blood as well as it should. It may pump at a different speed, pump blood with less force, or pump less blood with each heartbeat. When less blood is flowing out of the heart to the body, muscles and other tissues may not get enough oxygen. The kidneys may not work as well to remove excess fluid in the form of urine. As a result, blood backs up into the blood vessels. The extra fluid seeps into the lungs or other parts of the body. Fluid in the lungs makes it hard to breathe. Fluid seeping into other parts of the body causes swelling. When there is too much fluid in the body, it puts more strain on the heart. Heart failure is one of the most common causes of heart-related illness and in the [place]. What is the cause? A number of things can cause heart failure, such as: Narrowing or blockage in the arteries that bring blood to the heart muscle Infection of the heart Heart attack High blood pressure Heart valve problems Genetic problems with the heart muscle Alcoholism Diabetes Lung disease Problems that may worsen or trigger heart failure, especially if your heart muscle is weak, include: Severe anemia (a low level of red blood cells) An overactive or underactive thyroid gland Infection A heartbeat that is too fast or too slow Too much salt or fluid in the diet Working your body too hard with exercise or daily activities Emotional stress What are the symptoms? The symptoms of heart failure may include: Shortness of breath or trouble breathing, at first just during exercise, then with any activity, and finally even when you are resting Waking up at night with trouble breathing or being unable to lie flat in bed because of shortness of breath Coughing Swollen ankles, feet, and legs Weight gain caused by extra fluid in the body Feeling tired most of the time and not able to do your usual activities Lack of appetite and feeling sick to your stomach Feeling like your heart is racing or fluttering Lightheadedness or fainting How is it diagnosed? Your healthcare provider will ask about your symptoms and examine you. Tests may include: Chest X-ray An ECG (also called an EKG), which measures and records your heartbeat Blood or urine tests Echocardiogram, which uses sound waves (ultrasound) to see how well your heart muscle is pumping How is it treated? Heart failure can be treated and managed. The goals of treatment are: Help your heart so it doesn t have to work as hard Help your heart pump blood better Get rid of extra water in your body Your healthcare provider may prescribe medicine to relax the blood vessels and lower blood pressure. Then the heart doesn t have to work as hard. You may need to take 2 or more medicines to treat your heart failure. It may take several weeks or months to find the best treatment for you. In some cases, heart failure can get better and even be cured. For example, if it is caused by an infection, it may be cured with treatment of the infection. Heart failure due to coronary artery disease is generally not cured and most often gets worse over time. However, carefully following your treatment plan can: Slow down the worsening of heart failure and help you live longer Help prevent trips to the hospital Help you feel better and do more How can I take care of myself? If you have heart failure, there are things you can do to take care of yourself now and prevent problems in the future. Follow your treatment plan and know how to take your medicines. Work as a partner with your provider. This means having regular provider visits and following your treatment plan. Follow the directions that come with your medicine, including information about food or alcohol. Make sure you know how and when to take your medicine. Do not take more or less than you are supposed to take. Many medicines have side effects. A side effect is a symptom or problem that is caused by the medicine. Ask your healthcare provider or pharmacist what side effects your medicine may cause and what you should do if you have side effects. Ask if you should avoid some nonprescription medicines. Don t smoke, eat a healthy diet, and watch your weight and blood pressure. Quit smoking if you are a smoker. Lose weight if you are overweight and eat a healthy diet. ?Follow a low-salt (low-sodium) diet if it is recommended by your provider. Too much salt makes your body keep too much water and makes your heart have to work harder. ?Follow your healthcare provider's advice about how much liquid you should drink. ?Ask your provider if you should avoid drinking alcohol. Alcohol can weaken your heart or may worsen heart failure. Also, some of your medicines may not work well if you drink alcohol. Weigh yourself every morning after you use the bathroom but before you eat or drink anything. Weighing yourself every day helps you know if extra fluid is building up in your body. A buildup of fluid is a sign that your heart failure may be getting worse. Weight gain can let you know about fluid buildup before you start having swelling. Keep track of your weight in a diary or on the calendar. Ask your healthcare provider when you should report weight gain. Letting your provider know about weight gain when it first happens can save you a trip to the emergency room or a stay in the hospital. Also check your pulse and blood pressure every day. Learn how to take your own blood pressure or have a family member learn how to take it. Be as physically active as you can. How active you can be depends on how bad the heart failure is. A program of gentle exercise helps most people. Your provider can tell you what level of exercise is right for you. Exercise helps your heart and body get stronger. It also improves your blood flow and energy level. Don t exercise outdoors if it is very hot, cold, humid, or smoggy. Balance exercise with rest. Make sure that your activities don t make you too tired or short of breath. Take rest breaks during the day. Avoid getting very hot or cold because it may make your heart work harder. Try to lessen the stress in your life. Anxiety and anger can cause a fast heart rate and high blood pressure. If you need help with this, ask your healthcare provider. Protect yourself against infections. Get a flu shot every year. When you have heart failure, you should not get the nasal spray vaccine (FluMist). Get the pneumococcal shot. Ask your healthcare provider: How and when you will hear your test results How long it will take to recover What activities you should avoid and when you can return to your normal activities How to take care of yourself at home What symptoms or problems you should watch for and what to do if you have them Make sure you know when you should come back for a checkup. How can I help prevent heart failure? You can prevent this disease with a heart-healthy lifestyle: Eat a healthy diet and keep a healthy weight. Stay fit with the right kind of exercise for you. Decrease stress. Don t smoke. Limit your use of alcohol. Talk to your healthcare provider about your personal and family medical history and your lifestyle habits. This will help you know what you can do to lower your risk for heart failure. Developed by [employer]. Published by [employer]. Copyright 2014 [employer] and/or one of its subsidiaries. All rights reserved. documented in this encounter [facility] 05-12-2022 History of Present illness Narrative Images from the original note were not included. [facility] SECTION OF CARDIAC PACING and ELECTROPHYSIOLOGY OUTPATIENT VISIT DATE May 11, 2022 OUTPATIENT VISIT TYPE CONSULTATION PRIMARY CARE PHYSICIAN: Oliver Regalado [id number] [facility] [place] [address] REFERRING PHYSICIAN: SELF CHIEF COMPLAINT: FU for PAF HISTORY OF PRESENT ILLNESS: Mr. Suresh is a 66 year old male who presents today for PAF which occurred post discharge after 3V CABG in 08/2021 and s/p DCCV 08/2021. EF in AF was 25% post CABG. A TTE ordered in 09/2021 has not yet been done unless done at [place] 05/2021- [facility] showed 3V CAD EF 44% 08/13/21- CABG x3 with BEAVERS to LAD and sequential saphenous vein graft to OM1, OM [address] Wall 08/22/21 - FU visit CT surgery office. Had symptomatic AF RVR, HR 120-140s Metoprolol increased to 75 tid and admitted 08/25/21- [facility] hospitalization - SOB, New AF RVR, LEXI showed EF of 25% and had DCCV which restored SR. Started on Amiodarone, and Losartan and Amlodipine stopped 10/01/21 - Dr Zaheer CURRY - says that he is feeling well, is tolerating 40 minutes of rehab is able to walk 10 - 12 minutes at home, do all IADLs...... Will reduce Amiodarone to 200 mg daily. Will repeat a 14 day monitor in October and if no AF, stop Amiodarone Continue on Eiquis for CHADSV2 score 4 (DM Htn HF Age)..repeat TTE in 3 to 4 months. For now increase losartan to 50mg daily and check BMP 02/02/22- Yu Leigh OV- ...reports he has been doing well from a heart rhythm perspective, ...will repeat an echocardiogram in the near future. 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 and if no atrial fibrillation seen on monitor, will discontinue amiodarone therapy Tolerating combination of Plavix without bleeding 05/12/22 - Dr Schwab OV- His daughter Greta is here with him today. Overall he says he is doing well compared to the. After his bypass surgery. He is not having any chest pain palpitations swelling in the feet shortness of breath. 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 About 2 weeks ago at home on a hot day, after he bent down and put things in the cooler and stood up he felt lightheaded dizzy and fell down without loss of consciousness. There was no palpitations. He cut the back of his head on the garage door and was evaluated in the emergency room. He also saw his physician and was attributed to low blood pressure dehydration. He is no longer on amiodarone or Eliquis. He is not had an echocardiogram repeated Past medical history arthritis DM Htn HLD Gout CAD, NSTEMI, CABG x3 with BEAVERS to LAD and sequential SVG to OM1, OM [address] Wall[address]08/13/21 Social history - Quit smoking about 5 months ago and has quit in the past. No second hand smoke exposure He used to drink about 5 beers a day and has quit that since before surgery Electrocardiogram: 02/02/2022 -sinus bradycardia, ST and T wave abnormality (seen on previous ECGs), prolonged QT, 52 bpm, SC 182 ms, QRS 112 ms, QT/QTc 512/476 ms. \ 10/01/21 - NSR Rate 63 SC 134 QRS 108 QTc 485 T inv lateral leads. QS V1V2 Event Monitor - [place] - 10/09/21 - 10/24/21 - Sinus adithya with PVCs. No AF mentioned. Poor quality scan of the report under Cardiac tabs 02/10/22 08/13/21 - CONCLUSIONS: (PRE PROCEDURE) - Exam indication: intraoperative - Left ventricular systolic function is moderately decreased. EF = 35 5%(visual est.) - The right ventricle is normal in size. Right ventricular systolic function is mildly decreased. - The visualized aorta is borderline dilated with a maximal dimension of 4.0 cm. - There is no patent foramen ovale as detected by Doppler. - global hypokinesis with apical akinesis - mild descending atherosclerosis prior exam not compared PAST MEDICAL HISTORY Diagnosis Date Arthritis Arthritis of knee bilateral CAD (coronary artery disease) Diabetes mellitus, type 2 (HCC) 2014 Diverticulosis of colon (without mention of hemorrhage) Gout, unspecified History of basal cell cancer Dr. Сергей ALCANTAR History of tobacco use HYPERTENSION NOS Mitral valve prolapse Other forms of migraine Rosacea PAST SURGICAL HISTORY Procedure Laterality Date CABG (3) VEIN GRAFTS & ARTERIAL GRAFT(S) 08/13/2021 (BEAVERS to LAD, SVG sequential to OM1 & OM2) COLONOSCOPY FLX DX W/COLLJ SPEC WHEN PFRMD 06/18/2010 repeat due 2020 HERNIA REPAIR HX RPR 1ST INGUN HRNA AGE 5 YRS/> REDUCIBLE 1984, 195 left and right SKIN BIOPSY HX FAMILY HISTORY Problem Relation Age of Onset Cancer Mother neck Alcohol/Drug Mother Cancer Father 47yo Social History Tobacco Use Smoking status: Former Smoker Packs/day: 0.50 Years: 37.00 Pack years: 18.50 Types: Cigarettes Quit date: 05/08/2011 Years since quittin.0 Smokeless tobacco: Never Used Tobacco comment: had quit in 2010- relapsed and now quit again Vaping Use Vaping Use: Never used Substance Use Topics Alcohol use: Yes Alcohol/week: 2.0 - 3.0 standard drinks Types: 2 - 3 Cans of Beer (12oz) per week Comment: daily Drug use: No ALLERGIES Allergen Reactions Seasonal Allergies Other: See Comments Dry sinuses MEDICATIONS: alfuzosin SR (UROXATRAL) 10 mg 24 hr tablet Take 1 tablet by mouth daily at bedtime. sertraline (ZOLOFT) 50 mg tablet Take 0.5 tablets by mouth once daily. metoprolol tartrate, short acting, (LOPRESSOR) 50 mg tablet Take 1 tablet by mouth every 12 hours. furosemide (LASIX) 20 mg tablet Take 1 tablet by mouth once daily. thiamine (VITAMIN B1) 100 mg tablet Take 1 tablet by mouth once daily. lisinopril (ZESTRIL, PRINIVIL) 10 mg tablet Take 10 mg by mouth once daily. levothyroxine (SYNTHROID) 50 mcg tablet Take 1 tablet by mouth once daily. Take on empty stomach. For thyroid. allopurinol (ZYLOPRIM) 300 mg tablet TAKE 1 TABLET BY MOUTH TWICE DAILY. FOR GOUT. clopidogrel (PLAVIX) 75 mg tablet Take 1 tablet by mouth once daily. fluticasone (FLONASE) 50 mcg/actuation nasal spray Use 2 Sprays in each nostril once daily. omeprazole (PRILOSEC) 40 mg capsule Take 1 capsule by mouth once daily. ammonium lactate (LAC-HYDRIN) 12 % lotion Apply to affected area as needed for Dry Skin (a0pply liberally as need). blood sugar diagnostic (FREESTYLE LITE STRIPS) test strip Test blood sugar(s) once times daily. Dx: 250.00. Insulin: No Lancets (FREESTYLE LANCETS) lancets Test blood sugar(s) one times daily. Dx: 250.00. Insulin: No sildenafil (VIAGRA) 100 mg tablet 1 tablet 30 min prior to intercourse, on empty stomach and with sexual stimulation immediately following. atorvastatin (LIPITOR) 40 mg tablet TAKE 1 TABLET BY MOUTH EVERYDAY AT BEDTIME REVIEW OF SYSTEMS: Normal appetite no fever chills cough nausea vomiting external bleeding new unilateral numbness or weakness. He had noticed bilateral thigh burning and his libido has been held in May 2022 and he has noticed an improvement in that symptom and is following with his physician practice market manager in [place] PHYSICAL EXAMINATION: BP 125/81 Pulse 57 Resp 18 Ht 5' 11 (1.80m) Wt 228 lb (103.4kg) SpO2 96[room air]% BMI 31.81 kg/(m^2). Physical Exam well-built nourished comfortable at rest JVP is normal carotid good upstroke and volume no bruit Chest symmetrical good air entry clear to auscultate well-healed midline sternal scar. Cardiac exam regular rhythm normal intensity S1-S2 no murmurs extremities symmetrical without edema Neurologically alert oriented x3 speech is normal Pertinent Labs: CBC: Hemoglobin (g/dL) Date Value 04/28/2022 13.4 06/26/2021 13.4 Hematocrit (%) Date Value 04/28/2022 40.2 06/26/2021 36.4 WBC (k/uL) Date Value 04/28/2022 4.84 06/26/2021 5.65 Platelet Count (k/uL) Date Value 04/28/2022 124 06/26/2021 141 BMP: Glucose (mg/dL) Date Value 04/28/2022 125 08/07/2021 212 Potassium (mmol/L) Date Value 04/28/2022 3.9 08/07/2021 3.8 Sodium (mmol/L) Date Value 04/28/2022 140 08/07/2021 136 Chloride (mmol/L) Date Value 04/28/2022 101 08/07/2021 98 CO2 (mmol/L) Date Value 04/28/2022 22 08/07/2021 24 Creatinine (mg/dL) Date Value 04/28/2022 0.80 08/07/2021 0.83 BUN (mg/dL) Date Value 04/28/2022 10 08/07/2021 10 Anion Gap (mmol/L) Date Value 04/28/2022 17 08/07/2021 14 Calcium (mg/dL) Date Value 08/07/2021 9.4 Calcium, Total (mg/dL) Date Value 04/28/2022 9.0 CARDIOVASCULAR MEDICINE TESTING: Electrocardiogram: 05/12/2022 sinus bradycardia 55 bpm SC 172 QRS 108 QTC 447 left axis deviation T wave inversions to 3 aVF V1 to V6 IMPRESSION:PLAN AND RECOMMENDATIONS: Mr. Suresh is a 66 year old male . Perioperative atrial fibrillation -at that time he was on amiodarone and Eliquis. A repeat monitor 3 months later showed no A. fib. He is off amiodarone and off Eliquis. He will continue to follow with his physician practice market manager in [place] Systolic LV dysfunction -his ejection fraction had decreased to 25% when in A. fib postoperatively. He has not had a repeat assessment of LV function. We discussed about the need to reevaluate and confirm that his LV function had improved or not. We discussed that if the LV function was still reduced we would need to consider the risk of sudden and with her defibrillator was appropriate or not. Clinically he is doing much more physical activity than before without symptoms and has not had any heart failure hospitalizations and is carotid volume feels normal so anticipate that his ejection fraction is improved compared to the 25%. If the ejection fraction is greater than 40 to 45% he would follow-up in the EP clinic as needed and follow-up regularly with his doctors in [place]. No follow-ups on file. Anastasiya Schwab MD documented in this encounter [facility] 05-12-2022 Nurse Note Patient denies any cardiac issues or symptoms. documented in this encounter [facility] 05-05-2022 Miscellaneous Notes Referral faxed to Dr. Moreno's office. Umair Le LPN Can we please fax referral to Dr. Moreno's office. I'm not sure if they have any availability prior to that. Candie Hwang APRN.CNP Patient returned call and went over results, notes from Candie Hwang OPTOMETRIC TECHNOLOGIST with understanding. Patient said he has appt scheduled for July [address] Moreno at [facility]. TC to pt, left message to return call to office. Umair Le LPN Can please let patient know that I received his lab results. It did show some inflammation in his stool. Since this has been ongoing and his colonoscopy was normal, lets have him see GI to see if he needs some further testing for this. Other labs look okay/stable. Candie Hwang APRN.CNP documented in this encounter [facility] 04-29-2022 Miscellaneous Notes Pt reports he will come in tomorrow morning and get those labs drawn. Can he return for these? Patient notified of results, verbalizes understanding of instructions. Chantel Gale LPN Everything can be added except the B12 and Folate. Chantel Gale LPN Can we please let patient know that I received his results. Everything looks fairly stable, except that it does look like the stool sample is showing signs of inflammation in his bowel. Can we please see if lab can add on a folate, b12, iron, ferritin level, cmp, and cbc to the labs that were drawn yesterday. I think we need to send him to GI for further evaluation of the loose stools. Is he staying well hydrated? documented in this encounter [facility] 04-28-2022 Instructions Candie Hwang APRN.DIANNE - 04/28/2022 9:22 AM EDT 1. Get the additional labwork. 2. Schedule the home sleep study. To reschedule please call [phone]. 3. Get the stool studies. 4. Hold the lipitor X 2 weeks and see if a difference is noticed. 5. Recheck in 2 weeks. documented in this encounter [facility] 04-28-2022 History of Present illness Narrative This is a 66 year old male who presents today with: Patient presents with: ED Follow-up HISTORY OF PRESENT ILLNESS: Devin Suresh is a 66 year old male. Patient presents with: ED Follow-up Pt presents today for ED follow-up. Refers on Wednesday, he felt funny all day. Judgment felt off. Refers that he even had to think it out to walk. He would hit shoulder or elbow on door jams. He reports that he was bent over in the garage refrigerator and when he stood up, he ended up falling backwards and hitting head on garage door. He had no LOC. Did have lab work in the emergency room. His hemoglobin was 12.7. His CMP showed a bilirubin of 1.3. His glucose was 126. His total CK was 60. CT of his brain was negative for acute changes. It did show chronic microvascular changes. Still feels like it is taking too much thought to do things. Feels like the muscles in the upper leg/thighs are painful. Refers the discomfort from the legs is affecting his balance. Concerned about the statin. Also concerned about the inner ear. Had a triple bypass in August. Then had a fib. Cardioverted. That is when he was started on the statin. He also was diagnosed with hypothyroidism at that time, as well. He reports that he has also been having some chronic diarrhea for some time. Watery. 1-6 stools daily. Refers that it was previously thought to be related to his metformin, so this was stopped. Continues with the symptoms. No hematochezia/melena. Did have normal colonoscopy last year. Appetite has been good. No weight loss. PAST MEDICAL HISTORY: PAST MEDICAL HISTORY Diagnosis Date Arthritis Arthritis of knee bilateral CAD (coronary artery disease) Diabetes mellitus, type 2 (HCC) 2014 Diverticulosis of colon (without mention of hemorrhage) Gout, unspecified History of basal cell cancer [facility], Dr. Rushing History of tobacco use HYPERTENSION NOS Mitral valve prolapse Other forms of migraine Rosacea PAST SURGICAL HISTORY Procedure Laterality Date CABG (3) VEIN GRAFTS & ARTERIAL GRAFT(S) 08/13/2021 (BEAVERS to LAD, SVG sequential to OM1 & OM2) COLONOSCOPY FLX DX W/COLLJ SPEC WHEN PFRMD 06/18/2010 repeat due 2020 HERNIA REPAIR HX RPR 1ST INGUN HRNA AGE 5 YRS/> REDUCIBLE 1984, 1955 left and right SKIN BIOPSY HX ALLERGIES Seasonal Allergies MEDICATIONS Current Outpatient Medications Medication Sig alfuzosin SR (UROXATRAL) 10 mg 24 hr tablet Take 1 tablet by mouth daily at bedtime. sertraline (ZOLOFT) 50 mg tablet Take 0.5 tablets by mouth once daily. metoprolol tartrate, short acting, (LOPRESSOR) 50 mg tablet Take 1 tablet by mouth every 12 hours. thiamine (VITAMIN B1) 100 mg tablet Take 1 tablet by mouth once daily. lisinopril (ZESTRIL, PRINIVIL) 10 mg tablet Take 10 mg by mouth once daily. levothyroxine (SYNTHROID) 50 mcg tablet Take 1 tablet by mouth once daily. Take on empty stomach. For thyroid. allopurinol (ZYLOPRIM) 300 mg tablet TAKE 1 TABLET BY MOUTH TWICE DAILY. FOR GOUT. atorvastatin (LIPITOR) 40 mg tablet TAKE 1 TABLET BY MOUTH EVERYDAY AT BEDTIME clopidogrel (PLAVIX) 75 mg tablet Take 1 tablet by mouth once daily. fluticasone (FLONASE) 50 mcg/actuation nasal spray Use 2 Sprays in each nostril once daily. omeprazole (PRILOSEC) 40 mg capsule Take 1 capsule by mouth once daily. ammonium lactate (LAC-HYDRIN) 12 % lotion Apply to affected area as needed for Dry Skin (a0pply liberally as need). (Patient taking differently: Apply to affected area as needed for Dry Skin (a0pply liberally as need). ) blood sugar diagnostic (FREESTYLE LITE STRIPS) test strip Test blood sugar(s) once times daily. Dx: 250.00. Insulin: No Lancets (FREESTYLE LANCETS) lancets Test blood sugar(s) one times daily. Dx: 250.00. Insulin: No sildenafil (VIAGRA) 100 mg tablet 1 tablet 30 min prior to intercourse, on empty stomach and with sexual stimulation immediately following. (Patient not taking: Reported on 04/28/2022 ) furosemide (LASIX) 20 mg tablet Take 1 tablet by mouth once daily. Current Facility-Administered Medications Medication Dose Route Frequency perflutren lipid microspheres 1.3 mL in NaCl (PF) 0.9% 10 mL injection (DEFINITY) INTRAVENOUS DIRECTED PRN sodium chloride 0.9 % (flush) 10 mL (BD POSIFLUSH) 10 mL INTRAVENOUS DIRECTED PRN sodium chloride 0.9 % (flush) 10 mL (BD POSIFLUSH) 10 mL INTRAVENOUS DIRECTED PRN FAMILY HISTORY Problem Relation Age of Onset Cancer Mother neck Alcohol/Drug Mother Cancer Father 47yo Social History Tobacco Use Smoking status: Former Smoker Packs/day: 0.50 Years: 37.00 Pack years: 18.50 Types: Cigarettes Quit date: 05/08/2011 Years since quittin.9 Smokeless tobacco: Never Used Tobacco comment: had quit in 2010- relapsed and now quit again Vaping Use Vaping Use: Never used Substance Use Topics Alcohol use: Yes Alcohol/week: 2.0 - 3.0 standard drinks Types: 2 - 3 Cans of Beer (12oz) per week Comment: daily Drug use: No EXAM: BP 122/76 Pulse 64 Resp 18 Wt 104.2 kg (229 lb 12.8 oz) SpO2 96% BMI 32.05 kg/m PHYSICAL EXAM: General Appearance: Well appearing, alert, in no acute distress, well-hydrated, well nourished.. Skin: Skin color, texture, turgor normal, no suspicious rashes or lesions. Head: Normocephalic, no masses, lesions, tenderness or abnormalities. Eyes: Anicteric sclera. Pupils are equally round and reactive to light. Extraocular movements are intact. . Ears: External ears normal, canals clear. Oropharynx: Lips, mucosa, and tongue normal, teeth and gums normal, oropharynx normal. Neck: Supple, no adenopathy; thyroid symmetric, normal size, no bruits. Lungs: Lungs clear to auscultation. No wheezing, rhonchi, rales.. Heart: RRR without murmur, gallop, or rubs. No ectopy. Abdomen: Abdomen soft, non-tender. Bowel sounds normal. No masses, organomegaly. Extremities: No deformities, edema, skin discoloration, clubbing or cyanosis. Good capillary refill. . Neurologic: Negative findings: speech normal, mental status intact, muscle tone normal, muscle strength normal, Oriented X 3. ASSESSMENT/PLAN: 1. Pain in both lower extremities - ICD9: 729.5, ICD10: M79.604, M79.605 (primary diagnosis) Will go ahead and get labs. Discussed holding lipitor X 2 weeks. Will plan on a recheck in 2 weeks to reassess the leg pain. - UA DIP, URINE (POC) - TSH BLD - MAGNESIUM BLD - CK CREATINE KINASE - SED RATE WESTERGREN - C-REACTIVE PROTEIN (CRP) - VITAMIN D 25 HYDROXY 2. Hypothyroidism, acquired - ICD9: 244.9, ICD10: E03.9 - TSH BLD - T4 FREE/FREE THYROX 3. Diarrhea, unspecified type - ICD9: 787.91, ICD10: R19.7 Has been going on since surgery. Will get some stool studies. - CALPROTECTIN,FECAL - FECAL LACTOFERRIN/LEUKOCYTES - ENTERIC BACTERIAL PANEL BY PCR - C. DIFFICILE PCR 4. Body mass index (BMI) 32.0-32.9, adult - ICD9: V85.32, ICD10: Z68.32 - VITAMIN D 25 HYDROXY Discussed treatment plan and patient voices understanding. Patient's questions answered appropriately. Medications and potential side effects were discussed and patient voices understanding. Return to the office as scheduled or as needed for worsening/no improvement. Candie Hwang APRN.FOLLOW UP SPECIALIST documented in this encounter [facility] 04-27-2022 Miscellaneous Notes Patient calls in to schedule an appointment. Patient complains of feeling dizzy, light-headed, off balance, and fell yesterday with head injury. Patient reports he still feels off balance. Noted history of heart disease, CAD, and a-fib with cardioversion. Plavix 75 mg daily ordered. Patient Instructed to be evaluated at ED. Patient verbalizes understanding and will call back for follow up appointment after ED evaluation. Ro Castaneda RN documented in this encounter [facility] 04-10-2022 History of Present illness Narrative Images from the original note were not included. PATIENT INFO: Devin Suresh 66 year old ( ) REFERRING PROVIDER: Shelia Orr PCP: Oliver Regalado MD April 10, 2022 HPI: Devin Suresh 66 year old male is here today for discussion and evaluation of recent retrograde ejaculation from being put on flomax recently. This is a fairly common SE, but is not seen all that often , he will stop flomax and start Uroxatral instead He was also asking about Viagra , after his history was reviewed he has no nitrates in RX, he will start a trial of on demand Viagra 100 mg With Good Rx coupon LUTS: none Other symptoms: LABS: No results found for: TESTOST No results found for: TESTFREE PSA (ng/mL) Date Value 03/30/2022 0.22 04/30/2009 0.44 07/19/2006 0.39 Hematocrit (%) Date Value 01/26/2022 39.7 08/26/2021 28.8 08/23/2021 27.7 06/26/2021 36.4 02/21/2021 39.2 07/25/2019 41.7 MEDICATIONS: sertraline (ZOLOFT) 50 mg tablet Take 0.5 tablets by mouth once daily. vitamin with folic acid 1 mg 60 mg iron-1 mg tab Take 1 tablet by mouth once daily. metoprolol tartrate, short acting, (LOPRESSOR) 50 mg tablet Take 1 tablet by mouth every 12 hours. furosemide (LASIX) 20 mg tablet Take 1 tablet by mouth once daily. thiamine (VITAMIN B1) 100 mg tablet Take 1 tablet by mouth once daily. lisinopril (ZESTRIL, PRINIVIL) 10 mg tablet Take 10 mg by mouth once daily. levothyroxine (SYNTHROID) 50 mcg tablet Take 1 tablet by mouth once daily. Take on empty stomach. For thyroid. allopurinol (ZYLOPRIM) 300 mg tablet TAKE 1 TABLET BY MOUTH TWICE DAILY. FOR GOUT. atorvastatin (LIPITOR) 40 mg tablet TAKE 1 TABLET BY MOUTH EVERYDAY AT BEDTIME clopidogrel (PLAVIX) 75 mg tablet Take 1 tablet by mouth once daily. fluticasone (FLONASE) 50 mcg/actuation nasal spray Use 2 Sprays in each nostril once daily. omeprazole (PRILOSEC) 40 mg capsule Take 1 capsule by mouth once daily. ammonium lactate (LAC-HYDRIN) 12 % lotion Apply to affected area as needed for Dry Skin (a0pply liberally as need). blood sugar diagnostic (FREESTYLE LITE STRIPS) test strip Test blood sugar(s) once times daily. Dx: 250.00. Insulin: No Lancets (FREESTYLE LANCETS) lancets Test blood sugar(s) one times daily. Dx: 250.00. Insulin: No alfuzosin SR (UROXATRAL) 10 mg 24 hr tablet Take 1 tablet by mouth daily at bedtime. metFORMIN ER (GLUCOPHAGE XR) 500 mg 24 hr tablet Take 1 tablet by mouth twice daily before meals. senna-docusate (SENNA-S) 8.6-50 mg per tablet Take 1 tablet by mouth twice daily. PAST MEDICAL HISTORY: PAST MEDICAL HISTORY Diagnosis Date Arthritis Arthritis of knee bilateral CAD (coronary artery disease) Diabetes mellitus, type 2 (HCC) 2014 Diverticulosis of colon (without mention of hemorrhage) Gout, unspecified History of basal cell cancer [facility], Dr. Rushing History of tobacco use HYPERTENSION NOS Mitral valve prolapse Other forms of migraine Rosacea PAST SURGICAL HISTORY: PAST SURGICAL HISTORY Procedure Laterality Date CABG (3) VEIN GRAFTS & ARTERIAL GRAFT(S) 08/13/2021 (BEAVERS to LAD, SVG sequential to OM1 & OM2) COLONOSCOPY FLX DX W/COLLJ SPEC WHEN PFRMD 06/18/2010 repeat due 2020 HERNIA REPAIR HX RPR 1ST INGUN HRNA AGE 5 YRS/> REDUCIBLE 1984, 1955 left and right SKIN BIOPSY HX FAMILY HISTORY: FAMILY HISTORY Problem Relation Age of Onset Cancer Mother neck Alcohol/Drug Mother Cancer Father 47yo SOCIAL HISTORY: Social Connections: Not on file REVIEW OF SYSTEMS: GENERAL: No fever, chills, weight loss, or fatigue. ENMT: Negative CARDIOVASCULAR:NO CHEST PAIN, PALPITATIONS, ANKLE EDEMA RESPIRATORY: No chronic cough, wheezing, dyspnea, hemoptysis. GENITOURINARY: SEE HPI MUSCULOSKELETAL:NO CHRONIC BACK PAIN, ARTHRITIS, CHRONIC NECK PAIN SKIN: NO VARICOSE VEINS, RASH, ABNORMAL ITCHING HEME/LYMPH/IMMUNE:Negative for prolonged bleeding, bruising easily or swollen nodes NEUROLOGICAL: NO HEADACHES, NUMBNESS, SEIZURES, STROKE DIABETES: No All other systems reviewed and are negative PHYSICAL EXAMINATION: Blood pressure 132/70, pulse 68, temperature 36.1 C (97 F), temperature source Temporal, resp. rate 14, height 180.3 cm (5' 11 ), weight 103.4 kg (228 lb), SpO2 97 %. GENERAL: WNL nutrition, no deformities, healthy appearing NEURO: Awake, alert and oriented x 3 and Normal gait PSYCH: No signs of depression, anxiety, or agitation ENMT (Ear, Nose, Mouth, Throat): No masses, adenopathy, icterus. Thyroid nonpalpable RESP: NL effort, no retractions or purse-lip breathing. CV: No extremity swelling, varices, edema, pallor, erythema GASTROINTESTINAL: Soft, nontender, nondistended, no masses. HERNIAS: None SKIN: No rash, lesions No palpable lymphadenopathy MUSCULOSKELETAL: Extremities normal. No deformities, edema, clubbing or skin discoloration. PROBLEM LIST REVIEW: Yes LABS: Results for orders placed or performed in visit on 04/10/22 UA DIP, URINE (POC) Result Value Ref Range GLUCOSE UA (POCT) Negative Negative mg/dL BILIRUBIN UA (POCT) Negative Negative KETONE UA (POCT) Negative Negative mg/dL SPECIFIC GRAVITY UA (POCT) 1.010 1.005 - 1.030 HEMOGLOBIN/BLOOD UA (POCT) Negative Negative PH UA (POCT) 5.0 4.5 - 8.0 PROTEIN UA (POCT) Negative Negative mg/dL UROBILINOGEN UA (POCT) 0.2 Normal E.U./dL NITRITE UA (POCT) Negative Negative LEUKOCYTES UA (POCT) Negative Negative COLOR UA (POCT) Light yellow CLARITY UA (POCT) Clear PROCEDURES: PVR: 0 ml IMAGING: IMPRESSION/PLAN: 1. Retrograde ejaculation > Switch Flomax to Uroxatral due to retrograde ejaculation 2. Impotence > Trial of Viagra 100 mg Follow up 3 month with RUBEN Goldstein MT, PA-C for new rx follow -up I spent a total of 30 minutes on the date of the service which included preparing to see the patient, face to face patient care, completing clinical documentation, obtaining and/or reviewing separately obtained history, performing a medically appropriate examination, counseling and educating the patient/family/caregiver, ordering medications, tests, or procedures, and care coordination. RUBEN Parra MT, PA-C CC Post Void Residual HPI: Devin Suresh is a 66 year old male. The patient is here now for an appointment with RUBEN Parra MT, PA-COV. Procedure: Explained procedure to patient and verbalizes understanding. Performed a PVR. Patient urinated and instructed to empty bladder as much as possible just prior to having PVR done using bladder ultrasound scanner. Results of scan: 0 mL The patient tolerated the procedure well. Plan: Appointment with Sanjiv. documented in this encounter [facility] 04-01-2022 Miscellaneous Notes TC to pt, notified of results/provider response. Pt aware we will call him when A1C has been resulted. Umair Le LPN TC to lab client services, A1c will be added on to what was previously drawn. Umair Le LPN Liver better. Platelets stable. Sugars up slightly. Can we add or have him do a1c. documented in this encounter [facility] 03-27-2022 Miscellaneous Notes Phone call placed patient advised (see prior provider encounter) Patient verbalized understanding, agreed with plan of care. Zeinab Leung LPN It should be daily. My apologies- not sure what happened to change the script as it was entered as daily and changed. The following approved medication requests have been transmitted electronically. Signed Prescriptions Disp Refills thiamine (VITAMIN B1) 100 mg tablet Sig: Take 1 tablet by mouth once daily. REBEKAH: No Authorizing Provider: Shelia ORR PA-C Patient calling he was in the office this morning and picked up prescription at the pharmacy for Thiamine B1 100 mg. bottle says to take one tablet three times daily. Patient is asking he did not remember Rudy saying to take three times daily? Please advise documented in this encounter [facility] 03-26-2022 History of Present illness Narrative 66 year old male with c/o Current concerns: Continues having diarrhea every day. 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 Coronary artery disease involving [place] heart with angina pectoris, unspecified vessel or lesion type ([facility]) (primary encounter diagnosis) S/p cabg x 3 Atrial fibrillation status post cardioversion ([facility]) Hypertensive heart disease without heart failure 01/23/22 visit Attila Dempsey NP Essential hypertension Current medications: Lisinopril 10mg daily Atorvastatin 40mg daily at HS Clopidogrel 75mg daily Furosemide 20mg daily Metoprolol SA 50mg daily Cardiovascular interval hx: Supervisor [employer] [place] 08/26/2021 EPS/[facility] Dr. Anastasiya Schwab; 200J synchronized biphasic 08/26/21 transesophageal echo: LV mildly dilated, LVSF severely decreased EF 25%. RV mildly dilated, RVSF moderately decreased. LA moderately dilated, left atrial appendage not multilobed without thrombus. RA moderately/severely dilated. MV trace insufficiency; 1-2+ TR, trace AVR, tricuspid. PV WNL. Mid ascending aorta 3.7 cm WNL. PA. 07/08/[address] Bourgeois: Severe disease LAD with high-grade stenosis with calcified LAD with left ventricular systolic dysfunction. Coronary bypass surgery or high risk PCI recommended. Left dominant LVEF 35% Anterior hypokinesis moderate Depressed LV systolic function LM: Mild calcification no significant disease LAD: Mid occluded, distal fills via collaterals from left circumflex Circumflex: Large dominant calcified vessel with bifurcating 80% stenosis mid segment RCA: Mild luminal irregularities less than 30% 02/02/22 last visit with cardiology with Kaylan Leigh CNP Use of NTG: No Chest pain, arm, jaw pain, neck, or upper back pain suggestive of angina: No. SOB: No Dyspnea with exertion: No orthopnea: No racing or irregular heartbeats: No palpitations: No syncopal sx: No Unexplainable fatigue No Leg swelling: No Nausea: No diaphoresis: none Heartburn: No Claudication: No Smoking: No Following Low cholesterol, high fiber diet? Yes: eats meat once a week. Increased veggies, cereal, fruits If on statin: muscle aches? No If on statin: GI sx or diarrhea? No Additional history: none. Component Latest Ref Rng & Units 07/29/2021 08/16/2021 01/26/2022 Protein, Total 6.3 - 8.0 g/dL 7.2 5.9 (L) 7.3 Albumin 3.9 - 4.9 g/dL 4.6 3.8 (L) 4.5 Calcium 8.5 - 10.2 mg/dL 9.1 8.6 9.3 Bilirubin, Total 0.2 - 1.3 mg/dL 1.2 1.3 1.0 Alkaline Phosphatase 38 - 113 U/L 67 53 79 AST 14 - 40 U/L 26 23 41 (H) ALT 10 - 54 U/L 25 15 42 Glucose 74 - 99 mg/dL 135 (H) 144 (H) 112 (H) BUN 9 - 24 mg/dL 10 16 13 Creatinine 0.73 - 1.22 mg/dL 0.95 0.66 (L) 0.89 Sodium 136 - 144 mmol/L 137 135 (L) 140 Potassium 3.7 - 5.1 mmol/L 4.4 4.3 3.9 Chloride 97 - 105 mmol/L 99 100 102 CO2 22 - 30 mmol/L 27 22 26 Anion Gap 9 - 18 mmol/L 11 13 12 eGFR- >60 >60 eGFR-All Other Races >60 >60 eGFR >=60 mL/min/1.73m 95 Cholesterol, Total <200 mg/dL 107 Triglyceride <150 mg/dL 64 HDL Cholesterol >39 mg/dL 63 Non HDL Cholesterol <130 mg/dL 44 Fasting Time hrs 12 VLDL Cholesterol <30 mg/dL 13 TC:HDL Ratio <5.10 1.70 LDL Cholesterol <100 mg/dL 31 LDL:HDL Ratio <2.54 0.49 Bilirubin, Conjug <0.2 mg/dL 0.3 (H) Type 2 diabetes mellitus without complication, without long-term current use of insulin (hcc) Current medications: Metformin XR 501 tablet twice daily before meals Taking medication as directed consistently? Yes Medical Issues / Complications: hypertension, hyperlipidemia and cardiovascular disease Checking blood sugars at home? No. Watching diet? Yes Physical Activity: Modest Hypoglycemic spells? No Any visual disturbance? No Chest pain? No New numbness, tingling or loss of sensation? Tingling has been a lot better Any recent foot problems, sores or rashes? No Any recent or sudden weight loss? No Change in urination? No. If yes: Any recent illness? No Last eye exam: Appt May 13. Last foot exam: up to date. HBA1C: Hemoglobin A1C (%) Date Value 07/29/2021 5.3 07/04/2021 5.3 02/21/2021 5.2 ) CMP: Glucose 112 01/26/2022 BUN 13 01/26/2022 Creatinine 0.89 01/26/2022 Sodium 140 01/26/2022 Potassium 3.9 01/26/2022 Chloride 102 01/26/2022 CO2 26 01/26/2022 Protein, Total 7.3 01/26/2022 Albumin 4.5 01/26/2022 Calcium 9.3 01/26/2022 Alkaline Phosphatase 79 01/26/2022 Bilirubin, Total 1.0 01/26/2022 AST 41 01/26/2022 ALT 42 01/26/2022 Last 2 Encounter Wt Readings: Date: Wt: 02/02/2022 100.2 kg (221 lb) 10/01/2021 100.2 kg (221 lb) Chronic GERD Current medications: Omeprazole 40mg daily AC Current symptoms: none. Last Mg level if on PPI chronically: none. Heartburn is controlled: Yes. Dysphagia: No. Bloody or black stools: none. Bowel changes: As above diarrhea. Idiopathic gout, unspecified chronicity, unspecified site No current sx [place] (obstructive sleep apnea) Suspected. HSAT ordered but not completed. Anxiety Current medications: Sertraline 50mg daily Doing really well YOEL - 7 SCORES 03/26/2022 YOEL-7 Score 1 BPH Current medications: flomax 0.4mg daily at bedtime Retrograde ejaculation: concerning, not painful, over last several months. Urine flow is decent, nocturia 0-1, no dribbling or incontinence. Hypothyroidism Current medication: Levothyroxine 50mcg daily AC Taking as directed on an empty stomach? Yes. Thyroid pain: No. Mass effect: No. Change in energy level/ fatigue? No. Sleep disturbance ? Sleeps 4-5 hours, mostly rested Temperature Intolerance: cold No, hot No. In females, menstrual cycle issues? No, If yes: Change in bowel habits? No. If yes: Constipation? No. If yes: Diarrhea? No. If yes: Weight changes?No. Memory issues: No. Diaphoresis: No. Numbness, tingling chronic in fingers. Change in hair or skin? No. If yes: Other symptoms: Last 2 Encounter Wt Readings: Date: Wt: 02/02/2022 100.2 kg (221 lb) 10/01/2021 100.2 kg (221 lb) Last thyroid labs: TSH Date Value 01/26/2022 5.760 mIU/L 08/07/2021 5.270 uU/mL 07/29/2021 5.880 uU/mL 06/26/2021 4.080 uU/mL ) HISTORIES FAMILY HISTORY Problem Relation Age of Onset Cancer Mother neck Alcohol/Drug Mother Cancer Father 47yo PAST MEDICAL HISTORY Diagnosis Date Arthritis Arthritis of knee bilateral CAD (coronary artery disease) Diabetes mellitus, type 2 (HCC) 2014 Diverticulosis of colon (without mention of hemorrhage) Gout, unspecified History of basal cell cancer Dr. Сергей ALCANTAR History of tobacco use HYPERTENSION NOS Mitral valve prolapse Other forms of migraine Rosacea PAST SURGICAL HISTORY Procedure Laterality Date CABG (3) VEIN GRAFTS & ARTERIAL GRAFT(S) 08/13/2021 (BEAVERS to LAD, SVG sequential to OM1 & OM2) COLONOSCOPY FLX DX W/COLLJ SPEC WHEN PFRMD 06/18/2010 repeat due 2020 HERNIA REPAIR HX RPR 1ST INGUN HRNA AGE 5 YRS/> REDUCIBLE 1984, 1955 left and right SKIN BIOPSY HX Social History Tobacco Use Smoking status: Former Smoker Packs/day: 0.50 Years: 37.00 Pack years: 18.50 Types: Cigarettes Quit date: 05/08/2011 Years since quittin.8 Smokeless tobacco: Never Used Tobacco comment: had quit in 2011- relapsed and now quit again Substance Use Topics Alcohol use: Yes Alcohol/week: 4.0 - 5.0 standard drinks Types: 4 - 5 Cans of Beer (12oz) per week Comment: daily Drug use: No ACTIVE PROBLEM LIST Other Forms of Migraine Gout, Unspecified Essential Hypertension Rosacea Arthritis of Knee Type 2 Diabetes Mellitus Without Complication, Without Long-Term Current Use of Insulin (Hcc) Hypertensive Heart Disease Without Heart Failure Chronic Gerd Squamous Cell Carcinoma in Situ of Skin Obesity, Class I, Bmi 30-34.9 Coronary Artery Disease Involving [place] Heart With Angina Pectoris (Hcc) S/P Cabg X 3 Atrial Fibrillation Status Post Cardioversion (Hcc) Dry Skin Dermatitis Hypothyroidism, Acquired Current Outpatient Medications Medication Sig Dispense Refill lisinopril (ZESTRIL, PRINIVIL) 10 mg tablet Take 10 mg by mouth once daily. levothyroxine (SYNTHROID) 50 mcg tablet Take 1 tablet by mouth once daily. Take on empty stomach. For thyroid. 30 tablet 5 allopurinol (ZYLOPRIM) 300 mg tablet TAKE 1 TABLET BY MOUTH TWICE DAILY. FOR GOUT. 180 tablet 1 atorvastatin (LIPITOR) 40 mg tablet TAKE 1 TABLET BY MOUTH EVERYDAY AT BEDTIME 90 tablet 3 clopidogrel (PLAVIX) 75 mg tablet Take 1 tablet by mouth once daily. 90 tablet 3 fluticasone (FLONASE) 50 mcg/actuation nasal spray Use 2 Sprays in each nostril once daily. 3 Each 3 furosemide (LASIX) 20 mg tablet Take 1 tablet by mouth once daily. 90 tablet 1 metFORMIN ER (GLUCOPHAGE XR) 500 mg 24 hr tablet Take 1 tablet by mouth twice daily before meals. 180 tablet 3 metoprolol tartrate, short acting, (LOPRESSOR) 50 mg tablet Take 1 tablet by mouth every 12 hours. 180 tablet 1 omeprazole (PRILOSEC) 40 mg capsule Take 1 capsule by mouth once daily. 90 capsule 1 vitamin with folic acid 1 mg 60 mg iron-1 mg tab Take 1 tablet by mouth once daily. 90 tablet 1 sertraline (ZOLOFT) 50 mg tablet Take 0.5 tablets by mouth once daily. 45 tablet 1 tamsulosin (FLOMAX) 0.4 mg Take 1 capsule by mouth daily at bedtime. 90 capsule 1 thiamine (VITAMIN B1) 100 mg tablet Take 1 tablet by mouth once daily. 90 tablet 3 ammonium lactate (LAC-HYDRIN) 12 % lotion Apply to affected area as needed for Dry Skin (a0pply liberally as need). (Patient taking differently: Apply to affected area as needed for Dry Skin (a0pply liberally as need). ) 60 g 11 senna-docusate (SENNA-S) 8.6-50 mg per tablet Take 1 tablet by mouth twice daily. thiamine (VITAMIN B1) 100 mg tablet 1 tablet by ORAL/FEEDING TUBE route three times daily. (Patient taking differently: Take 1 tablet by mouth three times daily.) 90 tablet 0 blood sugar diagnostic (FREESTYLE LITE STRIPS) test strip Test blood sugar(s) once times daily. Dx: 250.00. Insulin: No 50 Strip 6 Lancets (FREESTYLE LANCETS) lancets Test blood sugar(s) one times daily. Dx: 250.00. Insulin: No 1 Each 11 Current Facility-Administered Medications Medication Dose Route Frequency Provider Last Rate Last Admin perflutren lipid microspheres 1.3 mL in NaCl (PF) 0.9% 10 mL injection (DEFINITY) INTRAVENOUS DIRECTED PRN Anastasiya Schwab MD sodium chloride 0.9 % (flush) 10 mL (BD POSIFLUSH) 10 mL INTRAVENOUS DIRECTED PRN Anastasiya Schwab MD sodium chloride 0.9 % (flush) 10 mL (BD POSIFLUSH) 10 mL INTRAVENOUS DIRECTED PRN Oliver Regalado MD BP CONTROLLED (<130/80) Never done ADVANCE DIRECTIVE DISCUSSION Never done DILATED RETINAL EXAM due on 01/02/2022 COVID-19 VACCINE(4 - Booster for Moderna series) due on 01/16/2022 HBA1C due on 01/26/2022 EXAM: BP 142/66 Pulse (!) 52 Resp 18 Wt 103.4 kg (228 lb) SpO2 97% BMI 31.80 kg/m Pleasant overweight adult male in no acute distress. Alert and oriented all spheres. Normal affect and cognition. Speech normal. No deficits to learning or comprehension. Skin warm, dry, pink to lips and nailbeds. Normal turgor. Several seborrheic keratoses, small, brown, several other small moles. Respirations regular and unlabored. HEENT: NCAT. No scleral icterus or conjunctival injection. TM's clear. Nose and oropharynx free from injection or lesion. Oral membranes moist and pink. No cervical lymph nodes. Thyroid non-tender, no masses, or enlargement. Carotids pulses 2+/4+ without bruits. Chest is normal shape. Lungs are clear to all sorto with good air exchange through out. HRRR without murmur or gallop. No lifts, heaves, or rubs. Extrem: no clubbing or cyanosis. Edema: none. Extremities are warm and pink with prompt capillary refill. ASSESSMENT/PLAN: 1. Coronary artery disease involving [place] heart with angina pectoris, unspecified vessel or lesion type (HCC) - ICD9: 414.01, 413.9, ICD10: I25.119 (primary diagnosis) asymptomatic 2. S/P CABG x 3 - ICD9: V45.81, ICD10: Z95.1 asymptomatic 3. Essential hypertension - ICD9: 401.9, ICD10: I10 - suboptimal control - Continue current medication(s) - Recommended regular aerobic exercise. - Recommend home blood pressure monitoring, to bring results in on next visit - Goal of BP <130/80 - COMP METABOLIC PANEL 4. Atrial fibrillation status post cardioversion (HCC) - ICD9: 427.31, ICD10: I48.91 Regular rhythm 5. Hypertensive heart disease without heart failure - ICD9: 402.90, ICD10: I11.9 - good control - Continue current medication(s) - Recommended regular aerobic exercise. - Recommend home blood pressure monitoring, to bring results in on next visit - Goal of BP <130/80 - LIPID PANEL BASIC - COMP METABOLIC PANEL 6. Type 2 diabetes mellitus without complication, without long-term current use of insulin (HCC) - ICD9: 250.00, ICD10: E11.9 Controlled. Complications with diarrhea not likely losartan- suspect metformin. Stop metformin. Monitor home glucose fasting and 2h PC weekly: notify if out of range 90-160 Recheck hgba1c 3 months - HGB A1C 7. Chronic GERD - ICD9: 530.81, ICD10: K21.9 Controlled on current medication 8. Idiopathic gout, unspecified chronicity, unspecified site - ICD9: 274.9, ICD10: M10.00 No recent sx 9. CHELSEA (obstructive sleep apnea) - ICD9: 327.23, ICD10: G47.33 Has not completed HSA- will need to schedule 10. Tobacco use - ICD9: 305.1, ICD10: Z72.0 resolved 11. Anxiety - ICD9: 300.00, ICD10: F41.9 Well controlled 12. BPH with obstruction/lower urinary tract symptoms - ICD9: 600.01, 599.69, ICD10: N40.1, N13.8 Doing well, continue current medication - TAMSULOSIN 0.4 MG CAPSULE - PSA/PROSTSPECAG DIAG 13. Adjustment reaction with brief depressive reaction - ICD9: 309.0, ICD10: F43.21 Stable on medication - SERTRALINE 50 MG TABLET - COMP METABOLIC PANEL 14. Retrograde ejaculation - ICD9: 608.87, ICD10: N53.14 Chronic - PSA/PROSTSPECAG DIAG - CONSULT TO UROLOGY Shelia Orr PA-C documented in this encounter [facility] 02-18-2022 Miscellaneous Notes Benita with [facility] Response Team calls to report patient has requested they reach out to provider for refill of allopurinol. [facility] not on file for patient. Called patient who reports the only pharmacy he currently uses [facility]. Current prescription should be good through 11/2022. Permanent comment added to patient chart. Ro Castaneda RN documented in this encounter [facility] 02-04-2022 Miscellaneous Notes Spoke with patient, notified of Yu Leigh's message and recommendations. Patient voiced understanding. Christa Wyatt RN Please inform patient I have reviewed the results of the ambulatory maintenance and utilities supervisor, which was unrevealing for atrial fibrillation. He can discontinue amiodarone therapy at this time, I will remove it from his medication list. Thank you. Kaylan Leigh APRN.DIANNE documented in this encounter [facility] 02-02-2022 Miscellaneous Notes Spoke with [facility] cardiology office staff, will fax the results of 14 day holter monitor. Christa Wyatt RN ----- Message from Kaylan Leigh APRN.CNP sent at 02/02/2022 8:21 AM EDT ----- Patient wore 14 day extended diabetes physician in October, it was applied at [facility], I do not see a report in his chart. Per his physician practice market manager at [facility], monitor showed no atrial fibrillation. Can we obtain a copy of this report for my review? Thank you. Kaylan Leigh APRN.FOLLOW UP SPECIALIST documented in this encounter [facility] 02-02-2022 Note [facility] 02-02-2022 Instructions Kaylan Leigh APRN.FOLLOW UP SPECIALIST - 02/02/2022 8:14 AM EDT Atrial Fibrillation What is atrial fibrillation? Atrial fibrillation (also called A-fib) is a fast or irregular heartbeat that starts in the upper chambers of the heart. The abnormal heartbeat affects the ability of the heart to pump blood to the rest of the body. What is the cause? An electrical signal in your heart starts each heartbeat, causing the heart muscle to squeeze (contract). Normally, this signal starts in the upper right chamber of the heart (the right atrium) at a place called the sinus node. The signal then follows normal pathways to the upper left atrium and to the lower chambers of the heart (the ventricles). When you have atrial fibrillation, electrical signals don t start in the normal place in the right atrium and don t travel normally. This can cause the upper chambers of the heart (atria) to beat very fast and not in a normal pattern. Common causes of heart rhythm problems are conditions that damage the heart, like coronary artery disease, heart attack, or heart failure. Problems with the heart valves are another common cause. The heart has 4 valves that open and close with each heartbeat to help blood flow in the right direction through the heart. Other causes of atrial fibrillation include: Health problems, such as a stroke, lung disease, diabetes, overactive thyroid gland, or high blood pressure Abuse of alcohol or drugs, such as cocaine Sometimes no cause can be found. What are the symptoms? Some people don t have any symptoms. When atrial fibrillation does cause symptoms, the most common ones are: Feeling like your heart is beating too fast or too hard or skipping beats or fluttering Feeling tired or weak all the time Symptoms that are more serious include: Chest pain Trouble breathing Lightheadedness or dizziness confusion How is it diagnosed? Your healthcare provider will ask about your symptoms and medical history and examine you. Tests may include: An ECG (also called an EKG), which measures and records your heartbeat. You may have an ECG while you are resting or while you exercise on a treadmill. You may also be asked to wear a small portable ECG monitor for a few days or sometimes a couple weeks. Blood tests An echocardiogram, which uses sound waves (ultrasound) to show the structures of the heart, like the valves How is it treated? The goal of treatment is to help the heart keep a normal rhythm. Your treatment depends on the cause of the atrial fibrillation, how often you have symptoms, and the severity of your symptoms. If you have no symptoms, or your symptoms are fairly mild, you may not need treatment. For some people atrial fibrillation lasts just a short time and the heart goes back to a normal rhythm on its own. If you keep having spells of atrial fibrillation, treatment may help keep you from having so many spells. If a health problem like a leaky heart valve is causing the atrial fibrillation, treating the health problem may also treat the fast or irregular heartbeat. Other possible treatments are: Medicine: Your provider may prescribe medicine to slow or restore a normal heart rate and rhythm. You may also need medicine to prevent blood clots because when the heart beats irregularly, some of the blood can stay in the upper chambers too long. This makes it easier for blood clots to form, increasing your risk of having a stroke or heart attack. Electrical cardioversion: First, you will be given medicine called anesthesia to keep you from feeling pain during the procedure. Then your chest will be given an electrical shock. The electrical shock should make your heart start beating normally again. You may need medicine to keep your heart rhythm normal after this procedure. Ablation: Ablation is a procedure that uses a small tube called a catheter to deliver energy to the inside of the heart. The energy (usually radio waves) scars small areas of heart tissue. The scars block abnormal electrical pathways and help you have a normal heart rhythm. With some types of ablation treatment, you will also need a pacemaker. A pacemaker is an electronic device put under the skin of your chest to help control the heartbeat. How can I take care of myself? Take your medicines as prescribed. Keep your appointments for follow-up blood tests. Make sure your healthcare provider knows about changes in your diet or medical condition. Your provider also needs to know about all prescription and nonprescription medicines, herbs, or supplements that you are taking. Some medicines may interact with your heart medicine or increase your risk for atrial fibrillation. If you want to drink alcohol, ask your provider how much is safe for you to drink. Follow your healthcare provider's instructions. Ask your provider: ?How and when you will hear your test results ?How long it will take to recover ?What activities you should avoid and when you can return to your normal activities ?How to take care of yourself at home ?What symptoms or problems you should watch for and what to do if you have them Make sure you know when you should come back for a checkup. How can I help prevent atrial fibrillation? The best prevention is to have a heart-healthy lifestyle. Keep a healthy weight. Eat a healthy diet that is low in sodium and saturated and trans fat. Stay fit with the right kind of exercise for you. Decrease stress. Don t smoke. Limit your use of alcohol. If you have heart disease or high blood pressure, follow your healthcare provider's instructions for treatment. Copyright 2014 [employer] and/or one of its subsidiaries. All rights reserved. documented in this encounter [facility] 02-02-2022 History of Present illness Narrative Images from the original note were not included. [facility] General Cardiology Electrophysiology PRIMARY CARE PHYSICIAN: Oliver Regalado [address] [place] [address] CHIEF COMPLAINT: Cardiovascular medicine follow-up for arrhythmia. HISTORY OF PRESENT ILLNESS: Mr. Suresh is a 66 year old male who presents today for follow-up regarding arrhythmia. The patient presented with NSTEMI to [facility] in August, left heart cath showed three-vessel CAD, LVEF 44%, underwent CABG x3 with BEAVERS to LAD, SVG to OM1, OM2, procedure performed by Dr. Wall 08/13/2021. About 3 days post discharge, he noted shortness of breath with mild exertion at home, elevated heart rate, EKG demonstrated atrial fibrillation with RVR, she was started on metoprolol 50 mg twice daily. He was seen in CT surgery office 08/22/2021 with symptomatic atrial fibrillation with RVR, heart rates 120-140 bpm range. Metoprolol was increased to 75 mg 3 times daily, patient was admitted 08/24/2021, underwent LEXI guided direct-current cardioversion, with methodist of sinus rhythm. The LEXI showed LVEF 25%, he was started on amiodarone. He was seen and evaluated by Dr. Schwab during that hospitalization. He then followed up 10/01/2021, reported participating in cardiac rehab, able to perform all of his ADLs tolerating combination of Plavix and Eliquis without any bleeding issues. During that visit, amiodarone was reduced to 200 mg daily, and repeat 14-day monitor was ordered. Interval History: The patient reports he has been doing well from a heart rhythm perspective, denies recurrence of atrial arrhythmia. He was seen in the cardiology office last week, he will repeat an echocardiogram in the near future. He did wear the 14-day extended maintenance and utilities supervisor, however I do not see these results, per cardiology appointment, no atrial fibrillation was seen on the monitor, I will have our office staff request a copy of these results for my review, and if no atrial fibrillation seen on monitor, will discontinue amiodarone therapy. He denies chest discomfort, palpitations, shortness of breath, lightheadedness, dizziness, near-syncope or syncope. PAST MEDICAL HISTORY Diagnosis Date Arthritis Arthritis of knee bilateral CAD (coronary artery disease) Diabetes mellitus, type 2 (HCC) 2014 Diverticulosis of colon (without mention of hemorrhage) Gout, unspecified History of basal cell cancer LFA, Dr. Rushing History of tobacco use HYPERTENSION NOS Mitral valve prolapse Other forms of migraine Rosacea PAST SURGICAL HISTORY Procedure Laterality Date CABG (3) VEIN GRAFTS & ARTERIAL GRAFT(S) 08/13/2021 (BEAVERS to LAD, SVG sequential to OM1 & OM2) COLONOSCOPY FLX DX W/COLLJ SPEC WHEN PFRMD 06/18/2010 repeat due 2020 HERNIA REPAIR HX RPR 1ST INGUN HRNA AGE 5 YRS/> REDUCIBLE 1984, 1955 left and right SKIN BIOPSY HX Social History Tobacco Use Smoking status: Former Smoker Packs/day: 0.50 Years: 37.00 Pack years: 18.50 Types: Cigarettes Quit date: 05/08/2011 Years since quittin.7 Smokeless tobacco: Never Used Tobacco comment: had quit in 2011- relapsed and now quit again Substance Use Topics Alcohol use: Yes Alcohol/week: 4.0 - 5.0 standard drinks Types: 4 - 5 Cans of Beer (12oz) per week Comment: daily Drug use: No Family History Problem Relation Age of Onset Cancer Mother neck Alcohol/Drug Mother Cancer Father 47yo ALLERGIES Allergen Reactions Seasonal Allergies Other: See Comments Dry sinuses MEDICATIONS: lisinopril (ZESTRIL, PRINIVIL) 10 mg tablet Take 10 mg by mouth once daily. levothyroxine (SYNTHROID) 50 mcg tablet Take 1 tablet by mouth once daily. Take on empty stomach. For thyroid. allopurinol (ZYLOPRIM) 300 mg tablet TAKE 1 TABLET BY MOUTH TWICE DAILY. FOR GOUT. Amiodarone HCl 400 mg tablet Take 0.5 tablets by mouth once daily for 30 days, THEN 1 tablet once daily. apixaban (ELIQUIS) 5 mg tab(s) Take 1 tablet by mouth twice daily. atorvastatin (LIPITOR) 40 mg tablet TAKE 1 TABLET BY MOUTH EVERYDAY AT BEDTIME clopidogrel (PLAVIX) 75 mg tablet Take 1 tablet by mouth once daily. fluticasone (FLONASE) 50 mcg/actuation nasal spray Use 2 Sprays in each nostril once daily. furosemide (LASIX) 20 mg tablet Take 1 tablet by mouth once daily. metFORMIN ER (GLUCOPHAGE XR) 500 mg 24 hr tablet Take 1 tablet by mouth twice daily before meals. metoprolol tartrate, short acting, (LOPRESSOR) 50 mg tablet Take 1 tablet by mouth every 12 hours. omeprazole (PRILOSEC) 40 mg capsule Take 1 capsule by mouth once daily. vitamin with folic acid 1 mg 60 mg iron-1 mg tab Take 1 tablet by mouth once daily. sertraline (ZOLOFT) 50 mg tablet Take 0.5 tablets by mouth once daily. tamsulosin (FLOMAX) 0.4 mg Take 1 capsule by mouth daily at bedtime. thiamine (VITAMIN B1) 100 mg tablet Take 1 tablet by mouth once daily. ammonium lactate (LAC-HYDRIN) 12 % lotion Apply to affected area as needed for Dry Skin (a0pply liberally as need). thiamine (VITAMIN B1) 100 mg tablet 1 tablet by ORAL/FEEDING TUBE route three times daily. blood sugar diagnostic (FREESTYLE LITE STRIPS) test strip Test blood sugar(s) once times daily. Dx: 250.00. Insulin: No Lancets (FREESTYLE LANCETS) lancets Test blood sugar(s) one times daily. Dx: 250.00. Insulin: No senna-docusate (SENNA-S) 8.6-50 mg per tablet Take 1 tablet by mouth twice daily. REVIEW OF SYSTEMS: Review of Systems Constitutional: Negative for chills, diaphoresis and fever. HENT: Negative for nosebleeds. Respiratory: Negative for cough, hemoptysis, sputum production, shortness of breath and wheezing. Cardiovascular: Negative for chest pain, palpitations, orthopnea, leg swelling and PND. Gastrointestinal: Positive for diarrhea. Negative for abdominal pain, blood in stool, constipation, heartburn (controlled with medication), nausea and vomiting. Genitourinary: Negative for dysuria, frequency, hematuria and urgency. Musculoskeletal: Negative for falls and myalgias. Neurological: Negative for dizziness, loss of consciousness and headaches. Endo/Heme/Allergies: Does not bruise/bleed easily. PHYSICAL EXAMINATION: BP 124/82 Pulse 57 Resp 18 Ht 5' 11 (1.80m) Wt 221 lb (100.2kg) SpO2 95% BMI 30.84 kg/(m^2). Physical Exam Vitals and nursing note reviewed. Constitutional: General: He is not in acute distress. Appearance: He is not diaphoretic. HENT: Head: Normocephalic and atraumatic. Neck: Vascular: No carotid bruit or JVD. Cardiovascular: Rate and Rhythm: Regular rhythm. Bradycardia present. Pulses: Radial pulses are 2+ on the right side and 2+ on the left side. Posterior tibial pulses are 2+ on the right side and 2+ on the left side. Heart sounds: S1 normal and S2 normal. No murmur heard. No gallop. Pulmonary: Effort: Pulmonary effort is normal. No respiratory distress. Breath sounds: Normal breath sounds. No wheezing or rales. Chest: Chest wall: No tenderness. Abdominal: General: Bowel sounds are normal. Palpations: Abdomen is soft. Musculoskeletal: General: Normal range of motion. Cervical back: Neck supple. Right lower leg: No edema. Left lower leg: No edema. Skin: General: Skin is warm and dry. Nails: There is no clubbing. Neurological: Mental Status: He is alert and oriented to person, place, and time. Psychiatric: Mood and Affect: Mood and affect normal. Behavior: Behavior normal. CARDIOVASCULAR MEDICINE TESTING: Transesophageal echocardiogram: 08/26/2021 CONCLUSIONS: - Exam indication: Pre Cardioversion, Pre AF Ablation - The left ventricle is mildly dilated. Left ventricular systolic function is severely decreased. EF = 25 5% (visual est.) Severe global hypokinesis - The right ventricle is mildly dilated. Right ventricular systolic function is moderately decreased. Moderate RV systolic dysfx, probable mild pulm HTN on limited doppler - The left atrial cavity is moderately dilated. LA moderately enlarged, mod spontaneous echo contrast; no clot seen in LA or appendage. - The right atrial cavity is moderate/severely dilated. Mod-severe RA enlargement. - There is no patent foramen ovale as detected by Doppler and agitated saline contrast. Small pericardial effusion without obvious hemodynamic compromise L pleural effusion seen Mild Pulm artery enlargement Aortic arch and desc aorta normal in caliber with moderate atheromatous disease - Exam was compared with the prior echocardiographic exam performed on 08/13/2021. I have personally reviewed the Electrocardiogram: 02/02/2022 -sinus bradycardia, ST and T wave abnormality (seen on previous ECGs), prolonged QT, 52 bpm, SC 182 ms, QRS 112 ms, QT/QTc 512/476 ms. PLAN AND RECOMMENDATIONS: ASSESSMENT/PLAN: 1. Atrial fibrillation status post cardioversion (HCC) - ICD9: 427.31, ICD10: I48.91 (primary diagnosis) -post CABG atrial fibrillation with RVR 08/2021, initially treated with rate control metoprolol 75 mg 3 times daily, admitted to [facility] 08/24/2021, underwent LEXI guided cardioversion with methodist of sinus rhythm, the LEXI showed LVEF 25%, he was started on amiodarone and anticoagulated with Eliquis. He would a 14-day extended diabetes physician in October, however I do not see these results in his chart, will ask our office staff to contact his cardiology office and obtain a copy for my review. If no atrial fibrillation was detected, will discontinue amiodarone. He was recently seen at his cardiology office, reviewed note from that visit, he will be scheduled for an upcoming echocardiogram. He is doing well from a heart rhythm perspective, he will follow up with Dr. Schwab in 3 months, or call sooner should any issues arise, patient verbalizes understanding. 2. S/P CABG x 3 - ICD9: V45.81, ICD10: Z95.1 -08/13/2021, BEAVERS to LAD, SVG to OM1 and OM 2, CABG performed by Dr. Wall. 3. long-term current use of antiarrhythmic drug - ICD9: V58.69, ICD10: Z79.899 -amiodarone; indication: Symptomatic paroxysmal atrial fibrillation, ECG today demonstrates sinus bradycardia, prolonged QT, 52 bpm, QT/QTc 512/476, will likely discontinue amiodarone therapy after 14-day extended diabetes physician is reviewed. While being treated with amiodarone, he should have screening for the potential toxic organ side effects, particularly the liver and thyroid. Typically this involves blood testing for thyroid function (TSH) and liver function (AST, ALT) about every 6 months. Evaluation of pulmonary function, as with chest x-ray or pulmonary function tests, are typically reserved for patients with relevant symptoms. A yearly complete eye exam is also recommended. 4. long-term (current) use of anticoagulants - ICD9: V58.61, ICD10: Z79.01 5. At risk for stroke - ICD9: V15.89, ICD10: Z91.89 -paroxysmal atrial fibrillation, continue Eliquis 5 mg twice daily, no signs of bleeding. [id number] score of 4 (DM, HTN, CHF, age). Return in about 3 months (around 05/05/2022) for Dr. Schwab. Kaylan Leigh APRN.FOLLOW UP SPECIALIST documented in this encounter [facility] 02-02-2022 Nurse Note Patient denies any cardiac issues or symptoms. documented in this encounter [facility] 01-27-2022 Miscellaneous Notes Pt notified of results and provider message. Pt voiced understanding. Katty Shahid LPN Left message for patient to return call. Svetlana Villavicencio Ma Labs are stable. Anemia is better. Platelets are slightly low again. Recheck in six weeks. Thyroid is low. Increase synthroid to 50 mcg a day . Recheck tsh in six weeks. Recheck liver enzymes as well then due to slightly up but improving. documented in this encounter [facility] 10-01-2021 Note [facility] 09-16-2021 Note [facility] 09-16-2021 Note [facility] 09-15-2021 Miscellaneous Notes No refills documented in this encounter [facility] 09-04-2021 Note [facility] 09-04-2021 Note [facility] 08-26-2021 Note [facility] 08-26-2021 Note [facility] 08-22-2021 Note [facility] 08-19-2021 Note [facility] 08-18-2021 Note [facility] 08-18-2021 Note [facility] 08-17-2021 Note [facility] 08-16-2021 Note [facility] 08-16-2021 Note [facility] 08-16-2021 Note HNO ID: [id number] Author: Interface Note Service: ? Author Type: ? Type: Progress Notes Filed: 08/16/2021 2:57 AM Note Text: Epic Scheduled Downtime: 08/16/2021 1:00:00 AM to 08/16/2021 2:33:00 AM [facility] 08-15-2021 Note [facility] 08-15-2021 Note [facility] 08-14-2021 Note [facility] 08-14-2021 Note [facility] 08-14-2021 Note [facility] 08-13-2021 Note HNO ID: [id number] Author: Dg Mulligan, PAPER STACKER Service: Respiratory Therapy Author Type: Registered Resp Therapist Type: Progress Notes Filed: 08/13/2021 5:46 PM Note Text: Summary: Weaning Parameters VT 701 RR 21 MV 14,7 VC 1001 NIF -45 RSBI 29 LEAK POS [facility] 08-13-2021 Note [facility] 08-13-2021 Note [facility] [place] 08-04-2021 Note [facility]21 [facility]21 Note [facility] documented as of this encounter (statuses as of 01/27/2022) [facility] History of Past illness Narrative* Problem Noted Date Resolved Date Impaired fasting glucose 09/01/2011 015 Rectal bleeding 04/18/2010 11/16/2016 Other lichen, not elsewhere classified 8 11/16/2016 Dysmetabolic syndrome X 07/13/2008 12/07/19 15 PAIN FLANK 07/13/2008 05/06/2009 Pain in joint, shoulder region 10/27/2006 0 11/16/2016 Tobacco use disorder 02/20/2006 01/06/2012 OTHER ABNORMAL GLUCOSE 02/20/2006 6 Mitral valve disorders 7 Overview: echocardiogram 01/30/17 EF 55% mildly abnormal LV relaxation, mild dilitationRV, left and right atria. Otherwise WNL. Saw Dr. Geiger for review. documented as of this encounter (statuses as of 02/02/2022) [facility] History of Past illness Narrative* Problem Noted Date Resolved Date Impaired fasting glucose 09/01/2011 015 Rectal bleeding 04/18/2010 11/16/2016 Other lichen, not elsewhere classified 8 11/16/2016 Dysmetabolic syndrome X 07/13/2008 12/07/19 15 PAIN FLANK 07/13/2008 05/06/2009 Pain in joint, shoulder region 10/27/2006 0 11/16/2016 Tobacco use disorder 02/20/2006 01/06/2012 OTHER ABNORMAL GLUCOSE 02/20/2006 6 Mitral valve disorders 7 Overview: echocardiogram 01/30/17 EF 55% mildly abnormal LV relaxation, mild dilitationRV, left and right atria. Otherwise WNL. Saw Dr. Geiger for review. documented as of this encounter (statuses as of 02/04/2022) [facility] History of Past illness Narrative* Problem Noted Date Resolved Date Impaired fasting glucose 09/01/2011 015 Rectal bleeding 04/18/2010 11/16/2016 Other lichen, not elsewhere classified 8 11/16/2016 Dysmetabolic syndrome X 07/13/2008 12/07/19 15 PAIN FLANK 07/13/2008 05/06/2009 Pain in joint, shoulder region 10/27/2006 0 11/16/2016 Tobacco use disorder 02/20/2006 01/06/2012 OTHER ABNORMAL GLUCOSE 02/20/2006 6 Mitral valve disorders 7 Overview: echocardiogram 01/30/17 EF 55% mildly abnormal LV relaxation, mild dilitationRV, left and right atria. Otherwise WNL. Saw Dr. Geiger for review. documented as of this encounter (statuses as of 02/04/2022) [facility] History of Past illness Narrative* Problem Noted Date Resolved Date Impaired fasting glucose 09/01/2011 015 Rectal bleeding 04/18/2010 11/16/2016 Other lichen, not elsewhere classified 8 11/16/2016 Dysmetabolic syndrome X 07/13/2008 12/07/19 15 PAIN FLANK 07/13/2008 05/06/2009 Pain in joint, shoulder region 10/27/2006 0 11/16/2016 Tobacco use disorder 02/20/2006 01/06/2012 OTHER ABNORMAL GLUCOSE 02/20/2006 6 Mitral valve disorders 7 Overview: echocardiogram 01/30/17 EF 55% mildly abnormal LV relaxation, mild dilitationRV, left and right atria. Otherwise WNL. Saw Dr. Geiger for review. documented as of this encounter (statuses as of 02/18/2022) [facility] History of Past illness Narrative* Problem Noted Date Resolved Date Impaired fasting glucose 09/01/2011 015 Rectal bleeding 04/18/2010 11/16/2016 Other lichen, not elsewhere classified 8 11/16/2016 Dysmetabolic syndrome X 07/13/2008 12/07/19 15 PAIN FLANK 07/13/2008 05/06/2009 Pain in joint, shoulder region 10/27/2006 0 11/16/2016 Tobacco use disorder 02/20/2006 01/06/2012 OTHER ABNORMAL GLUCOSE 02/20/2006 6 Mitral valve disorders 7 Overview: echocardiogram 01/30/17 EF 55% mildly abnormal LV relaxation, mild dilitationRV, left and right atria. Otherwise WNL. Saw Dr. Geiger for review. documented as of this encounter (statuses as of 03/27/2022) [facility] History of Past illness Narrative* Problem Noted Date Resolved Date Impaired fasting glucose 09/01/2011 015 Rectal bleeding 04/18/2010 11/16/2016 Other lichen, not elsewhere classified 8 11/16/2016 Dysmetabolic syndrome X 07/13/2008 12/07/19 15 PAIN FLANK 07/13/2008 05/06/2009 Pain in joint, shoulder region 10/27/2006 0 11/16/2016 Tobacco use disorder 02/20/2006 01/06/2012 OTHER ABNORMAL GLUCOSE 02/20/2006 6 Mitral valve disorders 7 Overview: echocardiogram 01/30/17 EF 55% mildly abnormal LV relaxation, mild dilitationRV, left and right atria. Otherwise WNL. Saw Dr. Geiger for review. documented as of this encounter (statuses as of 03/27/2022) [facility] History of Past illness Narrative* Problem Noted Date Resolved Date Impaired fasting glucose 09/01/2011 015 Rectal bleeding 04/18/2010 11/16/2016 Other lichen, not elsewhere classified 8 11/16/2016 Dysmetabolic syndrome X 07/13/2008 12/07/19 15 PAIN FLANK 07/13/2008 05/06/2009 Pain in joint, shoulder region 10/27/2006 0 11/16/2016 Tobacco use disorder 02/20/2006 01/06/2012 OTHER ABNORMAL GLUCOSE 02/20/2006 6 Mitral valve disorders 7 Overview: echocardiogram 01/30/17 EF 55% mildly abnormal LV relaxation, mild dilitationRV, left and right atria. Otherwise WNL. Saw Dr. Geiger for review. documented as of this encounter (statuses as of 04/08/2022) [facility] History of Past illness Narrative* Problem Noted Date Resolved Date Impaired fasting glucose 09/01/2011 015 Rectal bleeding 04/18/2010 11/16/2016 Other lichen, not elsewhere classified 8 11/16/2016 Dysmetabolic syndrome X 07/13/2008 12/07/19 15 PAIN FLANK 07/13/2008 05/06/2009 Pain in joint, shoulder region 10/27/2006 0 11/16/2016 Tobacco use disorder 02/20/2006 01/06/2012 OTHER ABNORMAL GLUCOSE 02/20/2006 6 Mitral valve disorders 7 Overview: echocardiogram 01/30/17 EF 55% mildly abnormal LV relaxation, mild dilitationRV, left and right atria. Otherwise WNL. Saw Dr. Geiger for review. documented as of this encounter (statuses as of 04/10/2022) [facility] History of Past illness Narrative* Problem Noted Date Resolved Date Impaired fasting glucose 09/01/2011 015 Rectal bleeding 04/18/2010 11/16/2016 Other lichen, not elsewhere classified 8 11/16/2016 Dysmetabolic syndrome X 07/13/2008 12/07/19 15 PAIN FLANK 07/13/2008 05/06/2009 Pain in joint, shoulder region 10/27/2006 0 11/16/2016 Tobacco use disorder 02/20/2006 01/06/2012 OTHER ABNORMAL GLUCOSE 02/20/2006 6 Mitral valve disorders 7 Overview: echocardiogram 01/30/17 EF 55% mildly abnormal LV relaxation, mild dilitationRV, left and right atria. Otherwise WNL. Saw Dr. Geiger for review. documented as of this encounter (statuses as of 04/10/2022) [facility] History of Past illness Narrative* Problem Noted Date Resolved Date Impaired fasting glucose 09/01/2011 015 Rectal bleeding 04/18/2010 11/16/2016 Other lichen, not elsewhere classified 8 11/16/2016 Dysmetabolic syndrome X 07/13/2008 12/07/19 15 PAIN FLANK 07/13/2008 05/06/2009 Pain in joint, shoulder region 10/27/2006 0 11/16/2016 Tobacco use disorder 02/20/2006 01/06/2012 OTHER ABNORMAL GLUCOSE 02/20/2006 6 Mitral valve disorders 7 Overview: echocardiogram 01/30/17 EF 55% mildly abnormal LV relaxation, mild dilitationRV, left and right atria. Otherwise WNL. Saw Dr. Geiger for review. documented as of this encounter (statuses as of 04/10/2022) [facility] History of Past illness Narrative* Problem Noted Date Resolved Date Impaired fasting glucose 09/01/2011 015 Rectal bleeding 04/18/2010 11/16/2016 Other lichen, not elsewhere classified 8 11/16/2016 Dysmetabolic syndrome X 07/13/2008 12/07/19 15 PAIN FLANK 07/13/2008 05/06/2009 Pain in joint, shoulder region 10/27/2006 0 11/16/2016 Tobacco use disorder 02/20/2006 01/06/2012 OTHER ABNORMAL GLUCOSE 02/20/2006 6 Mitral valve disorders 7 Overview: echocardiogram 01/30/17 EF 55% mildly abnormal LV relaxation, mild dilitationRV, left and right atria. Otherwise WNL. Saw Dr. Geiger for review. documented as of this encounter (statuses as of 04/27/2022) [facility] History of Past illness Narrative* Problem Noted Date Resolved Date Impaired fasting glucose 09/01/2011 015 Rectal bleeding 04/18/2010 11/16/2016 Other lichen, not elsewhere classified 8 11/16/2016 Dysmetabolic syndrome X 07/13/2008 12/07/19 15 PAIN FLANK 07/13/2008 05/06/2009 Pain in joint, shoulder region 10/27/2006 0 11/16/2016 Tobacco use disorder 02/20/2006 01/06/2012 OTHER ABNORMAL GLUCOSE 02/20/2006 6 Mitral valve disorders 7 Overview: echocardiogram 01/30/17 EF 55% mildly abnormal LV relaxation, mild dilitationRV, left and right atria. Otherwise WNL. Saw Dr. Geiger for review. documented as of this encounter (statuses as of 04/28/2022) [facility] History of Past illness Narrative* Problem Noted Date Resolved Date Impaired fasting glucose 09/01/2011 015 Rectal bleeding 04/18/2010 11/16/2016 Other lichen, not elsewhere classified 8 11/16/2016 Dysmetabolic syndrome X 07/13/2008 12/07/19 15 PAIN FLANK 07/13/2008 05/06/2009 Pain in joint, shoulder region 10/27/2006 0 11/16/2016 Tobacco use disorder 02/20/2006 01/06/2012 OTHER ABNORMAL GLUCOSE 02/20/2006 6 Mitral valve disorders 7 Overview: echocardiogram 01/30/17 EF 55% mildly abnormal LV relaxation, mild dilitationRV, left and right atria. Otherwise WNL. Saw Dr. Geiger for review. documented as of this encounter (statuses as of 04/29/2022) [facility] History of Past illness Narrative* Problem Noted Date Resolved Date Impaired fasting glucose 09/01/2011 015 Rectal bleeding 04/18/2010 11/16/2016 Other lichen, not elsewhere classified 8 11/16/2016 Dysmetabolic syndrome X 07/13/2008 12/07/19 15 PAIN FLANK 07/13/2008 05/06/2009 Pain in joint, shoulder region 10/27/2006 0 11/16/2016 Tobacco use disorder 02/20/2006 01/06/2012 OTHER ABNORMAL GLUCOSE 02/20/2006 6 Mitral valve disorders 7 Overview: echocardiogram 01/30/17 EF 55% mildly abnormal LV relaxation, mild dilitationRV, left and right atria. Otherwise WNL. Saw Dr. Geiger for review. documented as of this encounter (statuses as of 05/05/2022) [facility] History of Past illness Narrative* Problem Noted Date Resolved Date Impaired fasting glucose 09/01/2011 015 Rectal bleeding 04/18/2010 11/16/2016 Other lichen, not elsewhere classified 8 11/16/2016 Dysmetabolic syndrome X 07/13/2008 12/07/19 15 PAIN FLANK 07/13/2008 05/06/2009 Pain in joint, shoulder region 10/27/2006 0 11/16/2016 Tobacco use disorder 02/20/2006 01/06/2012 OTHER ABNORMAL GLUCOSE 02/20/2006 6 Mitral valve disorders 7 Overview: echocardiogram 01/30/17 EF 55% mildly abnormal LV relaxation, mild dilitationRV, left and right atria. Otherwise WNL. Saw Dr. Geiger for review. documented as of this encounter (statuses as of 05/12/2022) [facility] History of Past illness Narrative* Problem Noted Date Resolved Date Impaired fasting glucose 09/01/2011 015 Rectal bleeding 04/18/2010 11/16/2016 Other lichen, not elsewhere classified 8 11/16/2016 Dysmetabolic syndrome X 07/13/2008 12/07/19 15 PAIN FLANK 07/13/2008 05/06/2009 Pain in joint, shoulder region 10/27/2006 0 11/16/2016 Tobacco use disorder 02/20/2006 01/06/2012 OTHER ABNORMAL GLUCOSE 02/20/2006 6 Mitral valve disorders 7 Overview: echocardiogram 01/30/17 EF 55% mildly abnormal LV relaxation, mild dilitationRV, left and right atria. Otherwise WNL. Saw Dr. Geiger for review. documented as of this encounter (statuses as of 05/14/2022) [facility] History of Past illness Narrative* Problem Noted Date Resolved Date Impaired fasting glucose 09/01/2011 015 Rectal bleeding 04/18/2010 11/16/2016 Other lichen, not elsewhere classified 8 11/16/2016 Dysmetabolic syndrome X 07/13/2008 12/07/19 15 PAIN FLANK 07/13/2008 05/06/2009 Pain in joint, shoulder region 10/27/2006 0 11/16/2016 Tobacco use disorder 02/20/2006 01/06/2012 OTHER ABNORMAL GLUCOSE 02/20/2006 6 Mitral valve disorders 7 Overview: echocardiogram 01/30/17 EF 55% mildly abnormal LV relaxation, mild dilitationRV, left and right atria. Otherwise WNL. Saw Dr. Geiger for review. documented as of this encounter (statuses as of 05/19/2022) [facility] History of Past illness Narrative* Problem Noted Date Resolved Date Impaired fasting glucose 09/01/2011 015 Rectal bleeding 04/18/2010 11/16/2016 Other lichen, not elsewhere classified 8 11/16/2016 Dysmetabolic syndrome X 07/13/2008 12/07/19 15 PAIN FLANK 07/13/2008 05/06/2009 Pain in joint, shoulder region 10/27/2006 0 11/16/2016 Tobacco use disorder 02/20/2006 01/06/2012 OTHER ABNORMAL GLUCOSE 02/20/2006 6 Mitral valve disorders 7 Overview: echocardiogram 01/30/17 EF 55% mildly abnormal LV relaxation, mild dilitationRV, left and right atria. Otherwise WNL. Saw Dr. Geiger for review. documented as of this encounter (statuses as of 06/15/2022) [facility] History of Past illness Narrative* Problem Noted Date Resolved Date Impaired fasting glucose 09/01/2011 015 Rectal bleeding 04/18/2010 11/16/2016 Other lichen, not elsewhere classified 8 11/16/2016 Dysmetabolic syndrome X 07/13/2008 12/07/19 15 PAIN FLANK 07/13/2008 05/06/2009 Pain in joint, shoulder region 10/27/2006 0 11/16/2016 Tobacco use disorder 02/20/2006 01/06/2012 OTHER ABNORMAL GLUCOSE 02/20/2006 6 Mitral valve disorders 7 Overview: echocardiogram 01/30/17 EF 55% mildly abnormal LV relaxation, mild dilitationRV, left and right atria. Otherwise WNL. Saw Dr. Geiger for review. documented as of this encounter (statuses as of 06/29/2022) [facility]2011 History of Past illness Narrative* Problem Noted Date Resolved Date Impaired fasting glucose 09/01/2011 015 Rectal bleeding 04/18/2010 11/16/2016 Other lichen, not elsewhere classified 8 11/16/2016 Dysmetabolic syndrome X 07/13/2008 12/07/19 15 PAIN FLANK 07/13/2008 05/06/2009 Pain in joint, shoulder region 10/27/2006 0 11/16/2016 Tobacco use disorder 02/20/2006 01/06/2012 OTHER ABNORMAL GLUCOSE 02/20/2006 6 Mitral valve disorders 7 Overview: echocardiogram 01/30/17 EF 55% mildly abnormal LV relaxation, mild dilitationRV, left and right atria. Otherwise WNL. Saw Dr. Geiger for review. documented as of this encounter (statuses as of 07/14/2022) [facility] History of Past illness Narrative* Problem Noted Date Resolved Date Impaired fasting glucose 09/01/2011 015 Rectal bleeding 04/18/2010 11/16/2016 Other lichen, not elsewhere classified 8 11/16/2016 Dysmetabolic syndrome X 07/13/2008 12/07/19 15 PAIN FLANK 07/13/2008 05/06/2009 Pain in joint, shoulder region 10/27/2006 0 11/16/2016 Tobacco use disorder 02/20/2006 01/06/2012 OTHER ABNORMAL GLUCOSE 02/20/2006 6 Mitral valve disorders 7 Overview: echocardiogram 01/30/17 EF 55% mildly abnormal LV relaxation, mild dilitationRV, left and right atria. Otherwise WNL. Saw Dr. Geiger for review. documented as of this encounter (statuses as of 07/15/2022) [facility] History of Past illness Narrative* Problem Noted Date Resolved Date Impaired fasting glucose 09/01/2011 015 Rectal bleeding 04/18/2010 11/16/2016 Other lichen, not elsewhere classified 8 11/16/2016 Dysmetabolic syndrome X 07/13/2008 12/07/19 15 PAIN FLANK 07/13/2008 05/06/2009 Pain in joint, shoulder region 10/27/2006 0 11/16/2016 Tobacco use disorder 02/20/2006 01/06/2012 OTHER ABNORMAL GLUCOSE 02/20/2006 6 Mitral valve disorders 7 Overview: echocardiogram 01/30/17 EF 55% mildly abnormal LV relaxation, mild dilitationRV, left and right atria. Otherwise WNL. Saw Dr. Geiger for review. documented as of this encounter (statuses as of 08/27/2022) [facility] History of Past illness Narrative* Problem Noted Date Resolved Date Impaired fasting glucose 09/01/2011 015 Rectal bleeding 04/18/2010 11/16/2016 Other lichen, not elsewhere classified 8 11/16/2016 Dysmetabolic syndrome X 07/13/2008 12/07/19 15 PAIN FLANK 07/13/2008 05/06/2009 Pain in joint, shoulder region 10/27/2006 0 11/16/2016 Tobacco use disorder 02/20/2006 01/06/2012 OTHER ABNORMAL GLUCOSE 02/20/2006 6 Mitral valve disorders 7 Overview: echocardiogram 01/30/17 EF 55% mildly abnormal LV relaxation, mild dilitationRV, left and right atria. Otherwise WNL. Saw Dr. Geiger for review. documented as of this encounter (statuses as of 12/08/2022) [facility] History of Past illness Narrative* Problem Noted Date Resolved Date Impaired fasting glucose 09/01/2011 015 Rectal bleeding 04/18/2010 11/16/2016 Other lichen, not elsewhere classified 8 11/16/2016 Dysmetabolic syndrome X 07/13/2008 12/07/19 15 PAIN FLANK 07/13/2008 05/06/2009 Pain in joint, shoulder region 10/27/2006 0 11/16/2016 Tobacco use disorder 02/20/2006 01/06/2012 OTHER ABNORMAL GLUCOSE 02/20/2006 6 Mitral valve disorders 7 Overview: echocardiogram 01/30/17 EF 55% mildly abnormal LV relaxation, mild dilitationRV, left and right atria. Otherwise WNL. Saw Dr. Geiger for review. documented as of this encounter (statuses as of 12/24/2022) [facility] History of Past illness Narrative* Problem Noted Date Resolved Date Impaired fasting glucose 09/01/2011 015 Rectal bleeding 04/18/2010 11/16/2016 Other lichen, not elsewhere classified 8 11/16/2016 Dysmetabolic syndrome X 07/13/2008 12/07/19 15 PAIN FLANK 07/13/2008 05/06/2009 Pain in joint, shoulder region 10/27/2006 0 11/16/2016 Tobacco use disorder 02/20/2006 01/06/2012 OTHER ABNORMAL GLUCOSE 02/20/2006 6 Mitral valve disorders 7 Overview: echocardiogram 01/30/17 EF 55% mildly abnormal LV relaxation, mild dilitationRV, left and right atria. Otherwise WNL. Saw Dr. Geiger for review. documented as of this encounter (statuses as of 12/29/2022) [facility] History of Past illness Narrative* Problem Noted Date Resolved Date Impaired fasting glucose 09/01/2011 015 Rectal bleeding 04/18/2010 11/16/2016 Other lichen, not elsewhere classified 8 11/16/2016 Dysmetabolic syndrome X 07/13/2008 12/07/19 15 PAIN FLANK 07/13/2008 05/06/2009 Pain in joint, shoulder region 10/27/2006 0 11/16/2016 Tobacco use disorder 02/20/2006 01/06/2012 OTHER ABNORMAL GLUCOSE 02/20/2006 6 Mitral valve disorders 7 Overview: echocardiogram 01/30/17 EF 55% mildly abnormal LV relaxation, mild dilitationRV, left and right atria. Otherwise WNL. Saw Dr. Geiger for review. documented as of this encounter (statuses as of 01/20/2023) [facility] History of Past illness Narrative* Problem Noted Date Resolved Date Impaired fasting glucose 09/01/2011 015 Rectal bleeding 04/18/2010 11/16/2016 Other lichen, not elsewhere classified 8 11/16/2016 Dysmetabolic syndrome X 07/13/2008 12/07/19 15 PAIN FLANK 07/13/2008 05/06/2009 Pain in joint, shoulder region 10/27/2006 0 11/16/2016 Tobacco use disorder 02/20/2006 01/06/2012 OTHER ABNORMAL GLUCOSE 02/20/2006 6 Mitral valve disorders 7 Overview: echocardiogram 01/30/17 EF 55% mildly abnormal LV relaxation, mild dilitationRV, left and right atria. Otherwise WNL. Saw Dr. Geiger for review. documented as of this encounter (statuses as of 01/22/2023) [facility] History of Past illness Narrative* Problem Noted Date Resolved Date Impaired fasting glucose 09/01/2011 015 Rectal bleeding 04/18/2010 11/16/2016 Other lichen, not elsewhere classified 8 11/16/2016 Dysmetabolic syndrome X 07/13/2008 12/07/19 15 PAIN FLANK 07/13/2008 05/06/2009 Pain in joint, shoulder region 10/27/2006 0 11/16/2016 Tobacco use disorder 02/20/2006 01/06/2012 OTHER ABNORMAL GLUCOSE 02/20/2006 6 Mitral valve disorders 7 Overview: echocardiogram 01/30/17 EF 55% mildly abnormal LV relaxation, mild dilitationRV, left and right atria. Otherwise WNL. Saw Dr. Geiger for review. documented as of this encounter (statuses as of 02/25/2023) [facility] History of Past illness Narrative* Problem Noted Date Resolved Date Impaired fasting glucose 09/01/2011 015 Rectal bleeding 04/18/2010 11/16/2016 Other lichen, not elsewhere classified 8 11/16/2016 Dysmetabolic syndrome X 07/13/2008 12/07/19 15 PAIN FLANK 07/13/2008 05/06/2009 Pain in joint, shoulder region 10/27/2006 0 11/16/2016 Tobacco use disorder 02/20/2006 01/06/2012 OTHER ABNORMAL GLUCOSE 02/20/2006 6 Mitral valve disorders 7 Overview: echocardiogram 01/30/17 EF 55% mildly abnormal LV relaxation, mild dilitationRV, left and right atria. Otherwise WNL. Saw Dr. Geiger for review. documented as of this encounter (statuses as of 03/09/2023) [facility] History of Past illness Narrative* Problem Noted Date Resolved Date Impaired fasting glucose 09/01/2011 015 Rectal bleeding 04/18/2010 11/16/2016 Other lichen, not elsewhere classified 8 11/16/2016 Dysmetabolic syndrome X 07/13/2008 12/07/19 15 PAIN FLANK 07/13/2008 05/06/2009 Pain in joint, shoulder region 10/27/2006 0 11/16/2016 Tobacco use disorder 02/20/2006 01/06/2012 OTHER ABNORMAL GLUCOSE 02/20/2006 6 Mitral valve disorders 7 Overview: echocardiogram 01/30/17 EF 55% mildly abnormal LV relaxation, mild dilitationRV, left and right atria. Otherwise WNL. Saw Dr. Geiger for review. documented as of this encounter (statuses as of 03/17/2023) [facility] History of Past illness Narrative* Problem Noted Date Diagnosed Date Resolved Date Impaired fasting glucose 09/01/2011 Rectal bleeding 04/18/2010 11/16/2016 Other lichen, not elsewhere classified 07/13/2008 11/16/2016 Dysmetabolic syndrome X 07/13/200811/10 PAIN FLANK 07/13/2008 05/06/2009 Pain in joint, shoulder region 10/27/2006 11/16/2016 Tobacco use disorder 02/20/2006 012 OTHER ABNORMAL GLUCOSE 02/20/200603/24 Mitral valve disorders 03/11 Overview: echocardiogram 01/30/17 EF 55% mildly abnormal LV relaxation, mild dilitationRV, left and right atria. Otherwise WNL. Saw Dr. Geiger for review. documented as of this encounter (statuses as of 05/21/2023) [facility] History of Past illness Narrative* Problem Noted Date Diagnosed Date Resolved Date Impaired fasting glucose 09/01/2011 Rectal bleeding 04/18/2010 11/16/2016 Other lichen, not elsewhere classified 07/13/2008 11/16/2016 Dysmetabolic syndrome X 07/13/200811/10 PAIN FLANK 07/13/2008 05/06/2009 Pain in joint, shoulder region 10/27/2006 11/16/2016 Tobacco use disorder 02/20/2006 012 OTHER ABNORMAL GLUCOSE 02/20/200603/24 Mitral valve disorders 03/11 Overview: echocardiogram 01/30/17 EF 55% mildly abnormal LV relaxation, mild dilitationRV, left and right atria. Otherwise WNL. Saw Dr. eGiger for review. documented as of this encounter (statuses as of 05/25/2023) [facility] History of Past illness Narrative* Problem Noted Date Diagnosed Date Resolved Date Impaired fasting glucose 09/01/2011 Rectal bleeding 04/18/2010 11/16/2016 Other lichen, not elsewhere classified 07/13/2008 11/16/2016 Dysmetabolic syndrome X 07/13/200811/10 PAIN FLANK 07/13/2008 05/06/2009 Pain in joint, shoulder region 10/27/2006 11/16/2016 Tobacco use disorder 02/20/2006 012 OTHER ABNORMAL GLUCOSE 02/20/200603/24 Mitral valve disorders 03/11 Overview: echocardiogram 01/30/17 EF 55% mildly abnormal LV relaxation, mild dilitationRV, left and right atria. Otherwise WNL. Saw Dr. Geiger for review. documented as of this encounter (statuses as of 05/27/2023) [facility] History of Past illness Narrative* Problem Noted Date Diagnosed Date Resolved Date Impaired fasting glucose 09/01/2011 Rectal bleeding 04/18/2010 11/16/2016 Other lichen, not elsewhere classified 07/13/2008 11/16/2016 Dysmetabolic syndrome X 07/13/200811/10 PAIN FLANK 07/13/2008 05/06/2009 Pain in joint, shoulder region 10/27/2006 11/16/2016 Tobacco use disorder 02/20/2006 012 OTHER ABNORMAL GLUCOSE 02/20/200603/24 Mitral valve disorders 03/11 Overview: echocardiogram 01/30/17 EF 55% mildly abnormal LV relaxation, mild dilitationRV, left and right atria. Otherwise WNL. Saw Dr. Geiger for review. documented as of this encounter (statuses as of 06/12/2023) [facility] History of Past illness Narrative* Problem Noted Date Diagnosed Date Resolved Date Impaired fasting glucose 09/01/2011 Rectal bleeding 04/18/2010 11/16/2016 Other lichen, not elsewhere classified 07/13/2008 11/16/2016 Dysmetabolic syndrome X 07/13/200811/10 PAIN FLANK 07/13/2008 05/06/2009 Pain in joint, shoulder region 10/27/2006 11/16/2016 Tobacco use disorder 02/20/2006 012 OTHER ABNORMAL GLUCOSE 02/20/200603/24 Mitral valve disorders 03/11 Overview: echocardiogram 01/30/17 EF 55% mildly abnormal LV relaxation, mild dilitationRV, left and right atria. Otherwise WNL. Saw Dr. Geiger for review. documented as of this encounter (statuses as of 06/17/2023) [facility] History of Past illness Narrative* Problem Noted Date Diagnosed Date Resolved Date Impaired fasting glucose 09/01/2011 Rectal bleeding 04/18/2010 11/16/2016 Other lichen, not elsewhere classified 07/13/2008 11/16/2016 Dysmetabolic syndrome X 07/13/200811/10 PAIN FLANK 07/13/2008 05/06/2009 Pain in joint, shoulder region 10/27/2006 11/16/2016 Tobacco use disorder 02/20/2006 012 OTHER ABNORMAL GLUCOSE 02/20/200603/24 Mitral valve disorders 03/11 Overview: echocardiogram 01/30/17 EF 55% mildly abnormal LV relaxation, mild dilitationRV, left and right atria. Otherwise WNL. Saw Dr. Geiger for review. documented as of this encounter (statuses as of 06/21/2023) [facility] History of Past illness Narrative* Problem Noted Date Diagnosed Date Resolved Date Impaired fasting glucose 09/01/2011 Rectal bleeding 04/18/2010 11/16/2016 Other lichen, not elsewhere classified 07/13/2008 11/16/2016 Dysmetabolic syndrome X 07/13/200811/10 PAIN FLANK 07/13/2008 05/06/2009 Pain in joint, shoulder region 10/27/2006 11/16/2016 Tobacco use disorder 02/20/2006 012 OTHER ABNORMAL GLUCOSE 02/20/200603/24 Mitral valve disorders 03/11 Overview: echocardiogram 01/30/17 EF 55% mildly abnormal LV relaxation, mild dilitationRV, left and right atria. Otherwise WNL. Saw Dr. Geiger for review. documented as of this encounter (statuses as of 07/26/2023) [facility] History of Past illness Narrative* Problem Noted Date Diagnosed Date Resolved Date Impaired fasting glucose 09/01/2011 Rectal bleeding 04/18/2010 11/16/2016 Other lichen, not elsewhere classified 07/13/2008 11/16/2016 Dysmetabolic syndrome X 07/13/200811/10 PAIN FLANK 07/13/2008 05/06/2009 Pain in joint, shoulder region 10/27/2006 11/16/2016 Tobacco use disorder 02/20/2006 012 OTHER ABNORMAL GLUCOSE 02/20/200603/24 Mitral valve disorders 03/11 Overview: echocardiogram 01/30/17 EF 55% mildly abnormal LV relaxation, mild dilitationRV, left and right atria. Otherwise WNL. Saw Dr. Geiger for review. documented as of this encounter (statuses as of 07/27/2023) [facility] History of Past illness Narrative* Problem Noted Date Diagnosed Date Resolved Date Impaired fasting glucose 09/01/2011 Rectal bleeding 04/18/2010 11/16/2016 Other lichen, not elsewhere classified 07/13/2008 11/16/2016 Dysmetabolic syndrome X 07/13/200811/10 PAIN FLANK 07/13/2008 05/06/2009 Pain in joint, shoulder region 10/27/2006 11/16/2016 Tobacco use disorder 02/20/2006 012 OTHER ABNORMAL GLUCOSE 02/20/200603/24 Mitral valve disorders 03/11 Overview: echocardiogram 01/30/17 EF 55% mildly abnormal LV relaxation, mild dilitationRV, left and right atria. Otherwise WNL. Saw Dr. Geiger for review. documented as of this encounter (statuses as of 07/27/2023) [facility] History of Past illness Narrative* Problem Noted Date Diagnosed Date Resolved Date Impaired fasting glucose 09/01/2011 Rectal bleeding 04/18/2010 11/16/2016 Other lichen, not elsewhere classified 07/13/2008 11/16/2016 Dysmetabolic syndrome X 07/13/200811/10 PAIN FLANK 07/13/2008 05/06/2009 Pain in joint, shoulder region 10/27/2006 11/16/2016 Tobacco use disorder 02/20/2006 012 OTHER ABNORMAL GLUCOSE 02/20/200603/24 Mitral valve disorders 03/11 Overview: echocardiogram 01/30/17 EF 55% mildly abnormal LV relaxation, mild dilitationRV, left and right atria. Otherwise WNL. Saw Dr. Geiger for review. documented as of this encounter (statuses as of 08/31/2023) [facility] History of Past illness Narrative* Problem Noted Date Diagnosed Date Resolved Date Impaired fasting glucose 09/01/2011 Rectal bleeding 04/18/2010 11/16/2016 Other lichen, not elsewhere classified 07/13/2008 11/16/2016 Dysmetabolic syndrome X 07/13/200811/10 PAIN FLANK 07/13/2008 05/06/2009 Pain in joint, shoulder region 10/27/2006 11/16/2016 Tobacco use disorder 02/20/2006 012 OTHER ABNORMAL GLUCOSE 02/20/200603/24 Mitral valve disorders 03/11 Overview: echocardiogram 01/30/17 EF 55% mildly abnormal LV relaxation, mild dilitationRV, left and right atria. Otherwise WNL. Saw Dr. Geiger for review. 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 long-term (current) use of anticoagulants Long-term (current) use of anticoagulants At risk for stroke Other specified personal history presenting hazards to health [facility] [place] [facility] Diagnosis Atrial fibrillation status post cardioversion (HCC)- Primary Atrial fibrillation S/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 Long-term (current) use of anticoagulants At risk for stroke Other specified personal history presenting hazards to health [facility] [place] [facility]* Diagnosis Coronary artery disease involving [place] heart with angina pectoris, unspecified vessel or lesion type ([facility])- Primary S/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 Essential hypertension Unspecified essential hypertension Atrial fibrillation status post cardioversion ([facility]) Atrial fibrillation Hypertensive heart disease without heart failure Unspecified hypertensive heart disease without heart failure Type 2 diabetes mellitus without complication, without long-term current use of insulin ([facility]) Chronic GERD Idiopathic gout, unspecified chronicity, unspecified site CHELSEA (obstructive sleep apnea) Obstructive sleep apnea (adult) (pediatric) Tobacco use Tobacco use disorder Anxiety Anxiety state, unspecified BPH with obstruction/lower urinary tract symptoms Hypertrophy of prostate with urinary obstruction and other lower urinary tract symptoms (LUTS) Adjustment reaction with brief depressive reaction Adjustment disorder with depressed mood Retrograde ejaculation documented in this encounter [facility] note* Diagnosis Type 2 diabetes mellitus without complication, without long-term current use of insulin ([facility])- Primary documented in this encounter [facility] note* Diagnosis Retrograde ejaculation- Primary Impotence of organic origin [facility] [place] [facility] Diagnosis Pain in both lower extremities- Primary Hypothyroidism, acquired Unspecified hypothyroidism Diarrhea, unspecified type Body mass index (BMI) 32.0-32.9, adult [facility] [place] [facility]* Diagnosis Diarrhea, unspecified type- Primary Other symptoms and signs concerning food and fluid intake [facility] [place] [facility] Diagnosis Diarrhea, unspecified type- Primary documented in this encounter [facility] note* Diagnosis Atrial fibrillation status post cardioversion (HCC)- Primary Atrial fibrillation Systolic dysfunction, left ventricle Heart disease, unspecified documented in this encounter [facility] note* Diagnosis Chronic pain of both knees- Primary Effusion of right knee Effusion of lower leg joint Prediabetes Other abnormal glucose Diarrhea, unspecified type documented in this encounter [facility] note* Diagnosis BPH with obstruction/lower urinary tract symptoms- Primary Hypertrophy of prostate with urinary obstruction and other lower urinary tract symptoms (LUTS) Impotence of organic origin documented in this encounter [facility] note* Diagnosis Coronary artery disease involving [place] heart with angina pectoris, unspecified vessel or lesion type (HCC)- Primary S/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 Essential hypertension Unspecified essential hypertension Atrial fibrillation status post cardioversion (HCC) Atrial fibrillation Hypertensive heart disease without heart failure Unspecified hypertensive heart disease without heart failure CHELSEA (obstructive sleep apnea) Obstructive sleep apnea (adult) (pediatric) Tobacco use Tobacco use disorder Type 2 diabetes mellitus without complication, without long-term current use of insulin (HCC) Chronic GERD Urrutia's esophagus without dysplasia Urrutia's esophagus Anxiety Anxiety state, unspecified Adjustment reaction with brief depressive reaction Adjustment disorder with depressed mood BPH with obstruction/lower urinary tract symptoms Hypertrophy of prostate with urinary obstruction and other lower urinary tract symptoms (LUTS) Hypothyroidism, acquired Unspecified hypothyroidism Thrombocytopenia (HCC) Thrombocytopenia, unspecified Seasonal allergic rhinitis, unspecified trigger documented in this encounter [facility] note* Diagnosis Coronary artery disease involving [place] heart with angina pectoris, unspecified vessel or lesion type (HCC)- Primary S/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 documented in this encounter [facility] note* Diagnosis Coronary artery disease involving [place] heart with angina pectoris, unspecified vessel or lesion type (HCC)- Primary S/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 Atrial fibrillation status post cardioversion (HCC) Atrial fibrillation Systolic dysfunction, left ventricle Heart disease, unspecified Essential hypertension Unspecified essential hypertension Hypertensive heart disease without heart failure Unspecified hypertensive heart disease without heart failure Type 2 diabetes mellitus without complication, without long-term current use of insulin (HCC) Hypothyroidism, acquired Unspecified hypothyroidism Thrombocytopenia (HCC) Thrombocytopenia, unspecified Chronic GERD BPH with obstruction/lower urinary tract symptoms Hypertrophy of prostate with urinary obstruction and other lower urinary tract symptoms (LUTS) Obesity, Class I, BMI 30-34.9 Obesity, unspecified Idiopathic gout, unspecified chronicity, unspecified site Adjustment reaction with brief depressive reaction Adjustment disorder with depressed mood Preoperative clearance Preoperative examination, unspecified Chronic cough Cough documented in this encounter [facility] note* Diagnosis Bilateral shoulder pain, unspecified chronicity- Primary Hyperglycemia Other abnormal glucose documented in this encounter [facility] note* Diagnosis Bilateral shoulder pain, unspecified chronicity- Primary documented in this encounter [facility] note* Diagnosis Macrocytic anemia- Primary Unspecified deficiency anemia Elevated TSH Nonspecific abnormal results of thyroid function study Low platelet count ([facility]) Hypertensive heart disease without heart failure Unspecified hypertensive heart disease without heart failure Hypothyroidism, acquired Unspecified hypothyroidism Thrombocytopenia ([facility]) Thrombocytopenia, unspecified Prediabetes Other abnormal glucose Acquired hypothyroidism Unspecified hypothyroidism documented in this encounter [facility] note* Diagnosis Coronary artery disease involving [place] heart with angina pectoris, unspecified vessel or lesion type ([facility])- Primary S/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 Hypertensive heart disease without heart failure Unspecified hypertensive heart disease without heart failure Atrial fibrillation status post cardioversion ([facility]) Atrial fibrillation Systolic dysfunction, left ventricle Heart disease, unspecified Essential hypertension Unspecified essential hypertension Hyperglycemia Other abnormal glucose Prediabetes Other abnormal glucose Obesity, Class I, BMI 30-34.9 Obesity, unspecified Hyperlipidemia, mixed Mixed hyperlipidemia Systolic CHF with reduced left ventricular function, NYHA class 2 ([facility]) Unspecified systolic heart failure documented in this encounter [facility] note* Diagnosis Urrutia's esophagus without dysplasia Urrutia's esophagus documented in this encounter [facility] note* Diagnosis Atrial fibrillation status post cardioversion ([facility]) Atrial fibrillation Hypertensive heart disease without heart failure Unspecified hypertensive heart disease without heart failure Chronic cough Cough documented in this encounter [facility] note* Diagnosis Adjustment reaction with brief depressive reaction Adjustment disorder with depressed mood documented in this encounter [facility] note* Diagnosis Hypothyroidism, acquired Unspecified hypothyroidism documented in this encounter [facility] note* Diagnosis Gout, unspecified cause, unspecified chronicity, unspecified site Hypothyroidism, acquired Unspecified hypothyroidism Atrial fibrillation status post cardioversion ([facility]) Atrial fibrillation Hypertensive heart disease without heart failure Unspecified hypertensive heart disease without heart failure Chronic cough Cough Urrutia's esophagus without dysplasia Urrutia's esophagus Prediabetes Other abnormal glucose Adjustment reaction with brief depressive reaction Adjustment disorder with depressed mood documented in this encounter [facility] for referral (narrative)* Outpatient Procedure (Routine) - Pending Review Specialty Diagnoses / Procedures Referred By Contac t Referred To [facility] Diagnoses Atrial fibrillation status post cardioversion (HCC) Systolic dysfunction, left ventricle Procedures ECHO ECHO TTHRC R-T 2D W/WOM-MODE COMPL SPEC&COLR D Anastasiya Schwab MD [address] [place] [address] [facility] [place] [address] [place] [address] Referral ID Status Reason Start Date Expiration Date Visits Requested Visits Authorized [id number] Pending Review Auto-Generat ed Referral 08/12/2022 05/12/2023 1 1 [facility] for referral (narrative)* Diagnostic Procedure Only (Routine) - Closed Specialty Diagnoses / Procedures Referred By Contac srinath Referred To Contact XR IMAGING Diagnoses Chronic pain of both knees Effusion of right knee Procedures XR KNEE GENERAL 4V AP BOTH/PA BOTH/LAT/MERC BILATERAL RADIOLOGIC EXAM KNEE COMPLETE 4/MORE VIEWS Shelia Orr PA-C [address] [place] [address] Xr Imaging Referral ID Status Reason Start Date Expiration Date V isits Requested Visits Authorized [id number] Closed Auto-Generate d Referral 05/14/2022 06/13/2023 1 1 [facility] Advance Directives No Advanced Directives Records FoundDocuments on File Type Date Recorded Patient Clip Loading Machine Feeder Expl anation Advance Directive(s) 08/26/2021 9:33 AM Advance Directive(s) 08/13/2021 6:53 AM Advance Directive(s) 04/09/2021 7:08 AM Advance Directive(s) 03/26/2021 3:34 PM Latest Code Status on File Code Status Date Activated Date Inactivated Comments Full Code 08/21/2021 4:20 PM 08/25/2021 7:12 PM Documents on File Type Date Recorded Patient Clip Loading Machine Feeder Expl anation Advance Directive(s) 08/26/2021 9:33 AM Advance Directive(s) 08/13/2021 6:53 AM Advance Directive(s) 04/09/2021 7:08 AM Advance Directive(s) 03/26/2021 3:34 PM Latest Code Status on File Code Status Date Activated Date Inactivated Comments Full Code 08/21/2021 4:20 PM 08/25/2021 7:12 PM Latest Code Status on File Code Status Date Activated Date Inactivated Comments Full Code 08/21/2021 4:20 PM 08/25/2021 7:12 PM Reason for Referral Specialty Diagnoses / Procedures Referred By Contac t Referred To Contact Urology Diagnoses Retrograde ejaculation Procedures CONSULT TO UROLOGY OFFICE/OUTPATIENT [facility] 60-74 MINUTES Shelia Orr PA-C [address] [place] [address] Referral ID Status Reason Start Date Expiration Date Visits Requested Visits Authorized [id number] Authorized PCP Requested Referral 03/26/2022 03/26/2023 1 1 Specialty Diagnoses / Procedures Referred By Contac t Referred To Contact Gastroenterology Diagnoses Diarrhea, unspecified type Other symptoms and signs concerning food and fluid intake Procedures CONSULT TO GASTROENTEROLOGY OFFICE/OUTPATIENT [facility] 60-74 MINUTES Candie Hwang APRN.FOLLOW UP SPECIALIST [address] [place] [address] Referral ID Status Reason Start Date Expiration Date Visits Requested Visits Authorized [id number] Authorized PCP Requested Referral 04/29/2022 04/29/2023 1 1 Specialty Diagnoses / Procedures Referred By Contac t Referred To Contact Gastroenterology Diagnoses Diarrhea, unspecified type Procedures CONSULT TO GASTROENTEROLOGY OFFICE/OUTPATIENT [facility] 60-74 MINUTES Candie Hwang APRN.FOLLOW UP SPECIALIST [address] [place] [address] Referral ID Status Reason Start Date Expiration Date Visits Requested Visits Authorized [id number] Authorized PCP Requested Referral 05/04/2022 05/04/2023 1 1 Specialty Diagnoses / Procedures Referred By Contac t Referred To Contact Cardiology Diagnoses Coronary artery disease involving [place] heart with angina pectoris, unspecified vessel or lesion type (HCC) S/P CABG x 3 Atrial fibrillation status post cardioversion (HCC) Systolic dysfunction, left ventricle Essential hypertension Hypertensive heart disease without heart failure Preoperative clearance Procedures CONSULT TO CARDIOLOGY OFFICE/OUTPATIENT [facility] 60-74 MINUTES Shelia Orr PA-C [address] [place] [address] Referral ID Status Reason Start Date Expiration Date Visits Requested Visits Authorized [id number] Authorized PCP Requested Referral 01/22/2023 01/22/2024 1 1 Specialty Diagnoses / Procedures Referred By Contac t Referred To [facility] Diagnoses Preoperative clearance Procedures ECG COMPLETE ECG ROUTINE ECG W/LEAST 12 LDS W/I&R Shelia rOr PA-C [address] [place] [address] [facility] [place] [address] [place] [id number] Referral ID Status Reason Start Date Expiration Date Visits Requested Visits Authorized [id number] Pending Review Auto-Generat ed Referral 01/22/2023 01/22/2024 1 1 Specialty Diagnoses / Procedures Referred By Contac t Referred To Contact [facility] Diagnoses Bilateral shoulder pain, unspecified chronicity Procedures CONSULT TO PHYSICAL THERAPY PHYSICAL THERAPY EVALUATION HIGH COMPLEX 45 MINS Shelia Orr PA-C [address] [place] [address] [facility] [address] [address] Referral ID Status Reason Start Date Expiration Date Visits Requested Visits Authorized [id number] Authorized PCP Requested Referral Auto-Generate d Referral 02/25/2023 02/25/2024 99 99 Specialty Diagnoses / Procedures Referred By Contac t Referred To Contact XR IMAGING Diagnoses Bilateral shoulder pain, unspecified chronicity Procedures XR SHOULDER GENERAL 3V OR MORE AP/TRUE AP/OTHER RIGHT RADEX SHOULDER COMPLETE MINIMUM 2 VIEWS Shelia Orr PA-C [address] [place] [address] Xr Imaging Referral ID Status Reason Start Date Expiration Date V isits Requested Visits Authorized [id number] Closed Auto-Generate d Referral 02/25/2023 03/26/2024 1 1 Specialty Diagnoses / Procedures Referred By Contac t Referred To Contact XR IMAGING Diagnoses Bilateral shoulder pain, unspecified chronicity Procedures XR SHOULDER GENERAL 3V OR MORE AP/TRUE AP/OTHER LEFT RADEX SHOULDER COMPLETE MINIMUM 2 VIEWS Shelia Orr PA-C [address] [place] [address] Xr Imaging Referral ID Status Reason Start Date Expiration Date V isits Requested Visits Authorized [id number] Closed Auto-Generate d Referral 02/25/2023 03/26/2024 1 1 Specialty Diagnoses / Procedures Referred By Contac t Referred To Contact [facility] Diagnoses Bilateral shoulder pain, unspecified chronicity Procedures PT REHAB FOLLOW UP ORDER THERAPEUTIC EXERCISES RE, EA 15 MIN. Lionel Burgos, PT [address] [place] [address] [facility] [place] [address] [place] [address] Referral ID Status Reason Start Date Expiration Date Visits Requested Visits Authorized [id number] Pending Review PCP Requested Referral Auto-Generate d Referral 03/09/2023 06/07/2023 1 1 Summary Purpose Family History No Family History Records FoundNo Family History Records Found Additional Source Comments Source Comments (unrecognize d section and content) In the event this informatio n is protected by the Federal Confidentiality of Alcohol and Drug Abuse Patient Records regulations: The Federal rules restrict any use of the information to criminally investigate or prosecute any alcohol or drug abuse patient.[facility] the event this information is protected by the Federal Confidentiality of Alcohol and Drug Abuse Patient Records regulations: The Federal rules restrict any use of the information to criminally investigate or prosecute any alcohol or drug abuse patient.[facility] InstituteIn the event this information is protected by the Federal Confidentiality of Alcohol and Drug Abuse Patient Records regulations: The Federal rules restrict any use of the information to criminally investigate or prosecute any alcohol or drug abuse patient.[facility] InstituteIn the event this information is protected by the Federal Confidentiality of Alcohol and Drug Abuse Patient Records regulations: The Federal rules restrict any use of the information to criminally investigate or prosecute any alcohol or drug abuse patient.[facility] InstituteIn the event this information is protected by the Federal Confidentiality of Alcohol and Drug Abuse Patient Records regulations: The Federal rules restrict any use of the information to criminally investigate or prosecute any alcohol or drug abuse patient.[facility] InstituteIn the event this information is protected by the Federal Confidentiality of Alcohol and Drug Abuse Patient Records regulations: The Federal rules restrict any use of the information to criminally investigate or prosecute any alcohol or drug abuse patient.[facility] InstituteIn the event this information is protected by the Federal Confidentiality of Alcohol and Drug Abuse Patient Records regulations: The Federal rules restrict any use of the information to criminally investigate or prosecute any alcohol or drug abuse patient.[facility] InstituteIn the event this information is protected by the Federal Confidentiality of Alcohol and Drug Abuse Patient Records regulations: The Federal rules restrict any use of the information to criminally investigate or prosecute any alcohol or drug abuse patient.[facility] InstituteIn the event this information is protected by the Federal Confidentiality of Alcohol and Drug Abuse Patient Records regulations: The Federal rules restrict any use of the information to criminally investigate or prosecute any alcohol or drug abuse patient.[facility] InstituteIn the event this information is protected by the Federal Confidentiality of Alcohol and Drug Abuse Patient Records regulations: The Federal rules restrict any use of the information to criminally investigate or prosecute any alcohol or drug abuse patient.[facility] InstituteIn the event this information is protected by the Federal Confidentiality of Alcohol and Drug Abuse Patient Records regulations: The Federal rules restrict any use of the information to criminally investigate or prosecute any alcohol or drug abuse patient.[facility] InstituteIn the event this information is protected by the Federal Confidentiality of Alcohol and Drug Abuse Patient Records regulations: The Federal rules restrict any use of the information to criminally investigate or prosecute any alcohol or drug abuse patient.[facility] InstituteIn the event this information is protected by the Federal Confidentiality of Alcohol and Drug Abuse Patient Records regulations: The Federal rules restrict any use of the information to criminally investigate or prosecute any alcohol or drug abuse patient.[facility] InstituteIn the event this information is protected by the Federal Confidentiality of Alcohol and Drug Abuse Patient Records regulations: The Federal rules restrict any use of the information to criminally investigate or prosecute any alcohol or drug abuse patient.[facility] InstituteIn the event this information is protected by the Federal Confidentiality of Alcohol and Drug Abuse Patient Records regulations: The Federal rules restrict any use of the information to criminally investigate or prosecute any alcohol or drug abuse patient.[facility] InstituteIn the event this information is protected by the Federal Confidentiality of Alcohol and Drug Abuse Patient Records regulations: The Federal rules restrict any use of the information to criminally investigate or prosecute any alcohol or drug abuse patient.[facility] InstituteIn the event this information is protected by the Federal Confidentiality of Alcohol and Drug Abuse Patient Records regulations: The Federal rules restrict any use of the information to criminally investigate or prosecute any alcohol or drug abuse patient.[facility] InstituteIn the event this information is protected by the Federal Confidentiality of Alcohol and Drug Abuse Patient Records regulations: The Federal rules restrict any use of the information to criminally investigate or prosecute any alcohol or drug abuse patient.[facility] InstituteIn the event this information is protected by the Federal Confidentiality of Alcohol and Drug Abuse Patient Records regulations: The Federal rules restrict any use of the information to criminally investigate or prosecute any alcohol or drug abuse patient.[facility] InstituteIn the event this information is protected by the Federal Confidentiality of Alcohol and Drug Abuse Patient Records regulations: The Federal rules restrict any use of the information to criminally investigate or prosecute any alcohol or drug abuse patient.[facility] InstituteIn the event this information is protected by the Federal Confidentiality of Alcohol and Drug Abuse Patient Records regulations: The Federal rules restrict any use of the information to criminally investigate or prosecute any alcohol or drug abuse patient.[facility] InstituteIn the event this information is protected by the Federal Confidentiality of Alcohol and Drug Abuse Patient Records regulations: The Federal rules restrict any use of the information to criminally investigate or prosecute any alcohol or drug abuse patient.[facility] InstituteIn the event this information is protected by the Federal Confidentiality of Alcohol and Drug Abuse Patient Records regulations: The Federal rules restrict any use of the information to criminally investigate or prosecute any alcohol or drug abuse patient.[facility] InstituteIn the event this information is protected by the Federal Confidentiality of Alcohol and Drug Abuse Patient Records regulations: The Federal rules restrict any use of the information to criminally investigate or prosecute any alcohol or drug abuse patient.[facility] InstituteIn the event this information is protected by the Federal Confidentiality of Alcohol and Drug Abuse Patient Records regulations: The Federal rules restrict any use of the information to criminally investigate or prosecute any alcohol or drug abuse patient.[facility] InstituteIn the event this information is protected by the Federal Confidentiality of Alcohol and Drug Abuse Patient Records regulations: The Federal rules restrict any use of the information to criminally investigate or prosecute any alcohol or drug abuse patient.[facility] InstituteIn the event this information is protected by the Federal Confidentiality of Alcohol and Drug Abuse Patient Records regulations: The Federal rules restrict any use of the information to criminally investigate or prosecute any alcohol or drug abuse patient.[facility] InstituteIn the event this information is protected by the Federal Confidentiality of Alcohol and Drug Abuse Patient Records regulations: The Federal rules restrict any use of the information to criminally investigate or prosecute any alcohol or drug abuse patient.[facility] InstituteIn the event this information is protected by the Federal Confidentiality of Alcohol and Drug Abuse Patient Records regulations: The Federal rules restrict any use of the information to criminally investigate or prosecute any alcohol or drug abuse patient.[facility] InstituteIn the event this information is protected by the Federal Confidentiality of Alcohol and Drug Abuse Patient Records regulations: The Federal rules restrict any use of the information to criminally investigate or prosecute any alcohol or drug abuse patient.[facility] InstituteIn the event this information is protected by the Federal Confidentiality of Alcohol and Drug Abuse Patient Records regulations: The Federal rules restrict any use of the information to criminally investigate or prosecute any alcohol or drug abuse patient.[facility] InstituteIn the event this information is protected by the Federal Confidentiality of Alcohol and Drug Abuse Patient Records regulations: The Federal rules restrict any use of the information to criminally investigate or prosecute any alcohol or drug abuse patient.[facility] InstituteIn the event this information is protected by the Federal Confidentiality of Alcohol and Drug Abuse Patient Records regulations: The Federal rules restrict any use of the information to criminally investigate or prosecute any alcohol or drug abuse patient.[facility] InstituteIn the event this information is protected by the Federal Confidentiality of Alcohol and Drug Abuse Patient Records regulations: The Federal rules restrict any use of the information to criminally investigate or prosecute any alcohol or drug abuse patient.[facility] InstituteIn the event this information is protected by the Federal Confidentiality of Alcohol and Drug Abuse Patient Records regulations: The Federal rules restrict any use of the information to criminally investigate or prosecute any alcohol or drug abuse patient.[facility] InstituteIn the event this information is protected by the Federal Confidentiality of Alcohol and Drug Abuse Patient Records regulations: The Federal rules restrict any use of the information to criminally investigate or prosecute any alcohol or drug abuse patient.[facility] InstituteIn the event this information is protected by the Federal Confidentiality of Alcohol and Drug Abuse Patient Records regulations: The Federal rules restrict any use of the information to criminally investigate or prosecute any alcohol or drug abuse patient.[facility] InstituteIn the event this information is protected by the Federal Confidentiality of Alcohol and Drug Abuse Patient Records regulations: The Federal rules restrict any use of the information to criminally investigate or prosecute any alcohol or drug abuse patient.[facility] InstituteIn the event this information is protected by the Federal Confidentiality of Alcohol and Drug Abuse Patient Records regulations: The Federal rules restrict any use of the information to criminally investigate or prosecute any alcohol or drug abuse patient.[facility] InstituteIn the event this information is protected by the Federal Confidentiality of Alcohol and Drug Abuse Patient Records regulations: The Federal rules restrict any use of the information to criminally investigate or prosecute any alcohol or drug abuse patient.[facility] InstituteIn the event this information is protected by the Federal Confidentiality of Alcohol and Drug Abuse Patient Records regulations: The Federal rules restrict any use of the information to criminally investigate or prosecute any alcohol or drug abuse patient.[facility] InstituteIn the event this information is protected by the Federal Confidentiality of Alcohol and Drug Abuse Patient Records regulations: The Federal rules restrict any use of the information to criminally investigate or prosecute any alcohol or drug abuse patient.[facility] Reason for Visit (unrecogniz ed section and content) Specialty Diagnoses / Procedures Referred By Trent t Referred To Contact Urology Diagnoses Retrograde ejaculation Procedures CONSULT TO UROLOGY OFFICE/OUTPATIENT [facility] 60-74 MINUTES Shelia Orr PA-C [address] [place] [address] Referral ID Status Reason Start Date Expiration Date V isits Requested Visits Authorized [id number] Closed PCP Requested Referral 03/26/2022 03/26/2023 1 1 Reason Comments Results Reason Comments Cardiology Follow Up follow up a fib Reason Comments Medication Follow-up Reason Comments Medication Request Reason Comments 6 Month Exam Reason Comments Medication Question Patient Update Reason Onset Date Comments Refill Request Refill Request 04/10/2022 Reason Comments Consult Reason Comments ED Follow-up Reason Comments Results Reason Comments CARD Follow Up 3 Month A-FIB FOLLOW UP Reason Comments Follow Up Stopped Lipitor Knee Pain Reason Comments disc request Reason Comments Rx refill; not on current med list Reason Onset Date Comments Refill Request 06/29/2022 Reason Comments Medication Problem with Iron Reason Comments Follow Up 3 month follow up Reason Comments Medication Problem Reason Comments Patient Question Lipids Reason Onset Date Comments Refill Request 12/28/2022 Reason Comments Forms Reason Comments Pre-Op Exam TKR Right, Dr Leyla chakraborty Weight Problem Reason Comments 6 Month Exam Reason Comments PT Eval Specialty Diagnoses / Procedures Referred By Trent t Referred To Contact [facility] Diagnoses Bilateral shoulder pain, unspecified chronicity Procedures CONSULT TO PHYSICAL THERAPY PHYSICAL THERAPY EVALUATION HIGH COMPLEX 45 MINS Shelia Orr PA-C [address] [place] [address] [facility] [place] [address] [place] [address] Referral ID Status Reason Start Date Expiration Date Visits Requested Visits Authorized [id number] Authorized PCP Requested Referral Auto-Generate d Referral 02/25/2023 02/25/2024 99 99 Reason Onset Date Comments Refill Request 03/13/2023 Reason Onset Date Comments Refill Request 05/23/2023 Reason Onset Date Comments Refill Request 06/10/2023 Reason Onset Date Comments Refill Request 06/17/2023 Reason Onset Date Comments Refill Request 06/19/2023 Reason Onset Date Comments Refill Request 07/24/2023 Reason Onset Date Comments Refill Request 07/26/2023 Reason Onset Date Comments Refill Request 08/29/2023 Reason Onset Date Comments Refill Request 09/07/2023 Care Teams (unrecognized sec tion and content) Store Standards Associate Relationship Specialty Start Date End Date Oliver Regalado MD [address] [place], [place] [id number] PCP - General Family Practice 10/24/15 Saul Bourgeois [address] [facility] [address] [place], [place] [address] Cardiology 07/18/21 Fredy Wall MD [address] [place], [place] [id number] Home Care Physician General Surgery 08/14/21 Juaquin Ernst APRN.FOLLOW UP SPECIALIST 1 [facility] [address] [place], [place] [id number] Referring Cardiac Surg 08/20/21 Store Standards Associate Relationship Specialty Start Date End Date Oliver Regalado MD [address] [place] [address] PCP - General Family Practice 10/24/15 Christelle, [place] S [address] [place] [address] Cardiology 07/18/21 Ferdy Wall MD [address] [place] [address] Home Care Physician General Surgery 08/14/21 Juaquin Ernst, SUPERINTENDENT MARINE.FOLLOW UP SPECIALIST [address] [facility] [address] [place] [address] Referring Cardiac Surg 08/20/21 Store Standards Associate Relationship Specialty Start Date End Date Oliver Regalado MD [address] [place] [address] PCP - General Family Practice 10/24/15 Christelle, [place] S [address] [place] [address] Cardiology 07/18/21 Fredy Wall MD [address] [place] [address] Home Care Physician General Surgery 08/14/21 Juaquin Ernst, SUPERINTENDENT MARINE.FOLLOW UP SPECIALIST [address] [facility] [address] [place] [address] Referring Cardiac Surg 08/20/21 Store Standards Associate Relationship Specialty Start Date End Date Oliver Regalado MD [address] [facility] [place] [address] PCP - General Family Practice 10/24/15 Christelle, [place] S [address] [place] [address] Cardiology 07/18/21 Fredy Wall MD [address] [place] [address] Home Care Physician General Surgery 08/14/21 Juaquin Ernst, SUPERINTENDENT MARINE.FOLLOW UP SPECIALIST [address] [place] [address] Referring Cardiac Surg 08/20/21 Store Standards Associate Relationship Specialty Start Date End Date Oliver Regalado MD [address] [facility] [place] [place] [address] PCP - General Family Practice 10/24/15 Christelle, Saul S [address] [place] [address] Cardiology 07/18/21 Fredy Wall MD [address] [place] [address] Home Care Physician General Surgery 08/14/21 Juaquin Ernst, SUPERINTENDENT MARINE.FOLLOW UP SPECIALIST [address] [facility] [address] [place] [address] Referring Cardiac Surg 08/20/21 Store Standards Associate Relationship Specialty Start Date End Date Oliver Regalado MD [address] [place] [address] PCP - General Family Practice 10/24/15 Christelle, [place] S [address] [place] [address] Cardiology 07/18/21 Fredy Wall MD [address] [place] [address] Home Care Physician General Surgery 08/14/21 Juaquin Ernst, SUPERINTENDENT MARINE.FOLLOW UP SPECIALIST [address] [place] [address] Referring Cardiac Surg 08/20/21 Store Standards Associate Relationship Specialty Start Date End Date Oliver Regalado MD [address] [facility] [place] [address] PCP - General Family Practice 10/24/15 Christelle, Saul S [address] [place] [address] Cardiology 07/18/21 Fredy Wall MD [address] [place] [address] Home Care Physician General Surgery 08/14/21 Juaquin Ernst, SUPERINTENDENT MARINE.FOLLOW UP SPECIALIST [address] [facility] [address] [place] [address] Referring Cardiac Surg 08/20/21 Store Standards Associate Relationship Specialty Start Date End Date Oliver Regalado MD [address] [facility] [place] [address] PCP - General Family Practice 10/24/15 Christelle, [place] S [address] [place] [address], [place] [address] Cardiology 07/18/21 Fredy Wall MD [address] [place] [address] Home Care Physician General Surgery 08/14/21 Juaquin Ernst, SUPERINTENDENT MARINE.FOLLOW UP SPECIALIST [address] [facility] [address] [place] [address] Referring Cardiac Surg 08/20/21 Murray Persaud, MAX [address] [place], [place] [id number] Respiratory Support Technician Post Acute Care 08/20/21 09/14/21 Store Standards Associate Relationship Specialty Start Date End Date Oliver Regalado MD [address] [facility] [place] [address] PCP - General Family Practice 10/24/15 Christelle, Saul S [address] [place] [address] Cardiology 07/18/21 Fredy Wall MD [address] [place] [address] Home Care Physician General Surgery 08/14/21 Juaquin Ernst, SUPERINTENDENT MARINE.FOLLOW UP SPECIALIST [address] [place] [address] Referring Cardiac Surg 08/20/21 Store Standards Associate Relationship Specialty Start Date End Date Oliver Regalado MD [address] [facility] [place] [address] PCP - General Family Practice 10/24/15 Christelle, [place] S [address] [place] [address] Cardiology 07/18/21 Fredy Wall MD [address] [place] [address] Home Care Physician General Surgery 08/14/21 Juaquin Ernst, SUPERINTENDENT MARINE.FOLLOW UP SPECIALIST [address] [facility] [address] [place] [address] Referring Cardiac Surg 08/20/21 Store Standards Associate Relationship Specialty Start Date End Date Oliver Regalado MD [address] [facility] [place] [address] PCP - General Family Practice 10/24/15 Christelle, [place] S [address] [place] [address] Cardiology 07/18/21 Fredy Wall MD [address] [place] [address] Home Care Physician General Surgery 08/14/21 Juaquin Ernst, SUPERINTENDENT MARINE.FOLLOW UP SPECIALIST [address] [place] [address] Referring Cardiac Surg 08/20/21 Store Standards Associate Relationship Specialty Start Date End Date Oliver Regalado MD [address] [place] [address] PCP - General Family Practice 10/24/15 Christelle, Saul S [address] [place] [address], [place] [address] Cardiology 07/18/21 Fredy Wall MD [address] [place] [address] Home Care Physician General Surgery 08/14/21 Juaquin Ernst, SUPERINTENDENT MARINE.FOLLOW UP SPECIALIST [address] [facility] [address] [place] [address] Referring Cardiac Surg 08/20/21 Store Standards Associate Relationship Specialty Start Date End Date Oliver Regalado MD [address] [place] [address] PCP - General Family Practice 10/24/15 Christelle, [place] S [address] [place] [address], [place] [address] Cardiology 07/18/21 Fredy Wall MD [address] [place] [address] Home Care Physician General Surgery 08/14/21 Juaquin Ernst, SUPERINTENDENT MARINE.FOLLOW UP SPECIALIST [address] [facility] [address] [place] [address] Referring Cardiac Surg 08/20/21 Store Standards Associate Relationship Specialty Start Date End Date Oliver Regalado MD [address] [place] [address] PCP - General Family Practice 10/24/15 Christelle, Saul S [address] [place] [address] Cardiology 07/18/21 Fredy Wall MD [address] [place] [address] Home Care Physician General Surgery 08/14/21 Juaquin Ernst, SUPERINTENDENT MARINE.FOLLOW UP SPECIALIST [address] [facility] [address] [place] [address] Referring Cardiac Surg 08/20/21 Store Standards Associate Relationship Specialty Start Date End Date Oliver Regalado MD [address] [facility] [place] [address] PCP - General Family Practice 10/24/15 Christelle, Saul S [address] [facility] [address] [place] [address] Cardiology 07/18/21 Fredy Wall MD [address] [place] [address] Home Care Physician General Surgery 08/14/21 Juaquin Ernst, SUPERINTENDENT MARINE.FOLLOW UP SPECIALIST [address] [facility] [address] [place] [address] Referring Cardiac Surg 08/20/21 Store Standards Associate Relationship Specialty Start Date End Date Oliver Regalado MD [address] [facility] [place] [address] PCP - General Family Practice 10/24/15 Christelle, [place] S [address] [place] [address] Cardiology 07/18/21 Fredy Wall MD [address] [place] [address] Home Care Physician General Surgery 08/14/21 Juaquin Ernst, SUPERINTENDENT MARINE.FOLLOW UP SPECIALIST [address] [facility] [address] [place] [address] Referring Cardiac Surg 08/20/21 Store Standards Associate Relationship Specialty Start Date End Date Oliver Regalado MD [address] [facility] [place] [address] PCP - General Family Medicine 10/24/15 Christelle, [place] S [address] [place] [address] Cardiology 07/18/21 Fredy Wall MD [address] [place] [address] Home Care Provider General Surgery 08/14/21 Juaquin Ernst, SUPERINTENDENT MARINE.FOLLOW UP SPECIALIST [address] [facility] [address] [place] [address] Referring Cardiac Surg 08/20/21 Store Standards Associate Relationship Specialty Start Date End Date Oliver Regalado MD [address] [facility] [place] [address] PCP - General Family Medicine 10/24/15 Christelle, Saul S [address] [place] [address], [place] [address] Cardiology 07/18/21 Fredy Wall MD [address] [place] [address] Home Care Provider General Surgery 08/14/21 Juaquin Ernst, SUPERINTENDENT MARINE.FOLLOW UP SPECIALIST [address] [facility] [address] [place] [address] Referring Cardiac Surg 08/20/21 Store Standards Associate Relationship Specialty Start Date End Date Oliver Regalado MD [address] [facility] [place] [address] PCP - General Family Medicine 10/24/15 Christelle, Saul S [address] [place] [address] Cardiology 07/18/21 Fredy Wall MD [address] [place] [address] Home Care Provider General Surgery 08/14/21 Juaquin Ernst, SUPERINTENDENT MARINE.FOLLOW UP SPECIALIST [address] [facility] [address] [place] [address] Referring Cardiac Surg 08/20/21 Store Standards Associate Relationship Specialty Start Date End Date Oliver Regalado MD [address] [place] [address] PCP - General Family Medicine 10/24/15 Christelle, [place] S [address] [place] [address], [place] [address] Cardiology 07/18/21 Fredy Wall MD [address] [place] [address] Home Care Provider General Surgery 08/14/21 Juaquin Ernst, SUPERINTENDENT MARINE.FOLLOW UP SPECIALIST [address] [facility] [address] [place] [address] Referring Cardiac Surg 08/20/21 Store Standards Associate Relationship Specialty Start Date End Date Oliver Regalado MD [address] [place] [address] PCP - General Family Medicine 10/24/15 Christelle, [place] S [address] [place] [address] Cardiology 07/18/21 Fredy Wall MD [address] [place] [address] Home Care Provider General Surgery 08/14/21 Juaquin Ernst, SUPERINTENDENT MARINE.FOLLOW UP SPECIALIST [address] [facility] [address] [place] [address] Referring Cardiac Surg 08/20/21 Store Standards Associate Relationship Specialty Start Date End Date Oliver Regalado MD [address] [facility] [place] [address] PCP - General Family Medicine 10/24/15 Christelle, [place] S [address] [place] [address] Cardiology 07/18/21 Fredy Wall MD [address] [place] [address] Home Care Provider General Surgery 08/14/21 Juaquin Ernst, SUPERINTENDENT MARINE.FOLLOW UP SPECIALIST [address] [facility] [address] [place] [address] Referring Cardiac Surg 08/20/21 Store Standards Associate Relationship Specialty Start Date End Date Oliver Regalado MD [address] [facility] [place] [address] PCP - General Family Medicine 10/24/15 Christelle, [place] S [address] [place] [address] Cardiology 07/18/21 Fredy Wall MD [address] [place] [address] Home Care Provider General Surgery 08/14/21 Juaquin Ernst, SUPERINTENDENT MARINE.FOLLOW UP SPECIALIST [address] [facility] [address] [place] [address] Referring Cardiac Surg 08/20/21 Store Standards Associate Relationship Specialty Start Date End Date Oliver Regalado MD [address] [facility] [place] [address] PCP - General Family Medicine 10/24/15 Christelle, [place] S [address] [place] [address] Cardiology 07/18/21 Fredy Wall MD [address] [place] [address] Home Care Provider General Surgery 08/14/21 Juaquin Ernst, SUPERINTENDENT MARINE.FOLLOW UP SPECIALIST [address] [facility] [address] [place] [address] Referring Cardiac Surg 08/20/21 Store Standards Associate Relationship Specialty Start Date End Date Shelia Orr PA-C [address] [place] [address] PCP - General Family Medicine 05/20/23 ChristelleMitchelSaul S [address] [address] Cardiology 07/18/21 Fredy Wall MD [address] [facility] [place] [address] Home Care Provider General Surgery 08/14/21 Juaquin Ernst, SUPERINTENDENT MARINE.FOLLOW UP SPECIALIST 1 [facility] [address] [place] [address] Referring Cardiac Surg 08/20/21 Store Standards Associate Relationship Specialty Start Date End Date Shelia Orr PA-C [address] [facility] [place] [address] PCP - General Family Medicine 05/20/23 Christelle Saul S [address] [facility] [facility] [address] [place] [address] Cardiology 07/18/21 Fredy Wall MD [address] [place] [address] Home Care Provider General Surgery 08/14/21 Juaquin Ernst, SUPERINTENDENT MARINE.FOLLOW UP SPECIALIST [address] [facility] [address] [place], [place] [address] [phone] Referring Cardiac Surg 08/20/21 Store Standards Associate Relationship Specialty Start Date End Date Shelia Orr PA-C [address] [facility] [place] [address] PCP - General Family Medicine 05/20/23 Christelle, [place] S [address] [place] [address] Cardiology 07/18/21 Fredy Wall MD [address] [place] [address] Home Care Provider General Surgery 08/14/21 Juaquin Ernst, SUPERINTENDENT MARINE.FOLLOW UP SPECIALIST [address] [facility] [address] [place] [address] Referring Cardiac Surg 08/20/21 Store Standards Associate Relationship Specialty Start Date End Date Shelia Orr PA-C [address] [facility] [place] [address] PCP - General Family Medicine 05/20/23 Christelle, [place] S [address] [place] [address] Cardiology 07/18/21 Fredy Wall MD [address] [place] [address] Home Care Provider General Surgery 08/14/21 Juaquin Ernst, SUPERINTENDENT MARINE.FOLLOW UP SPECIALIST [address] [facility] [address] [place] [address] Referring Cardiac Surg 08/20/21 Store Standards Associate Relationship Specialty Start Date End Date Shelia Orr PA-C [address] [place] [address] PCP - General Family Medicine 05/20/23 ChristelleSaul celis S [address] [address] Cardiology 07/18/21 Fredy Wall MD [address] [place] [address] Home Care Provider General Surgery 08/14/21 Juaquin Ernst, SUPERINTENDENT MARINE.FOLLOW UP SPECIALIST [address] [facility] [address] [place] [address] Referring Cardiac Surg 08/20/21 Store Standards Associate Relationship Specialty Start Date End Date Shelia Orr PA-C [address] [place] [address] PCP - General Family Medicine 05/20/23 Mitchel Bourgeoisril S [address] [address] Cardiology 07/18/21 Fredy Wall MD [address] [place] [address] Home Care Provider General Surgery 08/14/21 Juaquin Ernst, SUPERINTENDENT MARINE.FOLLOW UP SPECIALIST [address] [facility] [address] [place] [address] Referring Cardiac Surg 08/20/21 Store Standards Associate Relationship Specialty Start Date End Date Shelia Orr PA-C [address] [place] [address] PCP - General Family Medicine 05/20/23 Saul Bourgeois [address] [place] [address] Cardiology 07/18/21 Fredy Wall MD [address] [place] [address] Home Care Provider General Surgery 08/14/21 Juaquin Ernst, SUPERINTENDENT MARINE.FOLLOW UP SPECIALIST [address] [facility] [address] [place] [address] Referring Cardiac Surg 08/20/21 Store Standards Associate Relationship Specialty Start Date End Date Shelia Orr PA-C [address] [place] [address] PCP - General Family Medicine 05/20/23 Saul Bourgeois [address] [address] Cardiology 07/18/21 Fredy Wall MD [address] [place] [address] Home Care Provider General Surgery 08/14/21 Juaquin Ernst, SUPERINTENDENT MARINE.FOLLOW UP SPECIALIST [address] [facility] [address] [place] [address] Referring Cardiac Surg 08/20/21 Store Standards Associate Relationship Specialty Start Date End Date Shelia Orr PA-C [address] [place] [address] PCP - General Family Medicine 05/20/23 Saul Bourgeois MD [address] [facility] [address] [place] [address] Cardiology 07/18/21 Fredy Wall MD 1 [place], [place] [id number] [phone] Home Care Provider General Surgery 08/14/21 Juaquin Ernst APRN.FOLLOW UP SPECIALIST 1 [facility] [address] [place], [place] [id number] [phone] Referring Cardiac Surg 08/20/21 Store Standards Associate Relationship Specialty Start Date End Date Shelia Orr PA-C [facility] [place] [address] PCP - General Family Medicine 05/20/23 Saul Bourgeois MD [address] [address] Cardiology 07/18/21 Fredy Wall MD [address] [place], [place] [id number] [phone] Home Care Provider General Surgery 08/14/21 Juaquin Ernst, SUPERINTENDENT MARINE.FOLLOW UP SPECIALIST 1 [facility] [address] [place], [place] [address] [phone] Referring Cardiac Surg 08/20/21 (unrecognized sect ion and content) No Status Records FoundNo Status Records Found INFORMATION SOURCE (unrecogn ized section and content) DATE CREATED AUTHOR AUTHOR'S ORGANIZ ATION 11/27/2023 [facility] FOR RECORDS PERTAINING TO PATIENTS WHO ARE OR HAVE BEEN ENROLLED IN A CHEMICAL DEPENDENCY/SUBSTANCEABUSE PROGRAM, SOME INFORMATION MAY BE OMITTED. This clinical summary was aggregated from multiple sources. Caution should be exercised in using it in the provision of clinical care. This summary normalizes information from multiple sources, and as a consequence, information in this document may materially change the coding, format and clinical context of patient data. In addition, data may be omitted in some cases. CLINICAL DECISIONS SHOULD BE BASED ON THE PRIMARY CLINICAL RECORDS. [facility]. provides no warranty or guarantee of the accuracy or completeness of information in this document.
== END | disposition home or self-care (01) ==
LOC: CVS 09:43
PROVIDERS: PCP Family Medicine; Referring Provider Podiatrist; Visit Provider Podiatrist
DX: I73.9 Peripheral vascular disease, unspecified (principal)
CPT/HCPCS: 93924

== ENCOUNTER → 2024-10-18 | Outpatient (CLI) | payer MEDICARE, BC, SELFPAY ==
[2021-12-15 07:30] VITALS: BMI 30.2
[2024-10-18 12:11] LABS: Anion Gap 7 (5-15); BUN 11 mg/dL (7-18); BUN/Creat Ratio 9.8 RATIO (10-20); Calcium,Total 9.2 mg/dL (8.5-10.1); Chloride 97 mmol/L (98-107); Creatinine, Serum 1.12 mg/dL (0.70-1.30); EST Glomerular Filtration Rate 69 mL/min (>60); Est Glom Filt Rate - Afr Amer 84 mL/min (>60); Glucose 252 mg/dL (74-106); Potassium 4.2 mmol/L (3.5-5.1); Sodium Level 131 mmol/L (136-145)
== END | disposition home or self-care (01) ==
LOC: LAB 11:30
PROVIDERS: PCP Family Medicine; Referring Provider Physician Assistant Medical; Visit Provider Physician Assistant Medical
DX: I48.0 Paroxysmal atrial fibrillation (principal); I10 Essential (primary) hypertension
CPT/HCPCS: 36415; 80048

== ENCOUNTER → 2025-01-17 | Outpatient (CLI) | payer MEDICARE, BC, SELFPAY ==
[2025-01-16 15:52] VITALS: BMI 30.2
== END | disposition home or self-care (01) ==
PROVIDERS: PCP Family Medicine; Referring Provider Physician Assistant Medical; Visit Provider Physician Assistant Medical
DX: I48.0 Paroxysmal atrial fibrillation (principal); I48.92 Unspecified atrial flutter; R00.1 Bradycardia, unspecified
CPT/HCPCS: 93225; 93226